=== PATIENT | male | born 1960 | race African-American/Black ===

== ENCOUNTER 2017-01-03 23:27 | Observation (INO) ==
[2017-01-03] MEDS ORDERED: *HR* HYDROmorphone (PF) 1 MG/ML SYRINGE IVP ONE (23:48)
[2017-01-03] MEDS ORDERED: Ondansetron 4 MG/2 ML VIAL IVP ONE (23:58)
--- NOTE | 2017-01-04 00:08 | Emergency Department Note ---
Disposition Clinical Impression: Elevated troponin Chest pain Qualifiers: Chest pain type: unspecified Qualified Code(s): R07.9 - Chest pain, unspecified Disposition: Admitted As Inpatient Condition: Good Referrals: Albina Olea MD [Primary Care Provider] - Forms: Work/School Release, ED Satisfaction Letter Chest Pain HPI - General Chief Complaint: ED Chest Pain Stated Complaint: increased pain post sx Time Seen by Provider: 01/03/17 23:29 Source: family Mode of arrival: wheelchair Limitations: no limitations Vital Signs Reviewed: Yes Nursing Notes Reviewed: Yes - History of Present Illness HPI Narrative: 56-year-old male presents to the ER with a chief complaint of chest pain. Pt complaint: chest pain Onset (ago): Just HAT LINER Duration: constant Onset: during rest Pain Location: right chest Severity: moderate Severity scale (1-10): 0 Quality: sharp Pain Radiation: RUE Improves with: nothing Worsens with: nothing Context: recent surgery (permacath placement 3 days ago) Associated symptoms: Reports: nausea, vomiting, diaphoresis, dyspnea. Denies: syncope, fever Treatments prior to arrival chest pain: none - Related Data On Oral Contraceptives: No Home Medications Medication Instructions Recorded Confirmed Cyclobenzaprine HCl 5 mg PO TID PRN 06/22/15 06/24/16 Furosemide [Lasix] 40 mg PO BID 06/22/15 06/24/16 Gabapentin [Neurontin] 600 - 1,200 mg PO TID 06/22/15 06/24/16 Insulin Glargine,Hum.rec.anlog 10 unit SQ HS 06/22/15 06/24/16 [Lantus Solostar] Sevelamer [Renvela] 4,000 mg PO TIDWM 06/22/15 06/24/16 Carvedilol [Coreg] 6.25 mg PO BID 07/03/15 06/16/16 Hydrocodone/Acetaminophen [[place] 1 tab PO TID PRN 07/03/15 06/24/16 10-325 Tablet] Atorvastatin [Lipitor] 40 mg PO HS 09/05/15 06/24/16 Aspirin 81 mg PO DAILY 06/24/16 06/24/16 Clopidogrel [Plavix] 75 mg PO DAILY 06/24/16 06/24/16 Loratadine [Claritin] 10 mg PO DAILY 06/24/16 06/24/16 Nitroglycerin [Nitrostat] 0.4 mg SL AD PRN 06/24/16 06/24/16 Previous Rx's Medication Instructions Recorded Prasugrel [Effient] 10 mg PO DAILY #30 tablet 06/27/15 Isosorbide MONOnitrate (24 HR) 30 mg PO DAILY #30 tab.er.24h 06/17/16 [Imdur] Ranolazine [Ranexa] 500 mg PO BID #60 tab.er.12h 06/17/16 Allergies Allergy/AdvReac Type Severity Reaction Status Date / Time omeprazole [From Prilosec] Allergy Mild Hives Verified 06/24/16 11:29 All systems ED: reviewed and negative except as stated. Constitutional: Denies: fever Cardiovascular: Reports: chest pain, dyspnea on exertion. Denies: palpitations Respiratory: Reports: dyspnea. Denies: cough Gastrointestinal: Reports: nausea, vomiting. Denies: abdominal pain Musculoskeletal: Reports: other (Left upper extremity pain). Denies: back pain , neck pain Chest Pain PMH - Past Medical History Medical history: Reports: coronary artery disease, diabetes, dialysis, GERD, hyperlipidemia, hypertension, renal disease, TIA Surgical history: Reports: angioplasty/stent, vascular surgery Psychiatric history: Reports: no psych history - Social History Smoking Status: Never smoker Alcohol use: Reports: rarely Drug use: Reports: none Physical Exam - General Limitations: no limitations General appearance: alert, anxious - Head Head exam: atraumatic, normocephalic, normal inspection - Eye Eye exam: Present: normal appearance - ENT ENT exam: normal exam - Neck Neck exam: Present: normal inspection - Chest Chest inspection: Present: normal inspection, symmetric chest wall rise, tenderness (Tenderness to palpation surrounding the permacath on the right chest. No erythema or induration surrounding.) - Respiratory Respiratory exam: Present: normal lung sounds bilaterally. Absent: respiratory distress, wheezes, accessory muscle use - Cardiovascular Cardiovascular exam: Present: regular rate, normal rhythm, normal heart sounds - Abdominal Exam Abdominal exam: Present: soft, Non-Tender. Absent: tenderness - Expanded Upper Extremity Exam Forearm/Wrist exam: Present: other (Patient has postsurgical scar on the left upper extremity with med in place. There is a moderate amount of swelling at the proximal aspect. Neurovascularly intact in the left upper extremity.) - Expanded Lower Extremity Exam Hip/Pelvis exam: Present: normal inspection Upper leg exam: Present: normal inspection Knee exam: Present: normal inspection Lower leg exam: Present: normal inspection Ankle exam: Present: normal inspection Foot/toe exam: Present: normal inspection - Neurological Exam Neurological exam: Present: alert - Psychiatric Psychiatric exam: Present: normal affect, normal mood - Skin Skin exam: Present: warm, dry, intact Course Course Narrative: 56-year-old male history of hypertension, hyperlipidemia, diabetes, CAD with stenting, end-stage renal disease dialysis dependent who presents to the ER with a chief complaint of chest pain. Patient reports pain began roughly 45 minutes prior to arrival. He states that they were moving furniture today but he was not active during this. He states he went home and started having pain over his right chest described as sharp and radiating into the center of his chest. He reports that 3 days ago he had the permacath placed there without incident. They have used the permacath since placement. He also reports left upper extremity pain at the site of the fistula. He reports that he has vomited several times prior to arrival. No recent illnesses, fevers, cough, abdominal pain, diarrhea. No other complaints. Plan for patient is EKG, chest x-ray, basic labs including troponin. We will give him Dilaudid here for pain and reassess. - Reevaluation(s) Reevaluation #1: Patient having worsening chest pain. Repeat EKG obtained which shows no changes from his previous. Another 0.5 mg of Dilaudid ordered. Time: 00:50 Reevaluation #2: Discussed results of lab work and imaging with the patient. Vital Signs Temperature 97.5 F L 01/03/17 23:30 Pulse Rate 65 01/03/17 23:30 Respiratory Rate 24 01/03/17 23:30 Blood Pressure 181/94 01/03/17 23:30 O2 Sat by Pulse Oximetry 99 01/03/17 23:30 Temperature 97.5 F L 01/03/17 23:30 Pulse Rate 71 01/04/17 01:41 Respiratory Rate 20 01/04/17 01:41 Blood Pressure 151/70 01/04/17 01:41 O2 Sat by Pulse Oximetry 97 01/04/17 01:41 Oxygen Delivery Oxygen Delivery Nasal Cannula Chest Pain - MDM Narrative Medical decision making narrative: 56-year-old male presents to the ER with a chief complaint of chest pain. His previous presentations for CAD were right sided as well. He did have a history of permacath placement 3 days ago however it has been used without issue and chest x-ray shows appropriate location. His EKG is unchanged from his previous. Lab work here shows a creatinine of 13, potassium of 5.7 and troponin of 0.04. He was given a total of 1.5 mg of Dilaudid here with improvement of his pain. He was also given 324 mg of aspirin. Patient will be admitted to the hospital for ACS rule out. Hospitalist requests a dose of Kayexalate for his hyperkalemia. - Lab Data Lab results reviewed: Yes I reviewed the patient's lab results. Result diagrams: 01/04/17 00:59 01/04/17 00:59 Lab Results 01/04/17 01/04/17 01/04/17 Range/Units 00:59 00:59 00:59 WBC 5.3 (4.3-11.1) K/mcL RBC 3.42 L (4.19-5.50) M/mcL Hgb 11.9 L (12.9-16.9) g/dL Hct 36.6 L (37.5-50.1) % MCV 107.0 H (83.0-100.0) fL MCH 34.8 H (28.0-33.3) pg MCHC 32.5 (31.6-35.5) g/dL RDW 14.7 H (11.5-14.5) % Plt Count 121 L (140-400) K/mcL MPV 10.1 (9.4-12.4) fL Immature Gran % 0.4 (0-4) % Seg Neutrophils % 72.5 % Lymphocytes % 16.0 % Monocytes % 9.2 % Eosinophils % 1.5 % Basophils % 0.4 % Neutrophils # 3.9 (1.6-8.9) K/mcL Lymphocytes # 0.9 (0.6-4.6) K/mcL Monocytes # 0.5 (0.0-1.3) K/mcL Eosinophils # 0.1 (0.0-0.6) K/mcL Basophils # 0.0 (0.0-0.2) K/mcL PT 10.2 (9.4-12.1) Seconds INR 1.0 APTT 27.7 (26.0-36.0) Seconds Sodium 138 (136-145) mEq/L Potassium 5.7 H (3.5-4.5) mEq/L Chloride 96 L (98-109) mEq/L Carbon Dioxide 23 (19-29) mEq/L BUN 58 H (8-26) mg/dL Creatinine 13.10 H (0.72-1.25) mg/dL Est GFR ( Amer) 5 L (> 60) Est GFR (Non-Af Amer) 4 L (> 60) BUN/Creatinine Ratio 4 L (6-26) Glucose 161 H (70-99) mg/dL Calculated Osmolality 306 H (280-300) Calcium 10.3 (8.6-10.8) mg/dL Troponin I (0-0.03) ng/mL 01/04/17 Range/Units 00:59 WBC (4.3-11.1) K/mcL RBC (4.19-5.50) M/mcL Hgb (12.9-16.9) g/dL Hct (37.5-50.1) % MCV (83.0-100.0) fL MCH (28.0-33.3) pg MCHC (31.6-35.5) g/dL RDW (11.5-14.5) % Plt Count (140-400) K/mcL MPV (9.4-12.4) fL Immature Gran % (0-4) % Seg Neutrophils % % Lymphocytes % % Monocytes % % Eosinophils % % Basophils % % Neutrophils # (1.6-8.9) K/mcL Lymphocytes # (0.6-4.6) K/mcL Monocytes # (0.0-1.3) K/mcL Eosinophils # (0.0-0.6) K/mcL Basophils # (0.0-0.2) K/mcL PT (9.4-12.1) Seconds INR APTT (26.0-36.0) Seconds Sodium (136-145) mEq/L Potassium (3.5-4.5) mEq/L Chloride (98-109) mEq/L Carbon Dioxide (19-29) mEq/L BUN (8-26) mg/dL Creatinine (0.72-1.25) mg/dL Est GFR ( Amer) (> 60) Est GFR (Non-Af Amer) (> 60) BUN/Creatinine Ratio (6-26) Glucose (70-99) mg/dL Calculated Osmolality (280-300) Calcium (8.6-10.8) mg/dL Troponin I 0.04 H* (0-0.03) ng/mL - Radiology Data Radiology results reviewed: Yes I reviewed the patient's radiology results. Chest X-Ray 01/04/17 00:01 IMPRESSION: 1. No acute cardiopulmonary abnormality. 2. New right dialysis catheter tip projects at the superior cavoatrial junction. D/ / Josh Carver MD / Josh Carver MD Interpreting Provider: Josh Carver MD - EKG Data EKG attestation: Yes I reviewed and interpreted this EKG. EKG results narrative: EKG shows sinus bradycardia with a rate of 57 bpm left axis deviation AR interval with her before QRS duration 108 QTc 423 T wave flattening in lead [address] elevations or depressions. No acute ischemic findings. No significant changes from previous EKG dated 12/23/16. Repeat EKG shows sinus rhythm with a rate of 62 bpm. Left axis deviation. AR interval 171 QRS duration 114 QTc 439 t elevations or depressions. No acute ischemic findings. No significant changes from previous EKG. EKG shows normal: sinus rhythm Rate: bradycardia Rhythm: NSR [place]/QRS: left axis deviation When compared to previous EKG there are: no significant changes Interpretation: no acute changes, normal EKG, nonspecific ST-T wave changes Heart Score - Score History: Moderately Suspicious EKG: Non Specific repolarisation Disturbance Age: 45-65 Risk Factors: Equal/Greater than 3 risk factor or history of atherosclerotic disease Troponin: 1-3x normal limit HEART Score Total: 6 S.B.A.R. - S.B.A.R. Situation: Demographics, MOA Background: Presenting Complaint, Relevant PMH, Meds, & Allergies Assessment: Vital Signs, Course and respsone to treatment, Exam Concerns, Patient/Family Expectation, Pertinant Lab Results, Outstanding Labs Recommendation: Barrier(s) to disposition, Recommendation based on pending studies, treatments, or consults Ash Report Given to: Dr. Margo Aleman Repor Time: 02:12 (Hospitalist requests a dose of Kayexylate)
[2017-01-04] MEDS ORDERED: *HR* HYDROmorphone (PF) 1 MG/ML SYRINGE IVP ONE ×2 (00:37→01:23)
[2017-01-04] MEDS ORDERED: *HR* Promethazine 25 MG/ML VIAL IVP ONE (00:42)
--- NOTE | 2017-01-04 00:50 | Emergency Department Note ---
START Narrative - START START: examined this patient and my medical decision-making was reviewed with the EMPLOYMENT INSTRUCTIONAL ASSOCIATE /PA/Advanced Practice Nurse/Resident Physician. I agree with the documented findings, disposition and treatment plan as described except to the extent set forth below. ED attending note: Patient seen with emergency medicine resident Dr. Calvo. Please see a copy of his note for details of the H&P, evaluation, management and disposition of this patient. We independently had [id number] contact with the patient Briefly: A 48-year-old -[place] male via EMS percent of left-sided chest pain 45 minutes prior to arrival. History of end-stage renal disease dialysis dependent. Has a permacath surgery on his left arm done at [facility] 72 hours ago. EKG shows nonspecific ST-T changes. Patient is getting analgesics to help control the pain x-rays and blood work are pending. Admission anticipated. Provided 45 minutes of critical care service this patient. Disposition pending
[2017-01-04 01:06] LABS: Basophils % 0.4 %; Eosinophils # 0.1 K/mcL (0.0-0.6); Eosinophils % 1.5 %; Hematocrit 36.6 % (37.5-50.1); Hemoglobin 11.9 g/dL (12.9-16.9); Immature Granulocytes % 0.4 % (0-4); Lymphocytes # 0.9 K/mcL (0.6-4.6); Mean Corpuscular HGB Conc 32.5 g/dL (31.6-35.5); Mean Corpuscular Hemoglobin 34.8 pg (28.0-33.3); Mean Platelet Volume 10.1 fL (9.4-12.4); Monocytes # 0.5 K/mcL (0.0-1.3); Monocytes % 9.2 %; Neutrophils # 3.9 K/mcL (1.6-8.9); Platelet Count 121 K/mcL (140-400); Red Blood Count 3.42 M/mcL (4.19-5.50); Red Cell Distribution Width 14.7 % (11.5-14.5); Segmented Neutrophils % 72.5 %
[2017-01-04 01:13] LABS: Prothrombin Time 10.2 Seconds (9.4-12.1)
[2017-01-04 01:15] LABS: Activated Partial Thrombo Time 27.7 Seconds (26.0-36.0)
[2017-01-04 01:41] LABS: Calcium 10.3 mg/dL (8.6-10.8); Potassium 5.7 mEq/L (3.5-4.5)
[2017-01-04] MEDS ORDERED: Aspirin 81 MG TAB.CHEW PO ONE (02:02)
[2017-01-04] MEDS ORDERED: *HR* HYDROcodone/Acet 10/325 mg TABLET PO PRN (04:03)
[2017-01-04] MEDS ORDERED: Ondansetron 4 MG/2 ML VIAL IVP PRN (04:06)
[2017-01-04] MEDS ORDERED: Naloxone 0.4 MG/ML INJ IVP PRN (04:06)
[2017-01-04] MEDS ORDERED: *HR* Dextrose 50 % in Water (Syg) 50 ML SYRINGE IVP PRN (04:06)
[2017-01-04] MEDS ORDERED: Acetaminophen 325 MG TABLET PO PRN (04:06)
[2017-01-04] MEDS ORDERED: D5% in Water 1,000 ML IV PRN (04:06)
[2017-01-04] MEDS ORDERED: Dextrose Gel 15 GM PO PRN ×2 (04:06)
--- NOTE | 2017-01-04 04:13 | Internal Med History&Physical ---
<Carley Goldberg - Last Filed: 01/04/17 04:47> Date of Encounter: 01/04/17 Time of Encounter: 04:13 Assessment and Plan (1) Vomiting Current visit: Yes Status: Acute most likely viral zofran PRN 6 AM labs Qualifiers: Vomiting type: unspecified Vomiting Intractability: non-intractable Nausea presence: with nausea Qualified Code(s): R11.2 - Nausea with vomiting, unspecified (2) Chest pain Current visit: No Status: Acute Patient states feels like gas pain, relieved with emesis. troponin 0.04 -trend troponins --Of note, [email or web address] was higher than 0.04 Qualifiers: Chest pain type: unspecified Qualified Code(s): R07.9 - Chest pain, unspecified (3) Hyperkalemia Current visit: No Status: Acute kayexalate given in ER repeat labs at 6 AM nephrology consult (4) ESRD (end stage renal disease) on dialysis Current visit: No Status: Acute nephrology consult K 5.7 in ER, kayexalate given, repeat labs at 6 AM M-W-F dialysis patient of Dr. Pickering (5) Diabetes Current visit: No Status: Chronic continue home dose lantus sliding scale, accuchecks Qualifiers: Diabetes mellitus type: type 2 Diabetes mellitus complication status: with ophthalmic complications Diabetes mellitus complication detail: with diabetic retinopathy Diabetic retinopathy severity: with proliferative retinopathy Proliferative retinopathy type: unspecified Diabetes mellitus residential insulin use: with residential use Laterality: unspecified laterality Qualified Code(s): E11.3599 - Type 2 diabetes mellitus with proliferative diabetic retinopathy without macular edema, unspecified eye; Z79.4 - longterm ( current) use of insulin (6) Hyperlipidemia Current visit: No Status: Chronic continue home medication Qualifiers: Hyperlipidemia type: unspecified Qualified Code(s): E78.5 - Hyperlipidemia , unspecified (7) Hypertension Current visit: No Status: Chronic continue home medication Qualifiers: Hypertension type: essential hypertension Qualified Code(s): I10 - Essential (primary) hypertension Internal Medicine - H&P: HPI Chief complaint: vomiting Admitted From: Emergency Dept Plans for Post Hospital Care: Home History of present illness: Mr. Monge is a 56 year old hypertensive diabetic with dialysis-dependent end- stage renal disease who started vomiting at approximately 6 PM. He vomited 5-6 times clear liquid to particles to bilious emesis. He had associated nausea. Around 10 PM he developed chest pain that he describes as gas-like. Chest pain is located in the right side of his chest. It does not radiate. This is the location of his tunnel catheter. His son urged him to go to the emergency room due to his pain and his recent tunnel catheter placement for dialysis due to his fistula failing. In the emergency room he was found to have a potassium of 5.7, troponin 0.04, and a creatinine of 13.1. He was admitted for further management. Past Med Surg Social Fam HX - Past Medical History Medical history: arthritis, coronary artery disease, diabetes, dialysis, GERD, hyperlipidemia, hypertension, renal disease, TIA Psychiatric history: no psych history - Past Surgical History Surgical History: angioplasty/stent, vascular surgery - Social History Smoking Status: Never smoker Smokeless Tobacco Status: No Alcohol use: none Drug use: none - Family History Father Hx Family Cardiac Disorders: Yes Hx Family Endocrine Disorder: Yes (DM) Mother Living Status: Hx Family Cardiac Disorders: Yes Hx Family Cancer: Yes Internal Medicine - H&P: Meds Furosemide [Lasix] 40 mg PO BID 06/22/15 [History] Gabapentin [Neurontin] 100 mg PO TID 06/22/15 [History] Insulin Glargine,Hum.rec.anlog [Lantus Solostar] 10 unit SQ HS 06/22/15 [History ] Sevelamer [Renvela] 3,200 mg PO TIDWM 06/22/15 [History] Carvedilol [Coreg] 25 mg PO BID 07/03/15 [History] Hydrocodone/Acetaminophen [[place] 10-325 Tablet] 1 tab PO TID PRN 07/03/15 [ History] Atorvastatin [Lipitor] 40 mg PO HS 09/05/15 [History] Clopidogrel [Plavix] 75 mg PO DAILY 06/24/16 [History] Nitroglycerin [Nitrostat] 0.4 mg SL AD PRN 06/24/16 [History] Cinacalcet [Sensipar] 30 mg PO DAILY 01/04/17 [History] Ergocalciferol (VITAMIN D2) [Drisdol (50,000 Unit)] 50,000 unit PO QWEEK [History] Fluticasone Propionate Nasal [Flonase] 2 spray NS DAILY 01/04/17 [History] Hydralazine HCl 100 mg PO TID 01/04/17 [History] Valsartan [Diovan] 160 mg PO DAILY 01/04/17 [History] Allergies omeprazole [From Prilosec] Allergy (Mild, Verified 06/24/16 11:29) Hives All Systems PM: A 10-system review of systems was performed and is negative for pertinent findings except as documented above in the HPI. - Constitutional Constitutional: no chills, no fever(s), no night sweats - EENT Eyes: blurry vision (chronic - has proliferative diabetic retinopathy), no change in vision, no discharge, no pain, no photophobia Ears: no ear discharge, no ear pain, no tinnitus Nose, mouth and throat: no dysphagia, no nasal discharge, no neck pain, no sore throat - Cardiovascular Cardiovascular ROS IM: chest pain ("like gas"), no diaphoresis, no dyspnea, no lightheadedness, no palpitations, no syncope - Respiratory Respiratory: no cough, no dyspnea, no wheezing, no excessive phlegm production - Gastrointestinal Gastrointestinal: nausea, vomiting, no abdominal pain, no diarrhea, no hematemesis, no hematochezia, no melena - Musculoskeletal Musculoskeletal ROS IM: no numbness, no tingling - Integumentary Integumentary IM: no rash, no unusual bruising - Neurological Neurological ROS: headache(s), no confusion, no convulsions, no focal weakness, no numbness, no tingling, no tremor(s) - Hematologic/Lymphatic Hematologic/Lymphatic: no easy bruising - Constitutional Vitals: Temp Pulse Resp BP Pulse Ox 98.9 F 69 18 161/77 97 01/04/17 03:19 01/04/17 03:19 01/04/17 03:19 01/04/17 03:19 01/04/17 01:41 General appearance: Present: A&O X 3, no acute distress, answers questions appropriately - Head Head exam: Present: atraumatic, normocephalic - Eye Eye exam: Present: PERRL, conjuntiva pink, sclera anicteric Pupils: Present: PERRL - Neck Neck exam general surgery: Present: supple, trachea midline. Absent: lymphadenopathy - Respiratory Respiratory exam: Present: CTAB. Absent: accessory muscle use, rales, rhonchi, wheezes - Cardiovascular Cardiovascular exam: Present: RRR, +S1, +S2. Absent: diastolic murmur, gallop, rubs, systolic murmur - GI/Abdominal GI/Abdominal exam: Present: normal bowel sounds, soft, no peritoneal signs. Absent: distended, tenderness - Extremities Exam Extremities exam: Present: warm, radial pulses palpable and symetrical. Absent : calf tenderness, cyanotic, pedal edema - Neurological Exam Neurological exam: Present: CN II-XII intact, oriented X3, no focal deficits. Absent: pronater drift, facial droop, speech deficit - Skin Skin exam: Present: dry, intact Internal Med - H&P Results - Labs CBC & Chem 7: 01/04/17 00:59 01/04/17 00:59 <Milind Augustine - Last Filed: 01/04/17 05:45> Date of Encounter: 01/04/17 - EENT Nose, mouth and throat: no nasal congestion, no sinus pressure, no sore throat - Musculoskeletal Musculoskeletal ROS IM: no muscle cramps, no myalgias - Psychiatric Psychiatric: no anxiety, no depression - Allergic/Immunologic Allergic/Immunologic: GI upset with certain foods, no wheezing - Constitutional Vitals: Temp Pulse Resp BP Pulse Ox 98.9 F 69 18 161/77 97 01/04/17 03:19 01/04/17 03:19 01/04/17 03:19 01/04/17 03:19 01/04/17 01:41 General appearance: Present: A&O X 3, no acute distress Exam: he appears dry/dehydrated - ENT ENT exam: Present: mucous membranes dry, normal exam, normal oropharynx - Neck Neck exam general surgery: Present: supple. Absent: tenderness - Respiratory Respiratory exam: Present: CTAB. Absent: chest wall tenderness, rales, rhonchi , wheezes - Cardiovascular Cardiovascular exam: Present: RRR, +S1, +S2 Additional comments: chest pain free - GI/Abdominal GI/Abdominal exam: Present: normal bowel sounds, soft. Absent: guarding, rebound, tenderness - Extremities Exam Extremities exam: Present: warm. Absent: calf tenderness, joint swelling - Back Exam Back exam: Present: normal inspection. Absent: CVA tenderness (L), CVA tenderness (R) - Neurological Exam Neurological exam: Present: no focal deficits - Psychiatric Psychiatric exam: Present: normal affect, normal mood - Skin Skin exam: Present: dry, warm. Absent: rash Internal Med - H&P Results - Labs CBC & Chem 7: 01/04/17 00:59 01/04/17 00:59 - EKG Data -: EKG Interpreted by Myself EKG shows normal: sinus rhythm Rate: bradycardia - EKG Data EKG comments: 01/04/17 05:35 Sinus bradycardia; no acute ST-T changes - Diagnostic Studies Chest x-ray Status: image reviewed by me (negative; dialysis catheter visualized) - Attending Attestation I discussed the patient [place], PMH, ROS, lab data, and exam findings with Dr. Goldberg. I then saw and examined patient independently as well. I agree with her assessment and plan except as detailed below. I don't feel he has had any chest pain or anginal symptoms at all. Patient confirms this as well. He looks dry and I requested Dr. Goldberg gingerly hydrate him with IVF. He may also have underlying gastroparesis. However, his symptom onset was abrupt and sounds viral in nature. Thus, I agree with her plan of care. If symptoms persist, consider nuclear gastric emptying scan and treating as such. Other than my comments noted above and exam findings, I agree with Dr. Goldberg's assessment and plan.
[2017-01-04] MEDS ORDERED: 0.9 % Sodium Chloride 1,000 ML IVC SCH (04:15)
[2017-01-04] MEDS ORDERED: hydrALAZINE 10 MG TABLET PO ONE (04:24)
[2017-01-04] MEDS: *HR* Heparin 5,000 UNIT/ML VIAL SQ SCH ×2 (06:14→15:22)
[2017-01-04] MEDS: Insulin LISPRO 300 UNITS/3 ML VIAL SQ SCH ×3 (06:15→17:33)
[2017-01-04 07:47] LABS: Basophils % 0.4 %; Eosinophils # 0.1 K/mcL (0.0-0.6); Eosinophils % 2.2 %; Hematocrit 35.8 % (37.5-50.1); Hemoglobin 11.5 g/dL (12.9-16.9); Immature Granulocytes % 0.2 % (0-4); Lymphocytes % 19.3 %; Mean Corpuscular HGB Conc 32.1 g/dL (31.6-35.5); Mean Corpuscular Hemoglobin 34.4 pg (28.0-33.3); Mean Corpuscular Volume 107.2 fL (83.0-100.0); Mean Platelet Volume 10.6 fL (9.4-12.4); Monocytes # 0.5 K/mcL (0.0-1.3); Monocytes % 10.3 %; Neutrophils # 3.4 K/mcL (1.6-8.9); Platelet Count 104 K/mcL (140-400); Red Blood Count 3.34 M/mcL (4.19-5.50); Red Cell Distribution Width 14.8 % (11.5-14.5); Segmented Neutrophils % 67.6 %
[2017-01-04 07:58] LABS: Phosphorous 8.8 mg/dL (2.3-4.7)
[2017-01-04 08:02] LABS: Albumin 3.2 g/dL (3.5-5.0); Albumin/Globulin Ratio 0.9 (1.1-2.2); Bilirubin,Total 0.5 mg/dL (0.2-1.2); Calcium 9.7 mg/dL (8.6-10.8); Globulin 3.5 g/dL (2.4-3.5); Potassium 5.5 mEq/L (3.5-4.5); Total Protein 6.7 g/dL (6.0-8.3)
[2017-01-04] MEDS: Gabapentin 100 MG CAPSULE PO SCH ×2 (08:19→15:21)
[2017-01-04] MEDS ORDERED: NON-FORMULARY MEDICATION 1 EACH EACH (Omeprazole [Omeprazole] 20 MG) PO SCH (09:00)
[2017-01-04] MEDS ORDERED: Furosemide 40 MG TABLET PO SCH (09:00)
[2017-01-04] MEDS ORDERED: Valsartan 160 MG TABLET PO SCH (09:00)
[2017-01-04] MEDS: hydrALAZINE 25 MG TABLET PO SCH ×2 (09:44→15:21)
--- NOTE | 2017-01-04 09:57 | Nephrology Consult Note ---
Date of Encounter: 01/04/17 Time of Encounter: 08:40 Assessment and Plan (1) ESRD (end stage renal disease) on dialysis Status: Chronic Today on Thursday, he does not need urgent HD. Will plan for HD tomorrow (Thursday), if he remains inpatient. Low K+ diet was advised as is a low Phos diet. Okay from a nephrology perspective to discharge If he were to stay overnight, then stop the IVF to reduce the risks for XS intradialytic weight gain. (2) Vomiting Status: Acute Improving Qualifiers: Vomiting type: unspecified Vomiting Intractability: non-intractable Nausea presence: with nausea Qualified Code(s): R11.2 - Nausea with vomiting, unspecified (3) Hyperkalemia Status: Chronic See above (4) Hypertension Status: Chronic BPs controlled Qualifiers: Hypertension type: essential hypertension Qualified Code(s): I10 - Essential (primary) hypertension History of Present Illness - Reason for Consult Consult date: 01/04/17 end stage renal disease Requesting physician: Milind Augustine - Chief Complaint N/V, ESRD patient - History of Present Illness Man Monge is a very pleasant AAM with a pmh of HTN, obesity, ESRD on HD M/W/F , SHPT and et al who presented with a few days onset of N/V s/p surgery on his UE AVF. He also required placement of an Permacath. On the morning of exam, he said that his N/V had resolved and he was keeping down his food and liquids. He did not affirm CP, dyspnea, F/C, dysuria. He last attending HD on Thursday. Past Med Surg Social Fam HX - Past Medical History Medical history: arthritis, coronary artery disease, diabetes, dialysis, GERD, hyperlipidemia, hypertension, renal disease, TIA Psychiatric history: no psych history - Past Surgical History Surgical History: angioplasty/stent, vascular surgery - Social History Smoking Status: Never smoker Smokeless Tobacco Status: No Alcohol use: none Drug use: none - Family History Father Hx Family Cardiac Disorders: Yes Hx Family Endocrine Disorder: Yes (DM) Mother Living Status: Hx Family Cardiac Disorders: Yes Hx Family Cancer: Yes Medications and Allergies Furosemide [Lasix] 40 mg PO BID 06/22/15 [History] Gabapentin [Neurontin] 100 mg PO TID 06/22/15 [History] Insulin Glargine,Hum.rec.anlog [Lantus Solostar] 10 unit SQ HS 06/22/15 [History ] Sevelamer [Renvela] 3,200 mg PO TIDWM 06/22/15 [History] Carvedilol [Coreg] 12.5 mg PO BID 07/03/15 [History] Atorvastatin [Lipitor] 40 mg PO HS 09/05/15 [History] Clopidogrel [Plavix] 75 mg PO DAILY 06/24/16 [History] Nitroglycerin [Nitrostat] 0.4 mg SL AD PRN 06/24/16 [History] Amlodipine [Norvasc] 10 mg PO DAILY 01/04/17 [History] Cinacalcet [Sensipar] 30 mg PO DAILY 01/04/17 [History] Ergocalciferol (VITAMIN D2) [Drisdol (50,000 Unit)] 50,000 unit PO QWEEK [History] Fluticasone Propionate Nasal [Flonase] 100 mcg NS DAILY 01/04/17 [History] Gabapentin [Neurontin] 600 - 1,200 mg PO Q8H PRN 01/04/17 [History] HYDROcodone/Acet 10/325 mg [[place] 10-325 mg] 1 each PO BID PRN #10 tablet [Rx] Hydralazine HCl 100 mg PO TID 01/04/17 [History] Omeprazole [PriLOSEC] 20 mg PO DAILY 01/04/17 [History] Vitamin B Complex [B Complex] 1 tab PO DAILY 01/04/17 [History] Allergies omeprazole [From Prilosec] Allergy (Mild, Verified 06/24/16 11:29) Hives Review of Systems All Systems: reviewed and no additional remarkable complaints except as stated Exam - Vital Signs Vital signs: Initial Vital Signs Temp Pulse Resp BP Pulse Ox 97.5 F L 65 24 181/94 99 01/03/17 23:30 01/03/17 23:30 01/03/17 23:30 01/03/17 23:30 01/03/17 23:30 Vital Signs - Last 8 Hours Temp Pulse Resp BP Pulse Ox 01/04/17 08:18 93 L 01/04/17 08:16 97.4 F L 61 18 162/75 93 L 01/04/17 03:19 98.9 F 69 18 161/77 01/04/17 02:30 18 176/75 Intake and Output 01/03/17 01/04/17 01/04/17 23:59 07:59 15:59 Intake Total 0 / 0 Output Total 0 / 0 Balance 0 / 0 Intake: Oral 0 / 0 Output: Urine 0 / 0 Other: Weight 132.5 kg Blood Glucose* 123 Patient Weight 01/04/17 23:59 Weight 132.5 kg - General Appearance General appearance: well-developed, well-nourished, appears started age, obese EENT: ATNC, PERRL, mucous membranes moist Neck: no JVD, supple Respiratory: clear Cardiology: no murmurs, edema (trace pedal edema), regular rate, regular rhythm , normal S1, normal S2 - Dialysis Access Dialysis Vascular Access: Arteriovenous Fistula (Left forearm thick dressing was C/D/I and prevented close palpation or auscultation. Right chest Permacath) Gastrointestinal: normoactive bowel sounds, no tenderness, no guarding Integumentary: warm and dry Neurologic: no focal deficit, no asterixis, alert and oriented x3 Musculoskeletal: no deformities, no erythema, no cyanosis Psychiatric: mood/affect appropriate, cooperative Results - Lab Results 01/04/17 06:59 01/04/17 06:59 Most recent lab results Calcium 9.7 mg/dL (8.6-10.8) 01/04/17 06:59 Phosphorus 8.8 mg/dL (2.3-4.7) H 01/04/17 06:59 Magnesium 3.0 mg/dL (1.6-2.6) H 01/04/17 06:59 I reviewed the above labs, meds, vitals, imaging and outside medical records from [facility] ([facility] [place]). Consult Discharge Plan - Plan Instructions: Hydrocodone/Acetaminophen (By mouth), Chest Pain (DC), Diabetes Mellitus Type 2 in Adults (DC), Chronic Hypertension (DC) Additional Instructions: Do not take your home medication: VALSARTAN (DIOVAN) until you see your kidney doctor. check your BP daily check your blood sugar when you wake up and before bedtime and if less than 150 , do not take you Lantus. follow up with your doctor and bring numbers of blood sugar to the appt. talk to your doctor about losing weight. Referrals: Albina Olea MD [Primary Care Provider] - (Requested 01-04-17) Prescriptions: HYDROcodone/Acet 10/325 mg [Al[place] 10-325 mg] 1 each PO BID PRN #10 tablet PRN Reason: Pain
[2017-01-04 15:40] VITALS: BP 163/88
--- NOTE | 2017-01-04 17:18 | Discharge Summary ---
Date of Encounter: 01/04/17 Time of Encounter: 16:00 - Discharge Diagnosis (1) Vomiting Priority: Primary Status: Acute Comments: Viral gastroenteritis. Resolved. Patient is eating well. He has no complaints. His aortic to go home. Qualifiers: Vomiting type: unspecified Vomiting Intractability: non-intractable Nausea presence: with nausea Qualified Code(s): R11.2 - Nausea with vomiting, unspecified (2) Dehydration Priority: Primary Status: Acute Comments: Patient received gentle IV fluid hydration. He ate all his meal (3) Hyperkalemia Priority: Primary Status: Chronic Comments: Potassium at 5.5. Patient with end-stage renal disease. hOld home dose of valsartan. Continue dialysis as scheduled. (4) Diabetes Priority: Secondary Status: Chronic Qualifiers: Diabetes mellitus type: type 2 Diabetes mellitus complication status: with ophthalmic complications Diabetes mellitus complication detail: with diabetic retinopathy Diabetic retinopathy severity: with proliferative retinopathy Proliferative retinopathy type: unspecified Diabetes mellitus intermodal customer service insulin use: with snf use Laterality: unspecified laterality Qualified Code(s): E11.3599 - Type 2 diabetes mellitus with proliferative diabetic retinopathy without macular edema, unspecified eye; Z79.4 - medical terminologist ( current) use of insulin (5) ESRD (end stage renal disease) on dialysis Priority: Secondary Status: Chronic (6) HTN (hypertension) Priority: Secondary Status: Chronic Qualifiers: Hypertension type: essential hypertension Qualified Code(s): I10 - Essential (primary) hypertension - Discharge Medications Prescriptions: HYDROcodone/Acet 10/325 mg [[place] 10-325 mg] 1 each PO BID PRN #10 tablet PRN Reason: Pain Home Medications: Furosemide [Lasix] 40 mg PO BID 06/22/15 [History] Gabapentin [Neurontin] 100 mg PO TID 06/22/15 [History] Insulin Glargine,Hum.rec.anlog [Lantus Solostar] 10 unit SQ HS 06/22/15 [History ] Sevelamer [Renvela] 3,200 mg PO TIDWM 06/22/15 [History] Carvedilol [Coreg] 12.5 mg PO BID 07/03/15 [History] Atorvastatin [Lipitor] 40 mg PO HS 09/05/15 [History] Clopidogrel [Plavix] 75 mg PO DAILY 06/24/16 [History] Nitroglycerin [Nitrostat] 0.4 mg SL AD PRN 06/24/16 [History] Amlodipine [Norvasc] 10 mg PO DAILY 01/04/17 [History] Cinacalcet [Sensipar] 30 mg PO DAILY 01/04/17 [History] Ergocalciferol (VITAMIN D2) [Drisdol (50,000 Unit)] 50,000 unit PO QWEEK [History] Fluticasone Propionate Nasal [Flonase] 100 mcg NS DAILY 01/04/17 [History] Gabapentin [Neurontin] 600 - 1,200 mg PO Q8H PRN 01/04/17 [History] HYDROcodone/Acet 10/325 mg [[place] 10-325 mg] 1 each PO BID PRN #10 tablet [Rx] Hydralazine HCl 100 mg PO TID 01/04/17 [History] Omeprazole [PriLOSEC] 20 mg PO DAILY 01/04/17 [History] Vitamin B Complex [B Complex] 1 tab PO DAILY 01/04/17 [History] Allergies/Adverse Reactions: Allergies omeprazole [From Prilosec] Allergy (Mild, Verified 06/24/16 11:29) Hives Date of admission: 01/04/17 02:11 Primary care physician: Albina Olea, Consults: 01/04/17 04:35 Consult to Nephrology [CONS] Routine Consulting Provider: Kidney Maritza/LUZMA/RAYSHAWN/HELLEN Reason for Consult: Dialysis dependent ESRD (M-W-F); K 5.7 in ER - Kayexalate given, repeat labs at 6 AM Call Completed: No - Patient Status Disposition: Home, Self-Care Condition: Good Functional capacity at discharge: independent ambulation Overall status at discharge: patient is progressing back to baseline - Discharge Instructions Follow Up With: Albina Olea MD [Primary Care Provider] - (Requested 01-04-17) Additional Instructions: Do not take your home medication: VALSARTAN (DIOVAN) until you see your kidney doctor. check your BP daily check your blood sugar when you wake up and before bedtime and if less than 150 , do not take you Lantus. follow up with your doctor and bring numbers of blood sugar to the appt. talk to your doctor about losing weight. - Diet and Activity Activity: resume usual activities as tolerated Diet: diabetic diet, low fat, low cholesterol, low salt diet, other (Renal) Interval History: Patient is eating well. No vomiting. His ER to go home. Hospital course: Mr. Monge is a 56 year old male with past medical history of end-stage renal disease on hemodialysis, CAD, diabetes, hypertension, CAD, and obesity. He presented with vomiting. Patient was admitted for viral gastroenteritis and dehydration. He received IV fluids and antiemetics with clinical resolution of his symptoms. At discharge, patient was eating and ambulating well. He did not meet criteria for oxygen at home. His potassium was mildly elevated at 5.5 , his pulse ox was held. He will follow up with his die cut operator at the dialysis clinic tomorrow. PLAN: Check blood pressure daily. Check blood sugars twice daily. Follow-up with ECP for weight loss program, diabetes management. Follow-up in the dialysis clinic as scheduled. - Time Spent with Patient Total time spent providing and/or coordinating discharge services: - Constitutional Vitals: Temp Pulse Resp BP Pulse Ox 97.8 F 84 18 163/88 94 L 01/04/17 15:39 01/04/17 15:39 01/04/17 15:39 01/04/17 15:39 01/04/17 16:55 General appearance: Present: A&O X 3, no acute distress
[2017-01-04] MEDS ORDERED: amLODIPine 5 MG TABLET PO SCH (17:30)
[2017-01-04] MEDS ORDERED: Insulin DETEMIR 100 UNIT/ML X5UNITS SQ SCH (21:00)
--- NOTE | 2017-01-05 14:58 | Electrocardiograph Report ---
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
--- NOTE | 2017-01-05 15:03 | Electrocardiograph Report ---
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
== END 2017-01-04 18:11 | disposition home or self-care (01) ==
LOC: EMEROO 23:27 → 2ANU 23:27
PROVIDERS: ADMIT Internal Medicine; ATTEND Internal Medicine

== ENCOUNTER 2017-01-28 20:30 | Observation (INO) ==
[2017-01-28] MEDS ORDERED: 0.9 % Sodium Chloride 1,000 ML IVC ONE (20:43)
[2017-01-28 20:52] LABS: Basophils % 0.6 %; Eosinophils # 0.1 K/mcL (0.0-0.6); Hemoglobin 13.6 g/dL (12.9-16.9); Immature Granulocytes % 0.6 % (0-4); Lymphocytes # 0.8 K/mcL (0.6-4.6); Lymphocytes % 22.3 %; Mean Corpuscular HGB Conc 32.4 g/dL (31.6-35.5); Mean Corpuscular Hemoglobin 34.8 pg (28.0-33.3); Mean Corpuscular Volume 107.4 fL (83.0-100.0); Mean Platelet Volume 10.6 fL (9.4-12.4); Monocytes # 0.4 K/mcL (0.0-1.3); Monocytes % 11.6 %; Neutrophils # 2.3 K/mcL (1.6-8.9); Platelet Count 110 K/mcL (140-400); Red Blood Count 3.91 M/mcL (4.19-5.50); Red Cell Distribution Width 16.5 % (11.5-14.5); Segmented Neutrophils % 61.9 %
[2017-01-28 20:56] LABS: Prothrombin Time 10.6 Seconds (9.4-12.1)
[2017-01-28 21:03] LABS: Alanine Aminotransferase 18 Units/L (0-55); Albumin 3.6 g/dL (3.5-5.0); Albumin/Globulin Ratio 0.9 (1.1-2.2); Alkaline Phosphatase 76 Units/L (38-126); Aspartate Amino Transferase 29 Units/L (5-34); BUN/Creatinine Ratio 3 (6-26); Bilirubin,Direct 0.3 mg/dL (0.0-0.5); Bilirubin,Indirect 0.5 mg/dL (0.0-1.2); Bilirubin,Total 0.8 mg/dL (0.2-1.2); Blood Urea Nitrogen 36 mg/dL (8-26); Calcium 9.9 mg/dL (8.6-10.8); Carbon Dioxide 28 mEq/L (19-29); Chloride 93 mEq/L (98-109); Glucose 265 mg/dL (70-99); Osmolality,Calculated 304 (280-300); Sodium 138 mEq/L (136-145); Total Protein 7.6 g/dL (6.0-8.3); eGFR For African Americans 6 (> 60); eGFR For Non-African Americans 5 (> 60)
[2017-01-28 21:04] LABS: Ethanol < 10 mg/dL (0-10); Potassium 4.9 mEq/L (3.5-4.5)
[2017-01-28] MEDS ORDERED: *HR* FentaNYL (PF) 100 MCG/2 ML VIAL IVP ONE ×2 (21:14→23:06)
--- NOTE | 2017-01-28 22:11 | Emergency Department Note ---
Disposition Clinical Impression: Dehydration Altered mental status Qualifiers: Altered mental status type: stupor Qualified Code(s): R40.1 - Stupor Dialysis complication Qualifiers: Encounter type: initial encounter Qualified Code(s): T82.898A - Other specified complication of vascular prosthetic devices, implants and grafts, initial encounter Disposition: Admitted As Inpatient Condition: Fair Time of Disposition: 00:19 Altered Mental Status HPI - General Chief Complaint: ED General Medical Stated Complaint: unresponsive Time Seen by Provider: 01/28/17 20:42 Source: patient, family, EMS Limitations: no limitations Nursing Notes Reviewed: Yes Vital Signs Reviewed: Yes - History of Present Illness HPI Narrative: Patient presents emergency room by EMS for evaluation of altered mental status. The local police officers pulled him over on his way to work.. He has known dialysis and is receiving hemodialysis this morning. Patient is going into [facility]. Had acute onset of altered mental status somnolence. He has never had any like this before. Family does describe that he does have issues with somnolence after having his dialysis was never been this bad. Patient presented by EMS with stable vital signs. Heart rate was normal. Blood pressure was elevated in the 160-170 systolic range. Head is atraumatic. Pupils are equal and reactive to light. Glucose was checked in transit at 250. IV access was obtained immediately on presentation. Fluids ordered. 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 Pain Severity: moderate Context: history of similar presentation, other (Patient is a dialysis regiment on Thursday) Associated symptoms: Reports: malaise, nausea/vomiting - Related Data Home Medications Medication Instructions Recorded Confirmed Furosemide [Lasix] 40 mg PO BID 06/22/15 01/29/17 Insulin Glargine,Hum.rec.anlog 10 unit SQ HS 06/22/15 01/29/17 [Lantus Solostar] Sevelamer [Renvela] 3,200 mg PO TIDWM 06/22/15 01/29/17 Carvedilol [Coreg] 12.5 mg PO BID 07/03/15 01/29/17 Atorvastatin [Lipitor] 40 mg PO HS 09/05/15 01/29/17 Clopidogrel [Plavix] 75 mg PO DAILY 06/24/16 01/29/17 Nitroglycerin [Nitrostat] 0.4 mg SL AD PRN 06/24/16 01/29/17 Amlodipine [Norvasc] 10 mg PO DAILY 01/04/17 01/29/17 Cinacalcet [Sensipar] 30 mg PO DAILY 01/04/17 01/29/17 Ergocalciferol (VITAMIN D2) 50,000 unit PO QWEEK 01/04/17 01/29/17 [Drisdol (50,000 Unit)] Fluticasone Propionate Nasal 100 mcg NS DAILY 01/04/17 01/29/17 [Flonase] Gabapentin [Neurontin] 600 - 1,200 mg PO Q8H PRN 01/04/17 01/29/17 Hydralazine HCl 100 mg PO TID 01/04/17 01/29/17 Omeprazole [PriLOSEC] 20 mg PO DAILY 01/04/17 01/29/17 Vitamin B Complex [B Complex] 1 tab PO DAILY 01/04/17 01/29/17 Previous Rx's Medication Instructions Recorded HYDROcodone/Acet 10/325 mg [[place] 1 each PO BID PRN #10 tablet 01/04/17 10-325 mg] Allergies Allergy/AdvReac Type Severity Reaction Status Date / Time omeprazole [From Prilosec] Allergy Mild Hives Verified 01/05/17 23:39 All systems ED: reviewed and negative except as stated. Constitutional: Denies: fever, chills Respiratory: Denies: cough, dyspnea, wheezes, hemoptysis Gastrointestinal: Reports: nausea. Denies: abdominal pain, vomiting Neurological: Reports: weakness Past Medical History - Past Medical History Attestation: Yes The following information was validated with the patient. Source: patient Medical history: Reports: arthritis, coronary artery disease, diabetes, dialysis , GERD, hyperlipidemia, hypertension, renal disease, TIA Surgical history: Reports: angioplasty/stent, vascular surgery Psychiatric history: Reports: no psych history - Social History Smoking Status: Never smoker Smokeless Tobacco Status: No Alcohol use: Reports: none Drug use: Reports: none Physical Exam - General Limitations: no limitations General appearance: in no apparent distress, lethargic - Head Head exam: atraumatic, normocephalic, normal inspection - Eye Eye exam: Present: normal appearance, PERRL, EOMI. Absent: scleral icterus, conjunctival injection, nystagmus, miosis, mydriasis - ENT ENT exam: normal exam, normal oropharynx, other (Patient's mucous membranes appear to be dry lips are cracked.) - Neck Neck exam: Present: normal inspection, full ROM, trachea midline - Respiratory Respiratory exam: Present: normal lung sounds bilaterally - Cardiovascular Cardiovascular exam: Present: regular rate, normal rhythm, normal heart sounds - Abdominal Exam Abdominal exam: Present: soft, Non-Tender. Absent: tenderness, distention, guarding, rebound, rigidity - Extremities Exam Extremities exam: Present: normal inspection, full ROM, normal capillary refill. Absent: tenderness, pedal edema - Back Exam Back exam: Present: normal inspection - Neurological Exam Neurological exam: Present: alert, oriented X3, CN II-XII intact - Skin Skin exam: Present: warm, dry, intact, normal color Course Course Narrative: Patient seen and examined the time of arrival here to the emergency room. See history of present illness. 56-year-old male presents after being pulled over by the police today for sporadic driving. He is found to be acutely altered at that time. They called the ambulance to bring him in. Patient is known to be on dialysis. He has dialysis every Thursday. He is cared for by Dr. Pickering. He had dialysis this morning and from what he describes it was his normal treatment. Patient is alert and oriented on presentation Accu-Chek and transit was 2:30. Vital signs stable except for persistent hypertension. Patient is mentating but does appear to be slightly somnolent on initial triage evaluation. Head is atraumatic. Pupils are equal round reactive to light. Mucous membranes appear to be dry and cracked. Heart is regular lungs are clear. Abdomen is soft nontender nondistended. Moves all 4 extremities no acute signs of strokelike symptoms. Patient speaks in full sentences and answers questions. He has had a history of TIAs as well as renal dysfunction. No acute signs of infectious etiology on initial presentation patient is concerning for some disequilibrium is syndrome over issues related to his dialysis. IV access obtained. EKG ordered. Labs including chemistry electrolytes added on immediately. Initial rhythm on the monitor shows sinus rhythm with no acute signs of T-wave elevation patient to have CT imaging of the head labs EKG urinalysis ordered this time. Mentation is at baseline. No acute signs of strokelike symptom at this point. Patient is at baseline except for he does feel tired. Family is at the bedside and they said that he has gotten this way several times in the past after having his dialysis. This is the worst is ever been according to them. No medication changes no other acute medical issues at this time. Disposition will most likely be admission to the hospital rotation is otherwise stable at this time. - Reevaluation(s) Reevaluation #1: CT imaging of the head was negative for acute intracranial pathology. The patient has persistently been elevated. Labetalol and pain medication ordered at this time. Disposition pending workup laboratory workup Time: 23:49 Reevaluation #2: Patient was discussed with the hospitalist Dr. Patel. We reviewed the patient 's presentation medical history and symptom presentation. He is happy to bring the patient for further evaluation of altered mental status and dialysis. Unknown etiology specifically at this time. Concern is noted for disequilibrium syndrome and dehydration. No other recommendations from hospitals prior to admission being completed. Patient stable resting comfortably in the bed. We will continue monitoring in emergency room until the admission process is completed Time: 00:18 Vital Signs Temperature 98.4 F 01/28/17 20:34 Pulse Rate 79 01/28/17 20:34 Respiratory Rate 16 01/28/17 20:34 Blood Pressure 170/99 01/28/17 20:34 O2 Sat by Pulse Oximetry 99 01/28/17 20:34 Temperature 98.3 F 01/29/17 01:00 Pulse Rate 76 01/29/17 01:00 Respiratory Rate 18 01/29/17 01:00 Blood Pressure 144/90 01/29/17 01:00 O2 Sat by Pulse Oximetry 98 01/29/17 01:00 Oxygen Delivery Oxygen Delivery Nasal Cannula Altered Mental Status - MDM Narrative Medical decision making narrative: Mental status, generalized malaise - Medical Records Medical records reviewed: Yes I reviewed the patient's medical records. - Lab Data Lab results reviewed: Yes I reviewed the patient's lab results. Result diagrams: 01/28/17 20:35 01/28/17 20:35 Lab Results 01/28/17 01/28/17 01/28/17 Range/Units 20:35 20:35 20:35 WBC 3.6 L (4.3-11.1) K/mcL RBC 3.91 L (4.19-5.50) M/mcL Hgb 13.6 (12.9-16.9) g/dL Hct 42.0 (37.5-50.1) % MCV 107.4 H (83.0-100.0) fL MCH 34.8 H (28.0-33.3) pg MCHC 32.4 (31.6-35.5) g/dL RDW 16.5 H (11.5-14.5) % Plt Count 110 L (140-400) K/mcL MPV 10.6 (9.4-12.4) fL Immature Gran % 0.6 (0-4) % Seg Neutrophils % 61.9 % Lymphocytes % 22.3 % Monocytes % 11.6 % Eosinophils % 3.0 % Basophils % 0.6 % Neutrophils # 2.3 (1.6-8.9) K/mcL Lymphocytes # 0.8 (0.6-4.6) K/mcL Monocytes # 0.4 (0.0-1.3) K/mcL Eosinophils # 0.1 (0.0-0.6) K/mcL Basophils # 0.0 (0.0-0.2) K/mcL PT 10.6 (9.4-12.1) Seconds INR 1.0 APTT 29.0 (26.0-36.0) Seconds Sodium 138 (136-145) mEq/L Potassium 4.9 H (3.5-4.5) mEq/L Chloride 93 L (98-109) mEq/L Carbon Dioxide 28 (19-29) mEq/L BUN 36 H (8-26) mg/dL Creatinine 10.59 H (0.72-1.25) mg/dL Est GFR ( Amer) 6 L (> 60) Est GFR (Non-Af Amer) 5 L (> 60) BUN/Creatinine Ratio 3 L (6-26) Glucose 265 H (70-99) mg/dL POC Glucose (58-89) Calculated Osmolality 304 H (280-300) Calcium 9.9 (8.6-10.8) mg/dL Total Bilirubin 0.8 (0.2-1.2) mg/dL Direct Bilirubin 0.3 (0.0-0.5) mg/dL Indirect Bilirubin 0.5 (0.0-1.2) mg/dL AST 29 (5-34) Units/L ALT 18 (0-55) Units/L Alkaline Phosphatase 76 (38-126) Units/L Troponin I (0-0.03) ng/mL Serum Total Protein 7.6 (6.0-8.3) g/dL Albumin 3.6 (3.5-5.0) g/dL Globulin 4.0 H (2.4-3.5) g/dL Albumin/Globulin Ratio 0.9 L (1.1-2.2) Ethyl Alcohol < 10 (0-10) mg/dL 01/28/17 01/28/17 Range/Units 20:35 20:51 WBC (4.3-11.1) K/mcL RBC (4.19-5.50) M/mcL Hgb (12.9-16.9) g/dL Hct (37.5-50.1) % MCV (83.0-100.0) fL MCH (28.0-33.3) pg MCHC (31.6-35.5) g/dL RDW (11.5-14.5) % Plt Count (140-400) K/mcL MPV (9.4-12.4) fL Immature Gran % (0-4) % Seg Neutrophils % % Lymphocytes % % Monocytes % % Eosinophils % % Basophils % % Neutrophils # (1.6-8.9) K/mcL Lymphocytes # (0.6-4.6) K/mcL Monocytes # (0.0-1.3) K/mcL Eosinophils # (0.0-0.6) K/mcL Basophils # (0.0-0.2) K/mcL PT (9.4-12.1) Seconds INR APTT (26.0-36.0) Seconds Sodium (136-145) mEq/L Potassium (3.5-4.5) mEq/L Chloride (98-109) mEq/L Carbon Dioxide (19-29) mEq/L BUN (8-26) mg/dL Creatinine (0.72-1.25) mg/dL Est GFR ( Amer) (> 60) Est GFR (Non-Af Amer) (> 60) BUN/Creatinine Ratio (6-26) Glucose (70-99) mg/dL POC Glucose 303 H (58-89) Calculated Osmolality (280-300) Calcium (8.6-10.8) mg/dL Total Bilirubin (0.2-1.2) mg/dL Direct Bilirubin (0.0-0.5) mg/dL Indirect Bilirubin (0.0-1.2) mg/dL AST (5-34) Units/L ALT (0-55) Units/L Alkaline Phosphatase (38-126) Units/L Troponin I 0.05 H* (0-0.03) ng/mL Serum Total Protein (6.0-8.3) g/dL Albumin (3.5-5.0) g/dL Globulin (2.4-3.5) g/dL Albumin/Globulin Ratio (1.1-2.2) Ethyl Alcohol (0-10) mg/dL - Radiology Data Radiology results reviewed: Yes I reviewed the patient's radiology results. CT head is negative for acute pathology. Chest x-ray does not show any acute pulmonary infiltrate. CT imaging of the abdomen is negative for acute intra- abdominal pathology - EKG Data EKG attestation: Yes I reviewed and interpreted this EKG. 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 56-year-old male brought in by EMS after pulled over by police for erratic driving. Patient is somnolent and fatigued with altered mental status. Patient is oriented to self and is able to provide some history however he is unable to have a full discussion regarding his symptoms. Family is present in the room and states that this is happened multiple times in the past. Patient receives dialysis Thursday, Thursday, Thursday and had his last session this morning. Patient denies recent trauma. Denies changing his medications. Patient denies fever, chills, headache. Patient reports multiple episodes of emesis over the past few days. Laboratory results reveal a leukopenia and thrombocytopenia. Patient has an elevated troponin however this is at his baseline. Head CT was negative for intracranial hemorrhage or mass. CT of the abdomen and pelvis was negative for acute surgical pathology. Patient will be admitted to the hospital for further care and evaluation of his altered mental status. It is likely that the patient's symptoms are secondary to or related to his dialysis this morning. Patient's blood pressure continued to be elevated in the emergency department. He was given one IV dose of labetalol with improvement of his blood pressure. Patient states his blood pressure is often elevated however with his altered mental status the PRES would need to be considered, however his CT does not show evidence of inflammation of the cerebellum or other cranial pathology.
[2017-01-28] MEDS ORDERED: *HR* Labetalol 20 MG/4 ML SYRINGE IVP ONE (23:05)
[2017-01-29] MEDS ORDERED: *HR* Dextrose 50 % in Water (Syg) 50 ML SYRINGE ONE (03:33)
--- NOTE | 2017-01-29 04:03 | Internal Med History&Physical ---
Date of Encounter: 01/29/17 Time of Encounter: 03:49 Assessment and Plan (1) Altered mental status Current visit: No Status: Resolved Altered mental status likely multifactorial, secondary to a combination of hypoglycemia, uremia, bicarb 28, might also have a component of metabolic alkalosis, we will continue monitoring fingerstick and deep dextrose as needed. Start by mouth diet. Avoid insulin therapy and oral antidiabetic medications. Neuro checks. DVT prophylaxis. GI prophylaxis. Resume home medications. Evaluation by nephrology for continuity of hemodialysis and further recommendations. Mild elevation of cardiac biomarkers in of absence of chest pain, this elevation is chronic. No acute interventions at this point. Qualifiers: Altered mental status type: unspecified Qualified Code(s): R41.82 - Altered mental status, unspecified (2) ESRD (end stage renal disease) Current visit: No Status: Chronic (3) HTN (hypertension) Current visit: No Status: Chronic Qualifiers: Hypertension type: essential hypertension Qualified Code(s): I10 - Essential (primary) hypertension (4) Diabetes Current visit: No Status: Chronic Qualifiers: Diabetes mellitus type: type 2 Diabetes mellitus complication status: with kidney complications Diabetes mellitus complication detail: with chronic kidney disease Chronic kidney disease stage: on chronic dialysis Qualified Code(s): E11.22 - Type 2 diabetes mellitus with diabetic chronic kidney disease ; N18.6 - End stage renal disease; Z79.4 - group home (current) use of insulin; Z99.2 - Dependence on renal dialysis (5) Hyperlipemia Current visit: No Status: Acute Qualifiers: Hyperlipidemia type: unspecified Qualified Code(s): E78.5 - Hyperlipidemia , unspecified (6) Obesity Current visit: No Status: Chronic Qualifiers: Obesity type: due to excess calories Obesity severity: morbid Qualified Code(s): E66.01 - Morbid (severe) obesity due to excess calories (7) Troponin level elevated Current visit: No Status: Acute Internal Medicine - H&P: HPI Chief complaint: confusion Admitted From: Emergency Dept Plans for Post Hospital Care: Home History of present illness: Mr. Monge is a 56 year old male with past medical history of end-stage renal disease on hemodialysis, hypertension, COPD. And presented to the emergency department due to changes in his mental status, patient states that the local police officers pulled him over on his way to work, he had hemodialysis earlier today. Initial workup in the emergency department revealed hemoglobin of 13.6, hematocrit 42%, platelet count [id number]. Biochemistry revealed a sodium of 138, potassium 4.9, chloride 93, bicarbonate 28, BUN 36, creatinine 10.59, glucose 265. Troponin was 0.05, which is consistent with his chronic mild elevation of troponins. Chest x-ray unremarkable. Head CT without acute changes. Abdominal CT without significant changes. Patient was admitted for further management and workup of his altered mental status. I evaluated the patient when she was already on the patient unit. Continue with the patient's was diaphoretic and drowsy, however he was entered in time, place and person. His fingerstick was 47, he was rechecked and it was 41. I ordered a dose of IV D50%. She denies chest pain, fever, chills, shortness of breath, rash. Past Med Surg Social Fam HX - Past Medical History Medical history: arthritis, coronary artery disease, diabetes, dialysis, GERD, hyperlipidemia, hypertension, renal disease, TIA Psychiatric history: no psych history - Past Surgical History Surgical History: angioplasty/stent, vascular surgery - Social History Smoking Status: Never smoker Smokeless Tobacco Status: No Alcohol use: none Drug use: none - Family History Father Hx Family Cardiac Disorders: Yes Hx Family Endocrine Disorder: Yes (DM) Mother Living Status: Hx Family Cardiac Disorders: Yes Hx Family Cancer: Yes Internal Medicine - H&P: Meds Furosemide [Lasix] 40 mg PO BID 06/22/15 [History] Insulin Glargine,Hum.rec.anlog [Lantus Solostar] 10 unit SQ HS 06/22/15 [History ] Sevelamer [Renvela] 3,200 mg PO TIDWM 06/22/15 [History] Carvedilol [Coreg] 12.5 mg PO BID 07/03/15 [History] Atorvastatin [Lipitor] 40 mg PO HS 09/05/15 [History] Clopidogrel [Plavix] 75 mg PO DAILY 06/24/16 [History] Nitroglycerin [Nitrostat] 0.4 mg SL AD PRN 06/24/16 [History] Amlodipine [Norvasc] 10 mg PO DAILY 01/04/17 [History] Cinacalcet [Sensipar] 30 mg PO DAILY 01/04/17 [History] Ergocalciferol (VITAMIN D2) [Drisdol (50,000 Unit)] 50,000 unit PO QWEEK [History] Fluticasone Propionate Nasal [Flonase] 100 mcg NS DAILY 01/04/17 [History] Gabapentin [Neurontin] 600 - 1,200 mg PO Q8H PRN 01/04/17 [History] HYDROcodone/Acet 10/325 mg [[place] 10-325 mg] 1 each PO BID PRN #10 tablet [Rx] Hydralazine HCl 100 mg PO TID 01/04/17 [History] Omeprazole [PriLOSEC] 20 mg PO DAILY 01/04/17 [History] Vitamin B Complex [B Complex] 1 tab PO DAILY 01/04/17 [History] Allergies omeprazole [From Prilosec] Allergy (Mild, Verified 01/05/17 23:39) Hives All Systems PM: A 10-system review of systems was performed and is negative for pertinent findings except as documented above in the HPI. - Constitutional Constitutional: as per HPI, excessive sweating, lethargy, no chills, no fever(s) , no night sweats - EENT Eyes: as per HPI, blurry vision, no change in vision, no discharge, no pain, no photophobia Ears: as per HPI, no ear discharge, no ear pain, no tinnitus Nose, mouth and throat: as per HPI, no dysphagia, no nasal discharge, no neck pain, no sore throat - Breasts Breasts: as per HPI - Cardiovascular Cardiovascular ROS IM: as per HPI, no chest pain, no diaphoresis, no dyspnea, no lightheadedness, no palpitations, no syncope - Respiratory Respiratory: as per HPI, no cough, no dyspnea, no wheezing, no excessive phlegm production - Gastrointestinal Gastrointestinal: as per HPI, no abdominal pain, no diarrhea, no hematemesis, no hematochezia, no melena, no nausea, no vomiting - Genitourinary Genitourinary ROS male: as per HPI - Musculoskeletal Musculoskeletal ROS IM: as per HPI, no numbness, no tingling - Integumentary Integumentary IM: as per HPI, no rash, no unusual bruising - Neurological Neurological ROS: as per HPI, no confusion, no convulsions, no focal weakness, no numbness, no tingling, no tremor(s) - Psychiatric Psychiatric: as per HPI - Endocrine Endocrine IM: as per HPI - Hematologic/Lymphatic Hematologic/Lymphatic: as per HPI, no easy bruising - Allergic/Immunologic Allergic/Immunologic: as per HPI - Constitutional Vitals: Temp Pulse Resp BP Pulse Ox 98.3 F 76 18 144/90 98 01/29/17 01:00 01/29/17 01:00 01/29/17 01:00 01/29/17 01:00 01/29/17 01:00 General appearance: Present: A&O X 3, pleasant, obese Exam: Diaphoretic. - Head Head exam: Present: atraumatic, normocephalic - Eye Eye exam: Present: PERRL, conjuntiva pink, sclera anicteric Pupils: Present: PERRL - Neck Neck exam general surgery: Present: supple, trachea midline. Absent: lymphadenopathy - Respiratory Respiratory exam: Present: decreased breath sounds. Absent: accessory muscle use, rales, rhonchi, wheezes - Cardiovascular Cardiovascular exam: Present: RRR, +S1, +S2. Absent: diastolic murmur, gallop, rubs, systolic murmur - GI/Abdominal GI/Abdominal exam: Present: normal bowel sounds, soft, no peritoneal signs. Absent: distended, tenderness - Extremities Exam Extremities exam: Present: warm, radial pulses palpable and symetrical. Absent : calf tenderness, cyanotic, pedal edema - Neurological Exam Neurological exam: Present: CN II-XII intact, oriented X3, no focal deficits. Absent: pronater drift, facial droop, speech deficit - Skin Skin exam: Present: dry, intact Internal Med - H&P Results - Labs CBC & Chem 7: 01/28/17 20:35 01/28/17 20:35
[2017-01-29] MEDS ORDERED: *HR* Dextrose 50 % in Water (Syg) 50 ML SYRINGE IVP PRN (04:13)
[2017-01-29] MEDS ORDERED: Naloxone 0.4 MG/ML INJ IVP PRN (04:13)
[2017-01-29] MEDS ORDERED: Acetaminophen 325 MG TABLET PO PRN (04:13)
[2017-01-29] MEDS ORDERED: Dextrose Gel 15 GM PO PRN ×2 (04:13)
[2017-01-29] MEDS: Vitamin B Complex/Vit C/Vit E 1 EACH TABLET PO SCH (08:17)
[2017-01-29] MEDS: Folic Acid 1 MG TABLET PO SCH (08:18)
--- NOTE | 2017-01-29 08:54 | Nephrology Consult Note ---
Date of Encounter: 01/29/17 Time of Encounter: 08:47 Assessment and Plan (1) ESRD (end stage renal disease) on dialysis Current Visit: No Status: Chronic Patient had full dialysis treatment yesterday Plan for HD tomorrow Renal diet Fluid restriction Strict I/Os Avoid nephrotoxins Renvela 800mg 4 tabs TID with meals (2) Altered mental status Current Visit: Yes Status: Acute per primary team Qualifiers: Altered mental status type: stupor Qualified Code(s): R40.1 - Stupor (3) HTN (hypertension) Current Visit: No Status: Chronic Needs fluid restriction Often comes to outpatient dialysis with excess fluid gains HD tomorrow Care per primary team Qualifiers: Hypertension type: essential hypertension Qualified Code(s): I10 - Essential (primary) hypertension (4) Diabetes Current Visit: No Status: Chronic per primary team Qualifiers: Diabetes mellitus type: type 2 Diabetes mellitus complication status: with kidney complications Diabetes mellitus complication detail: with chronic kidney disease Chronic kidney disease stage: on chronic dialysis Qualified Code(s): E11.22 - Type 2 diabetes mellitus with diabetic chronic kidney disease ; N18.6 - End stage renal disease History of Present Illness - Reason for Consult Consult date: 01/29/17 end stage renal disease - Chief Complaint AMS, ESRD on dialysis - History of Present Illness Mr. Monge is a 56 year old male well known to our practice with past medical history of end-stage renal disease on hemodialysis, hypertension, COPD. He presented to the emergency department due to changes in his mental status; patient states the local police officers pulled him over on his way to work after he had left dialysis that morning. Chest x-ray unremarkable. Head CT without acute changes. Abdominal CT without significant changes. Patient was admitted for further management and workup of his altered mental status. Nephrology was consulted to manage patient dialysis. I actually seen patient yesterday at [facility] while he was receiving his dialysis treatment. He was AAOx3 at that time. Patient is grossly non-compliant in his diet and fluid gains despite repeated education. Past Med Surg Social Fam HX - Past Medical History Medical history: arthritis, coronary artery disease, diabetes, dialysis, GERD, hyperlipidemia, hypertension, renal disease, TIA Psychiatric history: no psych history - Past Surgical History Surgical History: angioplasty/stent, vascular surgery - Social History Smoking Status: Never smoker Smokeless Tobacco Status: No Alcohol use: none Drug use: none - Family History Father Hx Family Cardiac Disorders: Yes Hx Family Endocrine Disorder: Yes (DM) Mother Living Status: Hx Family Cardiac Disorders: Yes Hx Family Cancer: Yes Medications and Allergies Furosemide [Lasix] 40 mg PO BID 06/22/15 [History] Insulin Glargine,Hum.rec.anlog [Lantus Solostar] 10 unit SQ HS 06/22/15 [History ] Sevelamer [Renvela] 3,200 mg PO TIDWM 06/22/15 [History] Carvedilol [Coreg] 12.5 mg PO BID 07/03/15 [History] Atorvastatin [Lipitor] 40 mg PO HS 09/05/15 [History] Clopidogrel [Plavix] 75 mg PO DAILY 06/24/16 [History] Nitroglycerin [Nitrostat] 0.4 mg SL AD PRN 06/24/16 [History] Amlodipine [Norvasc] 10 mg PO DAILY 01/04/17 [History] Cinacalcet [Sensipar] 30 mg PO DAILY 01/04/17 [History] Ergocalciferol (VITAMIN D2) [Drisdol (50,000 Unit)] 50,000 unit PO QWEEK [History] Gabapentin [Neurontin] 600 - 1,200 mg PO Q8H PRN 01/04/17 [History] HYDROcodone/Acet 10/325 mg [[place] 10-325 mg] 1 each PO BID PRN #10 tablet [Rx] Hydralazine HCl 100 mg PO TID 01/04/17 [History] Omeprazole [PriLOSEC] 20 mg PO DAILY 01/04/17 [History] Vitamin B Complex [B Complex] 1 tab PO DAILY 01/04/17 [History] Allergies omeprazole [From Prilosec] Allergy (Mild, Verified 01/05/17 23:39) Hives Review of Systems All Systems: reviewed and no additional remarkable complaints except as stated Constitutional: weight gain, no fever(s) Cardiovascular: pedal edema, no chest pain, no dyspnea Respiratory: no cough, no dyspnea Gastrointestinal: no diarrhea, no nausea, no vomiting (a) Neurological: behavioral changes Psychiatric: mood swings Exam - Vital Signs Vital signs: Initial Vital Signs Temp Pulse Resp BP Pulse Ox 98.4 F 79 16 170/99 99 01/28/17 20:34 01/28/17 20:34 01/28/17 20:34 01/28/17 20:34 01/28/17 20:34 Vital Signs - Last 8 Hours Temp Pulse Resp BP Pulse Ox 01/29/17 07:59 97.8 F 76 18 171/96 96 01/29/17 05:05 97.3 F L 63 14 184/86 98 01/29/17 01:00 98.3 F 76 18 144/90 98 Intake and Output 01/28/17 01/29/17 01/29/17 23:59 07:59 15:59 Intake Total 240 / 240 Balance 240 / 240 Intake: Oral 240 / 240 Other: # Voids 0 Weight 127.5 kg Blood Glucose* 92 Patient Weight 01/29/17 23:59 Weight 127.5 kg - General Appearance General appearance: well-developed, well-nourished EENT: ATNC, mucous membranes moist, hearing intact, vision intact Neck: supple Cardiology: edema (Mild BLL edema), regular rate, regular rhythm - Dialysis Access Dialysis Vascular Access: Arteriovenous Fistula Gastrointestinal: no tenderness, no guarding Integumentary: warm and dry Psychiatric: cooperative Results - Lab Results 01/28/17 20:35 01/28/17 20:35 Most recent lab results Calcium 9.9 mg/dL (8.6-10.8) 01/28/17 20:35 Consult Discharge Plan - Plan Referrals: Albina Olea MD [Primary Care Provider] -
[2017-01-29] MEDS: Ondansetron 4 MG/2 ML VIAL IVP PRN ×2 (10:16→18:58)
[2017-01-29] MEDS: *HR* HYDROcodone/Acet 10/325 mg TABLET PO PRN ×2 (11:06→20:06)
--- NOTE | 2017-01-29 12:49 | Internal Med Progress Note ---
Date of Encounter: 01/29/17 Time of Encounter: 12:46 - Assessment and plan (1) Acute metabolic encephalopathy Current Visit: Yes Status: Acute Assessment and plan: Possible cause is hypoglycemia, post HD, medication, TIA, dementia. Will check brain MRI. I will hold all insulin. Patient with ESRD on hemodialysis, uremia is also a consideration. We will consult nephrology. (2) DVT prophylaxis Current Visit: No Status: Acute (3) Altered mental status Current Visit: Yes Status: Acute Qualifiers: Altered mental status type: stupor Qualified Code(s): R40.1 - Stupor - Subjective Interval history: Pt here for confusion, now confusion improved, denies associate vision changes and BAER. chr back pain, chr foot pain. He was confused, says he takes Levemir per sliding scale, thinks he took 20-30 units of Lantus last night, FS was down to 41 in ED. now 146 - Constitutional Vitals: Temp Pulse Resp BP Pulse Ox 97.6 F 70 18 174/90 94 L 01/29/17 12:00 01/29/17 12:00 01/29/17 12:00 01/29/17 12:00 01/29/17 12:00 General appearance: Present: A&O X 3, pleasant, obese - Cardiovascular Cardiovascular exam: Present: RRR, +S1, +S2. Absent: diastolic murmur, gallop, rubs, systolic murmur - GI/Abdominal GI/Abdominal exam: Present: normal bowel sounds, soft, no peritoneal signs. Absent: distended, tenderness - Extremities Exam Extremities exam: Present: warm, radial pulses palpable and symetrical. Absent : calf tenderness, cyanotic, pedal edema - Neurological Exam Neurological exam: Present: CN II-XII intact, oriented X3, no focal deficits. Absent: facial droop, speech deficit - Skin Skin exam: Present: dry, intact Internal Medicine: Result - Labs CBC & Chem 7: 01/30/17 05:20 01/30/17 05:20 - ABG Interpretation ABG results: PT/INR, D-dimer PT 10.6 Seconds (9.4-12.1) 01/28/17 20:35 Consult Discharge Plan - Plan Referrals: Albina Olea MD [Primary Care Provider] -
[2017-01-29] MEDS: hydrALAZINE 25 MG TABLET PO SCH ×2 (17:02→20:05)
[2017-01-29] MEDS: *HR* Promethazine 25 MG/ML VIAL IVP PRN (17:03)
--- NOTE | 2017-01-29 18:08 | Electrocardiograph Report ---
[place] [id number] Test Date: 2017-01-28 Pat Name: Man Monge Department: 104 Room: [facility] Gender: M Cardiopulmonary Technologist: : 1960 Requested By: Juan Pablo Valerio Order Number: [id number] Reading MD: Heather Szymanski Measurements Intervals Kathryn Rate: 78 P: 51 ID: [id number] QRS: -45 QRSD: 101 T: 50 QT: 399 QTc: 433 Interpretive Statements SINUS RHYTHM LEFT ANTERIOR FASCICULAR BLOCK NONSPECIFIC T-WAVE ABNORMALITY Electronically Signed On 01-29-2017 18:06:32 EDT by Heather Szymanski
[2017-01-29] MEDS ORDERED: Gabapentin 300 MG CAPSULE PO SCH (21:00)
[2017-01-30 05:43] LABS: Basophils % 0.5 %; Immature Granulocytes % 0.3 % (0-4)
[2017-01-30 05:45] LABS: Eosinophils # 0.2 K/mcL (0.0-0.6); Eosinophils % 3.8 %; Hematocrit 38.4 % (37.5-50.1); Hemoglobin 12.2 g/dL (12.9-16.9); Immature Platelets 2.7 % (1.1-6.1); Lymphocytes % 25.1 %; Mean Corpuscular HGB Conc 31.8 g/dL (31.6-35.5); Mean Platelet Volume 10.3 fL (9.4-12.4); Monocytes # 0.4 K/mcL (0.0-1.3); Monocytes % 9.1 %; Platelet Count 105 K/mcL (140-400); Red Blood Count 3.49 M/mcL (4.19-5.50); Red Cell Distribution Width 16.7 % (11.5-14.5); Segmented Neutrophils % 61.2 %
[2017-01-30 05:51] LABS: Prothrombin Time 11.2 Seconds (9.4-12.1)
[2017-01-30 06:00] LABS: Calcium 9.9 mg/dL (8.6-10.8); Potassium 4.5 mEq/L (3.5-4.5)
[2017-01-30 06:10] LABS: Neutrophils # 2.5 K/mcL (1.6-8.9)
[2017-01-30 06:23] LABS: Thyroid Stimulating Hormone 0.407 mcIU/mL (0.350-4.840)
[2017-01-30 06:29] LABS: Anisocytosis 1+ (Not Present); Macrocytosis Present (Not Present); Platelet Estimate Slight Decrease (Normal)
[2017-01-30 06:30] LABS: Polychromasia 1+ (Not Present); Reactive Lymphocytes Present (Not Present)
[2017-01-30] MEDS: Vitamin B Complex/Vit C/Vit E 1 EACH TABLET PO SCH (06:50)
[2017-01-30] MEDS: Folic Acid 1 MG TABLET PO SCH (06:50)
[2017-01-30] MEDS ORDERED: amLODIPine 5 MG TABLET PO SCH (09:00)
[2017-01-30] MEDS ORDERED: 0.9 % Sodium Chloride 250 ML IVC PRN (09:02)
[2017-01-30] MEDS: *HR* Promethazine 25 MG/ML VIAL IVP PRN (09:10)
[2017-01-30] MEDS: hydrALAZINE 25 MG TABLET PO SCH ×2 (09:11→16:00)
--- NOTE | 2017-01-30 10:58 | Nephrology Progress Note ---
Date of Encounter: 01/30/17 Time of Encounter: 09:30 - Assessment and Plan (1) ESRD (end stage renal disease) on dialysis Current Visit: No Status: Chronic HD today: ordered 4hr, 2K 2.5Ca, 138Na, 35CO2 with a goal UF of 4kg, and 1000 units of heparin. Next HD is planned for Thursday. Will be available this , if needed. Thank you. (2) Hyperphosphatemia Current Visit: Yes Status: Acute (3) Acute metabolic encephalopathy Current Visit: Yes Status: Acute (4) Anemia in chronic kidney disease (CKD) Current Visit: No Status: Chronic (5) HTN (hypertension) Current Visit: No Status: Chronic Qualifiers: Hypertension type: essential hypertension Qualified Code(s): I10 - Essential (primary) hypertension Subjective Principal diagnosis: ESRD Interval history: Pt was s/e earlier today. He did not affirm N/V/D and was sitting on the side of the bed. He voiced knowing the day, time and that he was scheduled for HD today (Thursday). Objective - Vital Signs Vital signs: Vital Signs Temp Pulse Resp BP Pulse Ox 01/30/17 08:00 97 01/30/17 07:00 79 16 149/75 97 01/30/17 04:00 97.7 F 73 17 139/74 90 L 01/30/17 00:00 78 14 170/78 98 01/29/17 21:00 98.2 F 83 19 167/82 96 01/29/17 16:54 98 F 81 18 186/120 94 L 01/29/17 12:00 97.6 F 70 18 174/90 94 L Intake and Output 01/29/17 01/30/17 01/30/17 23:59 07:59 15:59 Intake Total 240 / 240 360 / 360 700 / 700 Output Total 0 / 0 0 / 0 Balance 240 / 240 360 / 360 700 / 700 Intake: Oral 240 / 240 360 / 360 700 / 700 Output: Urine 0 / 0 0 / 0 Other: Meal Dinner Breakfast Percent of Meal Consumed 90% 95% Stool Size Small # Voids 1 Weight 128.5 kg Blood Glucose* 168 138 Patient Weight 01/30/17 23:59 Weight 128.5 kg - General Appearance Exam: General appearance: well-developed, well-nourished EENT: ATNC, mucous membranes moist, hearing intact, vision intact Neck: supple Cardiology: edema (Mild BLL edema), regular rate, regular rhythm - Dialysis Access Dialysis Vascular Access: Arteriovenous Fistula with +thrill, bruit, but he also has a Rt TDC with dressing C/D/I Gastrointestinal: no tenderness, no guarding Integumentary: warm and dry Psychiatric: cooperative - Lab 01/30/17 05:20 01/30/17 05:20 Most recent lab results Calcium 9.9 mg/dL (8.6-10.8) 01/30/17 05:20 Consult Discharge Plan - Plan Referrals: Linette Mcdonnell CNP [Advanced Practice Nurse] - 02/04/17 1:30 pm Albina Olea MD [Primary Care Provider] - 03/03/17 3:15 pm
[2017-01-30 11:41] LABS: Hepatitis B Surface Antigen Nonreactive (Nonreactive)
[2017-01-30 11:42] LABS: Hepatitis B Surface Antibody 178.51 mIU/mL
[2017-01-30 16:52] VITALS: BP 135/61
--- NOTE | 2017-01-30 18:05 | Discharge Summary ---
Date of Encounter: 01/30/17 Time of Encounter: 17:55 - Discharge Diagnosis (1) Acute metabolic encephalopathy Priority: Primary Status: Acute (2) DVT prophylaxis Priority: Secondary Status: Acute (3) Altered mental status Priority: Secondary Status: Acute Qualifiers: Altered mental status type: stupor Qualified Code(s): R40.1 - Stupor (4) ESRD (end stage renal disease) on dialysis Priority: Secondary Status: Chronic (5) HTN (hypertension) Priority: Secondary Status: Chronic Qualifiers: Hypertension type: essential hypertension Qualified Code(s): I10 - Essential (primary) hypertension (6) Hypoglycemia Priority: Secondary Status: Resolved - Discharge Medications Prescriptions: Gabapentin [Neurontin] 600 mg PO HS #30 capsule Home Medications: Furosemide [Lasix] 40 mg PO BID 06/22/15 [History] Insulin Glargine,Hum.rec.anlog [Lantus Solostar] 10 unit SQ HS 06/22/15 [History ] Sevelamer [Renvela] 3,200 mg PO TIDWM 06/22/15 [History] Carvedilol [Coreg] 12.5 mg PO BID 07/03/15 [History] Atorvastatin [Lipitor] 40 mg PO HS 09/05/15 [History] Clopidogrel [Plavix] 75 mg PO DAILY 06/24/16 [History] Nitroglycerin [Nitrostat] 0.4 mg SL AD PRN 06/24/16 [History] Amlodipine [Norvasc] 10 mg PO DAILY 01/04/17 [History] Cinacalcet [Sensipar] 30 mg PO DAILY 01/04/17 [History] Ergocalciferol (VITAMIN D2) [Drisdol (50,000 Unit)] 50,000 unit PO QWEEK [History] HYDROcodone/Acet 10/325 mg [[place] 10-325 mg] 1 each PO BID PRN #10 tablet [Rx] Hydralazine HCl 100 mg PO TID 01/04/17 [History] Omeprazole [PriLOSEC] 20 mg PO DAILY 01/04/17 [History] Vitamin B Complex [B Complex] 1 tab PO DAILY 01/04/17 [History] Gabapentin [Neurontin] 600 mg PO HS #30 capsule 01/30/17 [Rx] Allergies/Adverse Reactions: Allergies omeprazole [From Prilosec] Allergy (Mild, Verified 01/05/17 23:39) Hives Procedures/tests Complete & Pending: Procedures Performed prior 72 hours Category Date Time Status MR head/brain wo con [MR] Routine MRI 01/29/17 12:45 Completed Date of admission: 01/29/17 00:32 Primary care physician: Albina Olea, Consults: 01/29/17 07:00 Consult to Nephrology [CONS] Routine Consulting Provider: Kidney Maritza/LUZMA/RAYSHAWN/HELLEN Reason for Consult: esrd hd ams Call Completed: No 01/29/17 12:44 Consult to Concrete Spreader [CONS] Routine Comment: 01/30/17 09:15 Consult to Dialysis [CONS] ONCE - Patient Status Disposition: Home, Self-Care Condition: Fair Functional capacity at discharge: independent ambulation Overall status at discharge: patient is progressing back to baseline - Discharge Instructions Instructions: Diabetes Mellitus Type 2 in Adults (DC), Chronic Hypertension (DC ) Follow Up With: Linette Mcdonnell CNP [Advanced Practice Nurse] - 02/04/17 1:30 pm Albina Olea MD [Primary Care Provider] - 03/03/17 3:15 pm - Diet and Activity Activity: increase activity as tolerated (Return to work on 02/03 if back to normal. If not please call PCP. Do not drive for 48 hours) Hospital course: Hospital presentation: Mr. Monge is a 56 year old male with past medical history of end-stage renal disease on hemodialysis, hypertension, COPD. he presented to the emergency department due to changes in his mental status, patient states that the local police officers pulled him over on his way to work , he had hemodialysis earlier today. Initial workup in the emergency department revealed hemoglobin of 13.6, hematocrit 42%, platelet count 11,000. Biochemistry revealed a sodium of 138, potassium 4.9, chloride 93, bicarbonate 28, BUN 36, creatinine 10.59, glucose 265. Troponin was 0.05, which is consistent with his chronic mild elevation of troponins. Chest x-ray was unremarkable. Head CT without acute changes. Abdominal CT without significant changes. Patient was admitted for further management and workup of his altered mental status. The patient was evaluated on the medical cruz and found to be diaphoretic and drowsy, however he was oriented in time, place and person. His fingerstick was 47, he was rechecked and it was 41. He was given a dose of IV D50%. He was started on IV D10. His mental status steadily improved. On day 2 of hospitalization he was still not back to baseline so he had an MRI of the brain which showed no evidence of stroke or any other acute abnormality. On the third day of hospitalization he had hemodialysis which she tolerated well , his mental status went back to baseline and he was ready for discharge home. The patient reported that prior to his presentation to the hospital he had administered 20-30 units of Lantus as he uses Lantus only per sliding scale. He was instructed to not adjust the Lantus according to sliding scale but to use 10 units only once daily in the evening. His mental status change was likely secondary to unintentional overdose of longer acting insulin causing hypoglycemia and possibly secondary to an appropriate dose of gabapentin. The patient reports that he takes 600-1200 mg of gabapentin 3 times daily. This has been adjusted on discharge to 600 mg once daily after hemodialysis on dialysis days to account for his kidney impairment. He is currently close to his baseline and medically stable for discharge home. He was instructed to not drive or operate heavy machinery for 48 hours and was released from work for the next 3 days. He was instructed to follow-up with his primary care physician closely. - Time Spent with Patient Total time spent providing and/or coordinating discharge services: Greater than 30 minutes (I have spent 45 minutes coronary and this discharge.) - Constitutional Vitals: Temp Pulse Resp BP Pulse Ox 97.7 F 71 17 135/61 96 01/30/17 11:10 01/30/17 16:00 01/30/17 16:00 01/30/17 16:00 01/30/17 16:00 General appearance: Present: A&O X 3, pleasant, obese - Respiratory Respiratory exam: Present: CTAB. Absent: accessory muscle use, rales, rhonchi, wheezes - Cardiovascular Cardiovascular exam: Present: RRR, +S1, +S2. Absent: diastolic murmur, gallop, rubs, systolic murmur - GI/Abdominal GI/Abdominal exam: Present: normal bowel sounds, soft, no peritoneal signs. Absent: distended, tenderness
== END 2017-01-30 19:30 | disposition home or self-care (01) ==
LOC: EMEROO 20:30 → 2NENU 20:30
PROVIDERS: ADMIT Internal Medicine; ATTEND Internal Medicine

== ENCOUNTER 2017-03-12 09:47 | Inpatient (IN) ==
--- NOTE | 2017-03-12 10:16 | Emergency Department Note ---
Disposition Clinical Impression: Hypoxemia, ESRD (end stage renal disease) Fluid overload Qualifiers: Hypervolemia type: other Qualified Code(s): E87.79 - Other fluid overload Disposition: Admitted As Inpatient Condition: Fair SOB HPI - General Chief Complaint: ED Shortness of Breath/Dyspnea Stated Complaint: SOB Time Seen by Provider: 03/12/17 09:49 Source: patient, other Limitations: no limitations Nursing Notes Reviewed: Yes Vital Signs Reviewed: Yes - History of Present Illness Patient has a history of end-stage renal disease and presents from the interventional radiology suite after they noticed that the oxygen saturation was 61%. The patient does have shortness of breath and he states this is worse with exertion. Does have a dry cough for the last 3 or 4 days. No medications specifically used for the shortness of breath. He denies any chest pain or discomfort. He did have dialysis yesterday but it was through the fistula in the left arm and he said this was not a adequate dialysis because the needles Slipping out and there was some bleeding and they determined that the fistula had failed which is why they sent him to interventional today to have a port placed in the right chest and this has been done. Social history: No smoking or alcohol. Previous record reviewed. - Related Data Home Medications Medication Instructions Recorded Confirmed Furosemide [Lasix] 40 mg PO BID 06/22/15 03/12/17 Insulin Glargine,Hum.rec.anlog 10 unit SQ HS 06/22/15 03/12/17 [Lantus Solostar] Sevelamer [Renvela] 3,200 mg PO TIDWM 06/22/15 03/12/17 Carvedilol [Coreg] 12.5 mg PO BID 07/03/15 03/12/17 Atorvastatin [Lipitor] 40 mg PO HS 09/05/15 03/12/17 Clopidogrel [Plavix] 75 mg PO DAILY 06/24/16 03/12/17 Nitroglycerin [Nitrostat] 0.4 mg SL AD PRN 06/24/16 03/12/17 Amlodipine [Norvasc] 10 mg PO DAILY 01/04/17 03/12/17 Cinacalcet [Sensipar] 30 mg PO DAILY 01/04/17 03/12/17 Ergocalciferol (VITAMIN D2) 50,000 unit PO SA 01/04/17 03/12/17 [Drisdol (50,000 Unit)] Hydralazine HCl 100 mg PO TID 01/04/17 01/29/17 Vitamin B Complex [B Complex] 1 tab PO DAILY 01/04/17 03/12/17 Esomeprazole Magnesium [Nexium] 40 mg PO DAILY 03/12/17 03/12/17 HYDROcodone/Acet 10/325 mg [[place] 1 tab PO BID PRN 03/12/17 03/12/17 10-325 mg] Valsartan [Diovan] 160 mg PO DAILY 03/12/17 03/12/17 Previous Rx's Medication Instructions Recorded Gabapentin [Neurontin] 600 mg PO HS #30 capsule 01/30/17 Allergies Allergy/AdvReac Type Severity Reaction Status Date / Time omeprazole [From Prilosec] Allergy Mild Hives Verified 01/05/17 23:39 Review of Systems: Constitutional: No fever Vision: No blurred vision ENT: No rhinorrhea Respiratory: + cough Allergic: No allergies : No blood in urine GI: No blood in stool Hematologic: + bruising Dermatologic: No skin rash Musculoskeletal: No pain in the extremities Neuro: + numbness of the extremities which is bilateral and chronic Past Medical History - Past Medical History Medical history: Reports: arthritis, coronary artery disease, diabetes, dialysis , GERD, hyperlipidemia, hypertension, renal disease, TIA Surgical history: Reports: angioplasty/stent, vascular surgery Psychiatric history: Reports: no psych history - Social History Smoking Status: Never smoker Smokeless Tobacco Status: No Alcohol use: Reports: none Drug use: Reports: none Physical Exam CONSTITUTIONAL: Alert and oriented X3, well-nourished, well appearing, in no apparent distress HEAD: Normocephalic; atraumatic. EYES: PERRL, no scleral icterus. NOSE: The nose is normal in appearance without rhinorrhea RESP: Normal chest excursion with respiration; breath sounds with minimal bilateral flank crackles in the bases Cardiovascular: Regular rate and rhythm with out murmurs, rub or gallop ABD: Non-distended; non-tender, soft,without rigidity, rebound or guarding SKIN: Normal for age and race; warm and dry; no apparent lesions EXTREMITIES: Pulses are 2 plus and equal times 4 extremities, very minimal bilateral lower extremity pretibial peripheral edema, no calf muscle pain. No erythema or signs of infection. I did remove the bandage and look at the fistula site of the left forearm there is no erythema or sign of infection and there is a thrill palpated distal to this area - General Limitations: no limitations General appearance: alert Course Vital Signs Temperature 98.8 F 03/12/17 09:48 Pulse Rate 90 03/12/17 09:48 Respiratory Rate 24 03/12/17 09:48 Blood Pressure 185/98 03/12/17 09:48 O2 Sat by Pulse Oximetry 93 03/12/17 09:48 Temperature 98.3 F 03/12/17 18:59 Pulse Rate 80 03/12/17 20:47 Respiratory Rate 18 03/12/17 18:59 Blood Pressure 200/93 03/12/17 20:47 O2 Sat by Pulse Oximetry 91 03/12/17 20:47 Oxygen Delivery Oxygen Delivery Nasal Cannula Shortness of Breath/Dyspnea - MDM Narrative Medical decision making narrative: Patient's symptoms of shortness of breath and the significant hypoxemia of the saturation 61% at intervention radiology likely some pulmonary edema based on his type of picture and testing is pending including labs and x-ray. He is currently satting 92% on nasal cannula oxygen and does appear to be breathing comfortably at this time. Lab testing is pending. 1016 I did review the EKG showing normal sinus rhythm with a rate of 89 without acute ischemic change. The some nonspecific ST and T-wave changes. 1101 The patient likely has shortness of breath secondary to a incomplete dialysis yesterday and fluid overload and the patient will be admitted to the hospital with nephrology consult said. Concern for significant hypoxemia this morning at interventional radiology with a saturation in the 60s. Labs have been reviewed. X-ray reviewed. [address] Cowart from nephrology who ask pt be admitted to medicine. Spoke w the hospitalist who accepts. Labs and XR reviewed 1336 - Medical Records Medical records reviewed: Yes I reviewed the patient's medical records. - Lab Data Lab results reviewed: Yes I reviewed the patient's lab results. Result diagrams: 03/12/17 12:05 03/12/17 12:05 Lab Results 03/12/17 03/12/17 03/12/17 Range/Units 12:05 12:05 12:05 WBC 5.2 (4.3-11.1) K/mcL RBC 2.69 L (4.19-5.50) M/mcL Hgb 9.6 L (12.9-16.9) g/dL Hct 29.6 L (37.5-50.1) % MCV 110.0 H (83.0-100.0) fL MCH 35.7 H (28.0-33.3) pg MCHC 32.4 (31.6-35.5) g/dL RDW 16.4 H (11.5-14.5) % Plt Count 101 L (140-400) K/mcL MPV 10.2 (9.4-12.4) fL Immature Gran % 0.6 (0-4) % Seg Neutrophils % 79.4 % Lymphocytes % 12.3 % Monocytes % 5.8 % Eosinophils % 1.5 % Basophils % 0.4 % Neutrophils # 4.1 (1.6-8.9) K/mcL Lymphocytes # 0.6 (0.6-4.6) K/mcL Monocytes # 0.3 (0.0-1.3) K/mcL Eosinophils # 0.1 (0.0-0.6) K/mcL Basophils # 0.0 (0.0-0.2) K/mcL Nucleated RBCs/100 WBC 0.4 H (0) /100 WBC Immature Plt Fraction 2.5 (1.1-6.1) % Sodium 137 (136-145) mEq/L Potassium 5.1 H (3.5-4.5) mEq/L Chloride 96 L (98-109) mEq/L Carbon Dioxide 28 (19-29) mEq/L BUN 66 H (8-26) mg/dL Creatinine 13.74 H (0.72-1.25) mg/dL Est GFR ( Amer) 5 L (> 60) Est GFR (Non-Af Amer) 4 L (> 60) BUN/Creatinine Ratio 5 L (6-26) Glucose 125 H (70-99) mg/dL Calculated Osmolality 305 H (280-300) Calcium 9.1 (8.6-10.8) mg/dL Troponin I 0.17 H* (0-0.03) ng/mL B-Natriuretic Peptide (0-100) pg/mL 03/12/17 Range/Units 12:05 WBC (4.3-11.1) K/mcL RBC (4.19-5.50) M/mcL Hgb (12.9-16.9) g/dL Hct (37.5-50.1) % MCV (83.0-100.0) fL MCH (28.0-33.3) pg MCHC (31.6-35.5) g/dL RDW (11.5-14.5) % Plt Count (140-400) K/mcL MPV (9.4-12.4) fL Immature Gran % (0-4) % Seg Neutrophils % % Lymphocytes % % Monocytes % % Eosinophils % % Basophils % % Neutrophils # (1.6-8.9) K/mcL Lymphocytes # (0.6-4.6) K/mcL Monocytes # (0.0-1.3) K/mcL Eosinophils # (0.0-0.6) K/mcL Basophils # (0.0-0.2) K/mcL Nucleated RBCs/100 WBC (0) /100 WBC Immature Plt Fraction (1.1-6.1) % Sodium (136-145) mEq/L Potassium (3.5-4.5) mEq/L Chloride (98-109) mEq/L Carbon Dioxide (19-29) mEq/L BUN (8-26) mg/dL Creatinine (0.72-1.25) mg/dL Est GFR ( Amer) (> 60) Est GFR (Non-Af Amer) (> 60) BUN/Creatinine Ratio (6-26) Glucose (70-99) mg/dL Calculated Osmolality (280-300) Calcium (8.6-10.8) mg/dL Troponin I (0-0.03) ng/mL B-Natriuretic Peptide 2392 H (0-100) pg/mL - Radiology Data Radiology results reviewed: Yes I reviewed the patient's radiology results. Laboratory Last Values WBC 5.2 K/mcL (4.3-11.1) 03/12/17 12:05 RBC 2.69 M/mcL (4.19-5.50) L 03/12/17 12:05 Hgb 9.6 g/dL (12.9-16.9) L 03/12/17 12:05 Hct 29.6 % (37.5-50.1) L 03/12/17 12:05 MCV 110.0 fL (83.0-100.0) H 03/12/17 12:05 MCH 35.7 pg (28.0-33.3) H 03/12/17 12:05 MCHC 32.4 g/dL (31.6-35.5) 03/12/17 12:05 RDW 16.4 % (11.5-14.5) H 03/12/17 12:05 Plt Count 101 K/mcL (140-400) L 03/12/17 12:05 MPV 10.2 fL (9.4-12.4) 03/12/17 12:05 Immature Gran % 0.6 % (0-4) 03/12/17 12:05 Seg Neutrophils % 79.4 % 03/12/17 12:05 Lymphocytes % 12.3 % 03/12/17 12:05 Monocytes % 5.8 % 03/12/17 12:05 Eosinophils % 1.5 % 03/12/17 12:05 Basophils % 0.4 % 03/12/17 12:05 Neutrophils # 4.1 K/mcL (1.6-8.9) 03/12/17 12:05 Lymphocytes # 0.6 K/mcL (0.6-4.6) 03/12/17 12:05 Monocytes # 0.3 K/mcL (0.0-1.3) 03/12/17 12:05 Eosinophils # 0.1 K/mcL (0.0-0.6) 03/12/17 12:05 Basophils # 0.0 K/mcL (0.0-0.2) 03/12/17 12:05 Nucleated RBCs/100 WBC 0.4 /100 WBC (0) H 03/12/17 12:05 Immature Plt Fraction 2.5 % (1.1-6.1) 03/12/17 12:05 Sodium 137 mEq/L (136-145) 03/12/17 12:05 Potassium 5.1 mEq/L (3.5-4.5) H 03/12/17 12:05 Chloride 96 mEq/L (98-109) L 03/12/17 12:05 Carbon Dioxide 28 mEq/L (19-29) 03/12/17 12:05 BUN 66 mg/dL (8-26) H 03/12/17 12:05 Creatinine 13.74 mg/dL (0.72-1.25) H 03/12/17 12:05 Est GFR ( Amer) 5 (> 60) L 03/12/17 12:05 Est GFR (Non-Af Amer) 4 (> 60) L 03/12/17 12:05 BUN/Creatinine Ratio 5 (6-26) L 03/12/17 12:05 Glucose 125 mg/dL (70-99) H 03/12/17 12:05 Calculated Osmolality 305 (280-300) H 03/12/17 12:05 Calcium 9.1 mg/dL (8.6-10.8) 03/12/17 12:05 Troponin I 0.17 ng/mL (0-0.03) H* 03/12/17 12:05 B-Natriuretic Peptide 2392 pg/mL (0-100) H 03/12/17 12:05 Chest X-Ray 03/12/17 10:10 IMPRESSION: 1. Right-sided central venous catheter appears unchanged in position. 2. Mildly enlarged cardiac silhouette with prominence of the pulmonary vasculature. D/ / Gustavo Kruger MD / Gustavo Kruger MD Interpreting Provider: Gustavo Kruger MD Critical Care Time Critical Care Time: Yes (Management of atrial fibrillation with rapid ventricular response, hypotens) Total Critical Care Time: 30 Attestation: Management of atrial fibrillation with rapid ventricular response, hypotension, hypoxemia and large new pleural effusion in patient with lung cancer
[2017-03-12] MEDS ORDERED: Lidocaine -MPF 1% 2 ML VIAL INFILT ONE (11:04)
[2017-03-12 12:12] LABS: Hemoglobin 9.6 g/dL (12.9-16.9); Nucleated Red Blood Cells 0.4 /100 WBC (0); Red Cell Distribution Width 16.4 % (11.5-14.5)
[2017-03-12 12:14] LABS: Basophils % 0.4 %; Eosinophils # 0.1 K/mcL (0.0-0.6); Eosinophils % 1.5 %; Hematocrit 29.6 % (37.5-50.1); Immature Granulocytes % 0.6 % (0-4); Immature Platelets 2.5 % (1.1-6.1); Lymphocytes # 0.6 K/mcL (0.6-4.6); Lymphocytes % 12.3 %; Mean Corpuscular HGB Conc 32.4 g/dL (31.6-35.5); Mean Corpuscular Hemoglobin 35.7 pg (28.0-33.3); Mean Platelet Volume 10.2 fL (9.4-12.4); Monocytes # 0.3 K/mcL (0.0-1.3); Monocytes % 5.8 %; Neutrophils # 4.1 K/mcL (1.6-8.9); Platelet Count 101 K/mcL (140-400); Red Blood Count 2.69 M/mcL (4.19-5.50); Segmented Neutrophils % 79.4 %
[2017-03-12 12:25] LABS: Calcium 9.1 mg/dL (8.6-10.8); Potassium 5.1 mEq/L (3.5-4.5)
[2017-03-12] MEDS ORDERED: Nitroglycerin 1 INCH/GM PACKET TP ONE (13:21)
[2017-03-12] MEDS ORDERED: Furosemide 40 MG/4 ML VIAL IVP ONE ×2 (13:21→14:00)
--- NOTE | 2017-03-12 13:48 | Nephrology Consult Note ---
Date of Encounter: 03/12/17 Time of Encounter: 13:42 Assessment and Plan (1) ESRD (end stage renal disease) on dialysis Current Visit: No Status: Chronic Patient received about 3 1/2 hours of dialysis yesterday in outpatient setting. Will dialyses patient again today Plan for HD tomorrow Will need renal diet and fluid restriction of 1.5 liters/day Avoid nephrotoxins if possible (2) Shortness of breath Current Visit: No Status: Acute Hope to improve dyspnea by pulling extra fluid off in HD today (3) Hyperphosphatemia Current Visit: No Status: Acute Hx of high phos level-last level was over 9. Will need his binders given while hospitalized Will need renal diet. History of Present Illness - Reason for Consult Consult date: 03/12/17 - Chief Complaint CHF, ESRD on dialysis - History of Present Illness Mr Monge is a 56 year old male well known to our practice who has ESRD on dialysis at [facility] on ,,. I actually seen Mr Monge yesterday in the dialysis unit where he presented staggering and very confused. Staff and myself tried multiple times to allow us to have him transported to the ED for evaluation but patient adamantly refused. He did receive his HD treatment for almost 3 1/2 hours and seemed better by end of treatment. Cath was not running well and patient was scheduled to come in for a cath exchange; while here they noticed his O2 sat was 61% and he was subsequently sent to the ED for eval. Patient being admitted for CHF and nephrology has been consulted to manage his HD. Past Med Surg Social Fam HX - Past Medical History Medical history: arthritis, coronary artery disease, diabetes, dialysis, GERD, hyperlipidemia, hypertension, renal disease, TIA Psychiatric history: no psych history - Past Surgical History Surgical History: angioplasty/stent, vascular surgery - Social History Smoking Status: Never smoker Smokeless Tobacco Status: No Alcohol use: none Drug use: none - Family History Father Hx Family Cardiac Disorders: Yes Hx Family Endocrine Disorder: Yes (DM) Mother Living Status: Hx Family Cardiac Disorders: Yes Hx Family Cancer: Yes Medications and Allergies Furosemide [Lasix] 40 mg PO BID 06/22/15 [History] Insulin Glargine,Hum.rec.anlog [Lantus Solostar] 10 unit SQ HS 06/22/15 [History ] Sevelamer [Renvela] 3,200 mg PO TIDWM 06/22/15 [History] Carvedilol [Coreg] 12.5 mg PO BID 07/03/15 [History] Atorvastatin [Lipitor] 40 mg PO HS 09/05/15 [History] Clopidogrel [Plavix] 75 mg PO DAILY 06/24/16 [History] Nitroglycerin [Nitrostat] 0.4 mg SL AD PRN 06/24/16 [History] Amlodipine [Norvasc] 10 mg PO DAILY 01/04/17 [History] Cinacalcet [Sensipar] 30 mg PO DAILY 01/04/17 [History] Ergocalciferol (VITAMIN D2) [Drisdol (50,000 Unit)] 50,000 unit PO SA 01/04/17 [ History] Hydralazine HCl 100 mg PO TID 01/04/17 [History] Vitamin B Complex [B Complex] 1 tab PO DAILY 01/04/17 [History] Gabapentin [Neurontin] 600 mg PO HS #30 capsule 01/30/17 [Rx] Esomeprazole Magnesium [Nexium] 40 mg PO DAILY 03/12/17 [History] HYDROcodone/Acet 10/325 mg [[place] 10-325 mg] 1 tab PO BID PRN 03/12/17 [History] Valsartan [Diovan] 160 mg PO DAILY 03/12/17 [History] Allergies omeprazole [From Prilosec] Allergy (Mild, Verified 01/05/17 23:39) Hives Review of Systems All Systems: reviewed and no additional remarkable complaints except as stated Constitutional: fatigue, no anorexia Nose, mouth and throat: no dizziness Cardiovascular: dyspnea, dyspnea on exertion, leg edema Respiratory: dyspnea, dyspnea on exertion, no wheezing Gastrointestinal: no diarrhea, no nausea, no vomiting Neurological: confusion (improved from yesterday) Exam - Vital Signs Vital signs: Initial Vital Signs Temp Pulse Resp BP Pulse Ox 98.8 F 90 24 185/98 93 03/12/17 09:48 03/12/17 09:48 03/12/17 09:48 03/12/17 09:48 03/12/17 09:48 Vital Signs - Last 8 Hours Resp BP 03/12/17 13:30 22 203/110 - General Appearance General appearance: well-developed, well-nourished EENT: mucous membranes moist, hearing intact, vision intact Neck: supple Respiratory: clear Cardiology: edema (mild BLL edema), normal S1, normal S2 - Dialysis Access Dialysis Vascular Access: Venous Catheter Gastrointestinal: no tenderness, no guarding, obese Integumentary: warm and dry Neurologic: alert and oriented x3 Psychiatric: mood/affect appropriate, cooperative Results - Lab Results 03/12/17 12:05 03/12/17 12:05 Most recent lab results Calcium 9.1 mg/dL (8.6-10.8) 03/12/17 12:05 Consult Discharge Plan - Plan Referrals: Albina Olea MD [Primary Care Provider] -
[2017-03-12] MEDS ORDERED: Calcium Gluconate 1,000 MG in D5% in Water 100 ML IVPB ONE (14:00)
[2017-03-12] MEDS ORDERED: Nitroglycerin 25 MG/250 ML INFUS..BTL IVC SCH (14:00)
--- NOTE | 2017-03-12 14:03 | Event Note ---
Date of Encounter: 03/12/17 Time of Encounter: 14:01 Patient CNN examined with nurse practitioner. 56-year-old male with end-stage renal disease on hemodialysis Thursday, was sent from interventional radiology because of hypoxia. Patient was referred for interventional radiology to change his dialysis catheter because a fistula is malfunctioning. He was found to be hypoxic in the 70s in the radiology suite. He is 3 Kg over his dry weight. Blood pressure is 210/100. He will start nitro trip for now until dialysis. I have discussed with garment patternmaker and the patient will be dialyzed today. Serial troponin. He is DNR but OK with intubation fr respiratory purposes.
[2017-03-12] MEDS ORDERED: Naloxone 0.4 MG/ML INJ IVP PRN (14:10)
--- NOTE | 2017-03-12 14:22 | Internal Med History&Physical ---
Date of Encounter: 03/12/17 Time of Encounter: 14:00 Assessment and Plan (1) Hypoxemia Current visit: Yes Status: Acute 1 patient presented with SPO2 60s and 70s. Patient appears to be fluid overloaded he was not able to complete his dialysis yesterday. He was given Lasix nephrology has been notified and he will be getting dialyzed today. Patient has also been experiencing some confusion. This may be related to hypoxia however we will obtain CT of head. Once he is stable 2 we will continue with oxygen titrated to maintain SPO2 greater than 92% 3 continuous SPO2 monitoring-patient may benefit from a 6 minute walk test for possible home oxygen (2) Hypertensive urgency Current visit: Yes Status: Acute 1 patient's blood pressure upon presentation was greater than 180. He denies any chest pain at this time there is no neurological changes at this time. He appears to be fluid overloaded he was given IV Lasix as well as nitroglycerin transdermal. Nitroglycerin has been transitioned over to IV. We will continue to monitor blood pressure closely goal is systolic 140-160 2 patient is to receive a dialysis today 3 low sodium diet (3) Diabetes mellitus Current visit: Yes Status: Acute 1 Accu-Cheks before meals and at bedtime we will continue with basal insulin as well as correctional goal is to maintain postprandial less than 180 2 diabetic diet Qualifiers: Diabetes mellitus type: type 2 Diabetes mellitus complication status: with kidney complications Diabetes mellitus complication detail: with chronic kidney disease Diabetes mellitus senior living insulin use: with senior living use Chronic kidney disease stage: on chronic dialysis Qualified Code(s): E11.22 - Type 2 diabetes mellitus with diabetic chronic kidney disease; N18.6 - End stage renal disease; 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 Last stent placed a year and a half ago. We will continue with Plavix and statin Coreg 2 nitroglycerin 3 oxygen maintain SPO2 greater than 92% 4 cardiac diet 5 patient's troponin is elevated most likely demand ischemia we will continue to trend troponins Qualifiers: Coronary Disease-Associated Artery/Lesion type: [place] artery [place] vs. transplanted heart: [place] heart Associated angina: without angina Qualified Code(s): I25.10 - Atherosclerotic heart disease of [place] coronary artery without angina pectoris (5) ESRD (end stage renal disease) Current visit: Yes Status: Acute 1 patient is on hemodialysis Thursday patient recently had a fistula placed which she has had approximately 3 months and has had access 3 times. Yesterday he had difficulty accessing fistula was unable to access temporary catheter he only had 2 hours of dialysis east 3 kg above his dry weight. Consulted nephrology patient will be dialyzed today 2 we will monitor electrolytes 3 monitor intake and output daily weights 4 renal diet 5 avoid nephrotoxins (6) Fluid overload Current visit: Yes Status: Acute 1 patient did not complete dialysis yesterday is 3 kg above dry weight. Chest x -ray does show some vascular congestion. Nephrology is been consult the patient received dialysis today. Patient's been given the Lasix. We will continue. 2 we will monitor intake and output daily weight 3 fluid restriction Qualifiers: Hypervolemia type: other Qualified Code(s): E87.79 - Other fluid overload (7) DVT prophylaxis Current visit: No Status: Acute 1 heparin subcutaneous Internal Medicine - H&P: HPI Chief complaint: hypoxia Admitted From: Emergency Dept Plans for Post Hospital Care: Home History of present illness: Mr. Monge is a 56 year old male past medical history of hypertension diabetes end stage renal disease on dialysis Thursday according to patient he went in yesterday to have his dialysis which he was not able to complete due to dysfunction in his fistula as well as in his temporary dialysis port. He had approximately 2 hours of dialysis he is 3 kg above his dry weight. After reviewing nephrology note appears patient was somewhat confused on presentation at dialysis yesterday and his mentation did improve afterwards. Today his son reports patient experience confusion/hallucinations particularly in the evening time and has difficulty sleeping This has been going on for approximately 3 months. He was confused last night Patient presented today to interventional radiology to have a new temporary dialysis catheter placed. However it was noted in the radiology suite the patient's SPO2 was in the 60s and 70s. He was taken to the ER for further evaluation. According to ER records upon presentation patient oxygen saturation was low 90s on 4 L nasal cannula he was also hypertensive systolic greater than 180s. EKG with no ST-T wave abnormality lab work revealed BNP 2392 troponin 0.17 creatinine 13.7 potassium 5.1. Patient was given IV Lasix as well as nitroglycerin. Nephrology was notified saw patient at bedside. He has been admitted for further workup evaluation. Presently patient is on. The respiratory distress he denies any chest pain this time however he does admit to experiencing chest pain last night which he states was heaviness felt like someone was sitting on my chest 6 out of 10 radiating to his back lasted about 20 minutes and resolved on its own he does have past history of stent placement with 3 stents most recent was a year and a half ago. He denies any fevers chills nausea vomiting diarrhea edema he does have a dry nonproductive cough. Assessment heart sounds are regular S1-S2 with no rubs gallops clicks or murmurs noted lungs sounds with crackles in bases bilaterally Dr. Olivier at bedside he does discuss CODE STATUS with patient would like to be a DNR CCA. Reveiwed case with Dr Olivier who agrees with plan Past Med Surg Social Fam HX - Past Medical History Medical history: arthritis, coronary artery disease, diabetes, dialysis, GERD, hyperlipidemia, hypertension, renal disease, TIA Psychiatric history: no psych history - Past Surgical History Surgical History: angioplasty/stent, vascular surgery - Social History Smoking Status: Never smoker Smokeless Tobacco Status: No Alcohol use: none Drug use: none - Family History Father Hx Family Cardiac Disorders: Yes Hx Family Endocrine Disorder: Yes (DM) Mother Living Status: Hx Family Cardiac Disorders: Yes Hx Family Cancer: Yes Internal Medicine - H&P: Meds Furosemide [Lasix] 40 mg PO BID 06/22/15 [History] Insulin Glargine,Hum.rec.anlog [Lantus Solostar] 10 unit SQ HS 06/22/15 [History ] Sevelamer [Renvela] 3,200 mg PO TIDWM 06/22/15 [History] Carvedilol [Coreg] 12.5 mg PO BID 07/03/15 [History] Atorvastatin [Lipitor] 40 mg PO HS 09/05/15 [History] Clopidogrel [Plavix] 75 mg PO DAILY 06/24/16 [History] Nitroglycerin [Nitrostat] 0.4 mg SL AD PRN 06/24/16 [History] Amlodipine [Norvasc] 10 mg PO DAILY 01/04/17 [History] Cinacalcet [Sensipar] 30 mg PO DAILY 01/04/17 [History] Ergocalciferol (VITAMIN D2) [Drisdol (50,000 Unit)] 50,000 unit PO SA 01/04/17 [ History] Hydralazine HCl 100 mg PO TID 01/04/17 [History] Vitamin B Complex [B Complex] 1 tab PO DAILY 01/04/17 [History] Gabapentin [Neurontin] 600 mg PO HS #30 capsule 01/30/17 [Rx] Esomeprazole Magnesium [Nexium] 40 mg PO DAILY 03/12/17 [History] HYDROcodone/Acet 10/325 mg [Steen 10-325 mg] 1 tab PO BID PRN 03/12/17 [History] Valsartan [Diovan] 160 mg PO DAILY 03/12/17 [History] Allergies omeprazole [From Prilosec] Allergy (Mild, Verified 01/05/17 23:39) Hives All Systems PM: A 10-system review of systems was performed and is negative for pertinent findings except as documented above in the HPI. - Constitutional Constitutional: fatigue, weight gain - Cardiovascular Cardiovascular ROS IM: chest pain - Respiratory Respiratory: cough, dyspnea on exertion - Gastrointestinal Gastrointestinal: no abdominal pain, no diarrhea, no hematemesis, no hematochezia, no melena, no nausea, no vomiting - Musculoskeletal Musculoskeletal ROS IM: no numbness, no tingling - Integumentary Integumentary IM: no rash, no unusual bruising - Neurological Neurological ROS: no confusion, no convulsions, no focal weakness, no numbness, no tingling, no tremor(s) - Hematologic/Lymphatic Hematologic/Lymphatic: no easy bruising - Constitutional Vitals: Temp Pulse Resp BP Pulse Ox 98.8 F 78 22 203/110 92 03/12/17 09:48 03/12/17 12:41 03/12/17 13:30 03/12/17 13:30 03/12/17 12:41 General appearance: Present: A&O X 3, answers questions appropriately - Head Head exam: Present: atraumatic, normocephalic - Eye Eye exam: Present: PERRL, conjuntiva pink, sclera anicteric - Neck Neck exam general surgery: Present: supple, trachea midline. Absent: lymphadenopathy - Respiratory Respiratory exam: Present: rales. Absent: accessory muscle use, rhonchi, wheezes - Cardiovascular Cardiovascular exam: Present: RRR, +S1, +S2. Absent: diastolic murmur, gallop, rubs, systolic murmur - GI/Abdominal GI/Abdominal exam: Present: normal bowel sounds, soft, no peritoneal signs. Absent: distended, tenderness - Extremities Exam Extremities exam: Present: warm, radial pulses palpable and symetrical. Absent : calf tenderness, cyanotic, pedal edema - Neurological Exam Neurological exam: Present: CN II-XII intact, oriented X3, no focal deficits. Absent: pronater drift, facial droop, speech deficit - Skin Skin exam: Present: dry, intact Internal Med - H&P Results - Labs CBC & Chem 7: 03/12/17 12:05 03/12/17 12:05 - EKG Data EKG shows normal: sinus rhythm - EKG Data Prior EKG available for review: yes When compared to previous EKG: there is no significant change - Diagnostic Studies Chest x-ray Additional comments: Chest X-Ray 03/12/17 10:10 IMPRESSION: 1. Right-sided central venous catheter appears unchanged in position. 2. Mildly enlarged cardiac silhouette with prominence of the pulmonary vasculature. D/ / Gustavo Kruger MD / Gustavo Kruger MD Interpreting Provider: Gustavo Kruger MD
[2017-03-12] MEDS ORDERED: D5% in Water 1,000 ML IVC PRN (14:36)
[2017-03-12] MEDS ORDERED: *HR* Dextrose 50 % in Water (Syg) 50 ML SYRINGE IVP PRN (14:36)
[2017-03-12] MEDS ORDERED: Dextrose Gel 15 GM PO PRN ×2 (14:36)
[2017-03-12] MEDS ORDERED: 0.9 % Sodium Chloride 250 ML IVC PRN (14:38)
[2017-03-12] MEDS ORDERED: 0.9 % Sodium Chloride 1,000 ML PRIME SCH (14:45)
[2017-03-12] MEDS ORDERED: 0.9 % Sodium Chloride 250 ML ONE (15:08)
[2017-03-12 16:41] LABS: Hepatitis B Surface Antigen Nonreactive (Nonreactive)
[2017-03-12] MEDS ORDERED: 0.9 % Sodium Chloride 2,000 ML ONE (17:39)
[2017-03-12] MEDS: Nitroglycerin 25 MG/250 ML INFUS..BTL IVC SCH (17:40)
[2017-03-12] MEDS: *HR* Heparin 5,000 UNIT/ML VIAL SQ SCH (17:58)
[2017-03-12] MEDS: Insulin LISPRO 300 UNITS/3 ML VIAL SQ SCH ×2 (17:58→20:14)
[2017-03-12] MEDS: Furosemide 40 MG TABLET PO SCH (19:24)
[2017-03-12] MEDS: hydrALAZINE 25 MG TABLET PO SCH ×2 (20:17→22:46)
[2017-03-12] MEDS: Gabapentin 300 MG CAPSULE PO SCH (20:17)
[2017-03-12] MEDS: Insulin DETEMIR 100 UNIT/ML X5UNITS SQ SCH (20:18)
[2017-03-12] MEDS ORDERED: 0.9 % Sodium Chloride 500 ML ONE (21:31)
[2017-03-13] MEDS: *HR* HYDROcodone/Acet 10/325 mg TABLET PO PRN ×2 (00:49→09:11)
[2017-03-13] MEDS: Nitroglycerin 25 MG/250 ML INFUS..BTL IVC SCH (03:35)
[2017-03-13 05:20] LABS: Basophils % 0.2 %; Eosinophils # 0.1 K/mcL (0.0-0.6); Eosinophils % 2.4 %; Hematocrit 27.2 % (37.5-50.1); Immature Granulocytes % 0.4 % (0-4); Immature Platelets 2.1 % (1.1-6.1); Lymphocytes # 0.7 K/mcL (0.6-4.6); Lymphocytes % 14.2 %; Mean Corpuscular HGB Conc 33.1 g/dL (31.6-35.5); Mean Corpuscular Hemoglobin 36.7 pg (28.0-33.3); Mean Platelet Volume 10.7 fL (9.4-12.4); Monocytes # 0.3 K/mcL (0.0-1.3); Monocytes % 6.9 %; Neutrophils # 3.7 K/mcL (1.6-8.9); Platelet Count 104 K/mcL (140-400); Red Blood Count 2.45 M/mcL (4.19-5.50); Red Cell Distribution Width 16.2 % (11.5-14.5); Segmented Neutrophils % 75.9 %
[2017-03-13 05:33] LABS: Calcium 9.1 mg/dL (8.6-10.8)
[2017-03-13 05:52] LABS: Anisocytosis 1+ (Not Present); Macrocytosis Present (Not Present); Platelet Estimate Decreased (Normal)
[2017-03-13] MEDS: *HR* Heparin 5,000 UNIT/ML VIAL SQ SCH ×2 (06:07→17:45)
[2017-03-13] MEDS ORDERED: 0.9 % Sodium Chloride 250 ML IVC PRN (07:48)
[2017-03-13] MEDS ORDERED: *HR* Heparin 10,000 UNIT/10 ML VIAL IV PRN (07:48)
[2017-03-13] MEDS ORDERED: 0.9 % Sodium Chloride 1,000 ML PRIME SCH (08:00)
[2017-03-13] MEDS ORDERED: 0.9 % Sodium Chloride 2,000 ML ONE (08:06)
[2017-03-13] MEDS: hydrALAZINE 25 MG TABLET PO SCH ×3 (09:11→20:31)
[2017-03-13] MEDS: Furosemide 40 MG TABLET PO SCH ×2 (09:11→16:33)
[2017-03-13] MEDS: Valsartan 160 MG TABLET PO SCH (09:11)
[2017-03-13] MEDS: amLODIPine 5 MG TABLET PO SCH (09:11)
[2017-03-13] MEDS: Insulin LISPRO 300 UNITS/3 ML VIAL SQ SCH ×4 (09:14→22:04)
--- NOTE | 2017-03-13 09:33 | Internal Med Progress Note ---
Date of Encounter: 03/13/17 Time of Encounter: 09:00 - Assessment and plan (1) Troponin level elevated Current Visit: Yes Status: Acute Assessment and plan: Patient presented with shortness of breath and hypoxia with uncontrolled blood pressure. Troponins are currently trending up, but could be related to hypertensive urgency and hypoxemia and demand ischemia. However, will consult cardiology given history of coronary artery disease and 3 stents in the past. Continue telemetry monitoring, blood pressure controlled, trend troponins. (2) Hypertensive urgency Current Visit: Yes Status: Acute Assessment and plan: Patient's baseline systolic blood pressure is usually 150s per patient. Noted to have systolic as high as 210 and has been started on IV nitroglycerin drip since admission. However this seems ineffective as his blood pressure is still high, patient developed a headache. We will switch to IV Nicardipine drip at this time and discuss with nephrology for early hemodialysis today. Resume patient's home blood pressure medications. (3) Acute respiratory failure with hypoxia Current Visit: Yes Status: Acute Assessment and plan: Related to volume overload and pulmonary edema due to incomplete hemodialysis. Continue blood pressure control, supplemental oxygen as needed. Nephrology has been consulted and patient received hemodialysis yesterday with plan for another session today. (4) ESRD (end stage renal disease) Current Visit: Yes Status: Chronic Assessment and plan: Patient has been having issues with left upper extremity AV fistula and has received right IJ temporary hemodialysis catheter yesterday. Nephrology consulted and patient will receive regular hemodialysis session today. (5) HTN (hypertension) Current Visit: Yes Status: Chronic Assessment and plan: Uncontrolled, plan as above. Qualifiers: Hypertension type: essential hypertension Qualified Code(s): I10 - Essential (primary) hypertension (6) Diabetes Current Visit: Yes Status: Chronic Assessment and plan: Accu-Chek blood glucose monitoring with basal bolus insulin regimen. Diabetic diet. Qualifiers: Diabetes mellitus type: type 2 Diabetes mellitus complication status: with kidney complications Diabetes mellitus complication detail: with chronic kidney disease Diabetes mellitus intermediate insulin use: with intermediate use Chronic kidney disease stage: on chronic dialysis Qualified Code(s): E11.22 - Type 2 diabetes mellitus with diabetic chronic kidney disease; N18.6 - End stage renal disease; Z79.4 - senior care (current) use of insulin; Z99.2 - Dependence on renal dialysis (7) Obesity Current Visit: Yes Status: Chronic Qualifiers: Obesity type: due to excess calories Obesity severity: non-morbid Qualified Code(s): E66.09 - Other obesity due to excess calories (8) CAD (coronary artery disease) Current Visit: Yes Status: Chronic Assessment and plan: Status post 3 stents. Continue Plavix, beta jaziel, ARB and statin. Qualifiers: Coronary Disease-Associated Artery/Lesion type: [place] artery [place] vs. transplanted heart: [place] heart Associated angina: without angina Qualified Code(s): I25.10 - Atherosclerotic heart disease of [place] coronary artery without angina pectoris - Subjective Interval history: Reports having diffuse headache from Nitroglycerine drip along with intermittent sharp chest pain; improved shortness of breath; his BP usually runs in 150s at HD; awaiting HD today; - Constitutional Vitals: Temp Pulse Resp BP Pulse Ox 97.8 F 59 18 181/85 98 03/13/17 07:49 03/13/17 07:49 03/13/17 07:49 03/13/17 07:49 03/13/17 07:49 General appearance: Present: A&O X 3, obese, answers questions appropriately - Respiratory Respiratory exam: Present: CTAB. Absent: accessory muscle use, rales, rhonchi, wheezes - Cardiovascular Cardiovascular exam: Present: RRR, +S1, +S2. Absent: diastolic murmur, gallop, rubs, systolic murmur - GI/Abdominal GI/Abdominal exam: Present: normal bowel sounds, soft (obese), no peritoneal signs. Absent: distended, tenderness - Extremities Exam Extremities exam: Present: full ROM, warm, radial pulses palpable and symetrical. Absent: calf tenderness, cyanotic, pedal edema - Neurological Exam Neurological exam: Present: CN II-XII intact, oriented X3, no focal deficits. Absent: pronater drift, facial droop, speech deficit Internal Medicine: Result - Labs CBC & Chem 7: 03/13/17 04:58 03/13/17 Unknown Labs: Short CBC 03/13/17 Range/Units 04:58 WBC 4.9 (4.3-11.1) K/mcL Hgb 9.0 L (12.9-16.9) g/dL Hct 27.2 L (37.5-50.1) % Plt Count 104 L (140-400) K/mcL Neutrophils # 3.7 (1.6-8.9) K/mcL BMP 03/13/17 Unknown Sodium 135 L Potassium 6.0 H Chloride 96 L Carbon Dioxide 25 BUN 75 H Creatinine 15.21 H Glucose 134 H Calcium 9.1 Cardiac Enzymes 03/13/17 Range/Units 00:09 Troponin I 0.36 H* (0-0.03) ng/mL Consult Discharge Plan - Plan Referrals: Albina Olea MD [Primary Care Provider] - 03/20/17 11:00 am ()
[2017-03-13] MEDS: niCARdipine 20 MG/200 ML MLS IVC SCH ×2 (09:52→16:41)
[2017-03-13 10:25] LABS: Bilirubin,Urine Negative (Negative); Blood,Urine Moderate (Negative); Clarity,Urine Cloudy (Clear); Color,Urine Yellow (Yellow); Glucose,Urine (UA) 100 mg/dL (Normal); Ketones,Urine Negative (Negative); Leukocyte Esterase,Urine Negative (Negative); Nitrite,Urine Negative (Negative); Protein,Urine 100 mg/dL (Neg-Trace); Specific Gravity,Urine 1.013 (1.010-1.025); Urobilinogen,Urine Normal (Normal)
[2017-03-13 10:28] LABS: Bacteria,Urine None Seen per hpf (None-Few); Hyaline Casts,Urine None Seen per lpf (None-Few); RBC,Urine 30-50 per hpf (0-3); Squamous Epithelial Cell,Urine Moderate per lpf (None-Few); WBC,Urine 0-3 per hpf (0-3)
[2017-03-13 10:52] LABS: Hepatitis B Surface Antibody 146.74 mIU/mL
--- NOTE | 2017-03-13 13:39 | Cardiology Consult Note ---
<Akil Marks Froylan - Last Filed: 03/13/17 15:02> Date of Encounter: 03/13/17 Time of Encounter: 13:36 Assessment and Plan (1) Elevated troponin Status: Acute Troponins 0.17, 0.36 in setting of acute respiratory failure with O2 reportedly as low as 60s, ESRD with creatinine >13 on presentation and hypertensive urgency. Likely secondary to demand ischemic, nondiagnostic for ACS. Pt does report he had chest pain/pressure, dyspnea, felt like he was smothering all worse with exertion. Suspect symptoms to be secondary to hypoxemia. He is unsure if they are similar to prior anginal equivalent. No recurrent chest pain since admitted. Will check another troponin to see if up or downtrending. Echo 06/2016 EF was 55%, moderate diastolic dysfunction. Recheck echo to re-evaluate EF. If no significant change in EF, anticipate sign off from cardiology standpoint. (2) CAD (coronary artery disease) Status: Chronic Hx of CAD s/p PCI. [facility] 06/2015 showed severe 2 vessel CAD, received GREER to OM1 and GREER x 2 to RCA. Continue Plavix, Statin, BB. HGB 9 range, lower than baseline. Will not start ASA since PCI was > 1 year ago. Qualifiers: Coronary Disease-Associated Artery/Lesion type: [place] artery [place] vs. transplanted heart: [place] heart Associated angina: without angina Qualified Code(s): I25.10 - Atherosclerotic heart disease of [place] coronary artery without angina pectoris (3) Fluid overload Status: Acute BNP was 2392 on admission with vascular congestion on CXR. Likely secondary to incomplete dialysis session on Thursday. Dialysis now resumed. Euvolemic on exam. Qualifiers: Hypervolemia type: other Qualified Code(s): E87.79 - Other fluid overload (4) Hypertensive urgency Status: Acute Cardene gtt was started this AM, as BP was 200s/100s--likely contributing to troponin elevation. Pt currently in dialysis, Cardene gtt is off and BP is well controlled. Continue to monitor and adjust antihypertensives as necessary. Discussion w patient/family: The assessment and plan as outlined above was discussed with the patient and/or family members who expressed understanding and agreement. All questions were answered. Thank you for involving us in the care of your patient. Please call with any questions. I will discuss all the above with Dr. Szymanski and make changes as necessary. History of Present Illness Consult date: 03/13/17 Requesting physician: Jo-Ann Ordonez Consult reason: elevated troponin Chief complaint: dyspnea History of present illness: Mr. Monge is a 56 year old male with PMH of HTN, DM, ESRD on HD, CAD s/p PCI that presented to ED with hypoxia. Pt went to dialysis Thursday, was unable to complete the session due to dysfunction in his fistula as well as in his temporary dialysis port. He was reportedly confused on presentation at dialysis , then improved. Pt presented yesterday to IR to have a new temporary dialysis catheter placed and O2 was in the 60s-70s and he was taken to ED. He was hypertensive with systolic BP >180s. BNP 2392, troponins 0.17, 0.36. Pt tells me he was more short of breath over recent days, experiencing chest pressure/ smothering worse with exertion and with significant fatigue. He reports he is now feeling better and the chest pressure has not recurred since admitted. Recent CV testing: TTE 06/16/16: EF 55%, moderate diastolic dysfunction, no significant valvular dysfunction. [facility] 06/25/15: Severe 2 vessel CAD, GREER to OM1 and GREER x 2 to RCA, EF 55%. Past Med Surg Social Fam HX - Past Medical History Medical history: arthritis, coronary artery disease, diabetes, dialysis, GERD, hyperlipidemia, hypertension, renal disease, TIA Psychiatric history: no psych history - Past Surgical History Surgical History: angioplasty/stent, vascular surgery - Social History Smoking Status: Never smoker Smokeless Tobacco Status: No Alcohol use: none Drug use: none - Family History Father Hx Family Cardiac Disorders: Yes Hx Family Endocrine Disorder: Yes (DM) Mother Living Status: Hx Family Cardiac Disorders: Yes Hx Family Cancer: Yes Medications and Allergies Furosemide [Lasix] 40 mg PO BID 06/22/15 [History] Insulin Glargine,Hum.rec.anlog [Lantus Solostar] 10 unit SQ HS 06/22/15 [History ] Sevelamer [Renvela] 3,200 mg PO TIDWM 06/22/15 [History] Carvedilol [Coreg] 12.5 mg PO BID 07/03/15 [History] Atorvastatin [Lipitor] 40 mg PO HS 09/05/15 [History] Clopidogrel [Plavix] 75 mg PO DAILY 06/24/16 [History] Nitroglycerin [Nitrostat] 0.4 mg SL AD PRN 06/24/16 [History] Amlodipine [Norvasc] 10 mg PO DAILY 01/04/17 [History] Cinacalcet [Sensipar] 30 mg PO DAILY 01/04/17 [History] Ergocalciferol (VITAMIN D2) [Drisdol (50,000 Unit)] 50,000 unit PO SA 01/04/17 [ History] Hydralazine HCl 100 mg PO TID 01/04/17 [History] Vitamin B Complex [B Complex] 1 tab PO DAILY 01/04/17 [History] Esomeprazole Magnesium [Nexium] 40 mg PO DAILY 03/12/17 [History] HYDROcodone/Acet 10/325 mg [[place] 10-325 mg] 1 tab PO BID PRN 03/12/17 [History] Valsartan [Diovan] 160 mg PO DAILY 03/12/17 [History] Gabapentin [Neurontin] 300 mg PO HS #30 capsule 03/14/17 [Rx] Allergies omeprazole [From Prilosec] Allergy (Mild, Verified 01/05/17 23:39) Hives All Systems Review: A 10-system review of systems was performed and is negative for pertinent findings except as documented above in the HPI. - Constitutional Constitutional: fatigue - Cardiovascular Cardiovascular: as per HPI, chest pain at rest, chest pain with exertion, dyspnea at rest, dyspnea on exertion - Respiratory Respiratory: dyspnea Physical Examination Vital Signs, Last 4 Hours Temp Resp BP 03/13/17 13:15 105/61 03/13/17 13:00 129/74 03/13/17 12:45 126/68 03/13/17 12:30 133/71 03/13/17 12:15 124/81 03/13/17 12:00 121/61 03/13/17 11:45 141/70 03/13/17 11:30 116/66 03/13/17 11:15 125/80 03/13/17 11:12 117/61 03/13/17 11:00 121/63 03/13/17 10:55 154/95 03/13/17 10:46 166/133 03/13/17 10:45 139/66 03/13/17 10:30 97.3 F L 18 161/90 03/13/17 10:24 178/86 03/13/17 10:13 171/81 03/13/17 09:48 211/75 Vital Signs Temp Pulse Resp BP Pulse Ox 03/13/17 13:30 144/68 03/13/17 13:15 105/61 03/13/17 13:00 129/74 03/13/17 12:45 126/68 03/13/17 12:30 133/71 03/13/17 12:15 124/81 03/13/17 12:00 121/61 03/13/17 11:45 141/70 03/13/17 11:30 116/66 03/13/17 11:15 125/80 03/13/17 11:12 117/61 03/13/17 11:00 121/63 03/13/17 10:55 154/95 03/13/17 10:46 166/133 03/13/17 10:45 139/66 03/13/17 10:30 97.3 F L 18 161/90 03/13/17 10:24 178/86 03/13/17 10:13 171/81 03/13/17 09:48 211/75 03/13/17 09:32 208/103 03/13/17 07:49 97.8 F 59 18 181/85 98 03/13/17 06:10 56 20 154/79 97 03/13/17 05:15 61 169/84 97 03/13/17 03:35 98.6 F 73 20 177/80 95 03/12/17 23:42 98.2 F 72 17 168/75 93 04 22:24 78 162/81 03/12/17 21:45 84 177/89 03/12/17 21:00 98.7 F 72 17 180/77 89 03/12/17 20:47 80 200/93 91 03/12/17 19:58 71 162/78 05 19:35 199/97 03/12/17 19:20 207/101 91 03/12/17 19:06 85 185/86 87 03/12/17 18:59 98.3 F 18 203/115 03/12/17 18:56 75 17 214/114 91 0517 18:33 98.4 F 83 16 154/97 89 03/12/17 18:30 83 16 148/97 93 03/12/17 18:23 169/117 03/12/17 18:20 169/117 03/12/17 18:17 75 16 176/102 03/12/17 18:12 79 191/111 03/12/17 18:08 73 16 190/105 92 03/12/17 18:05 16 245/109 03/12/17 17:53 82 16 224/124 90 03/12/17 17:50 224/124 03/12/17 17:47 209/118 03/12/17 17:43 98.4 F 88 16 231/147 89 03/12/17 17:35 230/120 03/12/17 17:20 232/122 03/12/17 17:08 85 205/102 03/12/17 17:05 221/111 03/12/17 16:50 208/114 03/12/17 16:35 207/115 03/12/17 16:20 211/113 03/12/17 16:05 98.7 F 22 220/113 03/12/17 14:46 99.0 F 83 18 207/94 84 Intake and Output 03/12/17 03/13/17 03/13/17 23:59 07:59 15:59 Intake Total 616 / 616 234 / 234 695.0 / 695.0 Output Total 5475 / 5475 Balance -4859 / -4859 234 / 234 695.0 / 695.0 Intake: IV Fluids 234 / 234 95.0 / 95.0 Cardene Premix 20mg/200ml 95.0 / 95.0 20 mg In 200 ml @ 5 MG/ HR 50 mls/hr IVC .Q4H ADAM Rx#:[id number] Nitroglycerin 25 mg In 234 / 234 250 ml @ 5 MCG/MIN 3 mls/ hr IVC .Q24H ADAM Rx#: [id number] Oral 0 / 0 0 / 0 Intake, Rinseback and 600 / 600 600 / 600 Flushes Output: Urine 0 / 0 Total Dialysis Output 5475 / 5475 Other: Weight 129.8 kg 129.8 kg Blood Glucose* 192 116 124 Hemodialysis Net Fluid 4875 4202 Removed (mL) Patient Weight 03/13/17 23:59 Weight 129.8 kg General: Conversant, No Apparent Distress HEENT: Atraumatic, Normocephaly, Mucus Membranes Moist Neck: No JVD, Normal carotid pulses Cardiac: Reg Rate and Rhythm, Normal S1 and S2, No Murmur Lungs: Other (diminished) Neuro: Alert and responsive, No focal deficits noted Abdomen: Soft, Non-Tender Skin: No rashes noted on visualized skin Musculoskeletal: No Chest Wall Tenderness Extremities: No Clubbing, No Cyanosis, No Edema, Normal Pulses Results 03/13/17 04:58 03/13/17 Unknown Lab Results 03/13/17 03/13/17 03/13/17 00:09 04:58 Unknown WBC 4.9 Hgb 9.0 L Hct 27.2 L Plt Count 104 L Sodium 135 L Potassium 6.0 H Chloride 96 L Carbon Dioxide 25 BUN 75 H Creatinine 15.21 H Glucose 134 H Calcium 9.1 Troponin I 0.36 H* Short CBC 03/13/17 Range/Units 04:58 WBC 4.9 (4.3-11.1) K/mcL Hgb 9.0 L (12.9-16.9) g/dL Hct 27.2 L (37.5-50.1) % Plt Count 104 L (140-400) K/mcL Neutrophils # 3.7 (1.6-8.9) K/mcL BMP 03/13/17 Range/Units Unknown Sodium 135 L (136-145) mEq/L Potassium 6.0 H (3.5-4.5) mEq/L Chloride 96 L (98-109) mEq/L Carbon Dioxide 25 (19-29) mEq/L BUN 75 H (8-26) mg/dL Creatinine 15.21 H (0.72-1.25) mg/dL Glucose 134 H (70-99) mg/dL Calcium 9.1 (8.6-10.8) mg/dL Cardiac Enzymes 03/13/17 Range/Units 00:09 Troponin I 0.36 H* (0-0.03) ng/mL Urine 03/13/17 Range/Units 10:03 Urine Color Yellow (Yellow) Urine Clarity Cloudy A (Clear) Urine pH 8.0 (5.0-8.0) pH Units Ur Specific [place] 1.013 (1.010-1.025) Urine Protein 100 H (Neg-Trace) mg/dL Urine Glucose (UA) 100 H (Normal) mg/dL Active Medications Acetaminophen/Hydrocodone Bitart ([place] 10-325 Mg) 1 each PO BID PRN PRN Reason: Pain Stop: 09/11/17 23:00 Last Admin: 03/13/17 09:11 Dose: 1 each Amlodipine Besylate (Norvasc) 10 mg PO DAILY ADAM PRN Reason: Protocol Stop: 09/12/17 09:01 Last Admin: 03/13/17 09:11 Dose: 10 mg Atorvastatin Calcium (Lipitor) 40 mg PO HS ADAM Stop: 09/11/17 21:01 Last Admin: 03/12/17 20:18 Dose: 40 mg Carvedilol (Coreg) 12.5 mg PO BID ADAM PRN Reason: Protocol Stop: 09/11/17 21:01 Last Admin: 03/13/17 09:11 Dose: 12.5 mg Clopidogrel Bisulfate (Plavix) 75 mg PO DAILY ADAM Stop: 09/12/17 09:01 Last Admin: 03/13/17 09:11 Dose: 75 mg Dextrose/Water (Dextrose 50% (Syg)) 25 ml IVP AD PRN PRN Reason: Hypoglycemia Stop: 09/11/17 14:37 Furosemide (Lasix) 40 mg PO BIDDIURETIC ADAM Stop: 09/11/17 17:01 Last Admin: 03/13/17 09:11 Dose: 40 mg Gabapentin (Neurontin) 600 mg PO HS ADAM Stop: 09/11/17 21:01 Last Admin: 03/12/17 20:17 Dose: 600 mg Glucagon (Glucagen) 1 mg IM ONCE PRN PRN Reason: Hypoglycemia Stop: 09/11/17 14:37 Glucose (Gluctose) 15 gm PO ONCE PRN PRN Reason: Hypoglycemia Stop: 09/11/17 14:37 Glucose (Gluctose) 30 gm PO ONCE PRN PRN Reason: Hypoglycemia Stop: 09/11/17 14:37 Heparin Sodium (Porcine) (Heparin) 5,000 unit SQ Q12HCO ADAM Stop: 09/11/17 18:01 Last Admin: 03/13/17 06:07 Dose: 5,000 unit Hydralazine HCl (Hydralazine) 100 mg PO TID ADAM Stop: 09/11/17 19:37 Last Admin: 03/13/17 09:11 Dose: 100 mg Dextrose (Dextrose 5%) 1,000 mls @ 100 mls/hr IVC .Q10H PRN PRN Reason: HYPOGLYCEMIA Stop: 09/11/17 14:37 Sodium Chloride (0.9 % Sodium Chloride) 250 mls @ 937.5 mls/hr IVC .Q16M PRN PRN Reason: Hypotension Stop: 09/12/17 07:49 Sodium Chloride (0.9 % Sodium Chloride) 1,000 mls @ 0 mls/hr PRIME .Q0M ADAM PRN Reason: As Directed Stop: 09/12/17 08:01 Nicardipine HCl (Cardene Premix 20mg/200ml) 20 mg in 200 mls @ 50 mls/hr IVC .Q4H ADAM; 5 MG/HR PRN Reason: Protocol Stop: 09/12/17 09:46 Last Titration: 03/13/17 12:05 Dose: 0 mg/hr, 0 mls/hr Insulin Detemir (Levemir) 10 unit SQ HS [facility] Stop: 09/11/17 21:01 Last Admin: 03/12/17 20:18 Dose: 10 unit Insulin Human Lispro (Humalog) 0 units SQ HS ADAM PRN Reason: Protocol Stop: 09/11/17 21:01 Last Admin: 03/12/17 20:14 Dose: Not Given Insulin Human Lispro (Humalog) 0 units SQ TIDAC ADAM PRN Reason: Protocol Stop: 09/11/17 16:31 Last Admin: 03/13/17 09:14 Dose: Not Given Naloxone HCl (Narcan) 0.4 mg IVP Q2MIN PRN PRN Reason: Opioid Reversal Stop: 09/11/17 14:11 Omeprazole (Prilosec) 40 mg PO DAILY [facility] Stop: 09/12/17 09:01 Last Admin: 03/13/17 09:11 Dose: 40 mg Sevelamer HCl (Renvela) 3,200 mg PO TIDWM ADAM Stop: 09/11/17 17:01 Last Admin: 03/13/17 09:11 Dose: 3,200 mg Valsartan (Diovan) 160 mg PO DAILY [facility] Stop: 09/12/17 09:01 Last Admin: 03/13/17 09:11 Dose: 160 mg - Imaging and Cardiology Chest Xray: report reviewed Echo: report reviewed Cardiac cath: report reviewed - EKG Interpretation EKG results cardiology: personally reviewed, other (24 hour tele AVG HR 62, no significant pauses or arrhythmias.) Consult Discharge Plan - Plan Instructions: Gabapentin (By mouth), Diabetes Mellitus Type 2 in Adults (DC), Chronic Hypertension (DC), End-Stage Kidney Disease (DC) Additional Instructions: F/up with Cardiology as scheduled F/up for HD 3times/week- MWF Referrals: Albina Olea MD [Primary Care Provider] - 03/20/17 11:00 am () <Heather Szymanski - Last Filed: 03/15/17 16:05> Date of Encounter: 03/15/17 Assessment and Plan Discussion w patient/family: The assessment and plan as outlined above was discussed with the patient and/or family members who expressed understanding and agreement. All questions were answered. Thank you for involving us in the care of your patient. Please call with any questions. History of Present Illness History of present illness: Mr. Monge is a 56 year old male All Systems Review: A 10-system review of systems was performed and is negative for pertinent findings except as documented above in the HPI. Results 03/13/17 04:58 03/14/17 05:09 - Attending Attestation I examined this patient and my medical decision-making was reviewed with the DEVICE PROCESSING ENGINEER/PA/Advanced Practice Nurse/Resident Physician. I agree with the documented findings, disposition and treatment plan.
--- NOTE | 2017-03-13 15:31 | Nephrology Progress Note ---
Date of Encounter: 03/13/17 Time of Encounter: 10:15 - Assessment and Plan (1) ESRD (end stage renal disease) on dialysis Current Visit: No Status: Chronic Patient has received dialysis twice since admission so far. He has had a significant amount of fluid removed during each session. From HD he has had ~11 L removed so far. There has been much improvememnt in his shortness of breath and hypertension. Will need renal diet and fluid restriction of 1.5 liters/day Avoid nephrotoxins if possible (2) Hypertension Current Visit: No Status: Chronic Patient has history hypertension and is on several medications currently. His blood pressures have been much improved since receiving his second round of dialysis earlier today. Continue to monitor closely Continue current medications Qualifiers: Hypertension type: essential hypertension Qualified Code(s): I10 - Essential (primary) hypertension (3) Shortness of breath Current Visit: No Status: Acute Patient shortness of breath from excessive fluid. Dyspnea improved following removal of 5.5 L yesterday. Rales still present on exam today. Plan for removal of an additional 5 L fluid today (4) Hyperphosphatemia Current Visit: No Status: Acute Hx of high phosphate level-last level was 8.8 on 01/04/17 Patient will continue to require his Renvela while inpatient Will need renal diet will recheck phosphorus tomorrow Subjective Principal diagnosis: Hypoxemia, htn, esrd Interval history: When seen, patient is sitting on the side of the bed about to go to dialysis. He reports feeling alright today, but does report having some weakness in his proximal legs that cause his legs to give out. Objective - Vital Signs Vital signs: Vital Signs Temp Pulse Resp BP Pulse Ox 03/13/17 14:15 124/60 03/13/17 14:00 113/68 03/13/17 13:45 125/62 03/13/17 13:30 144/68 03/13/17 13:15 105/61 03/13/17 13:00 129/74 03/13/17 12:45 126/68 03/13/17 12:30 133/71 03/13/17 12:15 124/81 03/13/17 12:00 121/61 03/13/17 11:45 141/70 03/13/17 11:30 116/66 03/13/17 11:15 125/80 03/13/17 11:12 117/61 03/13/17 11:00 121/63 03/13/17 10:55 154/95 03/13/17 10:46 166/133 03/13/17 10:45 139/66 03/13/17 10:30 97.3 F L 18 161/90 03/13/17 10:24 178/86 03/13/17 10:13 171/81 03/13/17 09:48 211/75 03/13/17 09:32 208/103 03/13/17 07:49 97.8 F 59 18 181/85 98 03/13/17 06:10 56 20 154/79 97 03/13/17 05:15 61 169/84 97 03/13/17 03:35 98.6 F 73 20 177/80 95 03/12/17 23:42 98.2 F 72 17 168/75 93 03/12/17 22:24 78 162/81 03/12/17 21:45 84 177/89 03/12/17 21:00 98.7 F 72 17 180/77 89 03/12/17 20:47 80 200/93 91 03/12/17 19:58 71 162/78 03/12/17 19:35 199/97 03/12/17 19:20 207/101 91 03/12/17 19:06 85 185/86 87 Intake and Output 03/12/17 03/13/17 03/13/17 23:59 07:59 15:59 Intake Total 234 / 234 695.0 / 695.0 Balance / 9 234 / 234 695.0 / 695.0 Intake: IV Fluids 234 / 234 95.0 / 95.0 Cardene Premix 20mg/200ml 95.0 / 95.0 20 mg In 200 ml @ 5 MG/ HR 50 mls/hr IVC .Q4H ADAM Rx#:[id number] Nitroglycerin 25 mg In 234 / 234 250 ml @ 5 MCG/MIN 3 mls/ hr IVC .Q24H ADAM Rx#: [id number] Oral 0 / 0 0 / 0 Intake, Rinseback and 600 / 600 Flushes Other: Weight 129.8 kg 129.8 kg Blood Glucose* 192 116 124 Hemodialysis Net Fluid 5250 Removed (mL) Patient Weight 03/13/17 23:59 Weight 129.8 kg - General Appearance Exam: General: Cooperative, pleasant, no acute distress, alert and oriented 3, answers questions appropriately HEENT: Normocephalic, atraumatic, trachea midline, conjunctiva pink, sclera anicteric Respiratory: No accessory muscle usage, slight bibasilar rales on auscultation Cardiovascular: Regular rate and rhythm, no murmurs/rubs/gallops/clicks appreciated GI/abdominal: Nondistended, nontender, soft, normal bowel sounds, no peritoneal signs Extremities: No calf tenderness, noncyanotic, trace-1+ pedal edema appreciated, warm, lower extremity pulses palpable and symmetrical Neurological: Alert and oriented 3, no facial droop, no focal deficits Skin: Dry, intact, normal color HD Access: Venous catheter in place in RIJ, previous difficulty with fistula in left arm Fistula: thrill and bruit present - Lab 03/13/17 04:58 03/13/17 Unknown Most recent lab results Calcium 9.1 mg/dL (8.6-10.8) 03/13/17 Unknown Consult Discharge Plan - Plan Referrals: Albina Olea MD [Primary Care Provider] - 03/20/17 11:00 am ()
--- NOTE | 2017-03-13 17:39 | Electrocardiograph Report ---
[place] [id number] Test Date: 2017-03-12 Pat Name: Man Monge Department: 104 Room: 2A Gender: M Filling Machine Tender: ISMAEL : 1960 Requested By: Fernie Smallwood Order Number: [id number] Reading MD: Eleno Pino Measurements Intervals [place] Rate: 89 P: 33 HI: 168 QRS: -34 QRSD: 108 T: 75 QT: 395 QTc: 441 Interpretive Statements SINUS RHYTHM MARKED LEFT AXIS DEVIATION NONSPECIFIC ST \T\ T-WAVE ABNORMALITY Electronically Signed On 03-13-2017 17:37:51 EDT by Eleno Pino
[2017-03-13] MEDS ORDERED: Perflutren Lipid Microsphere 1.3 ML in 0.9 % Sodium Chloride 8.7 ML IVP ONE (17:42)
[2017-03-13] MEDS: Gabapentin 300 MG CAPSULE PO SCH (20:30)
[2017-03-13] MEDS: Insulin DETEMIR 100 UNIT/ML X5UNITS SQ SCH (22:04)
[2017-03-14] MEDS: *HR* Heparin 5,000 UNIT/ML VIAL SQ SCH (06:01)
[2017-03-14 06:50] LABS: Calcium 9.1 mg/dL (8.6-10.8); Magnesium 2.5 mg/dL (1.6-2.6); Phosphorous 7.1 mg/dL (2.3-4.7)
[2017-03-14 06:56] LABS: Potassium 4.9 mEq/L (3.5-4.5)
[2017-03-14] MEDS: Insulin LISPRO 300 UNITS/3 ML VIAL SQ SCH ×2 (07:50→12:25)
[2017-03-14] MEDS: amLODIPine 5 MG TABLET PO SCH (07:51)
[2017-03-14] MEDS: hydrALAZINE 25 MG TABLET PO SCH (07:51)
[2017-03-14] MEDS: Furosemide 40 MG TABLET PO SCH (07:52)
[2017-03-14] MEDS: Valsartan 160 MG TABLET PO SCH (08:07)
--- NOTE | 2017-03-14 10:02 | ECHO - Doppler Report ---
Echo with Imaging Enhancement Agent Name: Man Monge Date of Study: 03/13/2017 Date: 1960 Ht: 73.0 in Medical Record#: [id number] Age: 56 Wt: 286.0 lb Gender: Male BSA: 2.51 Order #: [id number] Location: [facility] Room #: 2A36 Reading Physician: Heather Szymanski DO Behavioral Health Professional: KRISTEN MendiolaT Ordering Physician: Akil Marks CNP Primary Physician: Albina Olea MD Indications: Elevated troponin Impressions: LVEF 60%. Normal left ventricular size and systolic function. There is evidence of mild diastolic dysfunction of the left ventricle. RV is not well visualized in multiple views. By TD velocity, function is normal. Mild mitral regurgitation. No evidence for pulmonary hypertension by TR gradient, 29 mmHg. IVC is not well visualized to estimate RVSP. Trivial pericardial effusion. No tamponade. Left Ventricular Wall Motion: Rest Echo Findings All wall segments showed normal motion. Findings: Study Quality * Technically adequate exam. ECG Findings * Normal sinus rhythm. Left Ventricle * Mild left ventricular diastolic dysfunction. * Definity echo contrast was used. * LVEF 60-65%. Aorta * Normally sized aortic root. Mitral Valve * Normal mitral valve structure. * No mitral stenosis. * Mild mitral regurgitation. Aortic Valve * No aortic regurgitation. * No aortic stenosis. * Not well visualized. There is a linear echodensity seen on PSAX view during systole that was present on echo 06/16/16. * Aortic sclerosis. Tricuspid Valve * Normal tricuspid valve structure. * Trace tricuspid regurgitation. Pulmonic Valve * Pulmonic valve is not well visualized. * No pulmonic stenosis. * No pulmonic regurgitation. Pulmonary Artery * Pulmonary artery not well visualized. Right Atrium * Normal right atrial size. Right Ventricle * RV is not well visualized. Lat S Harry is normal. Left Atrium * Mildly dilated left atrium. Interatrial Septum * Interatrial septum not well evaluated. Pericardium * There is a trivial pericardial effusion present. IVC * The IVC is not well evaluated. History Hypertension Diabetes Hypercholesteremia History of CAD/PTCA Myocardial Infarction 06-16-16 a Previous Echo was performed. Contrast: Definity 1.3 ml in 8.7 ml of saline 2 ml. Measurements: BP: 118/ 61 2D Normal Values RVIDd: 4.20 cm <2.7 cm IVSd: 1.20 cm 0.6 - 1.0 cm LVIDd: 5.60 cm 3.7 - 5.6 cm LVPWd: 1.20 cm 0.6 - 1.1 cm LVIDs: 3.60 cm 1.5 - 3.6 cm AO: 3.30 cm < 4.0 cm LA: 5.30 cm 2.0 - 4.0cm %FS: 40.00 cm >25 % LVOT Diam: 2.00 cm LA volume: 84 Mitral Valve Peak E:.87 m/sec Peak A:.87 m/sec E/A Ratio:1 Peak E' Lat Harry:5.26 cm/s Peak E' Med Harry:4.87 cm/s E/E' Lat Ratio:16.5 E/E' Med Ratio:17.9 LVOT Peak Harry:1.67 m/sec Mean Harry:1.06 m/sec Peak Grad:11.00 mmHg Mean Grad:5.00 mmHg Aortic Valve Peak Harry:2.37 m/sec Mean Harry:1.59 m/sec Peak Grad:22.00 mmHg Mean Grad:12.00 mmHg Valve Area:2.53 cm2 Tricuspid Valve TV Regurg Peak Grad: 29.00mmHg TV Regurg Peak Harry: 2.70m/sec Updated by Heather Szymanski on 03/14/2017 9:55:10 AM electronically signed on 03/14/2017 9:59:34 AM with status of Final Wall Motion [place]: 1=Normal, 2=Hypokinesis, 3=Akinesis, 4=Dyskinesis, 5=Aneurysmal, 6=Hyperkinetic, X=Not Visualized (Blank)=Missing
[2017-03-14 12:04] VITALS: BP 147/64
--- NOTE | 2017-03-14 12:44 | Nephrology Progress Note ---
Date of Encounter: 03/14/17 Time of Encounter: 12:00 Subjective Principal diagnosis: Hypoxemia, htn, esrd Interval history: Pt seen and examined with son at bedside. Feels better overall. Eager to go home. Weight down to 122.65kg with BP in the 120s-140s systolic since HD yesterday. Overall approx. 11kg of fluid removed in the past 48hrs via HD. Objective - Vital Signs Vital signs: Vital Signs Temp Pulse Resp BP Pulse Ox 03/14/17 12:02 98 F 67 16 147/64 93 03/14/17 08:08 92 03/14/17 06:57 97.6 F 66 16 149/70 92 03/14/17 04:44 98.9 F 70 16 125/57 94 03/13/17 19:33 98.6 F 68 18 124/75 99 03/13/17 15:42 98.2 F 60 18 118/61 97 03/13/17 14:45 97.5 F L 22 125/79 03/13/17 14:30 137/82 03/13/17 14:15 124/60 03/13/17 14:00 113/68 03/13/17 13:45 125/62 03/13/17 13:30 144/68 03/13/17 13:15 105/61 03/13/17 13:00 129/74 03/13/17 12:45 126/68 Intake and Output 03/13/17 03/14/17 03/14/17 23:59 07:59 15:59 Intake Total 120 / 120 Balance 120 / 120 Intake: Oral 120 / 120 Other: Meal Dinner Percent of Meal Consumed 60% Weight 122.651 kg Blood Glucose* 217 185 192 Patient Weight 03/14/17 23:59 Weight 122.651 kg - General Appearance General appearance: Present: chronically ill (NAD) EENT: Present: ATNC, mucous membranes moist Neck: Present: no JVD, supple Respiratory: Present: clear Cardiology: Present: no edema, regular rate, regular rhythm, normal S1, normal S2 Dialysis Vascular Access: Arteriovenous Fistula thrill: Yes bruit: Yes Additional Comments: Permcath in place Gastrointestinal: Present: no tenderness, no guarding Integumentary: Present: no rash, warm and dry Neurologic: Present: no focal deficit, alert and oriented x3 Musculoskeletal: Present: no deformities Psychiatric: Present: mood/affect appropriate, cooperative - Lab 03/13/17 04:58 03/14/17 05:09 Most recent lab results Calcium 9.1 mg/dL (8.6-10.8) 03/14/17 05:09 Phosphorus 7.1 mg/dL (2.3-4.7) H 03/14/17 05:09 Magnesium 2.5 mg/dL (1.6-2.6) 03/14/17 05:09 Consult Discharge Plan - Plan Referrals: Albina Olea MD [Primary Care Provider] - 03/20/17 11:00 am ()
--- NOTE | 2017-03-14 12:44 | Cardiology Progress Note ---
Date of Encounter: 03/14/17 Time of Encounter: 12:45 Assessment and Plan (1) Fluid overload Current Visit: Yes Status: Acute Per Cardiology: BNP was 2392 on admission with vascular congestion on CXR. Likely secondary to incomplete dialysis session on Thursday. Dialysis now resumed with 2 sessions and reported 11L fluid removed. Euvolemic on exam. Qualifiers: Hypervolemia type: other Qualified Code(s): E87.79 - Other fluid overload (2) Troponin level elevated Current Visit: Yes Status: Acute Per Cardiology: Troponins 0.17, 0.36, and 0.25 in setting of acute respiratory failure with O2 sat reportedly as low as 60s, ESRD with creatinine >13 on presentation and hypertensive urgency. Likely secondary to demand ischemia, nondiagnostic for ACS. Echo 06/2016 EF was 55%, moderate diastolic dysfunction. Current Echo shows EF remains preserved 60%, mild diastolic dysfunction, mild MR. No further ischemic evaluation warranted. Patient agreeable to monitor and follow-up in outpatient setting. No cardiac rehabilitation consult warranted. Cardiology will sign off, follow-up scheduled, re-consult as needed. Discussed with Dr. Szymanski. (3) CAD (coronary artery disease) Current Visit: Yes Status: Chronic Per Cardiology: Hx of CAD s/p PCI. [facility] 06/2015 showed severe 2 vessel CAD, received GREER to OM1 and GREER x 2 to RCA. Continue Plavix, Statin, BB. HGB 9 range, lower than baseline. Will not start ASA since PCI was > 1 year ago. Qualifiers: Coronary Disease-Associated Artery/Lesion type: [place] artery [place] vs. transplanted heart: [place] heart Associated angina: without angina Qualified Code(s): I25.10 - Atherosclerotic heart disease of [place] coronary artery without angina pectoris Discussion w patient/family: The assessment and plan as outlined above was discussed with the patient and/or family members who expressed understanding and agreement. All questions were answered. Thank you for involving us in the care of your patient. Please call with any questions. Subjective Principal diagnosis: Elevated troponin, CAD Interval history: Patient denies any chest pain, shortness of breath, palpitations. Reports overall feels improved. Denies any concerns or complaints overnight. Inquiry into discharge to home. Objective Vital Signs, Last 4 Hours Temp Pulse Resp BP Pulse Ox 03/14/17 12:02 98 F 67 16 147/64 93 General: Conversant, No Apparent Distress HEENT: Atraumatic, Normocephaly, Mucus Membranes Moist Cardiac: Reg Rate and Rhythm, Normal S1 and S2, No Murmur Lungs: Normal Breath Sounds, No Wheeze, Rales, Rhonchi Neuro: Alert and responsive, No focal deficits noted Extremities: No Edema, Normal Pulses Results 03/13/17 04:58 03/14/17 05:09 Lab Results Laboratory Tests 03/12/17 03/12/17 03/13/17 12:05 12:05 00:09 Troponin I 0.17 H* 0.36 H* B-Natriuretic Peptide 2392 H 03/13/17 15:30 Troponin I 0.25 H* B-Natriuretic Peptide ITS Impressions Chest X-Ray 03/12/17 10:10 IMPRESSION: 1. Right-sided central venous catheter appears unchanged in position. 2. Mildly enlarged cardiac silhouette with prominence of the pulmonary vasculature. D/ / Gustavo Kruger MD / Gustavo Kruger MD Interpreting Provider: Gustavo Kruger MD Intake & Output 03/11/17 03/12/17 03/13/17 03/14/17 23:59 23:59 23:59 23:59 Intake Total 616 / 616 1049.0 / 1049.0 Output Total 5475 / 5475 5600 / 5600 Balance -4859 / -4859 -4551.0 / -4551.0 Weight 129.727 kg 129.8 kg 122.651 kg Active Medications Acetaminophen/Hydrocodone Bitart ([place] 10-325 Mg) 1 each PO BID PRN PRN Reason: Pain Stop: 09/11/17 23:00 Last Admin: 03/13/17 09:11 Dose: 1 each Amlodipine Besylate (Norvasc) 10 mg PO DAILY ADAM PRN Reason: Protocol Stop: 09/12/17 09:01 Last Admin: 03/14/17 07:51 Dose: 10 mg Atorvastatin Calcium (Lipitor) 40 mg PO HS ADAM Stop: 09/11/17 21:01 Last Admin: 03/13/17 20:31 Dose: 40 mg Carvedilol (Coreg) 12.5 mg PO BID ADAM PRN Reason: Protocol Stop: 09/11/17 21:01 Last Admin: 03/14/17 07:51 Dose: 12.5 mg Clopidogrel Bisulfate (Plavix) 75 mg PO DAILY [facility] Stop: 09/12/17 09:01 Last Admin: 03/14/17 07:52 Dose: 75 mg Dextrose/Water (Dextrose 50% (Syg)) 25 ml IVP AD PRN PRN Reason: Hypoglycemia Stop: 09/11/17 14:37 Furosemide (Lasix) 40 mg PO BIDDIURETIC ADAM Stop: 09/11/17 17:01 Last Admin: 03/14/17 07:52 Dose: 40 mg Gabapentin (Neurontin) 600 mg PO HS [facility] Stop: 09/11/17 21:01 Last Admin: 03/13/17 20:30 Dose: 600 mg Glucagon (Glucagen) 1 mg IM ONCE PRN PRN Reason: Hypoglycemia Stop: 09/11/17 14:37 Glucose (Gluctose) 15 gm PO ONCE PRN PRN Reason: Hypoglycemia Stop: 09/11/17 14:37 Glucose (Gluctose) 30 gm PO ONCE PRN PRN Reason: Hypoglycemia Stop: 09/11/17 14:37 Heparin Sodium (Porcine) (Heparin) 5,000 unit SQ Q12HCO [facility] Stop: 09/11/17 18:01 Last Admin: 03/14/17 06:01 Dose: 5,000 unit Hydralazine HCl (Hydralazine) 100 mg PO TID [facility] Stop: 09/11/17 19:37 Last Admin: 03/14/17 07:51 Dose: 100 mg Dextrose (Dextrose 5%) 1,000 mls @ 100 mls/hr IVC .Q10H PRN PRN Reason: HYPOGLYCEMIA Stop: 09/11/17 14:37 Sodium Chloride (0.9 % Sodium Chloride) 250 mls @ 937.5 mls/hr IVC .Q16M PRN PRN Reason: Hypotension Stop: 09/12/17 07:49 Sodium Chloride (0.9 % Sodium Chloride) 1,000 mls @ 0 mls/hr PRIME .Q0M ADAM PRN Reason: As Directed Stop: 09/12/17 08:01 Insulin Detemir (Levemir) 10 unit SQ HS [facility] Stop: 09/11/17 21:01 Last Admin: 03/13/17 22:04 Dose: 10 unit Insulin Human Lispro (Humalog) 0 units SQ HS ADAM PRN Reason: Protocol Stop: 09/11/17 21:01 Last Admin: 03/13/17 22:04 Dose: 2 units Insulin Human Lispro (Humalog) 0 units SQ TIDAC ADAM PRN Reason: Protocol Stop: 09/11/17 16:31 Last Admin: 03/14/17 12:25 Dose: 4 units Naloxone HCl (Narcan) 0.4 mg IVP Q2MIN PRN PRN Reason: Opioid Reversal Stop: 09/11/17 14:11 Omeprazole (Prilosec) 40 mg PO DAILY [facility] Stop: 09/12/17 09:01 Last Admin: 03/14/17 07:50 Dose: 40 mg Sevelamer HCl (Renvela) 3,200 mg PO TIDWM ADAM Stop: 09/11/17 17:01 Last Admin: 03/14/17 12:24 Dose: 3,200 mg Valsartan (Diovan) 160 mg PO DAILY [facility] Stop: 09/12/17 09:01 Last Admin: 03/14/17 08:07 Dose: 160 mg - Imaging and Cardiology Echo: report reviewed - EKG Interpretation EKG results cardiology: other (24-hour telemetry reviewed with average heart rate 64, sinus rhythm with PVCs) Consult Discharge Plan - Plan Instructions: Diabetes Mellitus Type 2 in Adults (DC), Chronic Hypertension (DC ) Referrals: Albina Olea MD [Primary Care Provider] - 03/20/17 11:00 am ()
--- NOTE | 2017-03-14 13:50 | Discharge Summary ---
Date of Encounter: 03/14/17 Time of Encounter: 09:30 - Discharge Diagnosis (1) Troponin level elevated Priority: Primary Status: Acute (2) Hypertensive urgency Priority: Primary Status: Acute (3) Acute respiratory failure with hypoxia Priority: Primary Status: Acute (4) ESRD (end stage renal disease) Priority: Secondary Status: Chronic (5) HTN (hypertension) Priority: Secondary Status: Chronic Qualifiers: Hypertension type: essential hypertension Qualified Code(s): I10 - Essential (primary) hypertension (6) Diabetes Priority: Secondary Status: Chronic Qualifiers: Diabetes mellitus type: type 2 Diabetes mellitus complication status: with kidney complications Diabetes mellitus complication detail: with chronic kidney disease Diabetes mellitus terminal carman insulin use: with terminal carman use Chronic kidney disease stage: on chronic dialysis Qualified Code(s): E11.22 - Type 2 diabetes mellitus with diabetic chronic kidney disease; N18.6 - End stage renal disease; Z79.4 - terminal carman (current) use of insulin; Z99.2 - Dependence on renal dialysis (7) Obesity Priority: Secondary Status: Chronic Qualifiers: Obesity type: due to excess calories Obesity severity: non-morbid Qualified Code(s): E66.09 - Other obesity due to excess calories (8) CAD (coronary artery disease) Priority: Secondary Status: Chronic Qualifiers: Coronary Disease-Associated Artery/Lesion type: [place] artery [place] vs. transplanted heart: [place] heart Associated angina: without angina Qualified Code(s): I25.10 - Atherosclerotic heart disease of [place] coronary artery without angina pectoris - Discharge Medications Home Medications: Furosemide [Lasix] 40 mg PO BID 06/22/15 [History] Insulin Glargine,Hum.rec.anlog [Lantus Solostar] 10 unit SQ HS 06/22/15 [History ] Sevelamer [Renvela] 3,200 mg PO TIDWM 06/22/15 [History] Carvedilol [Coreg] 12.5 mg PO BID 07/03/15 [History] Atorvastatin [Lipitor] 40 mg PO HS 09/05/15 [History] Clopidogrel [Plavix] 75 mg PO DAILY 06/24/16 [History] Nitroglycerin [Nitrostat] 0.4 mg SL AD PRN 06/24/16 [History] Amlodipine [Norvasc] 10 mg PO DAILY 01/04/17 [History] Cinacalcet [Sensipar] 30 mg PO DAILY 01/04/17 [History] Ergocalciferol (VITAMIN D2) [Drisdol (50,000 Unit)] 50,000 unit PO SA 01/04/17 [ History] Hydralazine HCl 100 mg PO TID 01/04/17 [History] Vitamin B Complex [B Complex] 1 tab PO DAILY 01/04/17 [History] Esomeprazole Magnesium [Nexium] 40 mg PO DAILY 03/12/17 [History] HYDROcodone/Acet 10/325 mg [[place] 10-325 mg] 1 tab PO BID PRN 03/12/17 [History] Valsartan [Diovan] 160 mg PO DAILY 03/12/17 [History] Gabapentin [Neurontin] 300 mg PO HS #30 capsule 03/14/17 [Rx] Allergies/Adverse Reactions: Allergies omeprazole [From Prilosec] Allergy (Mild, Verified 01/05/17 23:39) Hives Procedures/tests Complete & Pending: Procedures Performed prior 72 hours Category Date Time Status EV echocardiogram w enhance Routine Y 03/13/17 11:26 Completed Date of admission: 03/12/17 18:59 Primary care physician: Albina Olea, Consults: 03/13/17 08:00 Consult to Dialysis [CONS] ONCE 03/13/17 09:18 Consult to Cardiology [CONS] Routine Comment: Consulting Provider: Lance Salas Reason for Consult: Hypertensive urgency, elevated Troponin, hypoxia Call Completed: Yes Discharging clinician: Charleen Ross Anticipated date of discharge: 03/14/17 - Patient Status Disposition: Home, Self-Care Condition: Good Functional capacity at discharge: independent ambulation Overall status at discharge: patient is progressing back to baseline - Discharge Instructions Instructions: Gabapentin (By mouth), Diabetes Mellitus Type 2 in Adults (DC), Chronic Hypertension (DC), End-Stage Kidney Disease (DC) Follow Up With: Albina Olea MD [Primary Care Provider] - 03/20/17 11:00 am () Additional Instructions: F/up with Cardiology as scheduled F/up for HD 3times/week- MWF - Diet and Activity Activity: resume usual activities as tolerated Diet: diabetic diet, low fat, low cholesterol, low salt diet, other (renal diet , fluid restriction to 1.5L/day) Hospital course: Mr. Monge is a 56 year old male with history of end-stage renal disease, was admitted with shortness of breath, respiratory distress and hypoxia. Patient was having issues with left upper extremity AV fistula and received right internal jugular temporary hemodialysis catheter after which he was noted to be hypoxic in the radiology suite and sent to the emergency room for further evaluation. Chest x-ray showed evidence of pulmonary edema and patient was noted to have acute hypoxic respiratory failure, that improved with supplemental oxygen via nasal cannula. Patient was noted to be in acute volume overload due to receiving incomplete hemodialysis. Nephrology was consulted and patient received regular hemodialysis sessions while in the hospital and his clinical status improved significantly, noted to have at least 10 L removed. He also was noted to have hypertensive urgency at the time of admission, likely due to underlying ESRD and volume overload. He was started on IV nitroglycerin drip, with inappropriate blood pressure control and headache. This was later changed to IV Cardizem drip and patient also received hemodialysis with appropriate blood pressure control. His blood pressure is currently stable on his home oral medication regimen. He was noted to have troponin leak at the time of admission, which have initially trended up likely due to demand ischemia, hypertensive urgency and hypoxemia. Cardiology was consulted and agreed with current management, recommended echocardiogram. Echocardiogram was done which showed preserved ejection fraction, mild left ventricular diastolic dysfunction and trace pericardial effusion. Patient is currently medically stable for discharge with outpatient cardiology follow-up. He is noted to have noncompliance to diet, fluid restriction and hemodialysis and these have been reinforced to him. He is also noted to have 600 mg daily gabapentin, which is being decreased to 300 mg due to ESRD. - Time Spent with Patient Total time spent providing and/or coordinating discharge services: Greater than 30 minutes (50 min) - Constitutional Vitals: Temp Pulse Resp BP Pulse Ox 98 F 67 16 147/64 93 03/14/17 12:02 03/14/17 12:02 03/14/17 12:02 03/14/17 12:03/14/17 12:02 General appearance: Present: A&O X 3, obese, answers questions appropriately - Respiratory Respiratory exam: Present: CTAB. Absent: accessory muscle use, rales, rhonchi, wheezes - Cardiovascular Cardiovascular exam: Present: RRR, +S1, +S2. Absent: diastolic murmur, gallop, rubs, systolic murmur
== END 2017-03-14 14:15 | disposition home or self-care (01) | DRG 640 ==
LOC: 2ANU 09:47 → EMEROO 09:47 → 2ANU 14:09 → SUATTDRO 18:59
PROVIDERS: ADMIT Hospitalist; ATTEND Internal Medicine

== ENCOUNTER 2017-04-12 09:57 | Inpatient (IN) ==
[2017-04-12] MEDS ORDERED: Propofol 500 MG/50 ML INFUS..BTL ONE ×2 (10:16→12:16)
[2017-04-12] MEDS ORDERED: 0.9 % Sodium Chloride 1,000 ML IVC ONE (10:18)
--- NOTE | 2017-04-12 10:27 | Emergency Department Note ---
Disposition Clinical Impression: Unresponsive state, Hypoglycemia, End stage renal disease on dialysis Disposition: Admitted As Inpatient Condition: Critical Time of Disposition: 14:15 Altered Mental Status HPI - General Chief Complaint: ED Altered Mental Status Stated Complaint: unresponsive Time Seen by Provider: 04/12/17 10:18 Source: EMS Limitations: altered mental status Nursing Notes Reviewed: Yes Vital Signs Reviewed: Yes - History of Present Illness HPI Narrative: 56-year-old male known diabetic presents for evaluation of altered mental status. History provided via EMS. Noted to be hypoglycemic with a blood sugar in the 20s on arrival. Patient received IM glucagon. Patient's repeat blood sugar is 107. Patient had slight improvement with that but continued to be altered. Patient arrival to the ER patient was unresponsive. Patient was nonverbal. Patient's GCS of 3. Patient did have episodes of catatonia. No family at bedside providing history. Patient did have an episode altered mental status and hypoglycemia in the past due to chart review. - Related Data Home Medications Medication Instructions Recorded Confirmed Furosemide [Lasix] 40 mg PO BID 06/22/15 04/12/17 Insulin Glargine,Hum.rec.anlog 10 unit SQ HS 06/22/15 04/12/17 [Lantus Solostar] Sevelamer [Renvela] 3,200 mg PO TIDWM 06/22/15 04/12/17 Atorvastatin [Lipitor] 40 mg PO HS 09/05/15 04/12/17 Nitroglycerin [Nitrostat] 0.4 mg SL AD PRN 06/24/16 04/12/17 Hydralazine HCl 100 mg PO TID 01/04/17 04/12/17 Vitamin B Complex [B Complex] 1 tab PO DAILY 01/04/17 04/12/17 amLODIPine [Norvasc] 10 mg PO DAILY 01/04/17 04/12/17 Esomeprazole Magnesium [Nexium] 40 mg PO DAILY 03/12/17 04/12/17 Carvedilol [Coreg] 25 mg PO BID 04/12/17 04/12/17 Previous Rx's Medication Instructions Recorded Gabapentin [Neurontin] 300 mg PO HS #30 capsule 03/14/17 Allergies Allergy/AdvReac Type Severity Reaction Status Date / Time omeprazole [From Prilosec] Allergy Mild Hives Verified 01/05/17 23:39 Limitations: ROS unobtainable due to patients medical condition Past Medical History - Past Medical History Medical history: Reports: arthritis, coronary artery disease, diabetes, dialysis (M,W,F), GERD, hyperlipidemia, hypertension, renal disease, TIA Surgical history: Reports: angioplasty/stent, vascular surgery Psychiatric history: Reports: no psych history - Social History Smoking Status: Never smoker Smokeless Tobacco Status: No Alcohol use: Reports: none Drug use: Reports: none Physical Exam - General Limitations: altered mental status General appearance: obtunded - Head Head exam: atraumatic, normal inspection - Eye Eye exam: Present: normal appearance, other (3mm and nonreactive). Absent: scleral icterus - ENT ENT exam: normal exam, mucous membranes moist - Neck Neck exam: Present: normal inspection - Chest Chest inspection: Present: normal inspection, symmetric chest wall rise (no chest trauma), other - Respiratory Respiratory exam: Present: other (shallow, dimished.) - Cardiovascular Cardiovascular exam: Present: regular rate, normal rhythm - Abdominal Exam Abdominal exam: Present: soft, Non-Tender - Extremities Exam Extremities exam: Present: normal inspection, other (Functioning left forearm av fistula.). Absent: pedal edema - Back Exam Back exam: Present: normal inspection - Expanded Neurological Exam Coma Scale Eye Opening: None Coma Scale Motor Response: None Coma Scale Verbal Response: None Coma Scale Total: 3 - Skin Skin exam: Present: warm, dry, intact, normal color Course Course Narrative: Patient seen and examined upon arrival. Patient was altered. Initial IO placed and the patient moved. Second IO was placed for IV access. Unresponsive to painful stimuli. GCS of 3. Pupils are 3 mm and nonreactive. Patient was not posturing. Concerns of airway protection. Patient was intubated. Patient did also received 4 mg of Narcan without benefit. Patient' s blood sugar was normal. Patient will get a cardiac altered mental status workup. Patient will also get a CT of the head and neck. Disposition admission. - Reevaluation(s) Reevaluation #1: The patient's family arrived at bedside. Patient states his last unwell as possibly 3:00 this morning where he was acting appropriately. Family states that they checked on him at 5:00 AM and he was laying on the floor. This was not uncommon as he does lay on the floor. At 9 AM this morning they rechecked him and he was still not responding. They checked his blood sugar and it was 25. Did give him some food under the tongue. And called EMS. Patient family states that he does not have a history of alcohol use. Does not have a history of drug use. No history of suicidal tendencies. States that he possibly is taking more insulin. Family was updated on plan of care. Reports that he did go to his dialysis appointment on Thursday. 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 Time: 11:08 Vital Signs Temperature 0 F L 04/12/17 09:58 Pulse Rate 63 04/12/17 09:58 Respiratory Rate 18 04/12/17 09:58 Blood Pressure 184/101 04/12/17 09:58 O2 Sat by Pulse Oximetry 97 04/12/17 09:58 Temperature 0 F L 04/12/17 14:16 Pulse Rate 60 04/12/17 13:38 Respiratory Rate 22 04/12/17 14:16 Blood Pressure 149/95 04/12/17 14:16 O2 Sat by Pulse Oximetry 100 04/12/17 12:13 Oxygen Delivery Oxygen Delivery Ventilator Procedures - Central Line Placement Right Femoral Central Line Inserted*: Yes Central Line Catheter Replacement*: Yes Central Line Insertion: emergent Consent Obtained: verbal consent, written consent Procedural Pause: verify patient name and date of , timeout performed per policy, narinder and assess the site, assemble equipment and verify supplies, perform hand hygiene Patient Placed on Monitor/Pulse Ox: Yes During the Procedure: clinician is wearing sterile gloves, cap, mask,& gown during insertion, sterile field and sterile technique are maintained, patient's face is covered with drape or mask and wearing a cap, everyone in room is wearing a mask Central Line Prep: Chlorhexidine scrub Prep the Procedure Site: apply chloraprep to the skin using a back and forth scrubbing motion, apply chloraprep for 30 seconds (upper body), 1-2 min ( femoral sites), drape the patient with a full body drape Ultrasound Used for Placement: No Central Line Lumen Inserted: triple Post Procedure: sutured in place, good blood return, all ports aspirated, flushed, capped, sterile dressing applied, guide wire removed and visualized Post Procedure X-Ray: tip of catheter in good position Patient Tolerated Procedure: well, no complications Complications: none - Intubation Time out performed: Yes sedative: Etomidate Mg Given: 20 paralytic: Rocuronium Mg Given: 75 Laryngoscope: Mat ET Tube Size: 7.5 ET Tube Uncuffed: Yes Tube Secured Depth (cm): 24 Tube Secured Location: lips Tube Placement Confirmation: visualized tube passing through cords, equal breath sounds bilaterally, no breath sounds over epigastrium, confirmation by capnometry Patient Tolerated Procedure: well Intubation Complications: none Altered Mental Status - MDM Narrative Medical decision making narrative: 56-year-old male presents for evaluation of altered mental status and unresponsiveness. Patient came in unresponsive with a GCS of 3. Patient was not protecting his airway. Patient did have hypoglycemic episodes pre-hospital treated with sugar. Patient's sugar bedside was normal. Due to concerns of aspiration and airway protection the patient was intubated. The patient did not have ideal access an IO was placed. Patient did have a complete altered mental status workup. Head CT shows no acute abnormalities. Laboratory evaluation shows the patient is ESRD. Patient has hyperphosphatemia. The patient also had elevated troponin 0.06 with no prior comparisons. No EKG changes. Family bedside states the patient has been having worsening psychosis episodes over the past 2-3 months. Patient had a right femoral line placed for access. Patient's family at bedside states that he was last well approximately 3:00 this morning. Patient will be admitted to the hospitalist service ICU. - Lab Data Lab results reviewed: Yes I reviewed the patient's lab results. Result diagrams: 04/12/17 10:57 04/12/17 10:57 Lab Results 04/12/17 04/12/17 04/12/17 Range/Units 10:42 10:57 10:57 WBC 3.8 L (4.3-11.1) K/mcL RBC 4.11 L (4.19-5.50) M/mcL Hgb 14.5 (12.9-16.9) g/dL Hct 43.9 (37.5-50.1) % MCV 106.8 H (83.0-100.0) fL MCH 35.3 H (28.0-33.3) pg MCHC 33.0 (31.6-35.5) g/dL RDW 15.3 H (11.5-14.5) % Plt Count 98 L (140-400) K/mcL MPV 9.2 L (9.4-12.4) fL Immature Gran % 0.3 (0-4) % Seg Neutrophils % 84.6 % Lymphocytes % 10.3 % Monocytes % 4.2 % Eosinophils % 0.3 % Basophils % 0.3 % Neutrophils # 3.2 (1.6-8.9) K/mcL Lymphocytes # 0.4 L (0.6-4.6) K/mcL Monocytes # 0.2 (0.0-1.3) K/mcL Eosinophils # 0.0 (0.0-0.6) K/mcL Basophils # 0.0 (0.0-0.2) K/mcL Platelet Estimate Decreased L (Normal) Immature Plt Fraction 2.5 (1.1-6.1) % PT 11.0 (9.4-12.1) Seconds INR 1.0 APTT 29.4 (26.0-36.0) Seconds ABG pH 7.39 (7.32-7.45) pH Units ABG pCO2 51 H (35-45) mmHg ABG pO2 90 (85-104) mmHg ABG HCO3 30.9 H (21-27) mEQ/L ABG Total CO2 32.5 H (20-26) mEq/L ABG O2 Saturation 97 (95-98) % ABG Base Excess 4.5 H (-2.0 to 3.0) mEq/L Inspired O2 60 % Sodium (136-145) mEq/L Potassium (3.5-4.5) mEq/L Chloride (98-109) mEq/L Carbon Dioxide (19-29) mEq/L BUN (8-26) mg/dL Creatinine (0.72-1.25) mg/dL Est GFR ( Amer) (> 60) Est GFR (Non-Af Amer) (> 60) BUN/Creatinine Ratio (6-26) Glucose (70-99) mg/dL Calculated Osmolality (280-300) Lactic Acid (0.5-2.2) mmol/L Calcium (8.6-10.8) mg/dL Phosphorus (2.3-4.7) mg/dL Magnesium (1.6-2.6) mg/dL Total Bilirubin (0.2-1.2) mg/dL Direct Bilirubin (0.0-0.5) mg/dL Indirect Bilirubin (0.0-1.2) mg/dL AST (5-34) Units/L ALT (0-55) Units/L Alkaline Phosphatase (38-126) Units/L Troponin I (0-0.03) ng/mL Serum Total Protein (6.0-8.3) g/dL Albumin (3.5-5.0) g/dL Globulin (2.4-3.5) g/dL Albumin/Globulin Ratio (1.1-2.2) Urine Color (Yellow) Urine Clarity (Clear) Urine pH (5.0-8.0) pH Units Ur Specific [place] (1.010-1.025) Urine Protein (Neg-Trace) mg/dL Urine Glucose (UA) (Normal) mg/dL Urine Ketones (Negative) mg/dL Urine Blood (Negative) Urine Nitrite (Negative) Urine Bilirubin (Negative) Urine Urobilinogen (Normal) mg/dL Ur Leukocyte Esterase (Negative) Urine Microscopic RBC (0-3) per hpf Urine Microscopic WBC (0-3) per hpf Ur Squamous Epith Cells (None-Few) per lpf Urine Bacteria (None-Few) per hpf Hyaline Casts (None-Few) per lpf Ur Culture Indicated? (NO) Urine Opiates Screen (Juskuo=499) ng/mL Ur Barbiturates Screen (Avjvwd=865) ng/mL Ur Phencyclidine Scrn (Cutoff=25) ng/mL Ur Amphetamines Screen (Felmog=0049) ng/mL U Benzodiazepines Scrn (Rgphjc=409) ng/mL Urine Cocaine Screen (Cutoff= 300) ng/mL U Marijuana (THC) Screen (Cutoff = 50) ng/mL Ethyl Alcohol (0-10) mg/dL 04/12/17 04/12/17 04/12/17 Range/Units 10:57 10:57 10:57 WBC (4.3-11.1) K/mcL RBC (4.19-5.50) M/mcL Hgb (12.9-16.9) g/dL Hct (37.5-50.1) % MCV (83.0-100.0) fL MCH (28.0-33.3) pg MCHC (31.6-35.5) g/dL RDW (11.5-14.5) % Plt Count (140-400) K/mcL MPV (9.4-12.4) fL Immature Gran % (0-4) % Seg Neutrophils % % Lymphocytes % % Monocytes % % Eosinophils % % Basophils % % Neutrophils # (1.6-8.9) K/mcL Lymphocytes # (0.6-4.6) K/mcL Monocytes # (0.0-1.3) K/mcL Eosinophils # (0.0-0.6) K/mcL Basophils # (0.0-0.2) K/mcL Platelet Estimate (Normal) Immature Plt Fraction (1.1-6.1) % PT (9.4-12.1) Seconds INR APTT (26.0-36.0) Seconds ABG pH (7.32-7.45) pH Units ABG pCO2 (35-45) mmHg ABG pO2 (85-104) mmHg ABG HCO3 (21-27) mEQ/L ABG Total CO2 (20-26) mEq/L ABG O2 Saturation (95-98) % ABG Base Excess (-2.0 to 3.0) mEq/L Inspired O2 % Sodium 139 (136-145) mEq/L Potassium 4.4 (3.5-4.5) mEq/L Chloride 97 L (98-109) mEq/L Carbon Dioxide 26 (19-29) mEq/L BUN 61 H (8-26) mg/dL Creatinine 15.89 H (0.72-1.25) mg/dL Est GFR ( Amer) 4 L (> 60) Est GFR (Non-Af Amer) 3 L (> 60) BUN/Creatinine Ratio 4 L (6-26) Glucose 87 (70-99) mg/dL Calculated Osmolality 305 H (280-300) Lactic Acid 1.1 (0.5-2.2) mmol/L Calcium 10.1 (8.6-10.8) mg/dL Phosphorus (2.3-4.7) mg/dL Magnesium (1.6-2.6) mg/dL Total Bilirubin 0.7 (0.2-1.2) mg/dL Direct Bilirubin 0.3 (0.0-0.5) mg/dL Indirect Bilirubin 0.4 (0.0-1.2) mg/dL AST 23 (5-34) Units/L ALT 18 (0-55) Units/L Alkaline Phosphatase 69 (38-126) Units/L Troponin I 0.06 H* (0-0.03) ng/mL Serum Total Protein 6.8 (6.0-8.3) g/dL Albumin 3.4 L (3.5-5.0) g/dL Globulin 3.4 (2.4-3.5) g/dL Albumin/Globulin Ratio 1.0 L (1.1-2.2) Urine Color (Yellow) Urine Clarity (Clear) Urine pH (5.0-8.0) pH Units Ur Specific [place] (1.010-1.025) Urine Protein (Neg-Trace) mg/dL Urine Glucose (UA) (Normal) mg/dL Urine Ketones (Negative) mg/dL Urine Blood (Negative) Urine Nitrite (Negative) Urine Bilirubin (Negative) Urine Urobilinogen (Normal) mg/dL Ur Leukocyte Esterase (Negative) Urine Microscopic RBC (0-3) per hpf Urine Microscopic WBC (0-3) per hpf Ur Squamous Epith Cells (None-Few) per lpf Urine Bacteria (None-Few) per hpf Hyaline Casts (None-Few) per lpf Ur Culture Indicated? (NO) Urine Opiates Screen (Wplmzl=746) ng/mL Ur Barbiturates Screen (Ufyayf=352) ng/mL Ur Phencyclidine Scrn (Cutoff=25) ng/mL Ur Amphetamines Screen (Kyuhmm=4696) ng/mL U Benzodiazepines Scrn (Tqsmgt=907) ng/mL Urine Cocaine Screen (Cutoff= 300) ng/mL U Marijuana (THC) Screen (Cutoff = 50) ng/mL Ethyl Alcohol < 10 (0-10) mg/dL 04/12/17 04/12/17 04/12/17 Range/Units 10:59 11:00 11:00 WBC (4.3-11.1) K/mcL RBC (4.19-5.50) M/mcL Hgb (12.9-16.9) g/dL Hct (37.5-50.1) % MCV (83.0-100.0) fL MCH (28.0-33.3) pg MCHC (31.6-35.5) g/dL RDW (11.5-14.5) % Plt Count (140-400) K/mcL MPV (9.4-12.4) fL Immature Gran % (0-4) % Seg Neutrophils % % Lymphocytes % % Monocytes % % Eosinophils % % Basophils % % Neutrophils # (1.6-8.9) K/mcL Lymphocytes # (0.6-4.6) K/mcL Monocytes # (0.0-1.3) K/mcL Eosinophils # (0.0-0.6) K/mcL Basophils # (0.0-0.2) K/mcL Platelet Estimate (Normal) Immature Plt Fraction (1.1-6.1) % PT (9.4-12.1) Seconds INR APTT (26.0-36.0) Seconds ABG pH (7.32-7.45) pH Units ABG pCO2 (35-45) mmHg ABG pO2 (85-104) mmHg ABG HCO3 (21-27) mEQ/L ABG Total CO2 (20-26) mEq/L ABG O2 Saturation (95-98) % ABG Base Excess (-2.0 to 3.0) mEq/L Inspired O2 % Sodium (136-145) mEq/L Potassium (3.5-4.5) mEq/L Chloride (98-109) mEq/L Carbon Dioxide (19-29) mEq/L BUN (8-26) mg/dL Creatinine (0.72-1.25) mg/dL Est GFR ( Amer) (> 60) Est GFR (Non-Af Amer) (> 60) BUN/Creatinine Ratio (6-26) Glucose (70-99) mg/dL Calculated Osmolality (280-300) Lactic Acid (0.5-2.2) mmol/L Calcium (8.6-10.8) mg/dL Phosphorus 10.1 H (2.3-4.7) mg/dL Magnesium 3.6 H (1.6-2.6) mg/dL Total Bilirubin (0.2-1.2) mg/dL Direct Bilirubin (0.0-0.5) mg/dL Indirect Bilirubin (0.0-1.2) mg/dL AST (5-34) Units/L ALT (0-55) Units/L Alkaline Phosphatase (38-126) Units/L Troponin I (0-0.03) ng/mL Serum Total Protein (6.0-8.3) g/dL Albumin (3.5-5.0) g/dL Globulin (2.4-3.5) g/dL Albumin/Globulin Ratio (1.1-2.2) Urine Color Yellow (Yellow) Urine Clarity Cloudy A (Clear) Urine pH 8.0 (5.0-8.0) pH Units Ur Specific [place] 1.010 (1.010-1.025) Urine Protein 100 H (Neg-Trace) mg/dL Urine Glucose (UA) 100 H (Normal) mg/dL Urine Ketones Negative (Negative) mg/dL Urine Blood Moderate H (Negative) Urine Nitrite Negative (Negative) Urine Bilirubin Negative (Negative) Urine Urobilinogen Normal (Normal) mg/dL Ur Leukocyte Esterase Negative (Negative) Urine Microscopic RBC 5-15 H (0-3) per hpf Urine Microscopic WBC 3-5 H (0-3) per hpf Ur Squamous Epith Cells Many H (None-Few) per lpf Urine Bacteria None Seen (None-Few) per hpf Hyaline Casts None Seen (None-Few) per lpf Ur Culture Indicated? NO (NO) Urine Opiates Screen Negative (Lhtccr=041) ng/mL Ur Barbiturates Screen Negative (Zaoghl=356) ng/mL Ur Phencyclidine Scrn Negative (Cutoff=25) ng/mL Ur Amphetamines Screen Negative (Ydeyuu=0408) ng/mL U Benzodiazepines Scrn Negative (Yqrmvw=087) ng/mL Urine Cocaine Screen Negative (Cutoff= 300) ng/mL U Marijuana (THC) Screen Negative (Cutoff = 50) ng/mL Ethyl Alcohol (0-10) mg/dL - Radiology Data Radiology results reviewed: Yes I reviewed the patient's radiology results. Chest X-Ray 04/12/17 10:18 IMPRESSION: 1. ETT tip 5.5 cm above the estelita. 2. Hypoinflated lungs with bibasilar atelectasis. 3. Stable cardiomegaly. D/ / Hardeep Ang MD / Hardeep Ang MD Interpreting Provider: Hardeep Ang MD Head CT 04/12/17 10:19 IMPRESSION: No acute intracranial abnormality. If acute cerebral infarct is a clinical concern, an MRI is more sensitive study. Mild bilateral ethmoid and maxillary sinus disease. D/ / Yahaira Navarro Cha, MD / Yahaira Navarro Cha, MD Interpreting Provider: Yahaira Navarro Cha, MD Cervical Spine CT 04/12/17 10:23 IMPRESSION: No acute abnormality of the cervical spine. Severe degenerative disc disease with endplate changes at C6-7. D/ / 04/12/2017 12:26:16 Judy Fischer MD / earnold Interpreting Provider: Judy Fischer MD - EKG Data EKG attestation: Yes I reviewed and interpreted this EKG. EKG shows normal: sinus rhythm Rate: normal Rhythm: NSR [place]/QRS: left axis deviation, LAHB/LAFB Voltage: c/w LVH T wave inversions: III, aVR QTc: prolonged (492) Ectopy: PVC When compared to previous EKG there are: no significant changes Interpretation: no acute changes, nonspecific ST-T wave changes S.B.A.R. - S.B.A.R. Situation: Demographics Background: Presenting Complaint Assessment: Vital Signs, Course and respsone to treatment, Patient/Family Expectation Recommendation: Barrier(s) to disposition, Recommendation based on pending studies, treatments, or consults S.B.A.R. Report Given to: Dr. Bajwa SCarlos EnriqueBCarlos EnriqueAKaila Repor Time: 13:35 Attestation Statement - Attestation Attestation: I examined this patient and my medical decision-making was reviewed with the INDUSTRIAL SAFETY ENGINEER/PA/Advanced Practice Nurse/Resident Physician. I agree with the documented findings, disposition and treatment plan as described except to the extent set forth below. 56-year-old male presents ED by EMS after being found unresponsive. He was last seen by family in a normal state at 3 AM. At 5 AM and found him laying on the floor but this is not uncommon as he prefers to sleep on the floor. At 9 AM the check on him again and he was not responsive prompting her to call EMS. They checked his glucose and found to be 21. EMS provided him with IV dextrose and he did have a transient improvement but did not normalize. He arrived to the ED intermittently combative but otherwise neurologically unresponsive. He does have end-stage renal failure and gets dialysis every Thursday, Thursday and Thursday. On his last dialysis session 2 days ago it was cut short by 2 hours because he was having paranoid thoughts. According to his son he has been having increasing paranoid delusions and hallucinations over the past 3-4 months. No reported fever. No change in medications. No vomiting or diarrhea. No recent trauma or complaints of headache. Patient presents altered and not responsive to painful symptoms. He is nonverbal. He has no current gag reflex. He has intermittent, spontaneous movements of his extremities but these are nonpurposeful and not moving with commands. He does not withdrawal nor localize to pain. Oropharynx is clear. Pupils are equal at 3 mm but nonreactive. No evidence of head trauma. Chest clear to auscultation bilaterally. Cardiac exam regular. Abdomen soft nondistended and nontender. He appeared to them from the unresponsiveness for brief moments but then became unresponsive again and with this remained unresponsive to painful stimulus and without gag reflex. Decision was made to protect his airway and he was intubated with rapid seems intubation using etomidate and rocuronium. He was further sedated with propofol infusion. CT of his head was negative for any acute process. Metabolic workup was unremarkable except for elevated phosphorus. Initially a right tibial intraosseous access was placed for the RSI. Orally, right femoral line was placed for better access. His sedation was maintained he was maintained on a ventilator. Patient was seen in the ED by Dr. Crooks and admitted to the intensive care unit. The high probability of a clinically significant, sudden or life threatening deterioration of the [cardiovascular, neurovascular] system(s) required my full and direct attention, intervention and personal management. The aggregate critical care time was [45] minutes. This time is in addition to time spent performing reported procedures but includes the following: [x] Data Review and interpretation [x] Patient assessment and monitoring of vital signs [x] Documentation [x] Medication orders and management
[2017-04-12] MEDS ORDERED: *HR* Etomidate 20 MG/10 ML AMPUL IVP ONE ×2 (10:43→12:00)
[2017-04-12] MEDS ORDERED: *HR* Rocuronium Bromide 50 MG/5 ML VIAL IVP ONE ×2 (10:43→12:27)
[2017-04-12 10:51] LABS: ABG Base Excess 4.5 mEq/L (-2.0 to 3.0); ABG HCO3 30.9 mEQ/L (21-27); ABG Oxygen Saturation 97 % (95-98); ABG PCO2 51 mmHg (35-45); ABG PH 7.39 pH Units (7.32-7.45); ABG PO2 90 mmHg (85-104); ABG TCO2 32.5 mEq/L (20-26); Blood Gas FiO2 60 %
[2017-04-12 11:05] LABS: Basophils % 0.3 %; Eosinophils % 0.3 %; Hematocrit 43.9 % (37.5-50.1); Hemoglobin 14.5 g/dL (12.9-16.9); Immature Granulocytes % 0.3 % (0-4); Immature Platelets 2.5 % (1.1-6.1); Lymphocytes # 0.4 K/mcL (0.6-4.6); Lymphocytes % 10.3 %; Mean Corpuscular Hemoglobin 35.3 pg (28.0-33.3); Mean Corpuscular Volume 106.8 fL (83.0-100.0); Mean Platelet Volume 9.2 fL (9.4-12.4); Monocytes # 0.2 K/mcL (0.0-1.3); Monocytes % 4.2 %; Neutrophils # 3.2 K/mcL (1.6-8.9); Platelet Count 98 K/mcL (140-400); Red Blood Count 4.11 M/mcL (4.19-5.50); Red Cell Distribution Width 15.3 % (11.5-14.5); Segmented Neutrophils % 84.6 %
[2017-04-12 11:07] LABS: Platelet Estimate Decreased (Normal)
[2017-04-12 11:09] LABS: Bilirubin,Urine Negative (Negative); Blood,Urine Moderate (Negative); Clarity,Urine Cloudy (Clear); Color,Urine Yellow (Yellow); Glucose,Urine (UA) 100 mg/dL (Normal); Ketones,Urine Negative (Negative); Leukocyte Esterase,Urine Negative (Negative); Nitrite,Urine Negative (Negative); Protein,Urine 100 mg/dL (Neg-Trace); Urobilinogen,Urine Normal (Normal)
[2017-04-12 11:12] LABS: Bacteria,Urine None Seen per hpf (None-Few); Hyaline Casts,Urine None Seen per lpf (None-Few); Squamous Epithelial Cell,Urine Many per lpf (None-Few)
[2017-04-12 11:14] LABS: Activated Partial Thrombo Time 29.4 Seconds (26.0-36.0)
[2017-04-12 11:17] LABS: Amphetamine Screen,Urine Negative ng/mL (Cutoff=1000); Barbiturate Screen,Urine Negative ng/mL (Cutoff=200); Benzodiazepines Screen,Urine Negative ng/mL (Cutoff=200); Cannabinoid Screen,Urine Negative ng/mL (Cutoff = 50); Cocaine Screen,Urine Negative ng/mL (Cutoff= 300); Opiate Screen,Urine Negative ng/mL (Cutoff=300); Phencyclidine Screen,Urine Negative ng/mL (Cutoff=25)
[2017-04-12 11:19] LABS: Magnesium 3.6 mg/dL (1.6-2.6); Phosphorous 10.1 mg/dL (2.3-4.7)
[2017-04-12 11:21] LABS: Alanine Aminotransferase 18 Units/L (0-55); Albumin 3.4 g/dL (3.5-5.0); Alkaline Phosphatase 69 Units/L (38-126); Aspartate Amino Transferase 23 Units/L (5-34); BUN/Creatinine Ratio 4 (6-26); Bilirubin,Direct 0.3 mg/dL (0.0-0.5); Bilirubin,Indirect 0.4 mg/dL (0.0-1.2); Bilirubin,Total 0.7 mg/dL (0.2-1.2); Blood Urea Nitrogen 61 mg/dL (8-26); Calcium 10.1 mg/dL (8.6-10.8); Carbon Dioxide 26 mEq/L (19-29); Chloride 97 mEq/L (98-109); Globulin 3.4 g/dL (2.4-3.5); Glucose 87 mg/dL (70-99); Osmolality,Calculated 305 (280-300); Potassium 4.4 mEq/L (3.5-4.5); Sodium 139 mEq/L (136-145); Total Protein 6.8 g/dL (6.0-8.3); eGFR For African Americans 4 (> 60); eGFR For Non-African Americans 3 (> 60)
[2017-04-12 11:22] LABS: Ethanol < 10 mg/dL (0-10)
[2017-04-12] MEDS ORDERED: *HR* Rocuronium Bromide 50 MG/5 ML VIAL IVC ONE ×2 (12:00)
[2017-04-12] MEDS ORDERED: *HR* LORazepam 2 MG/ML VIAL ONE ×2 (12:28→12:59)
[2017-04-12] MEDS: *HR* LORazepam 2 MG/ML VIAL IVP ONE ×2 (13:08→14:50)
[2017-04-12] MEDS ORDERED: Dextrose Gel 15 GM PO PRN ×2 (13:45)
[2017-04-12] MEDS ORDERED: D5% in Water 1,000 ML IVC PRN (13:45)
--- NOTE | 2017-04-12 13:46 | Pulmonology History & Physical ---
<YenniGerson - Last Filed: 04/12/17 13:41> Date of Encounter: 04/12/17 Time of Encounter: 13:41 Assessment and Plan (1) Altered mental status Current visit: No Status: Resolved Etiology likley multifactorial in setting of prior psychosis, hypoglycemia, complicated by uremia in setting of inadequate dialysis on Thursday. UDS negative, ethyl alcohol level <10 CT had showed no acute intracranial abnormality CXR showed stable cardiomegaly. patient was intubated due to concern for airway protection. will repeat urinalysis and culture if indicated continue with mechanical ventilation, will do CPAP trial tomorrow and possible extubation. Patient has had altered mental status in the past with psychosis. Will consult psychiatry later if needed. sedation with fentanyl and propafol. nephrology on board, plan for dialysis today. Qualifiers: Altered mental status type: unspecified Qualified Code(s): R41.82 - Altered mental status, unspecified (2) ESRD (end stage renal disease) Current visit: No Status: Chronic Patient follows with Dr. Parsons's group on dialysis Thursday, Thursday, Thursday. Appreciate nephrology recommendations. (3) HTN (hypertension) Current visit: No Status: Chronic Continue amlodipine, Coreg, hydralazine Qualifiers: Hypertension type: essential hypertension Qualified Code(s): I10 - Essential (primary) hypertension (4) Diabetes Current visit: No Status: Chronic Lost A1C from 12/23/16 was 6.7. Will continue with Q4 our Accu checks will start hypoglycemia protocol. Will hold off on any subcutaneous insulin for now, as patient with hypoglycemic. 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 will do D5 as needed. (7) Obesity Current visit: No Status: Chronic Qualifiers: Obesity type: due to excess calories Obesity severity: non-morbid Qualified Code(s): E66.09 - Other obesity due to excess calories (8) DVT prophylaxis Current visit: No Status: Acute Heparin SQ protonix for GI prophylaxis. History of Present Illness Chief complaint: altered mental status HPI: Mr. Monge is a 56 year old male with past medical history of hypertension, end -stage renal disease on dialysis ([facility]), diabetes, hyperlipidemia , obesity, CAD. It was intubated and sedated in the emergency department, where history was obtained. History was obtained from patient's son Eric Monge, with Patient's Next Of Kin. Patient was brought to the emergency department by EMS for chief complaint of altered mental status. According to patient's son, patient was found laying on the floor of his room at 5 AM this morning. This is not unusual for him, as patient repeatedly has a hard time sleeping at night and sometimes falls asleep on the floor. Patient's son tried to wake him up, but he would make incomprehensible noises and was not able to be aroused. Patient was allowed to sleep, and then at 8 AM, patient's son tried to wake him up again. At that time, patient one not respond to any stimuli. His blood sugar was checked by his son and found to be 25 at that time patient's son put a small piece of candy under the patient's tongue and called EMS. When EMS came, patients blood sugar had only gone up to 35. Squad had placed IO for access. Patient is on Lantus at home. Son states that patient is known to patient only take more insulin then he should when he is by himself. Patient does not have a history of drug use, and UDS was negative. Patient is compliant with dialysis and his last dialysis session was on Thursday. However, on Thursday he had only received 1.5 hours of dialysis due to psychosis. Patient had locked himself in the bathroom during his dialysis session. Son states that patients psychosis had began about 5 months ago. Patient's lost hospital admission was one month ago for fluid overload secondary to incomplete dialysis session to 10 malfunctioning AV fistula. Prior to that he had a hospital admission back in January for altered mental status. Past Med Surg Social Fam HX - Past Medical History Medical history: arthritis, coronary artery disease, diabetes, dialysis, GERD, hyperlipidemia, hypertension, renal disease, TIA Psychiatric history: no psych history - Past Surgical History Surgical History: angioplasty/stent, vascular surgery - Social History Smoking Status: Never smoker Smokeless Tobacco Status: No Alcohol use: none Drug use: none - Family History Father Hx Family Cardiac Disorders: Yes Hx Family Endocrine Disorder: Yes (DM) Mother Living Status: Hx Family Cardiac Disorders: Yes Hx Family Cancer: Yes Medications and Allergies Furosemide [Lasix] 40 mg PO BID 06/22/15 [History] Insulin Glargine,Hum.rec.anlog [Lantus Solostar] 10 unit SQ HS 06/22/15 [History ] Sevelamer [Renvela] 3,200 mg PO TIDWM 06/22/15 [History] Atorvastatin [Lipitor] 40 mg PO HS 09/05/15 [History] Nitroglycerin [Nitrostat] 0.4 mg SL AD PRN 06/24/16 [History] Hydralazine HCl 100 mg PO TID 01/04/17 [History] Vitamin B Complex [B Complex] 1 tab PO DAILY 01/04/17 [History] amLODIPine [Norvasc] 10 mg PO DAILY 01/04/17 [History] Esomeprazole Magnesium [Nexium] 40 mg PO DAILY 03/12/17 [History] Gabapentin [Neurontin] 300 mg PO HS #30 capsule 03/14/17 [Rx] Carvedilol [Coreg] 25 mg PO BID 04/12/17 [History] Allergies omeprazole [From Prilosec] Allergy (Mild, Verified 01/05/17 23:39) Hives ROS unobtainable: due to endotracheal tube, due to mental status All Systems: A 10-system review of systems was performed and is negative for pertinent findings except as documented above in the HPI. Physical Examination Vital Signs: Vital Signs, Last 4 Hours Temp Pulse Resp BP Pulse Ox 04/12/17 13:38 60 144/94 04/12/17 13:14 70 170/106 04/12/17 12:13 96.4 F L 74 188/116 100 04/12/17 11:11 70 14 150/92 100 04/12/17 10:41 80 14 146/93 100 04/12/17 10:28 80 14 193/110 100 04/12/17 10:23 17 99 04/12/17 10:18 84 14 203/118 100 04/12/17 10:16 100 04/12/17 09:58 0 F L 63 18 184/101 97 General appearance: other (sedated on ventilator) Eyes: nonicteric ENT: oropharynx dry Neck: supple, no lymphadenopathy Effort: other (on ventilator) Auscultation: bilateral: clear Cardiovascular: regular rate and rhythm, PVC's noted Gastrointestinal: soft, non-tender, non-distended Extremities: no cyanosis, no edema, no clubbing, other (AV fistula present on left arm. ) Musculoskeletal: no deformities other (sedated) Results - Laboratory Findings CBC and BMP: 04/12/17 10:57 04/12/17 10:57 ABG ABG pH 7.39 pH Units (7.32-7.45) 04/12/17 10:42 ABG pCO2 51 mmHg (35-45) H 04/12/17 10:42 ABG pO2 90 mmHg (85-104) 04/12/17 10:42 ABG O2 Saturation 97 % (95-98) 04/12/17 10:42 PT/INR, D-dimer PT 11.0 Seconds (9.4-12.1) 04/12/17 10:57 Abnormal lab findings: Abnormal lab results WBC 3.8 K/mcL (4.3-11.1) L 04/12/17 10:57 RBC 4.11 M/mcL (4.19-5.50) L 04/12/17 10:57 MCV 106.8 fL (83.0-100.0) H 04/12/17 10:57 MCH 35.3 pg (28.0-33.3) H 04/12/17 10:57 RDW 15.3 % (11.5-14.5) H 04/12/17 10:57 Plt Count 98 K/mcL (140-400) L 04/12/17 10:57 MPV 9.2 fL (9.4-12.4) L 04/12/17 10:57 Lymphocytes # 0.4 K/mcL (0.6-4.6) L 04/12/17 10:57 Platelet Estimate Decreased (Normal) L 04/12/17 10:57 ABG pCO2 51 mmHg (35-45) H 04/12/17 10:42 ABG HCO3 30.9 mEQ/L (21-27) H 04/12/17 10:42 ABG Total CO2 32.5 mEq/L (20-26) H 04/12/17 10:42 ABG Base Excess 4.5 mEq/L (-2.0 to 3.0) H 04/12/17 10:42 Chloride 97 mEq/L (98-109) L 04/12/17 10:57 BUN 61 mg/dL (8-26) H 04/12/17 10:57 Creatinine 15.89 mg/dL (0.72-1.25) H 04/12/17 10:57 Est GFR ( Amer) 4 (> 60) L 04/12/17 10:57 Est GFR (Non-Af Amer) 3 (> 60) L 04/12/17 10:57 BUN/Creatinine Ratio 4 (6-26) L 04/12/17 10:57 Calculated Osmolality 305 (280-300) H 04/12/17 10:57 Phosphorus 10.1 mg/dL (2.3-4.7) H 04/12/17 10:59 Magnesium 3.6 mg/dL (1.6-2.6) H 04/12/17 10:59 Troponin I 0.06 ng/mL (0-0.03) H* 04/12/17 10:57 Albumin 3.4 g/dL (3.5-5.0) L 04/12/17 10:57 Albumin/Globulin Ratio 1.0 (1.1-2.2) L 04/12/17 10:57 Urine Clarity Cloudy (Clear) A 04/12/17 11:00 Urine Protein 100 mg/dL (Neg-Trace) H 04/12/17 11:00 Urine Glucose (UA) 100 mg/dL (Normal) H 04/12/17 11:00 Urine Blood Moderate (Negative) H 04/12/17 11:00 Urine Microscopic RBC 5-15 per hpf (0-3) H 04/12/17 11:00 Urine Microscopic WBC 3-5 per hpf (0-3) H 04/12/17 11:00 Ur Squamous Epith Cells Many per lpf (None-Few) H 04/12/17 11:00 <VanessavikyRebeka M - Last Filed: 04/12/17 16:40> Date of Encounter: 04/12/17 History of Present Illness HPI: Mr. Monge is a 56 year old male All Systems: A 10-system review of systems was performed and is negative for pertinent findings except as documented above in the HPI. Physical Examination Vital Signs: Vital Signs, Last 4 Hours Temp Pulse Resp BP Pulse Ox 04/12/17 15:11 15 99 04/12/17 15:00 58 15 162/100 04/12/17 14:58 96.4 F L 67 15 166/104 04/12/17 14:57 67 04/12/17 14:16 0 F L 22 149/95 Results - Laboratory Findings CBC and BMP: 04/12/17 10:57 04/12/17 10:57 ABG ABG pH 7.45 pH Units (7.32-7.45) 04/12/17 15:50 ABG pCO2 42 mmHg (35-45) 04/12/17 15:50 ABG pO2 66 mmHg (85-104) L 04/12/17 15:50 ABG O2 Saturation 94 % (95-98) L 04/12/17 15:50 PT/INR, D-dimer PT 11.0 Seconds (9.4-12.1) 04/12/17 10:57 Abnormal lab findings: Abnormal lab results WBC 3.8 K/mcL (4.3-11.1) L 04/12/17 10:57 RBC 4.11 M/mcL (4.19-5.50) L 04/12/17 10:57 MCV 106.8 fL (83.0-100.0) H 04/12/17 10:57 MCH 35.3 pg (28.0-33.3) H 04/12/17 10:57 RDW 15.3 % (11.5-14.5) H 04/12/17 10:57 Plt Count 98 K/mcL (140-400) L 04/12/17 10:57 MPV 9.2 fL (9.4-12.4) L 04/12/17 10:57 Lymphocytes # 0.4 K/mcL (0.6-4.6) L 04/12/17 10:57 Platelet Estimate Decreased (Normal) L 04/12/17 10:57 ABG pO2 66 mmHg (85-104) L 04/12/17 15:50 ABG HCO3 29.2 mEQ/L (21-27) H 04/12/17 15:50 ABG Total CO2 30.5 mEq/L (20-26) H 04/12/17 15:50 ABG O2 Saturation 94 % (95-98) L 04/12/17 15:50 ABG Base Excess 4.6 mEq/L (-2.0 to 3.0) H 04/12/17 15:50 Chloride 97 mEq/L (98-109) L 04/12/17 10:57 BUN 61 mg/dL (8-26) H 04/12/17 10:57 Creatinine 15.89 mg/dL (0.72-1.25) H 04/12/17 10:57 Est GFR ( Amer) 4 (> 60) L 04/12/17 10:57 Est GFR (Non-Af Amer) 3 (> 60) L 04/12/17 10:57 BUN/Creatinine Ratio 4 (6-26) L 04/12/17 10:57 POC Glucose 98 (58-89) H 04/12/17 15:51 Calculated Osmolality 305 (280-300) H 04/12/17 10:57 Phosphorus 10.1 mg/dL (2.3-4.7) H 04/12/17 10:59 Magnesium 3.6 mg/dL (1.6-2.6) H 04/12/17 10:59 Troponin I 0.06 ng/mL (0-0.03) H* 04/12/17 10:57 Albumin 3.4 g/dL (3.5-5.0) L 04/12/17 10:57 Albumin/Globulin Ratio 1.0 (1.1-2.2) L 04/12/17 10:57 Urine Clarity Cloudy (Clear) A 04/12/17 11:00 Urine Protein 100 mg/dL (Neg-Trace) H 04/12/17 11:00 Urine Glucose (UA) 100 mg/dL (Normal) H 04/12/17 11:00 Urine Blood Moderate (Negative) H 04/12/17 11:00 Urine Microscopic RBC 5-15 per hpf (0-3) H 04/12/17 11:00 Urine Microscopic WBC 3-5 per hpf (0-3) H 04/12/17 11:00 Ur Squamous Epith Cells Many per lpf (None-Few) H 04/12/17 11:00 - Attending Attestation I examined this patient and my medical decision-making was reviewed with the EXTENSION WORK INSTRUCTOR/PA/Advanced Practice Nurse/Resident Physician. I agree with the documented findings, disposition and treatment plan as described except to the extent set forth below. Patient seen and examined. I was called by the ER physician to assist the patient and I have seen patients in the emergency room and then in ICU. Labs, radiology, chart personally reviewed. 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 I still suspect this could be metabolic, however other etiologies such as infection even though is less likely, it cannot be ruled out and we may need neurology consultation. I have discussed with figurine maker Dr. Cowart for hemodialysis which may help his encephalopathy. Patient has been having hypoglycemia and this could be another reason and his Lantus needs to be adjusted. Pulmonary: Acceptable oxygenation and ventilation. His ET tube has been advanced. Cardiovascular: Borderline hypertension at this time and resume his home medication. GI: Nutrition per dietary and GI prophylaxis per routine Heme: DVT prophylaxis per routine ID: There is no obvious source of infection and no need for antibiotics. Renal; urine out put and renal funtion reviewed. Discussed with figurine maker Endorcine: blood glucose is monitored. Hypoglycemia is related to his treatment insulin and he is on hypoglycemic protocol we need to carefully to monitor this very closely because of the risks of hypoglycemia. Lines: all lines checked and no evidence of infections Skin: skin care to prevent pressure ulcers per nursing routine care I spent 40 min of Critical Care time with this patient. It involved decision making of high complexity to assess, manipulate, and support vital organ system failure and/or to prevent further life threatening deterioration of the patient' s condition. The time involved in the performance of separately reportable procedures was not counted toward critical care time.
[2017-04-12] MEDS: *HR* Dextrose 50 % in Water (Syg) 50 ML SYRINGE IVP PRN ×2 (14:49→17:20)
[2017-04-12] MEDS ORDERED: Lacri-Lube 3.5 GM TUBE BOTH EYES PRN (14:55)
--- NOTE | 2017-04-12 15:32 | Nephrology Consult Note ---
Date of Encounter: 04/12/17 Time of Encounter: 15:32 Assessment and Plan (1) Altered mental status Current Visit: No Status: Acute Patient in with altered mental status possibly secondary to hypoglycemia vs. other. Intubated for airway protection. Defer management to primary team. Will perform dialysis to minimize metabolic contribution to AMS. Patient not acidotic. Qualifiers: Altered mental status type: stupor Qualified Code(s): R40.1 - Stupor (2) ESRD (end stage renal disease) Current Visit: No Status: Acute HD MWF. Under the direction of Dr. Cruz. Renal dose medications. Dialysis today and possibly Thursday. Renal diet when consuming po. (3) Diabetes mellitus Current Visit: No Status: Acute Per primary team. Patient found with hypoglycemia (time for hypoglycemia is unclear). Provide glucose as needed. 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 Will perform UF with HD. Continue home medications. 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 History of Present Illness - Reason for Consult Consult date: 04/12/17 end stage renal disease - Chief Complaint Altered mental status. - History of Present Illness Patient is intubated and sedated. ROS and history are unavailable from the patient. Electronic chart reviewed. Past Med Surg Social Fam HX - Past Medical History Medical history: arthritis, coronary artery disease, diabetes, dialysis, GERD, hyperlipidemia, hypertension, renal disease, TIA Psychiatric history: no psych history - Past Surgical History Surgical History: angioplasty/stent, vascular surgery - Social History Smoking Status: Never smoker Smokeless Tobacco Status: No Alcohol use: none Drug use: none - Family History Father Hx Family Cardiac Disorders: Yes Hx Family Endocrine Disorder: Yes (DM) Mother Living Status: Hx Family Cardiac Disorders: Yes Hx Family Cancer: Yes Medications and Allergies Furosemide [Lasix] 40 mg PO BID 06/22/15 [History] Insulin Glargine,Hum.rec.anlog [Lantus Solostar] 10 unit SQ HS 06/22/15 [History ] Sevelamer [Renvela] 3,200 mg PO TIDWM 06/22/15 [History] Atorvastatin [Lipitor] 40 mg PO HS 09/05/15 [History] Nitroglycerin [Nitrostat] 0.4 mg SL AD PRN 06/24/16 [History] Hydralazine HCl 100 mg PO TID 01/04/17 [History] Vitamin B Complex [B Complex] 1 tab PO DAILY 01/04/17 [History] amLODIPine [Norvasc] 10 mg PO DAILY 01/04/17 [History] Esomeprazole Magnesium [Nexium] 40 mg PO DAILY 03/12/17 [History] Gabapentin [Neurontin] 300 mg PO HS #30 capsule 03/14/17 [Rx] Carvedilol [Coreg] 25 mg PO BID 04/12/17 [History] Allergies omeprazole [From Prilosec] Allergy (Mild, Verified 01/05/17 23:39) Hives Review of Systems ROS unobtainable: due to endotracheal tube Exam - Vital Signs Vital signs: Initial Vital Signs Temp Pulse Resp BP Pulse Ox 0 F L 63 18 184/101 97 04/12/17 09:58 04/12/17 09:58 04/12/17 09:58 04/12/17 09:58 04/12/17 09:58 Vital Signs - Last 8 Hours Temp Resp BP Pulse Ox 04/12/17 15:11 15 99 04/12/17 14:16 0 F L 22 149/95 Intake and Output 04/11/17 04/12/17 04/12/17 23:59 07:59 15:59 Other: Blood Glucose* 64 - General Appearance General appearance: well-developed, well-nourished, sedated on ventilator, intubated EENT: ATNC Neck: supple Respiratory: clear Cardiology: no edema, regular rate, regular rhythm - Dialysis Access Dialysis Vascular Access: Arteriovenous Fistula (left forearm) thrill: Yes bruit: Yes Gastrointestinal: normoactive bowel sounds, no tenderness, no guarding Integumentary: warm and dry Neurologic: alert and oriented x3 Musculoskeletal: no cyanosis Psychiatric: mood/affect appropriate Results - Lab Results 04/12/17 10:57 04/12/17 10:57 Most recent lab results ABG pH 7.39 pH Units (7.32-7.45) 04/12/17 10:42 ABG pCO2 51 mmHg (35-45) H 04/12/17 10:42 ABG pO2 90 mmHg (85-104) 04/12/17 10:42 ABG HCO3 30.9 mEQ/L (21-27) H 04/12/17 10:42 ABG O2 Saturation 97 % (95-98) 04/12/17 10:42 Calcium 10.1 mg/dL (8.6-10.8) 04/12/17 10:57 Phosphorus 10.1 mg/dL (2.3-4.7) H 04/12/17 10:59 Magnesium 3.6 mg/dL (1.6-2.6) H 04/12/17 10:59 Consult Discharge Plan - Plan Referrals: Albina Olea MD [Primary Care Provider] -
[2017-04-12 16:01] LABS: ABG Base Excess 4.6 mEq/L (-2.0 to 3.0); ABG HCO3 29.2 mEQ/L (21-27); ABG Oxygen Saturation 94 % (95-98); ABG PCO2 42 mmHg (35-45); ABG PH 7.45 pH Units (7.32-7.45); ABG PO2 66 mmHg (85-104); ABG TCO2 30.5 mEq/L (20-26); Blood Gas FiO2 45 %
[2017-04-12] MEDS: FentaNYL (PF) 1,000 MCG in 0.9 % Sodium Chloride 80 ML IVC SCH (16:01)
[2017-04-12] MEDS ORDERED: 0.9 % Sodium Chloride 1,000 ML ONE (17:22)
[2017-04-12] MEDS ORDERED: 0.9 % Sodium Chloride 500 ML IVC ONE (17:23)
[2017-04-12] MEDS: hydrALAZINE 25 MG TABLET PO SCH ×2 (17:39→19:40)
[2017-04-12] MEDS ORDERED: 0.9 % Sodium Chloride 250 ML IVC PRN (17:53)
[2017-04-12] MEDS ORDERED: 0.9 % Sodium Chloride 1,000 ML PRIME SCH (18:00)
[2017-04-12] MEDS: Lacri-Lube 3.5 GM TUBE BOTH EYES SCH ×2 (18:10→19:42)
[2017-04-12] MEDS: *HR* Heparin 5,000 UNIT/ML VIAL SQ SCH (18:18)
[2017-04-12] MEDS: Norepinephrine 4 MG in D5% in Water 250 ML IVC SCH ×2 (18:19→18:43)
[2017-04-12 18:31] LABS: Calcium 9.5 mg/dL (8.6-10.8); Potassium 4.4 mEq/L (3.5-4.5)
[2017-04-12 18:52] LABS: Hepatitis B Surface Antigen Nonreactive (Nonreactive)
[2017-04-12] MEDS: Chlorhexidine Rinse 15 ML MOUTHWASH MM SCH (19:39)
[2017-04-13] MEDS: Lacri-Lube 3.5 GM TUBE BOTH EYES SCH ×6 (00:31→19:33)
[2017-04-13 04:15] LABS: Magnesium 2.6 mg/dL (1.6-2.6); Phosphorous 6.3 mg/dL (2.3-4.7)
[2017-04-13 04:20] LABS: ABG Base Excess 7.5 mEq/L (-2.0 to 3.0); ABG HCO3 32.7 mEQ/L (21-27); ABG Oxygen Saturation 90 % (95-98); ABG PCO2 47 mmHg (35-45); ABG PH 7.45 pH Units (7.32-7.45); ABG PO2 56 mmHg (85-104); ABG TCO2 34.1 mEq/L (20-26)
[2017-04-13 04:21] LABS: Ionized Calcium 1.13 mmol/L (1.15-1.35)
[2017-04-13 04:21] LABS: Blood Gas FiO2 35 %; Blood Gas PEEP 5 cm H2O
[2017-04-13 04:27] LABS: Basophils # 0.1 K/mcL (0.0-0.2); Basophils % 0.7 %; Eosinophils # 0.2 K/mcL (0.0-0.6); Eosinophils % 2.7 %; Hematocrit 43.1 % (37.5-50.1); Immature Granulocytes % 0.3 % (0-4); Lymphocytes # 0.8 K/mcL (0.6-4.6); Mean Corpuscular HGB Conc 32.5 g/dL (31.6-35.5); Mean Corpuscular Hemoglobin 35.4 pg (28.0-33.3); Mean Corpuscular Volume 108.8 fL (83.0-100.0); Mean Platelet Volume 11.6 fL (9.4-12.4); Monocytes # 0.7 K/mcL (0.0-1.3); Monocytes % 9.7 %; Neutrophils # 5.3 K/mcL (1.6-8.9); Platelet Count 106 K/mcL (140-400); Red Blood Count 3.96 M/mcL (4.19-5.50); Red Cell Distribution Width 15.9 % (11.5-14.5); Segmented Neutrophils % 75.6 %
[2017-04-13] MEDS: FentaNYL (PF) 1,000 MCG in 0.9 % Sodium Chloride 80 ML IVC SCH ×2 (04:30→19:32)
[2017-04-13] MEDS: *HR* Heparin 5,000 UNIT/ML VIAL SQ SCH ×2 (06:15→17:46)
[2017-04-13] MEDS ORDERED: amLODIPine 5 MG TABLET PO SCH (09:00)
[2017-04-13] MEDS ORDERED: NON-FORMULARY MEDICATION 1 EACH EACH (Esomeprazole Magnesium [Nexium] 40 MG) PO SCH (09:00)
--- NOTE | 2017-04-13 09:01 | Pulmonology Progress Note ---
<Carley Goldberg - Last Filed: 04/13/17 11:38> Date of Encounter: 04/13/17 Time of Encounter: 09:00 Assessment and Plan (1) Acute metabolic encephalopathy Current Visit: No Status: Acute Neuropsych:multifactorial AMS Pulm: sedated and ventilated; precedex started plan to wean/remove propofol and fentanyl; trial CPAP when patient is more alert Cardio: Echo with EF 55% no LV dysfunction, similar to previous echo 1 month prior FEN-GI: GI prophylaxis on board, NPO pending extubation Renal: ESRD on HD, plan for HD today ID: draw blood cultures and check urinalysis with reflex culture Heme/Onc: DVT prophylaxis with SQ heparin Endocrine: hypyglycemia protocol, patient is diabetic; check TSH and random cortisol Integ/MSK: -- (2) Acute respiratory failure with hypoxia Current Visit: No Status: Acute (3) ESRD (end stage renal disease) on dialysis Current Visit: No Status: Chronic Patient of Dr. Cruz, receives outpatient HD MWF. 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 Objective PUL Vital signs: Last Vital Signs Temp 99.1 F 04/13/17 07:49 Pulse 60 04/13/17 08:00 Resp 14 04/13/17 08:00 BP 88/51 04/13/17 08:00 Pulse Ox 98 04/13/17 08:00 General appearance: other (sedated on ventilator) Neck: supple Effort: normal Auscultation: bilateral: clear Cardiovascular: regular rate and rhythm Gastrointestinal: normoactive bowel sounds, soft, non-tender Integumentary: normal Extremities: no cyanosis, no edema, pulses normal, cool Musculoskeletal: no deformities unable to assess due to mental status Ventilator Settings Ventilator Settings: Ventilator Settings, Last 8 Hours Ventilator Mode VC+ Ventilator Mode VC+ Ventilator Mode VC+ Ventilator Mode VC+ Ventilator Mode VC+ Ventilator Mode VC+ Ventilator Mode VC+ Ventilator Mode VC+ Ventilator Mode VC+ Ventilator Mode VC+ Ventilator Mode VC+ Ventilator Mode VC+ Ventilator Tidal Volume 600 Setting Ventilator Tidal Volume 600 Setting Ventilator Tidal Volume 600 Setting Ventilator Tidal Volume 600 Setting Ventilator Tidal Volume 600 Setting Ventilator Tidal Volume 600 Setting Ventilator Tidal Volume 600 Setting Ventilator Tidal Volume 600 Setting Ventilator Tidal Volume 600 Setting Ventilator Tidal Volume 600 Setting Ventilator Tidal Volume 600 Setting Ventilator Tidal Volume 600 Setting Ventilator Respiratory Rate 609 Setting Ventilator Respiratory Rate 14 Setting Ventilator Respiratory Rate 14 Setting Ventilator Respiratory Rate 14 Setting Ventilator Respiratory Rate 14 Setting Ventilator Respiratory Rate 16 Setting Ventilator Respiratory Rate 16 Setting Ventilator Respiratory Rate 14 Setting Ventilator Respiratory Rate 14 Setting Ventilator Respiratory Rate 14 Setting Ventilator Respiratory Rate 14 Setting Ventilator Respiratory Rate 14 Setting Actual Respiratory Rate 15 Actual Respiratory Rate 15 Actual Respiratory Rate 14 Actual Respiratory Rate 15 Actual Respiratory Rate 15 Actual Respiratory Rate 16 Actual Respiratory Rate 16 Actual Respiratory Rate 16 Actual Respiratory Rate 16 Actual Respiratory Rate 15 Positive End Expiratory 5 Pressure Positive End Expiratory 5 Pressure Positive End Expiratory 5 Pressure Positive End Expiratory 5 Pressure Positive End Expiratory 5 Pressure Positive End Expiratory 5 Pressure Positive End Expiratory 5 Pressure Positive End Expiratory 5 Pressure Positive End Expiratory 5 Pressure Positive End Expiratory 5 Pressure Positive End Expiratory 5 Pressure Positive End Expiratory 5 Pressure Peak Inspiratory Airway 30 Pressure Peak Inspiratory Airway 24 Pressure Peak Inspiratory Airway 30 Pressure Peak Inspiratory Airway 25 Pressure Peak Inspiratory Airway 25 Pressure Peak Inspiratory Airway 25 Pressure Peak Inspiratory Airway 23 Pressure Peak Inspiratory Airway 23 Pressure Peak Inspiratory Airway 23 Pressure Peak Inspiratory Airway 24 Pressure Peak Inspiratory Airway 24 Pressure Results - Laboratory Findings CBC and BMP: 04/13/17 03:34 04/13/17 03:34 ABG ABG pH 7.45 pH Units (7.32-7.45) 04/13/17 04:10 ABG pCO2 47 mmHg (35-45) H 04/13/17 04:10 ABG pO2 56 mmHg (85-104) L 04/13/17 04:10 ABG O2 Saturation 90 % (95-98) L 04/13/17 04:10 PT/INR, D-dimer PT 11.0 Seconds (9.4-12.1) 04/12/17 10:57 Abnormal lab findings: Abnormal lab results RBC 3.96 M/mcL (4.19-5.50) L 04/13/17 03:34 MCV 108.8 fL (83.0-100.0) H 04/13/17 03:34 MCH 35.4 pg (28.0-33.3) H 04/13/17 03:34 RDW 15.9 % (11.5-14.5) H 04/13/17 03:34 Plt Count 106 K/mcL (140-400) L 04/13/17 03:34 Platelet Estimate Decreased (Normal) L 04/12/17 10:57 ABG pCO2 47 mmHg (35-45) H 04/13/17 04:10 ABG pO2 56 mmHg (85-104) L 04/13/17 04:10 ABG HCO3 32.7 mEQ/L (21-27) H 04/13/17 04:10 ABG Total CO2 34.1 mEq/L (20-26) H 04/13/17 04:10 ABG O2 Saturation 90 % (95-98) L 04/13/17 04:10 ABG Base Excess 7.5 mEq/L (-2.0 to 3.0) H 04/13/17 04:10 Potassium 5.0 mEq/L (3.5-4.5) H 04/13/17 03:34 Carbon Dioxide 30 mEq/L (19-29) H 04/13/17 03:34 BUN 36 mg/dL (8-26) H D 04/13/17 03:34 Creatinine 12.32 mg/dL (0.72-1.25) H 04/13/17 03:34 Est GFR ( Amer) 5 (> 60) L 04/13/17 03:34 Est GFR (Non-Af Amer) 4 (> 60) L 04/13/17 03:34 BUN/Creatinine Ratio 3 (6-26) L 04/13/17 03:34 Ionized Calcium 1.13 mmol/L (1.15-1.35) L 04/13/17 03:34 Phosphorus 6.3 mg/dL (2.3-4.7) H 04/13/17 03:34 Troponin I 0.06 ng/mL (0-0.03) H* 04/13/17 03:34 Albumin 3.4 g/dL (3.5-5.0) L 04/12/17 10:57 Albumin/Globulin Ratio 1.0 (1.1-2.2) L 04/12/17 10:57 Urine Clarity Cloudy (Clear) A 04/12/17 11:00 Urine Protein 100 mg/dL (Neg-Trace) H 04/12/17 11:00 Urine Glucose (UA) 100 mg/dL (Normal) H 04/12/17 11:00 Urine Blood Moderate (Negative) H 04/12/17 11:00 Urine Microscopic RBC 5-15 per hpf (0-3) H 04/12/17 11:00 Urine Microscopic WBC 3-5 per hpf (0-3) H 04/12/17 11:00 Ur Squamous Epith Cells Many per lpf (None-Few) H 04/12/17 11:00 - Clinical Findings Intake & Output: Intake & Output 04/12/17 04/13/17 04/13/17 23:59 07:59 15:59 Intake Total 700 / 700 332 / 332 Output Total 900 / 900 0 / 0 Balance -200 / -200 332 / 332 Consult Discharge Plan - Plan Referrals: Albina Olea MD [Primary Care Provider] - <Jorge Cutler - Last Filed: 04/13/17 12:33> Date of Encounter: 04/13/17 Objective PUL Vital signs: Last Vital Signs Temp 99.1 F 04/13/17 07:49 Pulse 60 04/13/17 08:00 Resp 14 04/13/17 08:00 BP 88/51 04/13/17 08:00 Pulse Ox 98 04/13/17 08:00 Ventilator Settings Ventilator Settings: Ventilator Settings, Last 8 Hours Ventilator Mode VC+ Ventilator Mode VC+ Ventilator Mode VC+ Ventilator Mode VC+ Ventilator Mode VC+ Ventilator Mode VC+ Ventilator Mode VC+ Ventilator Mode VC+ Ventilator Mode VC+ Ventilator Mode VC+ Ventilator Mode VC+ Ventilator Mode VC+ Ventilator Tidal Volume 600 Setting Ventilator Tidal Volume 600 Setting Ventilator Tidal Volume 600 Setting Ventilator Tidal Volume 600 Setting Ventilator Tidal Volume 600 Setting Ventilator Tidal Volume 600 Setting Ventilator Tidal Volume 600 Setting Ventilator Tidal Volume 600 Setting Ventilator Tidal Volume 600 Setting Ventilator Tidal Volume 600 Setting Ventilator Tidal Volume 600 Setting Ventilator Tidal Volume 600 Setting Ventilator Respiratory Rate 609 Setting Ventilator Respiratory Rate 14 Setting Ventilator Respiratory Rate 14 Setting Ventilator Respiratory Rate 14 Setting Ventilator Respiratory Rate 14 Setting Ventilator Respiratory Rate 16 Setting Ventilator Respiratory Rate 16 Setting Ventilator Respiratory Rate 14 Setting Ventilator Respiratory Rate 14 Setting Ventilator Respiratory Rate 14 Setting Ventilator Respiratory Rate 14 Setting Ventilator Respiratory Rate 14 Setting Actual Respiratory Rate 15 Actual Respiratory Rate 15 Actual Respiratory Rate 14 Actual Respiratory Rate 15 Actual Respiratory Rate 15 Actual Respiratory Rate 16 Actual Respiratory Rate 16 Actual Respiratory Rate 16 Actual Respiratory Rate 16 Actual Respiratory Rate 15 Positive End Expiratory 5 Pressure Positive End Expiratory 5 Pressure Positive End Expiratory 5 Pressure Positive End Expiratory 5 Pressure Positive End Expiratory 5 Pressure Positive End Expiratory 5 Pressure Positive End Expiratory 5 Pressure Positive End Expiratory 5 Pressure Positive End Expiratory 5 Pressure Positive End Expiratory 5 Pressure Positive End Expiratory 5 Pressure Positive End Expiratory 5 Pressure Peak Inspiratory Airway 30 Pressure Peak Inspiratory Airway 24 Pressure Peak Inspiratory Airway 30 Pressure Peak Inspiratory Airway 25 Pressure Peak Inspiratory Airway 25 Pressure Peak Inspiratory Airway 25 Pressure Peak Inspiratory Airway 23 Pressure Peak Inspiratory Airway 23 Pressure Peak Inspiratory Airway 23 Pressure Peak Inspiratory Airway 24 Pressure Peak Inspiratory Airway 24 Pressure Results - Laboratory Findings CBC and BMP: 04/13/17 03:34 04/13/17 03:34 ABG ABG pH 7.45 pH Units (7.32-7.45) 04/13/17 04:10 ABG pCO2 47 mmHg (35-45) H 04/13/17 04:10 ABG pO2 56 mmHg (85-104) L 04/13/17 04:10 ABG O2 Saturation 90 % (95-98) L 04/13/17 04:10 PT/INR, D-dimer PT 11.0 Seconds (9.4-12.1) 04/12/17 10:57 Abnormal lab findings: Abnormal lab results RBC 3.96 M/mcL (4.19-5.50) L 04/13/17 03:34 MCV 108.8 fL (83.0-100.0) H 04/13/17 03:34 MCH 35.4 pg (28.0-33.3) H 04/13/17 03:34 RDW 15.9 % (11.5-14.5) H 04/13/17 03:34 Plt Count 106 K/mcL (140-400) L 04/13/17 03:34 Platelet Estimate Decreased (Normal) L 04/12/17 10:57 ABG pCO2 47 mmHg (35-45) H 04/13/17 04:10 ABG pO2 56 mmHg (85-104) L 04/13/17 04:10 ABG HCO3 32.7 mEQ/L (21-27) H 04/13/17 04:10 ABG Total CO2 34.1 mEq/L (20-26) H 04/13/17 04:10 ABG O2 Saturation 90 % (95-98) L 04/13/17 04:10 ABG Base Excess 7.5 mEq/L (-2.0 to 3.0) H 04/13/17 04:10 Potassium 5.0 mEq/L (3.5-4.5) H 04/13/17 03:34 Carbon Dioxide 30 mEq/L (19-29) H 04/13/17 03:34 BUN 36 mg/dL (8-26) H D 04/13/17 03:34 Creatinine 12.32 mg/dL (0.72-1.25) H 04/13/17 03:34 Est GFR ( Amer) 5 (> 60) L 04/13/17 03:34 Est GFR (Non-Af Amer) 4 (> 60) L 04/13/17 03:34 BUN/Creatinine Ratio 3 (6-26) L 04/13/17 03:34 Ionized Calcium 1.13 mmol/L (1.15-1.35) L 04/13/17 03:34 Phosphorus 6.3 mg/dL (2.3-4.7) H 04/13/17 03:34 Troponin I 0.06 ng/mL (0-0.03) H* 04/13/17 03:34 Albumin 3.4 g/dL (3.5-5.0) L 04/12/17 10:57 Albumin/Globulin Ratio 1.0 (1.1-2.2) L 04/12/17 10:57 Urine Clarity Cloudy (Clear) A 04/12/17 11:00 Urine Protein 100 mg/dL (Neg-Trace) H 04/12/17 11:00 Urine Glucose (UA) 100 mg/dL (Normal) H 04/12/17 11:00 Urine Blood Moderate (Negative) H 04/12/17 11:00 Urine Microscopic RBC 5-15 per hpf (0-3) H 04/12/17 11:00 Urine Microscopic WBC 3-5 per hpf (0-3) H 04/12/17 11:00 Ur Squamous Epith Cells Many per lpf (None-Few) H 04/12/17 11:00 - Clinical Findings Intake & Output: Intake & Output 04/12/17 04/13/17 04/13/17 23:59 07:59 15:59 Intake Total 700 / 700 332 / 332 Output Total 900 / 900 0 / 0 Balance -200 / -200 332 / 332 - Attending Attestation I examined this patient and my medical decision-making was reviewed with the HEALTH CARE MARKETING SPECIALIST/PA/Advanced Practice Nurse/Resident Physician. I agree with the documented findings, disposition and treatment plan as described except to the extent set forth below. Patient seen and examined at bedside Labs, radiology, chart personally reviewed. All lines examined without evidence of infection. Neuropsych: AMS s/t to uremia and hypoglycemia. Sedation holiday today as tolerated by noted to significant agitation switch propofol to Precedex and halve dose of fentanyl Pulm: intubated for airway protection with GCS of 3 time the patient was found. minimal settings too sedated to follow commands. Spontaneous breathing trial when more awake Cards: Requiring low-dose vasopressors likely s/t sedation. wean as tolerated for goal map 60. Limited ECHO no acute findings. Persistent low troponin elevation likely secondary to chronic renal failure FEN-GI: NPO for now. pending extubation. cont d5 for hypoglycemia. cont PPI prophylaxis. Renal: ESRD dialysis planned today. Nephrology following. replace lytes per protocol ID: cultures sent. no leuckocytosis or clear evidence of sepsis at this time holding antimicrobials. Heme/Onc: DVT prophylaxis given. H/H stable. chronic thrombocytopenia stable Endo: Hypoglycemia s/t use of insulin with AMS and ESRD remains on D5W at low rate we will check adrenal axis holding scheduled insulin for hyperglycemia Integ/MSK: skin care per ICU protocol. CODE:DNAR ok for intubation
[2017-04-13] MEDS ORDERED: 0.9 % Sodium Chloride 250 ML IVC PRN (09:27)
[2017-04-13] MEDS ORDERED: Albumin 25% 12.5gm/50mL 12.5 GM/50 ML IV.SOLN IVPB PRN (09:27)
[2017-04-13] MEDS: Dexmedetomidine HCl 400 MCG/100 ML MLS IVC SCH ×2 (09:40→15:41)
--- NOTE | 2017-04-13 09:49 | Nephrology Progress Note ---
Date of Encounter: 04/13/17 Time of Encounter: 08:30 - Assessment and Plan (1) Acute metabolic encephalopathy Current Visit: No Status: Acute Recommend back to back HD for further clearance, which may help with any potential uremic contribution to his AMS. Will defer further work up to Primary. (2) ESRD (end stage renal disease) Current Visit: No Status: Chronic Cont HD today. Suspecting the AMS may have had a component from Uremia. S/p HD late yesterday will arrange for further HD today (3.5 Hr) for clearance but minimal UF d/t mild hypotension (which appears d/t the intubation/sedation). Discussed with the ICU team. (3) Hyperphosphatemia Current Visit: No Status: Chronic When ever he is extubated and transition to an oral diet, then I'd resume his Phos binders. If he were to need IV nutrition, then use a low Phos/low K+ Subjective Principal diagnosis: acute encephalopathy Interval history: Pt was s/e while in the ICU. He was intubated/sedated so this limited any subjective history. The BOWLING BALL GRADER reported that he may be transitioned to Precedex. I spoke to the [facility] outpatient dialysis unit, and they reported that his behavior was not just altered but also agitated. Objective - Vital Signs Vital signs: Vital Signs Temp Pulse Resp BP Pulse Ox 04/13/17 08:00 60 14 88/51 98 04/13/17 07:49 99.1 F 04/13/17 07:32 15 98 04/13/17 07:00 63 14 94/56 98 04/13/17 06:00 68 15 92/55 96 04/13/17 05:30 15 142/81 98 04/13/17 05:19 69 04/13/17 05:00 69 16 124/67 99 04/13/17 04:00 99.3 F 70 16 111/64 99 04/13/17 03:38 16 118/64 99 04/13/17 03:00 66 16 118/64 98 04/13/17 02:00 68 15 111/63 98 04/13/17 01:40 15 121/68 99 04/13/17 01:00 88 16 127/72 96 04/13/17 00:00 98.3 F 74 16 114/69 94 04/12/17 23:43 97.7 F 16 130/77 06/04/17 23:30 15 134/76 97 04/12/17 23:15 134/77 04/12/17 23:00 77 14 134/76 97 04/12/17 22:45 106/67 04/12/17 22:30 99/63 04/12/17 22:15 93/59 04/12/17 22:00 63 14 89/56 98 04/12/17 21:55 77/46 04/12/17 21:50 16 77/46 97 04/12/17 21:45 96/62 04/12/17 21:30 140/91 04/12/17 21:15 142/83 04/12/17 21:09 65 16 99/67 95 04/12/17 21:00 91/62 04/12/17 20:45 90/54 04/12/17 20:30 97.7 F 16 101/64 04/12/17 20:00 68 16 122/74 94 04/12/17 19:50 17 138/81 93 04/12/17 19:00 97.7 F 69 14 188/103 96 04/12/17 18:57 69 04/12/17 18:00 64 15 158/91 98 04/12/17 17:00 42 04/12/17 16:00 50 04/12/17 15:11 15 99 04/12/17 15:00 58 15 162/100 04/12/17 14:58 96.4 F L 67 15 166/104 04/12/17 14:57 67 04/12/17 14:16 0 F L 22 149/95 Intake and Output 04/12/17 04/13/17 04/13/17 23:59 07:59 15:59 Intake Total 700 / 700 332 / 332 Output Total 900 / 900 0 / 0 Balance -200 / -200 332 / 332 Intake: IV Fluids 100 / 100 332 / 332 FentaNYL (PF) 1,000 MCG 0 / 0 100 / 100 In 0.9 % Sodium Chloride 80 ML @ 50 MCG/HR 5 mls/ hr IVC CONT ADAM Rx#: [id number] Levophed 4 MG In Dextrose 97 / 97 5% 250 ML @ 8 MCG/MIN 30 mls/hr IVC CONT ADAM Rx#: [id number] Diprivan 1,000 mg In 100 100 / 100 135 / 135 ml @ 5 MCG/KG/MIN 3.81 mls/hr IVC .Q24H ADAM Rx#: [id number] Oral 0 / 0 0 / 0 Intake, Rinseback and 600 / 600 Flushes Output: Urine 0 / 0 Total Dialysis Output 600 / 600 Catheter 0 / 0 Gastric Drainage 300 / 300 Other: Blood Glucose* 111 84 Hemodialysis Net Fluid 0 Removed (mL) - General Appearance General appearance: Present: well-developed, well-nourished, appears started age EENT: Present: ATNC Neck: Present: supple Respiratory: Present: clear Cardiology: Present: edema (trace pedal edema b/l), regular rate, normal S1, normal S2 Dialysis Vascular Access: Arteriovenous Graft (Left UE AVG with minimal thrill but excellent bruit) Gastrointestinal: Present: normoactive bowel sounds, no tenderness, no guarding , no organomegaly Integumentary: Present: no rash, warm and dry Neurologic: Present: no asterixis Musculoskeletal: Present: no deformities, no erythema, no cyanosis - Lab 04/13/17 03:34 04/13/17 12:20 Most recent lab results ABG pH 7.45 pH Units (7.32-7.45) 04/13/17 04:10 ABG pCO2 47 mmHg (35-45) H 04/13/17 04:10 ABG pO2 56 mmHg (85-104) L 04/13/17 04:10 ABG HCO3 32.7 mEQ/L (21-27) H 04/13/17 04:10 ABG O2 Saturation 90 % (95-98) L 04/13/17 04:10 Calcium 9.0 mg/dL (8.6-10.8) 04/13/17 03:34 Phosphorus 6.3 mg/dL (2.3-4.7) H 04/13/17 03:34 Magnesium 2.6 mg/dL (1.6-2.6) 04/13/17 03:34 Consult Discharge Plan - Plan Referrals: Albina Olea MD [Primary Care Provider] -
[2017-04-13 10:00] LABS: Hepatitis B Surface Antibody 151.96 mIU/mL
[2017-04-13] MEDS: Chlorhexidine Rinse 15 ML MOUTHWASH MM SCH ×2 (10:26→21:39)
[2017-04-13] MEDS: hydrALAZINE 25 MG TABLET PO SCH (10:26)
[2017-04-13] MEDS: Pantoprazole 40 MG VIAL IVP SCH (10:26)
[2017-04-13] MEDS: *HR* Dextrose 50 % in Water (Syg) 50 ML SYRINGE IVP PRN ×3 (11:24→15:41)
[2017-04-13] MEDS: D5% in Water 1,000 ML IVC PRN ×2 (12:01→13:00)
[2017-04-13 12:52] LABS: Thyroid Stimulating Hormone 1.102 mcIU/mL (0.350-4.840)
--- NOTE | 2017-04-13 16:43 | Electrocardiograph Report ---
[address] [place] [address] Test Date: 2017-04-12 Pat Name: Man Monge Department: 102 Room: 10 Gender: M Heel Sander: Clover : 1960 Requested By: Jarvis Yates Order Number: [id number] Reading MD: Heather Szymanski Measurements Intervals [place] Rate: 63 P: 58 NE: 194 QRS: -48 QRSD: 109 T: -7 QT: 485 QTc: 492 Interpretive Statements SINUS RHYTHM WITH OCCASIONAL VENTRICULAR PREMATURE COMPLEXES LEFT ANTERIOR FASCICULAR BLOCK MODERATE VOLTAGE CRITERIA FOR LVH NONSPECIFIC ST ABNORMALITIES PROLONGED QT INTERVAL Electronically Signed On 04-13-2017 16:41:59 EDT by Heather Szymanski
[2017-04-13] MEDS: Norepinephrine 4 MG in D5% in Water 250 ML IVC SCH (19:33)
[2017-04-14] MEDS: Lacri-Lube 3.5 GM TUBE BOTH EYES SCH ×3 (00:17→09:03)
[2017-04-14] MEDS: Dexmedetomidine HCl 400 MCG/100 ML MLS IVC SCH (01:06)
[2017-04-14 04:10] LABS: Basophils % 0.5 %; Immature Granulocytes % 0.5 % (0-4); Red Cell Distribution Width 15.6 % (11.5-14.5)
[2017-04-14 04:11] LABS: Eosinophils # 0.2 K/mcL (0.0-0.6); Eosinophils % 3.9 %; Hematocrit 40.1 % (37.5-50.1); Hemoglobin 12.8 g/dL (12.9-16.9); Immature Platelets 3.3 % (1.1-6.1); Lymphocytes # 0.6 K/mcL (0.6-4.6); Lymphocytes % 16.5 %; Mean Corpuscular HGB Conc 31.9 g/dL (31.6-35.5); Mean Corpuscular Volume 109.6 fL (83.0-100.0); Mean Platelet Volume 11.9 fL (9.4-12.4); Monocytes # 0.4 K/mcL (0.0-1.3); Monocytes % 10.8 %; Neutrophils # 2.6 K/mcL (1.6-8.9); Red Blood Count 3.66 M/mcL (4.19-5.50); Segmented Neutrophils % 67.8 %
[2017-04-14 04:13] LABS: Calcium 8.6 mg/dL (8.6-10.8); Phosphorous 5.3 mg/dL (2.3-4.7); Potassium 4.3 mEq/L (3.5-4.5)
[2017-04-14 04:29] LABS: Platelet Count 84 K/mcL (140-400)
[2017-04-14] MEDS: *HR* Heparin 5,000 UNIT/ML VIAL SQ SCH ×2 (06:35→17:50)
--- NOTE | 2017-04-14 08:10 | Nephrology Progress Note ---
Date of Encounter: 04/14/17 Time of Encounter: 08:08 - Assessment and Plan (1) ESRD (end stage renal disease) on dialysis Current Visit: No Status: Chronic Plan for HD tomorrow Continue renal diet and fluid restriction Avoid nephrotoxins if possible (2) Hyperphosphatemia Current Visit: No Status: Chronic Patient very non-complaint with diet/fluids in outpatient setting. Phos is currently WNL at 5.3 (3) Altered mental status Current Visit: No Status: Resolved AAO x 3 at this time Qualifiers: Altered mental status type: stupor Qualified Code(s): R40.1 - Stupor (4) Diabetes mellitus Current Visit: No Status: Acute per primary team Qualifiers: Diabetes mellitus type: type 2 Diabetes mellitus complication status: with kidney complications Diabetes mellitus complication detail: with chronic kidney disease Diabetes mellitus chcf insulin use: with chcf use Chronic kidney disease stage: on chronic dialysis Qualified Code(s): E11.22 - Type 2 diabetes mellitus with diabetic chronic kidney disease; N18.6 - End stage renal disease; Z79.4 - terminal carman (current) 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 Lying in bed watching TV, very pleasant, AAO x 3. Objective - Vital Signs Vital signs: Vital Signs Temp Pulse Resp BP Pulse Ox 04/14/17 07:39 86 19 168/72 95 04/14/17 06:00 97 12 168/113 92 04/14/17 05:00 91 20 155/85 95 04/14/17 04:00 98.5 F 86 19 149/87 96 04/14/17 03:00 87 12 147/84 96 04/14/17 02:00 82 18 133/80 96 04/14/17 01:35 98.1 F 18 141/87 04/14/17 01:30 141/87 04/14/17 01:15 124/96 04/14/17 01:00 83 22 132/82 96 04/14/17 00:45 137/86 04/14/17 00:30 122/57 04/14/17 00:15 110/58 04/14/17 00:00 81 18 112/59 97 04/13/17 23:45 136/73 04/13/17 23:30 149/89 04/13/17 23:15 140/93 04/13/17 23:00 83 18 144/86 97 04/13/17 22:45 148/89 04/13/17 22:30 135/77 04/13/17 22:15 139/87 04/13/17 22:00 98.3 F 86 18 146/83 97 04/13/17 21:00 86 14 138/76 99 04/13/17 20:09 98.3 F 04/13/17 20:00 79 18 126/72 99 04/13/17 19:40 86 04/13/17 19:00 82 18 143/83 94 04/13/17 18:27 88 147/77 91 04/13/17 17:50 81 14 136/80 100 04/13/17 16:53 81 18 138/84 99 04/13/17 16:28 16 97 04/13/17 16:26 15 97 04/13/17 16:20 97 04/13/17 16:10 123/71 94 04/13/17 15:50 70 113/67 95 04/13/17 15:31 98.6 F 04/13/17 15:13 14 94 04/13/17 14:00 70 14 107/65 94 04/13/17 13:00 74 15 117/72 94 04/13/17 12:08 14 98 04/13/17 12:05 78 15 122/71 96 04/13/17 11:57 99.0 F 04/13/17 11:00 71 14 125/74 97 04/13/17 10:06 16 97 04/13/17 10:00 69 14 114/66 97 04/13/17 09:00 71 14 94/56 98 Intake and Output 04/13/17 04/14/17 04/14/17 23:59 07:59 15:59 Intake Total 600 / 600 0 / 0 Output Total 0 / 0 1600 / 1600 Balance 600 / 600 -1600 / -1600 Intake: Oral 0 / 0 0 / 0 Intake, Rinseback and 600 / 600 Flushes Output: Urine 0 / 0 0 / 0 Total Dialysis Output 1600 / 1600 Other: Weight 127.006 kg Blood Glucose* 101 112 Hemodialysis Net Fluid 800 1000 Removed (mL) - General Appearance General appearance: Present: well-developed, well-nourished EENT: Present: ATNC, mucous membranes moist, hearing intact, vision intact Neck: Present: supple Respiratory: Present: clear Cardiology: Present: no edema, normal S1, normal S2 Dialysis Vascular Access: Arteriovenous Fistula Gastrointestinal: Present: no tenderness, no guarding Neurologic: Present: alert and oriented x3 Psychiatric: Present: mood/affect appropriate, cooperative - Lab 04/14/17 03:45 04/14/17 03:45 Most recent lab results ABG pH 7.45 pH Units (7.32-7.45) 04/13/17 04:10 ABG pCO2 47 mmHg (35-45) H 04/13/17 04:10 ABG pO2 56 mmHg (85-104) L 04/13/17 04:10 ABG HCO3 32.7 mEQ/L (21-27) H 04/13/17 04:10 ABG O2 Saturation 90 % (95-98) L 04/13/17 04:10 Calcium 8.6 mg/dL (8.6-10.8) 04/14/17 03:45 Phosphorus 5.3 mg/dL (2.3-4.7) H 04/14/17 03:45 Magnesium 2.2 mg/dL (1.6-2.6) 04/14/17 03:45 Consult Discharge Plan - Plan Referrals: Albina Olea MD [Primary Care Provider] -
[2017-04-14] MEDS ORDERED: Cosyntropin 250 MCG/2 ML VIAL IVP ONE (08:36)
--- NOTE | 2017-04-14 08:48 | Pulmonology Progress Note ---
<Carley Goldberg - Last Filed: 04/14/17 09:45> Date of Encounter: 04/14/17 Time of Encounter: 08:47 Assessment and Plan (1) Acute metabolic encephalopathy Current Visit: No Status: Acute Plan to transfer to today Neuropsych: Awake and alert Pulm: Currently on 3 L oxygen via nasal cannula Cardio: Home antihypertensives and statin restarted this morning --Echo with EF 55% no LV dysfunction, similar to previous echo 1 month prior FEN-GI: Renal diet with phosphate binder Renal: ESRD on HD, HD yesterday ID: Blood cultures pending, urinalysis with reflex culture ordered Heme/Onc: DVT prophylaxis with SQ heparin Endocrine: diabetic, low dose sliding scale; TSH and random cortisol within normal limits; cortisol stimulation test ordered today Integ/MSK: -- (2) Acute respiratory failure with hypoxia Current Visit: No Status: Acute (3) ESRD (end stage renal disease) on dialysis Current Visit: No Status: Chronic Patient of Dr. Cruz, receives outpatient HD MWF. (4) Hyperphosphatemia Current Visit: No Status: Chronic due to ESRD, will be corrected with HD and phostate binders when patient is able to eat (5) Diabetes mellitus Current Visit: No Status: Acute accuchecks patient was hypoglycemic on admission Qualifiers: Diabetes mellitus type: type 2 Diabetes mellitus complication status: with kidney complications Diabetes mellitus complication detail: with chronic kidney disease Diabetes mellitus group home insulin use: with superintendent terminal use Chronic kidney disease stage: on chronic dialysis Qualified Code(s): E11.22 - Type 2 diabetes mellitus with diabetic chronic kidney disease; N18.6 - End stage renal disease; Z79.4 - continuous churn buttermaker (current) use of insulin; Z99.2 - Dependence on renal dialysis (6) Hyperkalemia Current Visit: No Status: Resolved Resolved Subjective Principal diagnosis: acute encephalopathy Interval history: Patient awake and alert this morning. Hungry and asking for breakfast. Objective PUL Vital signs: Last Vital Signs Temp 98.5 F 04/14/17 04:00 Pulse 86 04/14/17 07:39 Resp 19 04/14/17 07:39 BP 168/72 04/14/17 07:39 Pulse Ox 95 04/14/17 07:39 General appearance: no acute distress Eyes: nonicteric ENT: oropharynx moist Neck: supple Effort: normal Auscultation: bilateral: clear Cardiovascular: regular rate and rhythm Gastrointestinal: normoactive bowel sounds, soft, non-tender Integumentary: normal Extremities: no cyanosis, pink and warm, pulses normal Musculoskeletal: no deformities normal mental status, non-focal exam mood appropriate, affect normal Results - Laboratory Findings CBC and BMP: 04/14/17 03:45 04/14/17 03:45 ABG ABG pH 7.45 pH Units (7.32-7.45) 04/13/17 04:10 ABG pCO2 47 mmHg (35-45) H 04/13/17 04:10 ABG pO2 56 mmHg (85-104) L 04/13/17 04:10 ABG O2 Saturation 90 % (95-98) L 04/13/17 04:10 PT/INR, D-dimer PT 11.0 Seconds (9.4-12.1) 04/12/17 10:57 Abnormal lab findings: Abnormal lab results WBC 3.8 K/mcL (4.3-11.1) L 04/14/17 03:45 RBC 3.66 M/mcL (4.19-5.50) L 04/14/17 03:45 Hgb 12.8 g/dL (12.9-16.9) L 04/14/17 03:45 MCV 109.6 fL (83.0-100.0) H 04/14/17 03:45 MCH 35.0 pg (28.0-33.3) H 04/14/17 03:45 RDW 15.6 % (11.5-14.5) H 04/14/17 03:45 Plt Count 84 K/mcL (140-400) L 04/14/17 03:45 Platelet Estimate Decreased (Normal) L 04/12/17 10:57 ABG pCO2 47 mmHg (35-45) H 04/13/17 04:10 ABG pO2 56 mmHg (85-104) L 04/13/17 04:10 ABG HCO3 32.7 mEQ/L (21-27) H 04/13/17 04:10 ABG Total CO2 34.1 mEq/L (20-26) H 04/13/17 04:10 ABG O2 Saturation 90 % (95-98) L 04/13/17 04:10 ABG Base Excess 7.5 mEq/L (-2.0 to 3.0) H 04/13/17 04:10 Chloride 97 mEq/L (98-109) L 04/14/17 03:45 Creatinine 9.66 mg/dL (0.72-1.25) H 04/14/17 03:45 Est GFR ( Amer) 7 (> 60) L 04/14/17 03:45 Est GFR (Non-Af Amer) 6 (> 60) L 04/14/17 03:45 BUN/Creatinine Ratio 2 (6-26) L 04/14/17 03:45 Glucose 112 mg/dL (70-99) H 04/14/17 03:45 POC Glucose 116 (58-89) H 04/14/17 07:59 Ionized Calcium 1.13 mmol/L (1.15-1.35) L 04/13/17 03:34 Phosphorus 5.3 mg/dL (2.3-4.7) H 04/14/17 03:45 Troponin I 0.06 ng/mL (0-0.03) H* 04/13/17 03:34 Albumin 3.4 g/dL (3.5-5.0) L 04/12/17 10:57 Albumin/Globulin Ratio 1.0 (1.1-2.2) L 04/12/17 10:57 Urine Clarity Cloudy (Clear) A 04/12/17 11:00 Urine Protein 100 mg/dL (Neg-Trace) H 04/12/17 11:00 Urine Glucose (UA) 100 mg/dL (Normal) H 04/12/17 11:00 Urine Blood Moderate (Negative) H 04/12/17 11:00 Urine Microscopic RBC 5-15 per hpf (0-3) H 04/12/17 11:00 Urine Microscopic WBC 3-5 per hpf (0-3) H 04/12/17 11:00 Ur Squamous Epith Cells Many per lpf (None-Few) H 04/12/17 11:00 - Clinical Findings Intake & Output: Intake & Output 04/13/17 04/14/17 04/14/17 23:59 07:59 15:59 Intake Total 600 / 600 0 / 0 Output Total 0 / 0 1600 / 1600 Balance 600 / 600 -1600 / -1600 Weight 127.006 kg Consult Discharge Plan - Plan Referrals: Albina Olea MD [Primary Care Provider] - <Jorge Cutler W - Last Filed: 04/14/17 11:52> Date of Encounter: 04/14/17 Objective PUL Vital signs: Last Vital Signs Temp 98.5 F 04/14/17 04:00 Pulse 84 04/14/17 08:30 Resp 19 04/14/17 08:30 BP 159/99 04/14/17 08:30 Pulse Ox 97 04/14/17 08:30 Results - Laboratory Findings CBC and BMP: 04/14/17 03:45 04/14/17 03:45 ABG ABG pH 7.45 pH Units (7.32-7.45) 04/13/17 04:10 ABG pCO2 47 mmHg (35-45) H 04/13/17 04:10 ABG pO2 56 mmHg (85-104) L 04/13/17 04:10 ABG O2 Saturation 90 % (95-98) L 04/13/17 04:10 PT/INR, D-dimer PT 11.0 Seconds (9.4-12.1) 04/12/17 10:57 Abnormal lab findings: Abnormal lab results WBC 3.8 K/mcL (4.3-11.1) L 04/14/17 03:45 RBC 3.66 M/mcL (4.19-5.50) L 04/14/17 03:45 Hgb 12.8 g/dL (12.9-16.9) L 04/14/17 03:45 MCV 109.6 fL (83.0-100.0) H 04/14/17 03:45 MCH 35.0 pg (28.0-33.3) H 04/14/17 03:45 RDW 15.6 % (11.5-14.5) H 04/14/17 03:45 Plt Count 84 K/mcL (140-400) L 04/14/17 03:45 Platelet Estimate Decreased (Normal) L 04/12/17 10:57 ABG pCO2 47 mmHg (35-45) H 04/13/17 04:10 ABG pO2 56 mmHg (85-104) L 04/13/17 04:10 ABG HCO3 32.7 mEQ/L (21-27) H 04/13/17 04:10 ABG Total CO2 34.1 mEq/L (20-26) H 04/13/17 04:10 ABG O2 Saturation 90 % (95-98) L 04/13/17 04:10 ABG Base Excess 7.5 mEq/L (-2.0 to 3.0) H 04/13/17 04:10 Chloride 97 mEq/L (98-109) L 04/14/17 03:45 Creatinine 9.66 mg/dL (0.72-1.25) H 04/14/17 03:45 Est GFR ( Amer) 7 (> 60) L 04/14/17 03:45 Est GFR (Non-Af Amer) 6 (> 60) L 04/14/17 03:45 BUN/Creatinine Ratio 2 (6-26) L 04/14/17 03:45 Glucose 112 mg/dL (70-99) H 04/14/17 03:45 POC Glucose 116 (58-89) H 04/14/17 07:59 Ionized Calcium 1.13 mmol/L (1.15-1.35) L 04/13/17 03:34 Phosphorus 5.3 mg/dL (2.3-4.7) H 04/14/17 03:45 Troponin I 0.06 ng/mL (0-0.03) H* 04/13/17 03:34 Albumin 3.4 g/dL (3.5-5.0) L 04/12/17 10:57 Albumin/Globulin Ratio 1.0 (1.1-2.2) L 04/12/17 10:57 Urine Clarity Cloudy (Clear) A 04/12/17 11:00 Urine Protein 100 mg/dL (Neg-Trace) H 04/12/17 11:00 Urine Glucose (UA) 100 mg/dL (Normal) H 04/12/17 11:00 Urine Blood Moderate (Negative) H 04/12/17 11:00 Urine Microscopic RBC 5-15 per hpf (0-3) H 04/12/17 11:00 Urine Microscopic WBC 3-5 per hpf (0-3) H 04/12/17 11:00 Ur Squamous Epith Cells Many per lpf (None-Few) H 04/12/17 11:00 - Clinical Findings Intake & Output: Intake & Output 04/13/17 04/14/1704/14/17 23:59 07:59 15:59 Intake Total 600 / 600 0 / 0 240 / 240 Output Total 0 / 0 1600 / 1600 Balance 600 / 600 -1600 / -1600 240 / 240 Weight 127.006 kg - Attending Attestation I examined this patient and my medical decision-making was reviewed with the QA INTERNSHIP/PA/Advanced Practice Nurse/Resident Physician. I agree with the documented findings, disposition and treatment plan as described except to the extent set forth below. Patient seen and examined at bedside Labs, radiology, chart personally reviewed. All lines examined without evidence of infection. Neuropsych: AMS s/t to uremia and hypoglycemia. Fully awake and alert today back at baseline mental status Pulm: Liberated from the ventilator yesterday weaned off supplemental oxygen high pretest probability for obstructive sleep apnea woman recommend outpatient polysomnogram Cards: Hypertensive today restart home antihypertensive regimen FEN-GI: Advanced renal diet as tolerated stop proton pump inhibitor Renal: ESRD resume dialysis schedule ID: cultures sent. no leuckocytosis or clear evidence of sepsis at this time holding antimicrobials. Heme/Onc: DVT prophylaxis given. H/H stable. chronic thrombocytopenia stable Endo: Hypoglycemia s/t use of improper insulin use diabetic education consult requested. Wean off D5 with advancement of renal diet. Adrenal axis evaluation thus far showed borderline cortisol level given critical illness with a intact thyroid function. Cosyntropin test is been ordered however I do not feel that this is the primary reason for hypoglycemia. Integ/MSK: skin care per ICU protocol. CODE:DNAR ok for intubation Stable for transfer to general medical floor for ongoing care
[2017-04-14] MEDS ORDERED: amLODIPine 5 MG TABLET PO SCH (09:00)
[2017-04-14] MEDS ORDERED: hydrALAZINE 25 MG TABLET PO SCH (09:00)
[2017-04-14] MEDS: Chlorhexidine Rinse 15 ML MOUTHWASH MM SCH (09:04)
[2017-04-14] MEDS: Pantoprazole 40 MG VIAL IVP SCH (09:14)
[2017-04-14] MEDS ORDERED: D5% in Water 1,000 ML IVC PRN ×2 (09:42→13:50)
[2017-04-14] MEDS ORDERED: Insulin LISPRO 300 UNITS/3 ML VIAL SQ SCH ×3 (11:30→21:00)
[2017-04-14] MEDS ORDERED: *HR* Dextrose 50 % in Water (Syg) 50 ML SYRINGE IVP PRN (13:50)
[2017-04-14] MEDS ORDERED: Dextrose Gel 15 GM PO PRN ×2 (13:50)
[2017-04-14] MEDS ORDERED: Ondansetron ODT 4 MG TAB.RAPDIS SL PRN (14:59)
[2017-04-14] MEDS ORDERED: Ondansetron 4 MG/2 ML VIAL ONE (15:02)
[2017-04-14] MEDS: hydrALAZINE 25 MG TABLET PO SCH ×2 (15:09→21:11)
[2017-04-14] MEDS ORDERED: Ondansetron 4 MG/2 ML VIAL IVP ONE (16:53)
[2017-04-14] MEDS: Insulin LISPRO 300 UNITS/3 ML VIAL SQ SCH (17:48)
[2017-04-15] MEDS ORDERED: Benzonatate 100 MG CAPSULE PO PRN (03:50)
[2017-04-15] MEDS: *HR* Heparin 5,000 UNIT/ML VIAL SQ SCH ×2 (04:51→16:09)
[2017-04-15 05:27] LABS: Immature Granulocytes % 0.5 % (0-4); Red Cell Distribution Width 14.9 % (11.5-14.5)
[2017-04-15 05:30] LABS: Basophils % 0.3 %; Eosinophils # 0.2 K/mcL (0.0-0.6); Hematocrit 36.7 % (37.5-50.1); Hemoglobin 11.7 g/dL (12.9-16.9); Immature Platelets 3.3 % (1.1-6.1); Lymphocytes # 0.7 K/mcL (0.6-4.6); Lymphocytes % 17.1 %; Mean Corpuscular HGB Conc 31.9 g/dL (31.6-35.5); Mean Corpuscular Hemoglobin 34.5 pg (28.0-33.3); Mean Corpuscular Volume 108.3 fL (83.0-100.0); Mean Platelet Volume 11.3 fL (9.4-12.4); Monocytes # 0.4 K/mcL (0.0-1.3); Monocytes % 9.8 %; Neutrophils # 2.7 K/mcL (1.6-8.9); Platelet Count 92 K/mcL (140-400); Red Blood Count 3.39 M/mcL (4.19-5.50); Segmented Neutrophils % 68.3 %
[2017-04-15 05:49] LABS: Albumin 3.1 g/dL (3.5-5.0); Calcium 9.1 mg/dL (8.6-10.8); Phosphorous 7.6 mg/dL (2.3-4.7); Potassium 4.9 mEq/L (3.5-4.5)
[2017-04-15] MEDS ORDERED: 0.9 % Sodium Chloride 250 ML IVC PRN (08:10)
[2017-04-15] MEDS ORDERED: Pantoprazole 40 MG VIAL IVP SCH (09:00)
[2017-04-15] MEDS ORDERED: amLODIPine 5 MG TABLET PO SCH (09:00)
[2017-04-15] MEDS ORDERED: *HR* Heparin 5,000 UNIT/ML VIAL ONE (09:12)
[2017-04-15] MEDS: Insulin LISPRO 300 UNITS/3 ML VIAL SQ SCH ×3 (09:22→16:12)
--- NOTE | 2017-04-15 09:58 | Nephrology Progress Note ---
Date of Encounter: 04/15/17 Time of Encounter: 09:05 - Assessment and Plan (1) Acute metabolic encephalopathy Current Visit: No Status: Acute Appears to have resolved with both time and dialysis. Recommend renal dosing for his home meds such opioids, benzos and gabapentin. Will defer to primary on treating these non renal issues. (2) ESRD (end stage renal disease) Current Visit: No Status: Chronic Cont HD today (Thursday). 3.75 hr, 2K, 3kg goal UF to help address his HTN. (3) Hyperphosphatemia Current Visit: No Status: Chronic Renal Diet: low Phos/low K+. Phos binders Subjective Principal diagnosis: acute encephalopathy Interval history: Pt was s/e while in 2N. He was sitting on the side of the bed. He did not affirm any confusion, N/V/D or uremic symptoms. He voiced no new major complaints. He asked me about potential discharge timing. Objective - Vital Signs Vital signs: Vital Signs Temp Pulse Resp BP Pulse Ox 04/15/17 09:23 71 04/15/17 09:22 68 18 158/73 94 04/15/17 03:42 97.7 F 67 18 163/101 95 04/14/17 23:18 98.4 F 69 20 149/77 96 04/14/17 22:20 98.2 F 65 22 148/98 90 04/14/17 20:06 98.5 F 04/14/17 20:00 67 24 139/81 99 04/14/17 18:00 80 21 145/70 97 04/14/17 16:30 83 20 170/75 96 04/14/17 15:10 98.2 F 04/14/17 14:30 79 19 167/80 96 04/14/17 12:45 77 21 118/86 96 04/14/17 11:45 84 19 145/93 94 04/14/17 10:30 83 20 166/94 93 Intake and Output 04/14/17 04/15/17 04/15/17 23:59 07:59 15:59 Intake Total 340 / 340 120 / 120 Output Total 0 / 0 Balance 340 / 340 120 / 120 0 / 0 Intake: Oral 340 / 340 120 / 120 Output: Urine 0 / 0 Other: Stool Size Moderate Stool Consistency formed Stool Characteristics Normal for Patient Stool Color Brown Weight 129.841 kg 129.983 kg Blood Glucose* 113 Patient Weight 04/15/17 23:59 Weight 129.983 kg - General Appearance General appearance: Present: well-developed, well-nourished, appears started age , obese EENT: Present: ATNC, PERRL, mucous membranes moist Neck: Present: supple Respiratory: Present: clear Cardiology: Present: edema (trace pedal edema b/l), normal S1, normal S2 Dialysis Vascular Access: Arteriovenous Graft (LUE AVG with minimal thrill but nice smooth continuous bruit.) thrill: Yes bruit: Yes Gastrointestinal: Present: normoactive bowel sounds, no tenderness, no guarding , obese Integumentary: Present: no rash, warm and dry Neurologic: Present: no focal deficit, no asterixis, alert and oriented x3 Musculoskeletal: Present: no deformities, no erythema, no cyanosis Psychiatric: Present: mood/affect appropriate, cooperative - Lab 04/15/17 04:50 04/15/17 04:50 Most recent lab results ABG pH 7.45 pH Units (7.32-7.45) 04/13/17 04:10 ABG pCO2 47 mmHg (35-45) H 04/13/17 04:10 ABG pO2 56 mmHg (85-104) L 04/13/17 04:10 ABG HCO3 32.7 mEQ/L (21-27) H 04/13/17 04:10 ABG O2 Saturation 90 % (95-98) L 04/13/17 04:10 Calcium 9.1 mg/dL (8.6-10.8) 04/15/17 04:50 Phosphorus 7.6 mg/dL (2.3-4.7) H 04/15/17 04:50 Magnesium 2.2 mg/dL (1.6-2.6) 04/14/17 03:45 Consult Discharge Plan - Plan Referrals: Albina Olea MD [Primary Care Provider] -
[2017-04-15] MEDS: hydrALAZINE 25 MG TABLET PO SCH ×2 (15:14→16:11)
--- NOTE | 2017-04-15 16:14 | Discharge Summary ---
Date of Encounter: 04/15/17 Time of Encounter: 10:45 - Discharge Diagnosis (1) Acute metabolic encephalopathy Priority: Primary Status: Acute Comments: now resolved, likely due to hypoglycemia, back to baseline (2) HTN (hypertension) Priority: Secondary Status: Chronic Comments: controlled, continue home meds Qualifiers: Hypertension type: essential hypertension Qualified Code(s): I10 - Essential (primary) hypertension (3) ESRD (end stage renal disease) Priority: Secondary Status: Chronic Comments: on HD MWF, tolerated HD well today, follow up with nephrology and continue regular HD (4) Diabetes mellitus Priority: Secondary Status: Acute Comments: hypoglycemic initially, now hyperglycemia, continue Lantus check blood glucose daily Qualifiers: Diabetes mellitus type: type 2 Diabetes mellitus complication status: with kidney complications Diabetes mellitus complication detail: with chronic kidney disease Diabetes mellitus custodial insulin use: with custodial use Chronic kidney disease stage: on chronic dialysis Qualified Code(s): E11.22 - Type 2 diabetes mellitus with diabetic chronic kidney disease; N18.6 - End stage renal disease; Z79.4 - technician terminal and repeater (current) use of insulin; Z99.2 - Dependence on renal dialysis - Discharge Medications Home Medications: Furosemide [Lasix] 40 mg PO BID 06/22/15 [History] Insulin Glargine,Hum.rec.anlog [Lantus Solostar] 10 unit SQ HS 06/22/15 [History ] Sevelamer [Renvela] 3,200 mg PO TIDWM 06/22/15 [History] Atorvastatin [Lipitor] 40 mg PO HS 09/05/15 [History] Nitroglycerin [Nitrostat] 0.4 mg SL AD PRN 06/24/16 [History] Hydralazine HCl 100 mg PO TID 01/04/17 [History] Vitamin B Complex [B Complex] 1 tab PO DAILY 01/04/17 [History] amLODIPine [Norvasc] 10 mg PO DAILY 01/04/17 [History] Esomeprazole Magnesium [Nexium] 40 mg PO DAILY 03/12/17 [History] Gabapentin [Neurontin] 300 mg PO HS #30 capsule 03/14/17 [Rx] Carvedilol [Coreg] 25 mg PO BID 04/12/17 [History] Allergies/Adverse Reactions: Allergies omeprazole [From Prilosec] Allergy (Mild, Verified 01/05/17 23:39) Hives Procedures/tests Complete & Pending: Procedures Performed prior 72 hours Category Date Time Status EV limited echocardiogram Stat Y 04/13/17 17:20 Completed Date of admission: 04/12/17 13:45 Primary care physician: Albina Olea, Consults: 04/12/17 18:00 Consult to Dialysis [CONS] ONCE 04/13/17 09:30 Consult to Dialysis [CONS] ONCE 04/14/17 10:35 Consult to Portal Administrator [CONS] Routine Comment: Reason for Consult: Insulin administration education 04/15/17 08:15 Consult to Dialysis [CONS] ONCE Anticipated date of discharge: 04/15/17 - Patient Status Disposition: Home Health Service Condition: Good Overall status at discharge: patient is back to baseline - Discharge Instructions Instructions: Diabetic Hypoglycemia (DC), Hypoxia (GEN) Follow Up With: Akil Marks CNP [Advanced Practice Nurse] - 04/23/17 1:30 pm Linette Mcdonnell CNP [Advanced Practice Nurse] - 04/21/17 2:00 pm Albina Olea MD [Primary Care Provider] - Forms: Inpatient Work/School Release - Diet and Activity Activity: ambulate only with your walker Diet: other (RENAL DIET) Hospital course: Mr. Monge is a 56 year old male presented with acute encephalopathy, secondary to hypoglycemia. Was admitted to ICU. Required intubation for airway protection. Has since been extubated successfully. Transferred to step-down unit. Tolerating oral diet well and ambulating well. Blood glucose has been > 100 since admission. No complications during his stay. He feels better and is adamant about going home. Tolerated HD well today. No further workup necessary at this point. Patient explained about condition and plan of care and condition. No family members. No unanswered questions. - Time Spent with Patient Total time spent providing and/or coordinating discharge services: Less than 30 minutes - Constitutional Vitals: Temp Pulse Resp BP Pulse Ox 97.9 F 71 18 152/89 94 04/15/17 15:45 04/15/17 09:23 04/15/17 15:45 04/15/17 15:45 04/15/17 09:22 General appearance: Present: A&O X 3, morbidly obese, no acute distress, answers questions appropriately - Head Head exam: Present: atraumatic - Neck Neck exam general surgery: Present: supple - Respiratory Respiratory exam: Present: CTAB. Absent: rhonchi, wheezes - Cardiovascular Cardiovascular exam: Present: RRR, +S1, +S2 - GI/Abdominal GI/Abdominal exam: Present: soft. Absent: guarding, tenderness - Extremities Exam Extremities exam: Present: radial pulses palpable and symetrical. Absent: cyanotic, pedal edema Additional comments: left arm AV graft+ - Neurological Exam Neurological exam: Present: alert, oriented X3, no focal deficits
[2017-04-15 16:20] VITALS: BP 150/98
== END 2017-04-15 18:05 | disposition home health service (06) | DRG 637 ==
LOC: EMEROO 09:57 → ICNU 13:45 → SUATTDRO 13:45 → ICNU 14:20 → 2NNU 04-14 22:06
PROVIDERS: ADMIT Internal Medicine Pulmonary Disease; ATTEND Internal Medicine Hospice and Palliative Medicine

== ENCOUNTER 2017-05-11 21:18 | Inpatient (IN) ==
--- NOTE | 2017-05-11 21:40 | Emergency Department Note ---
START Narrative - START START: I examined this patient and my medical decision-making was reviewed with the ACID CRANE OPERATOR/PA/Advanced Practice Nurse/Resident Physician. I agree with the documented findings, disposition and treatment plan as described except to the extent set forth below. ED attending note: Patient seen with emergency medicine resident . Please see a copy of his note for details of the H&P, evaluation, management and disposition of this patient. We independently had [id number] contact with the patient Briefly: 56-year-old male by EMS accompanied by girlfriend for shortness of breath. Patient has not a renal disease was dialyzed earlier today was delayed and shortened. Started at 5 ended at 8. Intake of this much fluids due to " low O2 sats. Has had presentations like this before with respiratory failure pulmonary edema. She emergently placed on BiPAP mentation and oxygenation improved he is now 96% O2 sat heart rate coming down. Screening labs and x-ray are pending with admission anticipated. Provided 45 minutes critical care service with this patient. Intubation will be offered as needed based on the patient's clinical condition although stable at this point in time. Admission pending lab results and x-rays. She shows nonspecific ST-T changes but no acute ischemic changes noted.
--- NOTE | 2017-05-11 21:51 | Emergency Department Note ---
Disposition Clinical Impression: Hospital-acquired pneumonia, Encephalopathy Congestive heart failure Qualifiers: Congestive heart failure type: unspecified congestive heart failure type Congestive heart failure chronicity: unspecified congestive heart failure chronicity Qualified Code(s): I50.9 - Heart failure, unspecified Dyspnea Qualifiers: Dyspnea type: dyspnea on exertion Qualified Code(s): R06.09 - Other forms of dyspnea Disposition: Admitted As Inpatient Condition: Fair Time of Disposition: 00:24 SOB HPI - General Chief Complaint: ED Shortness of Breath/Dyspnea Stated Complaint: o2 was low at dialysis, pain all over Time Seen by Provider: 05/11/17 21:29 Source: patient, family Mode of arrival: EMS Limitations: no limitations Nursing Notes Reviewed: Yes Vital Signs Reviewed: Yes - History of Present Illness Patient presents to the ED with the chief complaint of shortness of breath. Patient has a history of end-stage renal disease and is followed by Dr. Pickering. He receives dialysis Thursday, Thursday, Thursday. He was supposed to have dialysis at 9 AM this morning but was not feeling well. No he did not start dialysis since until 3 PM. At the dialysis center. They noticed that he was hypoxic. They placed him on oxygen, which improved his sats and started dialysis around 5 PM. Dialysis went from 5 PM to 8 PM. The patient's girlfriend states that they did not take off as much fluid as usual and whenever he went home he was still feeling very short of breath and was confused. States that he was just discharged from the hospital for similar shortness of breath issues. She does state that he did have to be placed on a breathing machine for this. Upon arrival, patient does seem somewhat somnolent but was able to appropriately answer questions and was oriented. He complains of pain all over his body. He does not know if he has any history of DVT or PE. He is not on any full anticoagulation, but has been compliant with his aspirin and Plavix. No known fever, vomiting or headache. - Related Data Home Medications Medication Instructions Recorded Confirmed Furosemide [Lasix] 40 mg PO BID 06/22/15 05/11/17 Insulin Glargine,Hum.rec.anlog 10 unit SQ HS 06/22/15 05/11/17 [Lantus Solostar] Sevelamer [Renvela] 3,200 mg PO TIDWM 06/22/15 05/11/17 Atorvastatin [Lipitor] 40 mg PO HS 09/05/15 05/11/17 Hydralazine HCl 100 mg PO TID 01/04/17 05/11/17 Vitamin B Complex [B Complex] 1 tab PO DAILY 01/04/17 05/11/17 amLODIPine [Norvasc] 10 mg PO DAILY 01/04/17 05/11/17 Carvedilol [Coreg] 25 mg PO BID 04/12/17 05/11/17 Clopidogrel [Plavix] 75 mg PO DAILY 05/11/17 05/11/17 Cyclobenzaprine HCl 5 mg PO TID 05/11/17 05/11/17 Gabapentin [Neurontin] 600 - 1,200 mg PO Q8H PRN 05/11/17 05/11/17 HYDROcodone/Acet 10/325 mg [[place] 1 tab PO Q8H PRN 05/11/17 05/11/17 10-325 mg] Omeprazole [PriLOSEC] 20 mg PO DAILY 05/11/17 05/11/17 hydrOXYzine HCl [Hydroxyzine HCl] 25 mg PO AD 05/11/17 05/11/17 Allergies Allergy/AdvReac Type Severity Reaction Status Date / Time omeprazole [From Prilosec] Allergy Mild Hives Verified 05/11/17 21:38 Constitutional: Denies: fever Cardiovascular: Denies: chest pain Respiratory: Reports: dyspnea Gastrointestinal: Denies: abdominal pain Past Medical History - Past Medical History Attestation: Yes The following information was validated with the patient. Source: patient, old records reviewed, obtained from family Medical history: Reports: arthritis, coronary artery disease, diabetes, dialysis , GERD, hyperlipidemia, hypertension, renal disease, TIA Surgical history: Reports: angioplasty/stent, vascular surgery Psychiatric history: Reports: no psych history - Social History Smoking Status: Never smoker Smokeless Tobacco Status: No Alcohol use: Reports: none Drug use: Reports: none Physical Exam - General Limitations: no limitations General appearance: lethargic - Head Head exam: atraumatic, normocephalic, normal inspection - Eye Eye exam: Present: normal appearance, PERRL - ENT ENT exam: normal exam, normal oropharynx, other (Tacky mucous membranes) - Neck Neck exam: Present: normal inspection, trachea midline - Chest Chest inspection: Present: normal inspection, symmetric chest wall rise - Respiratory Respiratory exam: Present: normal lung sounds bilaterally (Decreased breath sounds, although clear) - Cardiovascular Cardiovascular exam: Present: tachycardia. Absent: systolic murmur - Abdominal Exam Abdominal exam: Present: soft, Non-Tender, distention (Girlfriend states baseline). Absent: guarding, rebound - Extremities Exam Extremities exam: Present: pedal edema (1-2+ pitting bilaterally) - Expanded Lower Extremity Exam Hip/Pelvis exam: Present: normal inspection, full ROM, pelvis stable - Neurological Exam Neurological exam: Present: oriented X3, CN II-XII intact, other (Patient is oriented 3. His GCS is 15. He is somewhat sleepily, but does arouse easily.) - Skin Skin exam: Present: warm, dry, intact, normal color Course Course Narrative: 56 y/o M presenting with shortness of breath. On dialysis but did not dialyze fully today. Recent admission with intubation. Patient is maintaining his airway. We will place on BiPAP immediately as well, as obtain labs. He will most certainly be admitted and will likely need ICU care. Vital Signs Temperature 98.1 F 05/11/17 21:22 Pulse Rate 101 05/11/17 21:22 Respiratory Rate 24 05/11/17 21:22 Blood Pressure 179/98 05/11/17 21:22 O2 Sat by Pulse Oximetry 66 05/11/17 21:22 Temperature 97.7 F 05/12/17 00:16 Pulse Rate 73 05/12/17 00:16 Respiratory Rate 22 05/12/17 00:16 Blood Pressure 185/98 05/12/17 00:16 O2 Sat by Pulse Oximetry 99 05/12/17 00:16 Oxygen Delivery Oxygen Delivery Bipap Shortness of Breath/Dyspnea - Lab Data Result diagrams: 05/11/17 21:45 05/11/17 21:45 Lab Results 05/11/17 05/11/17 05/11/17 Range/Units 21:28 21:45 21:45 WBC 4.2 L (4.3-11.1) K/mcL RBC 3.52 L (4.19-5.50) M/mcL Hgb 12.1 L (12.9-16.9) g/dL Hct 35.7 L (37.5-50.1) % MCV 101.4 H D (83.0-100.0) fL MCH 34.4 H (28.0-33.3) pg MCHC 33.9 (31.6-35.5) g/dL RDW 15.2 H (11.5-14.5) % Plt Count 102 L (140-400) K/mcL MPV 10.5 (9.4-12.4) fL Immature Gran % 0.5 (0-4) % Seg Neutrophils % 76.1 % Lymphocytes % 12.3 % Monocytes % 8.5 % Eosinophils % 2.1 % Basophils % 0.5 % Neutrophils # 3.2 (1.6-8.9) K/mcL Lymphocytes # 0.5 L (0.6-4.6) K/mcL Monocytes # 0.4 (0.0-1.3) K/mcL Eosinophils # 0.1 (0.0-0.6) K/mcL Basophils # 0.0 (0.0-0.2) K/mcL PT 12.0 (9.4-12.1) Seconds INR 1.1 APTT 27.8 (26.0-36.0) Seconds VBG pH (7.32-7.42) pH Units VBG pCO2 (41-51) mmHg VBG pO2 (25-40) mmHg VBG HCO3 (21-27) mEq/L Sodium (136-145) mEq/L Potassium (3.5-4.5) mEq/L Chloride (98-109) mEq/L Carbon Dioxide (19-29) mEq/L BUN (8-26) mg/dL Creatinine (0.72-1.25) mg/dL Est GFR ( Amer) (> 60) Est GFR (Non-Af Amer) (> 60) BUN/Creatinine Ratio (6-26) Glucose (70-99) mg/dL POC Glucose 155 H (58-89) Calculated Osmolality (280-300) Lactic Acid (0.5-2.2) mmol/L Calcium (8.6-10.8) mg/dL Total Bilirubin (0.2-1.2) mg/dL Direct Bilirubin (0.0-0.5) mg/dL Indirect Bilirubin (0.0-1.2) mg/dL AST (5-34) Units/L ALT (0-55) Units/L Alkaline Phosphatase (38-126) Units/L Ammonia (18-72) mcmol/L Troponin I (0-0.03) ng/mL B-Natriuretic Peptide (0-100) pg/mL Serum Total Protein (6.0-8.3) g/dL Albumin (3.5-5.0) g/dL Globulin (2.4-3.5) g/dL Albumin/Globulin Ratio (1.1-2.2) 05/11/17 05/11/17 05/11/17 Range/Units 21:45 21:45 21:45 WBC (4.3-11.1) K/mcL RBC (4.19-5.50) M/mcL Hgb (12.9-16.9) g/dL Hct (37.5-50.1) % MCV (83.0-100.0) fL MCH (28.0-33.3) pg MCHC (31.6-35.5) g/dL RDW (11.5-14.5) % Plt Count (140-400) K/mcL MPV (9.4-12.4) fL Immature Gran % (0-4) % Seg Neutrophils % % Lymphocytes % % Monocytes % % Eosinophils % % Basophils % % Neutrophils # (1.6-8.9) K/mcL Lymphocytes # (0.6-4.6) K/mcL Monocytes # (0.0-1.3) K/mcL Eosinophils # (0.0-0.6) K/mcL Basophils # (0.0-0.2) K/mcL PT (9.4-12.1) Seconds INR APTT (26.0-36.0) Seconds VBG pH (7.32-7.42) pH Units VBG pCO2 (41-51) mmHg VBG pO2 (25-40) mmHg VBG HCO3 (21-27) mEq/L Sodium 132 L (136-145) mEq/L Potassium 4.5 (3.5-4.5) mEq/L Chloride 93 L (98-109) mEq/L Carbon Dioxide 28 (19-29) mEq/L BUN 39 H (8-26) mg/dL Creatinine 10.55 H (0.72-1.25) mg/dL Est GFR ( Amer) 6 L (> 60) Est GFR (Non-Af Amer) 5 L (> 60) BUN/Creatinine Ratio 4 L (6-26) Glucose 165 H (70-99) mg/dL POC Glucose (58-89) Calculated Osmolality 287 (280-300) Lactic Acid 1.2 (0.5-2.2) mmol/L Calcium 9.2 (8.6-10.8) mg/dL Total Bilirubin 1.6 H (0.2-1.2) mg/dL Direct Bilirubin 0.6 H (0.0-0.5) mg/dL Indirect Bilirubin 1.0 (0.0-1.2) mg/dL AST 17 (5-34) Units/L ALT 11 (0-55) Units/L Alkaline Phosphatase 78 (38-126) Units/L Ammonia (18-72) mcmol/L Troponin I 0.10 H* (0-0.03) ng/mL B-Natriuretic Peptide (0-100) pg/mL Serum Total Protein 7.3 (6.0-8.3) g/dL Albumin 3.4 L (3.5-5.0) g/dL Globulin 3.9 H (2.4-3.5) g/dL Albumin/Globulin Ratio 0.9 L (1.1-2.2) 05/11/17 05/11/17 05/11/17 Range/Units 21:45 21:45 21:45 WBC (4.3-11.1) K/mcL RBC (4.19-5.50) M/mcL Hgb (12.9-16.9) g/dL Hct (37.5-50.1) % MCV (83.0-100.0) fL MCH (28.0-33.3) pg MCHC (31.6-35.5) g/dL RDW (11.5-14.5) % Plt Count (140-400) K/mcL MPV (9.4-12.4) fL Immature Gran % (0-4) % Seg Neutrophils % % Lymphocytes % % Monocytes % % Eosinophils % % Basophils % % Neutrophils # (1.6-8.9) K/mcL Lymphocytes # (0.6-4.6) K/mcL Monocytes # (0.0-1.3) K/mcL Eosinophils # (0.0-0.6) K/mcL Basophils # (0.0-0.2) K/mcL PT (9.4-12.1) Seconds INR APTT (26.0-36.0) Seconds VBG pH 7.44 H (7.32-7.42) pH Units VBG pCO2 45 (41-51) mmHg VBG pO2 48 H (25-40) mmHg VBG HCO3 30.6 H (21-27) mEq/L Sodium (136-145) mEq/L Potassium (3.5-4.5) mEq/L Chloride (98-109) mEq/L Carbon Dioxide (19-29) mEq/L BUN (8-26) mg/dL Creatinine (0.72-1.25) mg/dL Est GFR ( Amer) (> 60) Est GFR (Non-Af Amer) (> 60) BUN/Creatinine Ratio (6-26) Glucose (70-99) mg/dL POC Glucose (58-89) Calculated Osmolality (280-300) Lactic Acid (0.5-2.2) mmol/L Calcium (8.6-10.8) mg/dL Total Bilirubin (0.2-1.2) mg/dL Direct Bilirubin (0.0-0.5) mg/dL Indirect Bilirubin (0.0-1.2) mg/dL AST (5-34) Units/L ALT (0-55) Units/L Alkaline Phosphatase (38-126) Units/L Ammonia 13 L (18-72) mcmol/L Troponin I (0-0.03) ng/mL B-Natriuretic Peptide 3050 H (0-100) pg/mL Serum Total Protein (6.0-8.3) g/dL Albumin (3.5-5.0) g/dL Globulin (2.4-3.5) g/dL Albumin/Globulin Ratio (1.1-2.2) - EKG Data EKG attestation: Yes I reviewed and interpreted this EKG. EKG results narrative: Sinus rhythm, rate 91, left axis deviation, OH interval 193, QRS 99, QTC 444, LVH, nonspecific ST-T wave changes
[2017-05-11 21:54] LABS: Basophils % 0.5 %; Eosinophils # 0.1 K/mcL (0.0-0.6); Eosinophils % 2.1 %; Hematocrit 35.7 % (37.5-50.1); Hemoglobin 12.1 g/dL (12.9-16.9); Immature Granulocytes % 0.5 % (0-4); Lymphocytes # 0.5 K/mcL (0.6-4.6); Lymphocytes % 12.3 %; Mean Corpuscular HGB Conc 33.9 g/dL (31.6-35.5); Mean Corpuscular Hemoglobin 34.4 pg (28.0-33.3); Mean Corpuscular Volume 101.4 fL (83.0-100.0); Mean Platelet Volume 10.5 fL (9.4-12.4); Monocytes # 0.4 K/mcL (0.0-1.3); Monocytes % 8.5 %; Neutrophils # 3.2 K/mcL (1.6-8.9); Platelet Count 102 K/mcL (140-400); Red Blood Count 3.52 M/mcL (4.19-5.50); Red Cell Distribution Width 15.2 % (11.5-14.5); Segmented Neutrophils % 76.1 %; VBG HCO3 30.6 mEq/L (21-27); VBG PH 7.44 pH Units (7.32-7.42)
[2017-05-11 22:08] LABS: INR 1.1
[2017-05-11 22:09] LABS: Albumin 3.4 g/dL (3.5-5.0); Albumin/Globulin Ratio 0.9 (1.1-2.2); Bilirubin,Direct 0.6 mg/dL (0.0-0.5); Bilirubin,Total 1.6 mg/dL (0.2-1.2); Calcium 9.2 mg/dL (8.6-10.8); Globulin 3.9 g/dL (2.4-3.5); Potassium 4.5 mEq/L (3.5-4.5); Total Protein 7.3 g/dL (6.0-8.3)
[2017-05-11 22:11] LABS: Activated Partial Thrombo Time 27.8 Seconds (26.0-36.0)
[2017-05-11] MEDS ORDERED: Levofloxacin 750 MG/150 ML 750 MG/150 ML BAG IVPB ONE (22:25)
[2017-05-11] MEDS ORDERED: Piperacillin/Tazobactam 4.5 GM in D5% in Water (Mini-Bag+) 100 ML IVPB ONE (22:44)
[2017-05-11] MEDS ORDERED: *HR* Labetalol 20 MG/4 ML SYRINGE IVP ONE (22:44)
[2017-05-11] MEDS ORDERED: Vancomycin 1,000 MG in D5% in Water 250 ML IVPB ONE (22:44)
[2017-05-11] MEDS ORDERED: Furosemide 40 MG/4 ML VIAL IVP ONE (22:45)
[2017-05-11] MEDS ORDERED: Naloxone 0.4 MG/ML INJ IVP PRN (23:43)
[2017-05-11] MEDS ORDERED: Acetaminophen 325 MG TABLET PO PRN (23:43)
[2017-05-11] MEDS ORDERED: Ondansetron 4 MG/2 ML VIAL IVP PRN (23:43)
--- NOTE | 2017-05-12 | Internal Med History&Physical ---
<Fernie Heller - Last Filed: 05/12/17 00:52> Date of Encounter: 05/12/17 Time of Encounter: 23:53 Assessment and Plan (1) Acute respiratory failure with hypoxia Current visit: No Status: Acute Patient apparently had oxygen saturations in the 60s upon arrival to dialysis today and was 66 on arrival of the emergency department. Patient's oxygen saturation improved with BiPAP. May be due to pulmonary edema in the setting of end-stage renal disease as well as possible pneumonia, however I feel pneumonia is less likely. Patient received a dose of vancomycin, levaquin, zosyn in the ED, will hold further abx at this time. Continue with BiPAP therapy overnight, we will check ABG. Patient should have formal O2 qualification prior to discharge and may benefit from PFTs and/or sleep study as an outpatient. Patient was asked about CODE STATUS and he asked that I speak with his son. I spoke with the patient's son, Eric, who stated that the patient has an established DNR CCA order and that the patient has stated in the past and continues to be agreeable to short-term intubation if needed. I did ask the patient if those were his current wishes any stated that they were. (2) Acute encephalopathy Current visit: Yes Status: Acute Patient seemed somewhat altered on my examination in the family at bedside states that he has been more somnolent on the past 3 days. This may be related to hypoxia however hypercapnia is also a concern in the setting of pulmonary edema. Seems to be improving with BiPAP therapy. ABGs been ordered. Uremic syndrome appears unlikely given his BUN is 39. Ammonia is 13. (3) ESRD (end stage renal disease) Current visit: No Status: Chronic Anuric. Patient had incomplete dialysis session today with 2.8 L of fluid removal. Will consult nephrology. Given the concern for possible fluid overload and pulmonary edema causing the patient's symptoms patient may benefit from further fluid removal either by dialysis or ultrafiltration tomorrow. No indications for urgent renal replacement therapy at this time. Will fluid restrict patient 1.5 L daily (4) HTN (hypertension) Current visit: No Status: Chronic Blood sugars significantly elevated on presentation. Patient's girlfriend states that he has not taken any of his home blood pressure medications this evening or this morning.Patient was given 1 dose of labetalol in the emergency department. We will restart his home medications and give hydralazine when necessary for systolic blood pressure greater than 180 Qualifiers: Hypertension type: essential hypertension Qualified Code(s): I10 - Essential (primary) hypertension (5) Diabetes Current visit: No Status: Chronic Patient has a history of type 2 diabetes. Blood sugar was 165 on presentation. Review of records revealed that the patient has had episodes of hypoglycemia in the past that have required hospitalization. Given his risk for hypoglycemia and altered mental status as well as his blood sugars currently at goal for hospitalized patients at this time we will hold his Levemir and cover with sliding scale insulin. Qualifiers: Diabetes mellitus type: type 2 Diabetes mellitus complication status: with kidney complications Diabetes mellitus complication detail: with chronic kidney disease Diabetes mellitus [facility] insulin use: with supervisor intermediates use Chronic kidney disease stage: on chronic dialysis Qualified Code(s): E11.22 - Type 2 diabetes mellitus with diabetic chronic kidney disease; N18.6 - End stage renal disease; Z79.4 - watermaster (current) use of insulin; Z99.2 - Dependence on renal dialysis (6) Hyperlipemia Current visit: No Status: Acute Continue statin. Qualifiers: Hyperlipidemia type: unspecified Qualified Code(s): E78.5 - Hyperlipidemia , unspecified (7) CAD (coronary artery disease) Current visit: No Status: Chronic Stable. No evidence of myocardial ischemia. Continue Plavix. Per cardiology outpatient records the patient is not on aspirin due to concerns for anemia. Qualifiers: Coronary Disease-Associated Artery/Lesion type: unspecified vessel or lesion type [place] vs. transplanted heart: [place] heart Associated angina: angina presence unspecified Qualified Code(s): I25.10 - Atherosclerotic heart disease of [place] coronary artery without angina pectoris (8) DVT prophylaxis Current visit: No Status: Acute Heparin 5000 units subcutaneous twice a day. Internal Medicine - H&P: HPI Chief complaint: AMS Admitted From: Emergency Dept Plans for Post Hospital Care: Home History of present illness: Mr. Monge is a 56 year old male with history of ESRD on dialysis, hypertension , type 2 diabetes presented to the emergency department from dialysis with a change in mental status and hypoxia. The patient is somewhat confused therefore most of the history is provided by the patient's girlfriend who was at bedside. She states that the patient has been significantly more tired than normal over the last 3 days.she states that they attempted to get him to dialysis today and had a difficult time getting there because of his condition however they were able to get him there this afternoon. She states that when they arrived the staff at dialysis checked his oxygen level and found him to be in the 60s. He was placed on oxygen and his saturation improved to the upper 80s and they proceeded with a dialysis treatment. Patients girlfriend states that they removed 2.8L and they normally remove 4-6 L. patient was then brought to the emergency department for evaluation. At the time of my exam the patient was sleeping when I entered the room but was easily arousable to verbal stimuli. He was alert to person and place but not time. He continually asked others to answer the questions that I was asking him. He also stated that he was in mild pain but did not want anything for his pain. Past Med Surg Social Fam HX - Past Medical History Medical history: arthritis, coronary artery disease, diabetes, dialysis, GERD, hyperlipidemia, hypertension, renal disease, TIA Psychiatric history: no psych history - Past Surgical History Surgical History: angioplasty/stent, vascular surgery - Social History Smoking Status: Never smoker Smokeless Tobacco Status: No Alcohol use: none Drug use: none - Family History Father Hx Family Cardiac Disorders: Yes Hx Family Endocrine Disorder: Yes (DM) Mother Living Status: Hx Family Cardiac Disorders: Yes Hx Family Cancer: Yes Internal Medicine - H&P: Meds Furosemide [Lasix] 40 mg PO BID 06/22/15 [History] Insulin Glargine,Hum.rec.anlog [Lantus Solostar] 10 unit SQ HS 06/22/15 [History ] Sevelamer [Renvela] 3,200 mg PO TIDWM 06/22/15 [History] Atorvastatin [Lipitor] 40 mg PO HS 09/05/15 [History] Hydralazine HCl 100 mg PO TID 01/04/17 [History] Vitamin B Complex [B Complex] 1 tab PO DAILY 01/04/17 [History] amLODIPine [Norvasc] 10 mg PO DAILY 01/04/17 [History] Carvedilol [Coreg] 25 mg PO BID 04/12/17 [History] Clopidogrel [Plavix] 75 mg PO DAILY 05/11/17 [History] Cyclobenzaprine HCl 5 mg PO TID 05/11/17 [History] Gabapentin [Neurontin] 600 - 1,200 mg PO Q8H PRN 05/11/17 [History] HYDROcodone/Acet 10/325 mg [[place] 10-325 mg] 1 tab PO Q8H PRN 05/11/17 [History] Omeprazole [PriLOSEC] 20 mg PO DAILY 05/11/17 [History] hydrOXYzine HCl [Hydroxyzine HCl] 25 mg PO AD 05/11/17 [History] Allergies omeprazole [From Prilosec] Allergy (Mild, Verified 05/11/17 21:38) Hives ROS unobtainable: due to mental status All Systems PM: A 10-system review of systems was performed and is negative for pertinent findings except as documented above in the HPI. - Constitutional Vitals: Temp Pulse Resp BP Pulse Ox 98.1 F 79 18 202/99 100 05/11/17 21:22 05/11/17 22:40 05/11/17 23:27 05/11/17 23:27 05/11/17 22:40 General appearance: Present: A&O X 2, no acute distress. Absent: answers questions appropriately - Head Head exam: Present: atraumatic, normal inspection, normocephalic - Eye Eye exam: Present: EOMI, PERRL. Absent: conjunctival injection - ENT ENT exam: Present: mucous membranes dry - Neck Neck exam general surgery: Absent: nuchal rigidity - Respiratory Respiratory exam: Present: decreased breath sounds (bilaterally). Absent: rales , respiratory distress, rhonchi, wheezes, tachypnea - Cardiovascular Cardiovascular exam: Present: RRR. Absent: gallop, JVD, rubs, systolic murmur, tachycardia - GI/Abdominal GI/Abdominal exam: Present: normal bowel sounds, soft. Absent: distended, tenderness - Extremities Exam Extremities exam: Present: warm. Absent: pedal edema, tenderness Additional comments: Patient has fistula in the left forearm with thrill felt and bruit heard. - Neurological Exam Neurological exam: Present: alert, altered (Oriented to person and place), reflexes normal, no focal deficits, strengths equal and symetr throughout. Absent: oriented X3, facial droop, speech deficit - Psychiatric Psychiatric exam: Present: normal affect, normal mood - Skin Skin exam: Present: dry, intact, warm Internal Med - H&P Results - Labs CBC & Chem 7: 05/11/17 21:45 05/11/17 21:45 <Melonie Morales - Last Filed: 05/12/17 04:57> Date of Encounter: 05/12/17 Time of Encounter: 01:00 Internal Medicine - H&P: HPI History of present illness: Mr. Monge is a 56 year old male All Systems PM: A 10-system review of systems was performed and is negative for pertinent findings except as documented above in the HPI. - Constitutional Vitals: Temp Pulse Resp BP Pulse Ox 97.6 F 58 20 152/78 93 05/12/17 03:39 05/12/17 03:39 05/12/17 03:39 05/12/17 03:39 05/12/17 03:39 Internal Med - H&P Results - Labs CBC & Chem 7: 05/12/17 03:21 05/12/17 03:21 Labs: Short CBC 05/12/17 Range/Units 03:21 WBC 4.7 (4.3-11.1) K/mcL Hgb 11.2 L (12.9-16.9) g/dL Hct 33.6 L (37.5-50.1) % Plt Count 100 L (140-400) K/mcL Neutrophils # 3.6 (1.6-8.9) K/mcL BMP 05/12/17 03:21 Sodium 132 L Potassium 5.3 H Chloride 94 L Carbon Dioxide 28 BUN 45 H Creatinine 11.57 H Glucose 145 H Calcium 9.1 - ABG Interpretation ABG results: 05/12/17 00:30 ABG pH 7.46 H ABG pCO2 44 ABG pO2 131 H ABG HCO3 31.3 H ABG Total CO2 32.7 H ABG O2 Saturation 99 H ABG Base Excess 6.7 H - Attending Attestation I examined this patient and my medical decision-making was reviewed with the LABEL FUSER TENDER/PA/Advanced Practice Nurse/Resident Physician. I agree with the documented findings, disposition and treatment plan as described except to the extent set forth below. Patient will benefit from outpatient Pulmonary function test. His hypoxia may also be secondary to obesity hypoventilation syndrome and will benefit from outpatient sleep study, as patient reports of having hypoxic episodes in the past. Continue O2 supplementation. Please obtain O2 qualification test prior to discharge. Mental status back to baseline AAO x 3 during my evaluation.
[2017-05-12] MEDS ORDERED: *HR* Dextrose 50 % in Water (Syg) 50 ML SYRINGE IVP PRN (00:06)
[2017-05-12] MEDS ORDERED: Dextrose Gel 15 GM PO PRN ×2 (00:06)
[2017-05-12] MEDS ORDERED: D5% in Water 1,000 ML IVC PRN (00:06)
[2017-05-12] MEDS: amLODIPine 5 MG TABLET PO SCH ×2 (00:18→08:47)
[2017-05-12 00:44] LABS: ABG Base Excess 6.7 mEq/L (-2.0 to 3.0); ABG HCO3 31.3 mEQ/L (21-27); ABG Oxygen Saturation 99 % (95-98); ABG PCO2 44 mmHg (35-45); ABG PH 7.46 pH Units (7.32-7.45); ABG PO2 131 mmHg (85-104); ABG TCO2 32.7 mEq/L (20-26); Blood Gas FiO2 40 %; Blood Gas PEEP 6 cm H2O; Blood Gas Respiration Rate 14
[2017-05-12 04:00] LABS: Basophils % 0.4 %; Eosinophils # 0.1 K/mcL (0.0-0.6); Eosinophils % 2.5 %; Hematocrit 33.6 % (37.5-50.1); Hemoglobin 11.2 g/dL (12.9-16.9); Immature Granulocytes % 0.2 % (0-4); Lymphocytes # 0.6 K/mcL (0.6-4.6); Lymphocytes % 12.3 %; Mean Corpuscular HGB Conc 33.3 g/dL (31.6-35.5); Mean Corpuscular Hemoglobin 34.6 pg (28.0-33.3); Mean Corpuscular Volume 103.7 fL (83.0-100.0); Mean Platelet Volume 11.5 fL (9.4-12.4); Monocytes # 0.4 K/mcL (0.0-1.3); Monocytes % 9.1 %; Neutrophils # 3.6 K/mcL (1.6-8.9); Platelet Count 100 K/mcL (140-400); Red Blood Count 3.24 M/mcL (4.19-5.50); Red Cell Distribution Width 15.2 % (11.5-14.5); Segmented Neutrophils % 75.5 %
[2017-05-12 04:11] LABS: Calcium 9.1 mg/dL (8.6-10.8); Magnesium 2.3 mg/dL (1.6-2.6); Phosphorous 7.6 mg/dL (2.3-4.7); Potassium 5.3 mEq/L (3.5-4.5)
[2017-05-12] MEDS: *HR* Heparin 5,000 UNIT/ML VIAL SQ SCH ×2 (05:14→17:08)
[2017-05-12] MEDS: Insulin LISPRO 300 UNITS/3 ML VIAL SQ SCH ×4 (07:58→20:34)
[2017-05-12] MEDS ORDERED: 0.9 % Sodium Chloride 250 ML IVC PRN (08:01)
[2017-05-12] MEDS: Vitamin B Complex/Vit C/Vit E 1 EACH TABLET PO SCH (08:47)
[2017-05-12] MEDS: hydrALAZINE 25 MG TABLET PO SCH ×3 (08:47→20:33)
--- NOTE | 2017-05-12 10:57 | Nephrology Consult Note ---
Date of Encounter: 05/12/17 Time of Encounter: 10:46 Assessment and Plan (1) ESRD (end stage renal disease) Current Visit: Yes Status: Chronic 56-year-old male with end-stage renal disease on dialysis Thursday. Secondary to diabetes mellitus. Patient underwent dialysis yesterday 470 minutes. Usual duration is 240 minutes. Patient did not she has target weight of 124.5 kg 2.8 L of fluid was removed. Has a left lower arm AV fistula. Hyperkalemia with potassium 5.3 Lower extremity edema absent however does have crackles and bilateral lung bases Hemoglobin stable Plan: We will challenge his dry weight by dialyzing today Goal will be 4 kilograms. (2) Acute respiratory failure with hypoxia Current Visit: Yes Status: Acute Possibly secondary to pulmonary edema in setting of end-stage renal disease, unclear if pneumonia complicating picture Patient undergoing dialysis today. Management per primary team. (3) Diabetes mellitus Current Visit: Yes Status: Acute Controlled. Last hemoglobin A1c was 6.7. Management as per primary. Qualifiers: Diabetes mellitus type: type 2 Diabetes mellitus complication status: with kidney complications Diabetes mellitus complication detail: with chronic kidney disease Diabetes mellitus assisted insulin use: with termite exterminator helper use Chronic kidney disease stage: on chronic dialysis Qualified Code(s): E11.22 - Type 2 diabetes mellitus with diabetic chronic kidney disease; N18.6 - End stage renal disease; Z79.4 - [facility] (current) use of insulin; Z99.2 - Dependence on renal dialysis (4) Hypertension Current Visit: Yes Status: Chronic Qualifiers: Hypertension type: essential hypertension Qualified Code(s): I10 - Essential (primary) hypertension (5) Hyperkalemia Current Visit: No Status: Resolved History of Present Illness - Reason for Consult Consult date: 05/11/17 end stage renal disease Requesting physician: Fernie Heller - Chief Complaint sob - History of Present Illness 56 y/o male with ESRD presented to ER with cc of sob. Patient has sob for the past 2 days. When presenting to [facility] he was found to be hypoxic SpO2 60%, was started on supplemental O2 and underwent dialysis. Patient did not complete full four hours of dialysis as usual and did not achieve his dry weight goal of 124 kg. After dialysis patient went home but still remained sob and decided to come to ER for further evaluation. Patient also states he has had a cough. Denies fever, chills, nausea, vomiting. Has chronic anuria. Denies diarrhea/changes in BM. Denies chest pain, palpitations. ESRD from Diabetes Mellitus. Patient has right lower arm AV fistula. Follwed By Dr. Pickering. Undergoes MWF HD with duration of 240 min. Target/Dry Weight 124.5kg. Past Med Surg Social Fam HX - Past Medical History Medical history: arthritis, coronary artery disease, diabetes, dialysis, GERD, hyperlipidemia, hypertension, renal disease, TIA Psychiatric history: no psych history - Past Surgical History Surgical History: angioplasty/stent, vascular surgery - Social History Smoking Status: Never smoker Smokeless Tobacco Status: No Alcohol use: none Drug use: none - Family History Father Hx Family Cardiac Disorders: Yes Hx Family Endocrine Disorder: Yes (DM) Mother Adopted: No Living Status: Age at : 79 Cause of : cancer Hx Family Cardiac Disorders: Yes Hx Family Respiratory Disorders: Yes Hx Family Cancer: Yes Hx Family GI Disorders: No Hx Family Genitourinary Disorders: No Hx Family Endocrine Disorder: No Hx Family Musculoskeletal Disorders: No Hx Family Neuromuscular Disorders: No Hx Family Neurologic Disorders: No Hx Family HEENT Disorders: No Hx Family Autoimmune Disorders: No Hx Family Reproductive Disorders: No Hx Family Psychosocial Disorders: No Hx Family Medical Disorders: No Medications and Allergies Furosemide [Lasix] 40 mg PO BID 06/22/15 [History] Insulin Glargine,Hum.rec.anlog [Lantus Solostar] 10 unit SQ HS 06/22/15 [History ] Sevelamer [Renvela] 3,200 mg PO TIDWM 06/22/15 [History] Atorvastatin [Lipitor] 40 mg PO HS 09/05/15 [History] Hydralazine HCl 100 mg PO TID 01/04/17 [History] Vitamin B Complex [B Complex] 1 tab PO DAILY 01/04/17 [History] amLODIPine [Norvasc] 10 mg PO DAILY 01/04/17 [History] Carvedilol [Coreg] 25 mg PO BID 04/12/17 [History] Clopidogrel [Plavix] 75 mg PO DAILY 05/11/17 [History] Cyclobenzaprine HCl 5 mg PO TID 05/11/17 [History] Gabapentin [Neurontin] 600 - 1,200 mg PO Q8H PRN 05/11/17 [History] HYDROcodone/Acet 10/325 mg [[place] 10-325 mg] 1 tab PO Q8H PRN 05/11/17 [History] Omeprazole [PriLOSEC] 20 mg PO DAILY 05/11/17 [History] hydrOXYzine HCl [Hydroxyzine HCl] 25 mg PO AD 05/11/17 [History] Allergies omeprazole [From Prilosec] Allergy (Mild, Verified 05/11/17 21:38) Hives Review of Systems All Systems review (narrative): Constitutional: Denies fever, chills HEENT: Denies vision changes, neck pain, sore throat, Heart: Denies chest pain palpitations Lungs: reports shortness of breath and cough Abomen: Denies abdominal pain nausea vomiting diarrhea Extremities: Denies swelling, pain Neuro: Denies numbness, and tingling Exam - Vital Signs Vital signs: Initial Vital Signs Temp Pulse Resp BP Pulse Ox 98.1 F 101 24 179/98 66 05/11/17 21:22 05/11/17 21:22 05/11/17 21:22 05/11/17 21:22 05/11/17 21:22 Vital Signs - Last 8 Hours Temp Pulse Resp BP Pulse Ox 05/12/17 08:50 68 05/12/17 07:54 97.8 F 68 20 176/99 92 05/12/17 03:39 97.6 F 58 20 152/78 93 Intake and Output 05/11/17 05/12/17 05/12/17 23:59 07:59 15:59 Intake Total 460 / 460 240 / 240 Balance 460 / 460 240 / 240 Intake: IV Fluids 400 / 400 Levaquin Premix 750mg/150 150 / 150 mL 750 mg In 150 ml @ 100 mls/hr IVPB ONCE ONE Rx#:[id number] Vancocin 1,000 MG In 250 / 250 Dextrose 5% 250 ML @ 167 mls/hr IVPB ONCE ONE Rx#: [id number] Oral 60 / 60 240 / 240 Other: Meal Breakfast Percent of Meal Consumed 100% Weight 124 kg Blood Glucose* 127 Patient Weight 05/12/17 23:59 Weight 124 kg - General Appearance General appearance: obese, chronically ill, frail EENT: mucous membranes moist, hearing intact Neck: no JVD, supple Additional Comments: b/l basilar crackles. Cardiology: no edema, normal S1, normal S2 Gastrointestinal: normoactive bowel sounds, no tenderness Integumentary: no rash, warm and dry Neurologic: no focal deficit, alert and oriented x3 Musculoskeletal: no erythema, no cyanosis, no clubbing Psychiatric: mood/affect appropriate, cooperative Results - Lab Results 05/12/17 03:21 05/12/17 03:21 Most recent lab results ABG pH 7.46 pH Units (7.32-7.45) H 05/12/17 00:30 ABG pCO2 44 mmHg (35-45) 05/12/17 00:30 ABG pO2 131 mmHg (85-104) H 05/12/17 00:30 ABG HCO3 31.3 mEQ/L (21-27) H 05/12/17 00:30 ABG O2 Saturation 99 % (95-98) H 05/12/17 00:30 Calcium 9.1 mg/dL (8.6-10.8) 05/12/17 03:21 Phosphorus 7.6 mg/dL (2.3-4.7) H 05/12/17 03:21 Magnesium 2.3 mg/dL (1.6-2.6) 05/12/17 03:21 Consult Discharge Plan - Plan Referrals: Albina Olea MD [Primary Care Provider] -
--- NOTE | 2017-05-12 11:34 | Internal Med Progress Note ---
Date of Encounter: 05/13/17 Time of Encounter: 11:31 - Assessment and plan (1) Diabetes Current Visit: Yes Status: Chronic Qualifiers: Diabetes mellitus type: type 2 Diabetes mellitus complication status: with kidney complications Diabetes mellitus complication detail: with chronic kidney disease Diabetes mellitus intermediate accountant insulin use: with [facility] use Chronic kidney disease stage: on chronic dialysis Qualified Code(s): E11.22 - Type 2 diabetes mellitus with diabetic chronic kidney disease; N18.6 - End stage renal disease; Z79.4 - [facility] (current) use of insulin; Z99.2 - Dependence on renal dialysis (2) Hypertension Current Visit: Yes Status: Chronic Qualifiers: Hypertension type: essential hypertension Qualified Code(s): I10 - Essential (primary) hypertension (3) ESRD (end stage renal disease) on dialysis Current Visit: Yes Status: Chronic (4) Acute metabolic encephalopathy Current Visit: Yes Status: Acute (5) Diabetes mellitus Current Visit: Yes Status: Acute Qualifiers: Diabetes mellitus type: type 2 Diabetes mellitus complication status: with kidney complications Diabetes mellitus complication detail: with chronic kidney disease Diabetes mellitus intermediate accountant insulin use: with intermediate accountant use Chronic kidney disease stage: on chronic dialysis Qualified Code(s): E11.22 - Type 2 diabetes mellitus with diabetic chronic kidney disease; N18.6 - End stage renal disease; Z79.4 - [facility] (current) use of insulin; Z99.2 - Dependence on renal dialysis (6) Acute respiratory failure with hypoxia Current Visit: Yes Status: Acute - Subjective Interval history: Mr. Juan Carlos Monge is a 56-year-old male who was admitted yesterday with altered mental status. He has ESRD, diabetes hypertension coronary artery disease. He was noted to be in acute respiratory distress and his lungs were filled with water as well as peripheral edema. There is a suspicion he might have underlying pneumonia. Altered mental status was perhaps related to acute metabolic encephalopathy related to uremia as well as CO2 retention. With emergency dialysis his fluid balance has started improving as well as his potassium has been corrected. On admission his creatinine was more than 11. Lastly he is on vancomycin and Zosyn and Levaquin antibiotics. Levaquin can be stopped. After diagnosis mental status is improving. Still quite short of breath - Constitutional Vitals: Temp Pulse Resp BP Pulse Ox 97.8 F 68 20 176/99 92 05/12/17 07:54 05/12/17 08:50 05/12/17 07:54 05/12/17 07:54 05/12/17 07:54 General appearance: Present: A&O X 2, no acute distress. Absent: answers questions appropriately - Head Head exam: Present: atraumatic, normocephalic - Eye Eye exam: Present: PERRL, conjuntiva pink, sclera anicteric Pupils: Present: PERRL - Neck Neck exam general surgery: Present: supple, trachea midline. Absent: lymphadenopathy - Respiratory Respiratory exam: Present: decreased breath sounds. Absent: accessory muscle use, rales, rhonchi, wheezes - Cardiovascular Cardiovascular exam: Present: RRR, +S1, +S2. Absent: diastolic murmur, gallop, rubs, systolic murmur - GI/Abdominal GI/Abdominal exam: Present: normal bowel sounds, soft, no peritoneal signs. Absent: distended, tenderness - Extremities Exam Extremities exam: Present: warm, radial pulses palpable and symetrical. Absent : calf tenderness, cyanotic, pedal edema - Neurological Exam Neurological exam: Present: CN II-XII intact, oriented X3, no focal deficits. Absent: pronater drift, facial droop, speech deficit - Skin Skin exam: Present: dry, intact Internal Medicine: Result - Labs CBC & Chem 7: 05/13/17 07:11 05/13/17 07:11 Labs: Short CBC 05/12/17 Range/Units 03:21 WBC 4.7 (4.3-11.1) K/mcL Hgb 11.2 L (12.9-16.9) g/dL Hct 33.6 L (37.5-50.1) % Plt Count 100 L (140-400) K/mcL Neutrophils # 3.6 (1.6-8.9) K/mcL BMP 05/12/17 03:21 Sodium 132 L Potassium 5.3 H Chloride 94 L Carbon Dioxide 28 BUN 45 H Creatinine 11.57 H Glucose 145 H Calcium 9.1 - ABG Interpretation ABG results: ABG ABG pH 7.46 pH Units (7.32-7.45) H 05/12/17 00:30 ABG pCO2 44 mmHg (35-45) 05/12/17 00:30 ABG pO2 131 mmHg (85-104) H 05/12/17 00:30 ABG O2 Saturation 99 % (95-98) H 05/12/17 00:30 PT/INR, D-dimer PT 12.0 Seconds (9.4-12.1) 05/11/17 21:45 Consult Discharge Plan - Plan Referrals: Akil Marks CNP [Advanced Practice Nurse] - 05/26/17 8:30 am Albina Olea MD [Primary Care Provider] - (SENT WEB REQUEST ON 05-13-17 @ [phone])
[2017-05-12] MEDS ORDERED: 0.9 % Sodium Chloride 1,000 ML ONE (14:42)
[2017-05-13] MEDS ORDERED: Mag Hydrox/Al Hydrox/Simeth 30 ML UDC PO ONE (01:10)
[2017-05-13] MEDS: *HR* Heparin 5,000 UNIT/ML VIAL SQ SCH ×2 (05:36→18:43)
[2017-05-13 07:32] LABS: Calcium 9.7 mg/dL (8.6-10.8); Potassium 5.5 mEq/L (3.5-4.5)
[2017-05-13] MEDS: Vitamin B Complex/Vit C/Vit E 1 EACH TABLET PO SCH (07:54)
[2017-05-13] MEDS: amLODIPine 5 MG TABLET PO SCH (07:54)
[2017-05-13] MEDS: Insulin LISPRO 300 UNITS/3 ML VIAL SQ SCH ×4 (07:54→21:50)
[2017-05-13] MEDS ORDERED: 0.9 % Sodium Chloride 250 ML IVC PRN (08:00)
[2017-05-13 08:07] LABS: Hematocrit 36.4 % (37.5-50.1); Hemoglobin 11.6 g/dL (12.9-16.9); Mean Corpuscular HGB Conc 31.9 g/dL (31.6-35.5); Mean Corpuscular Hemoglobin 33.4 pg (28.0-33.3); Mean Corpuscular Volume 104.9 fL (83.0-100.0); Mean Platelet Volume 9.6 fL (9.4-12.4); Platelet Count 108 K/mcL (140-400); Red Blood Count 3.47 M/mcL (4.19-5.50); Red Cell Distribution Width 14.6 % (11.5-14.5)
[2017-05-13] MEDS: hydrALAZINE 25 MG TABLET PO SCH ×3 (08:17→21:50)
--- NOTE | 2017-05-13 09:31 | Nephrology Progress Note ---
Date of Encounter: 05/13/17 Time of Encounter: 09:15 - Assessment and Plan (1) ESRD (end stage renal disease) on dialysis Current Visit: Yes Status: Chronic His access infiltrated yesterday so very poor clearance and minimal UF, so his hyperkalemia, azotemia and volume status has worsened. The HD RN feels confident that she should be able to access his AVF (which has an excellent thrill and bruit). If not, then we'll have to get a temporary HD catheter today for HD and hold Plavix for 5 days to have a fistulagram before discharge. The pt has refused to have a Permacath (which would also require a holding of Plavix for 5 days before placement of such a tunneled HD catheter). The pt requested to try using his AVF one more time today before placing a temporary HD catheter. Volume status/HTN: elevated BP and edema requiring increased O2. Needs UF today to improve both his volume status and BPs. If still admitted tomorrow, I will tentatively trial a session of UF to challenge his volume status/dry weight. Thank you. (2) Hypertension Current Visit: Yes Status: Chronic Qualifiers: Hypertension type: essential hypertension Qualified Code(s): I10 - Essential (primary) hypertension (3) Dialysis complication Current Visit: No Status: Acute Qualifiers: Encounter type: initial encounter Qualified Code(s): T82.9XXA - Unspecified complication of cardiac and vascular prosthetic device, implant and graft, initial encounter (4) Fluid overload Current Visit: No Status: Acute Qualifiers: Hypervolemia type: other Qualified Code(s): E87.79 - Other fluid overload Subjective Principal diagnosis: ESRD Interval history: Pt was seen/examined. He did not affirm N/V/D but did report shortness of breath. Yesterday HD did not run smoothly, and the HD RN paged me about the poor flows. Objective - Vital Signs Vital signs: Vital Signs Temp Pulse Resp BP Pulse Ox 05/13/17 07:40 64 16 94 05/13/17 06:32 97.6 F 65 18 191/109 95 05/13/17 04:46 98.2 F 62 16 168/84 85 05/13/17 04:20 64 16 85 05/13/17 00:30 70 15 94 05/13/17 00:19 98.2 F 71 169/90 94 05/12/17 21:29 69 15 96 05/12/17 20:23 98.1 F 72 15 174/98 96 05/12/17 17:06 98.0 F 71 16 160/90 96 05/12/17 15:48 74 92 05/12/17 14:04 64 18 168/78 05/12/17 14:03 97.3 F L 18 156/87 05/12/17 14:00 74 05/12/17 13:30 160/69 05/12/17 13:15 149/56 05/12/17 13:00 163/78 05/12/17 12:45 142/69 05/12/17 12:30 134/64 05/12/17 12:15 148/58 05/12/17 12:00 143/83 05/12/17 11:45 171/86 05/12/17 11:30 154/72 05/12/17 10:45 167/70 05/12/17 10:40 98.5 F 20 167/70 Intake and Output 05/12/17 05/13/17 05/13/17 23:59 07:59 15:59 Intake Total 240 / 240 Balance 240 / 240 Intake: Oral 240 / 240 Other: Meal Dinner Percent of Meal Consumed 100% Weight 124.1 kg Blood Glucose* 145 133 Patient Weight 05/13/17 23:59 Weight 124.1 kg - General Appearance General appearance: Present: well-developed, well-nourished, appears started age , obese EENT: Present: ATNC, PERRL, mucous membranes moist Neck: Present: supple Respiratory: Present: rales (in the bases bilaterally but clear in the apexes ) Cardiology: Present: edema, normal S1, normal S2 Dialysis Vascular Access: Arteriovenous Fistula (Left forearm with excellent thrill and bruit) thrill: Yes bruit: Yes Gastrointestinal: Present: normoactive bowel sounds, no tenderness, no guarding Integumentary: Present: no rash, warm and dry Neurologic: Present: no focal deficit, no asterixis, alert and oriented x3 Musculoskeletal: Present: no deformities, no erythema, no cyanosis Psychiatric: Present: mood/affect appropriate, cooperative - Lab 05/13/17 07:11 05/13/17 07:11 Most recent lab results ABG pH 7.46 pH Units (7.32-7.45) H 05/12/17 00:30 ABG pCO2 44 mmHg (35-45) 05/12/17 00:30 ABG pO2 131 mmHg (85-104) H 05/12/17 00:30 ABG HCO3 31.3 mEQ/L (21-27) H 05/12/17 00:30 ABG O2 Saturation 99 % (95-98) H 05/12/17 00:30 Calcium 9.7 mg/dL (8.6-10.8) 05/13/17 07:11 Phosphorus 7.6 mg/dL (2.3-4.7) H 05/12/17 03:21 Magnesium 2.3 mg/dL (1.6-2.6) 05/12/17 03:21 Consult Discharge Plan - Plan Referrals: Akil Marks CNP [Advanced Practice Nurse] - 05/26/17 8:30 am Albina Olea MD [Primary Care Provider] - (SENT WEB REQUEST ON 05-13-17 @ [phone])
--- NOTE | 2017-05-13 13:12 | Electrocardiograph Report ---
[place] [id number] Test Date: 2017-05-11 Pat Name: Man Monge Department: 105 Room: 2N14 Gender: M [employer]: : 1960 Requested By: James Duval Order Number: [id number] Reading MD: Gilbert Butterfield MD Measurements Intervals [place] Rate: 91 P: 33 DC: 193 QRS: -38 QRSD: 99 T: 94 QT: 396 QTc: 444 Interpretive Statements SINUS RHYTHM LEFT ATRIAL ENLARGEMENT MARKED LEFT AXIS DEVIATION LEFT VENTRICULAR HYPERTROPHY Electronically Signed On 05-13-2017 13:11:07 EDT by Gilbert Butterfield MD
[2017-05-13] MEDS ORDERED: 0.9 % Sodium Chloride 1,000 ML ONE (14:03)
--- NOTE | 2017-05-13 18:54 | Internal Med Progress Note ---
Date of Encounter: 05/13/17 Time of Encounter: 18:51 - Assessment and plan (1) Diabetes Current Visit: Yes Status: Chronic Qualifiers: Diabetes mellitus type: type 2 Diabetes mellitus complication status: with kidney complications Diabetes mellitus complication detail: with chronic kidney disease Diabetes mellitus functional consultant insulin use: with snf use Chronic kidney disease stage: on chronic dialysis Qualified Code(s): E11.22 - Type 2 diabetes mellitus with diabetic chronic kidney disease; N18.6 - End stage renal disease; Z79.4 - senior living (current) use of insulin; Z99.2 - Dependence on renal dialysis (2) Hypertension Current Visit: Yes Status: Chronic Qualifiers: Hypertension type: essential hypertension Qualified Code(s): I10 - Essential (primary) hypertension (3) ESRD (end stage renal disease) on dialysis Current Visit: Yes Status: Chronic (4) Acute metabolic encephalopathy Current Visit: Yes Status: Acute (5) Diabetes mellitus Current Visit: Yes Status: Acute Qualifiers: Diabetes mellitus type: type 2 Diabetes mellitus complication status: with kidney complications Diabetes mellitus complication detail: with chronic kidney disease Diabetes mellitus functional consultant insulin use: with functional consultant use Chronic kidney disease stage: on chronic dialysis Qualified Code(s): E11.22 - Type 2 diabetes mellitus with diabetic chronic kidney disease; N18.6 - End stage renal disease; Z79.4 - senior living (current) use of insulin; Z99.2 - Dependence on renal dialysis (6) Acute respiratory failure with hypoxia Current Visit: Yes Status: Acute - Subjective Interval history: Mr. Juan Carlos Monge is a 56-year-old male who was admitted yesterday with altered mental status. He has ESRD, diabetes hypertension coronary artery disease. He was noted to be in acute respiratory distress and his lungs were filled with water as well as peripheral edema. There is a suspicion he might have underlying pneumonia. Altered mental status was perhaps related to acute metabolic encephalopathy related to uremia as well as CO2 retention. With emergency dialysis his fluid balance has started improving as well as his potassium has been corrected. On admission his creatinine was more than 11. Lastly he is on vancomycin and Zosyn and Levaquin antibiotics. Levaquin can be stopped. After diagnosis mental status is improving. Still quite short of breath 05/13 patient had second dialysis today. Neurologically he is a stable and well oriented to time place and person. He is sitting in bed and able to eat by himself. On chest examination breath sounds were shallow. He is on oxygen and as we ambulate him his O2 sats dropping to 70s. I think probably we can wait for another dialysis before sending him out. I suspect that patient was not failure due to fluid overload and that might has contributed to his respiratory failure and CO2 retention. We are not sure about his pneumonia and according to nurses antibiotics have been stopped. His BUN and creatinine are still quite elevated especially the creatinine which is 12 and his potassium is 5.5. Until his creatinine was brought down which I think is contributing to his uremic syndrome and potassium is better controlled it would be difficult to discharge him. Also we are looking to have some fluid removed from his body to see that if that improved his breathing as there is no evidence of pneumonia at this point. Patient is afebrile white count is normal and no significant chest x-ray evidence. - Constitutional Vitals: Temp Pulse Resp BP Pulse Ox 98.2 F 61 22 174/89 92 05/13/17 16:21 05/13/17 16:21 05/13/17 16:21 05/13/17 16:21 05/13/17 16:21 General appearance: Present: A&O X 2, no acute distress. Absent: answers questions appropriately - Head Head exam: Present: atraumatic, normocephalic - Eye Eye exam: Present: PERRL, conjuntiva pink, sclera anicteric Pupils: Present: PERRL - Neck Neck exam general surgery: Present: supple, trachea midline. Absent: lymphadenopathy - Respiratory Respiratory exam: Present: decreased breath sounds. Absent: accessory muscle use, rales, rhonchi, wheezes - Cardiovascular Cardiovascular exam: Present: RRR, +S1, +S2. Absent: diastolic murmur, gallop, rubs, systolic murmur - GI/Abdominal GI/Abdominal exam: Present: normal bowel sounds, soft, no peritoneal signs. Absent: distended, tenderness - Extremities Exam Extremities exam: Present: warm, radial pulses palpable and symetrical. Absent : calf tenderness, cyanotic, pedal edema - Neurological Exam Neurological exam: Present: CN II-XII intact, oriented X3, no focal deficits. Absent: pronater drift, facial droop, speech deficit - Skin Skin exam: Present: dry, intact Internal Medicine: Result - Labs CBC & Chem 7: 05/13/17 07:11 05/13/17 07:11 Labs: Short CBC 05/13/17 Range/Units 07:11 WBC 4.1 L (4.3-11.1) K/mcL Hgb 11.6 L (12.9-16.9) g/dL Hct 36.4 L (37.5-50.1) % Plt Count 108 L (140-400) K/mcL BMP 05/13/17 07:11 Sodium 135 L Potassium 5.5 H Chloride 98 Carbon Dioxide 26 BUN 53 H Creatinine 12.47 H Glucose 141 H Calcium 9.7 - ABG Interpretation ABG results: ABG ABG pH 7.46 pH Units (7.32-7.45) H 05/12/17 00:30 ABG pCO2 44 mmHg (35-45) 05/12/17 00:30 ABG pO2 131 mmHg (85-104) H 05/12/17 00:30 ABG O2 Saturation 99 % (95-98) H 05/12/17 00:30 PT/INR, D-dimer PT 12.0 Seconds (9.4-12.1) 05/11/17 21:45 Consult Discharge Plan - Plan Referrals: Akil Marks CNP [Advanced Practice Nurse] - 05/26/17 8:30 am Albina Olea MD [Primary Care Provider] - (SENT WEB REQUEST ON 05-13-17 @ [phone])
[2017-05-14 05:50] LABS: Basophils % 0.7 %; Eosinophils # 0.2 K/mcL (0.0-0.6); Hematocrit 39.9 % (37.5-50.1); Hemoglobin 12.7 g/dL (12.9-16.9); Immature Granulocytes % 0.2 % (0-4); Lymphocytes # 0.9 K/mcL (0.6-4.6); Lymphocytes % 19.7 %; Mean Corpuscular HGB Conc 31.8 g/dL (31.6-35.5); Mean Corpuscular Hemoglobin 33.7 pg (28.0-33.3); Mean Corpuscular Volume 105.8 fL (83.0-100.0); Mean Platelet Volume 10.2 fL (9.4-12.4); Monocytes # 0.4 K/mcL (0.0-1.3); Monocytes % 8.3 %; Platelet Count 153 K/mcL (140-400); Red Blood Count 3.77 M/mcL (4.19-5.50); Red Cell Distribution Width 14.7 % (11.5-14.5); Segmented Neutrophils % 66.1 %
[2017-05-14] MEDS: *HR* Heparin 5,000 UNIT/ML VIAL SQ SCH ×2 (06:01→17:01)
[2017-05-14 06:04] LABS: Calcium 10.3 mg/dL (8.6-10.8)
[2017-05-14 06:08] LABS: Potassium 5.6 mEq/L (3.5-4.5)
[2017-05-14] MEDS: hydrALAZINE 25 MG TABLET PO SCH ×2 (07:48→14:13)
[2017-05-14] MEDS: Vitamin B Complex/Vit C/Vit E 1 EACH TABLET PO SCH (07:48)
[2017-05-14] MEDS: amLODIPine 5 MG TABLET PO SCH (07:49)
[2017-05-14] MEDS: Insulin LISPRO 300 UNITS/3 ML VIAL SQ SCH ×3 (08:08→17:02)
[2017-05-14] MEDS ORDERED: 0.9 % Sodium Chloride 250 ML IVC PRN (08:36)
[2017-05-14] MEDS ORDERED: *HR* Morphine 2 MG/ML SYRINGE IVP ONE (11:47)
[2017-05-14] MEDS ORDERED: 0.9 % Sodium Chloride 2,000 ML ONE (12:48)
--- NOTE | 2017-05-14 12:56 | Nephrology Progress Note ---
Date of Encounter: 05/14/17 Time of Encounter: 08:50 - Assessment and Plan (1) ESRD (end stage renal disease) on dialysis Status: Chronic Hyperkalemia and ongoing edema. Arranged for extra HD today b/c of the risks of the hyperkalemia. Next HD is planned for tomorrow, but this could be arranged as an outpatient. Okay for D/C after the dialysis today. Thank you. (2) Hypertension Status: Chronic Qualifiers: Hypertension type: essential hypertension Qualified Code(s): I10 - Essential (primary) hypertension (3) Dialysis complication Status: Acute Qualifiers: Encounter type: initial encounter Qualified Code(s): T82.9XXA - Unspecified complication of cardiac and vascular prosthetic device, implant and graft, initial encounter (4) Fluid overload Status: Acute Qualifiers: Hypervolemia type: other Qualified Code(s): E87.79 - Other fluid overload Subjective Principal diagnosis: ESRD Interval history: Pt was seen/examined. He did not affirm N/V/D but did report shortness of breath. He was seen in the HD unit while on HD. Objective - Vital Signs Vital signs: Vital Signs Temp Pulse Resp BP Pulse Ox 05/14/17 12:30 113/58 05/14/17 12:15 110/73 05/14/17 12:00 115/48 05/14/17 11:45 126/65 05/14/17 11:30 146/86 05/14/17 11:15 120/98 05/14/17 11:00 131/64 05/14/17 10:45 125/64 05/14/17 10:30 97.6 F 16 128/65 05/14/17 08:36 97 05/14/17 08:20 59 05/14/17 07:54 98 05/14/17 07:25 97.6 F 56 16 137/80 91 05/14/17 05:52 97.8 F 60 18 187/99 99 05/14/17 04:35 53 17 97 05/14/17 00:06 98.3 F 13 17 147/85 97 05/13/17 22:14 56 13 100 05/13/17 21:50 13 150/80 100 05/13/17 21:00 97.6 F 60 15 150/80 96 05/13/17 16:21 98.2 F 61 22 174/89 92 05/13/17 16:15 63 05/13/17 13:49 98.1 F 20 141/73 05/13/17 13:20 138/62 05/13/17 13:05 138/68 Intake and Output 05/13/17 05/14/17 05/14/17 23:59 07:59 15:59 Intake Total 300 / 300 180 / 180 700 / 700 Output Total 0 / 0 0 / 0 Balance 300 / 300 180 / 180 700 / 700 Intake: Oral 300 / 300 180 / 180 100 / 100 Intake, Rinseback and 600 / 600 Flushes Output: Urine 0 / 0 0 / 0 Other: Meal Dinner Breakfast Percent of Meal Consumed 100% 95% Weight 120.7 kg Blood Glucose* 108 128 Hemodialysis Net Fluid 2348 Removed (mL) Patient Weight 05/14/17 23:59 Weight 120.7 kg - General Appearance General appearance: Present: well-developed, well-nourished, appears started age , obese EENT: Present: ATNC, PERRL, mucous membranes moist Neck: Present: supple Respiratory: Present: clear Cardiology: Present: edema, regular rate, regular rhythm, normal S1, normal S2 Dialysis Vascular Access: Arteriovenous Fistula thrill: Yes bruit: Yes Gastrointestinal: Present: normoactive bowel sounds, no tenderness Integumentary: Present: no rash, warm and dry Neurologic: Present: no focal deficit, no asterixis Musculoskeletal: Present: no deformities, no erythema, no cyanosis Psychiatric: Present: mood/affect appropriate, cooperative - Lab 05/14/17 04:53 05/14/17 04:53 Most recent lab results ABG pH 7.46 pH Units (7.32-7.45) H 05/12/17 00:30 ABG pCO2 44 mmHg (35-45) 05/12/17 00:30 ABG pO2 131 mmHg (85-104) H 05/12/17 00:30 ABG HCO3 31.3 mEQ/L (21-27) H 05/12/17 00:30 ABG O2 Saturation 99 % (95-98) H 05/12/17 00:30 Calcium 10.3 mg/dL (8.6-10.8) 05/14/17 04:53 Phosphorus 7.6 mg/dL (2.3-4.7) H 05/12/17 03:21 Magnesium 2.3 mg/dL (1.6-2.6) 05/12/17 03:21 Consult Discharge Plan - Plan Referrals: Akil Marks CNP [Advanced Practice Nurse] - 05/26/17 8:30 am Linette Mcdonnell CNP [Advanced Practice Nurse] - 05/22/17 2:00 pm Albina Olea MD [Primary Care Provider] - (SENT WEB REQUEST ON 05-13-17 @ [id number]) Prescriptions: Amoxicillin/Clavulanate [Augmentin] 875 mg PO BIDWM #20 tablet
[2017-05-14 15:33] VITALS: BP 120/73
--- NOTE | 2017-05-14 16:59 | Discharge Summary ---
Date of Encounter: 05/14/17 Time of Encounter: 16:55 - Discharge Diagnosis (1) Diabetes Priority: Secondary Status: Chronic Qualifiers: Diabetes mellitus type: type 2 Diabetes mellitus complication status: with kidney complications Diabetes mellitus complication detail: with chronic kidney disease Diabetes mellitus group home insulin use: with assembler metal furniture use Chronic kidney disease stage: on chronic dialysis Qualified Code(s): E11.22 - Type 2 diabetes mellitus with diabetic chronic kidney disease; N18.6 - End stage renal disease; Z79.4 - jail (current) use of insulin; Z99.2 - Dependence on renal dialysis (2) Hypertension Priority: Secondary Status: Chronic Qualifiers: Hypertension type: essential hypertension Qualified Code(s): I10 - Essential (primary) hypertension (3) ESRD (end stage renal disease) on dialysis Priority: Secondary Status: Chronic (4) Acute metabolic encephalopathy Priority: Primary Status: Acute (5) Diabetes mellitus Priority: Secondary Status: Acute Qualifiers: Diabetes mellitus type: type 2 Diabetes mellitus complication status: with kidney complications Diabetes mellitus complication detail: with chronic kidney disease Diabetes mellitus assembler metal furniture insulin use: with group home use Chronic kidney disease stage: on chronic dialysis Qualified Code(s): E11.22 - Type 2 diabetes mellitus with diabetic chronic kidney disease; N18.6 - End stage renal disease; Z79.4 - polymerization engineer (current) use of insulin; Z99.2 - Dependence on renal dialysis (6) Acute respiratory failure with hypoxia Priority: Primary Status: Acute - Discharge Medications Home Medications: Furosemide [Lasix] 40 mg PO BID 06/22/15 [History] Insulin Glargine,Hum.rec.anlog [Lantus Solostar] 10 unit SQ HS 06/22/15 [History ] Sevelamer [Renvela] 3,200 mg PO TIDWM 06/22/15 [History] Atorvastatin [Lipitor] 40 mg PO HS 09/05/15 [History] Hydralazine HCl 100 mg PO TID 01/04/17 [History] Vitamin B Complex [B Complex] 1 tab PO DAILY 01/04/17 [History] amLODIPine [Norvasc] 10 mg PO DAILY 01/04/17 [History] Carvedilol [Coreg] 25 mg PO BID 04/12/17 [History] Clopidogrel [Plavix] 75 mg PO DAILY 05/11/17 [History] Gabapentin [Neurontin] 600 - 1,200 mg PO Q8H PRN 05/11/17 [History] HYDROcodone/Acet 10/325 mg [[place] 10-325 mg] 1 tab PO Q8H PRN 05/11/17 [History] Omeprazole [PriLOSEC] 20 mg PO DAILY 05/11/17 [History] hydrOXYzine HCl [Hydroxyzine HCl] 25 mg PO AD 05/11/17 [History] Acetaminophen [Tylenol] 650 mg PO Q6HR PRN #0 tablet 05/14/17 [Rx] Allergies/Adverse Reactions: Allergies omeprazole [From Prilosec] Allergy (Mild, Verified 05/11/17 21:38) Hives Date of admission: 05/12/17 09:52 Primary care physician: Albina Olea, Consults: 05/13/17 08:15 Consult to Dialysis [CONS] ONCE 05/14/17 08:45 Consult to Dialysis [CONS] ONCE Discharging clinician: Rosanna Morton Anticipated date of discharge: 05/14/17 - Patient Status Disposition: Home, Self-Care Condition: Fair Overall status at discharge: patient is progressing back to baseline - Discharge Instructions Follow Up With: Akil Marks CNP [Advanced Practice Nurse] - 05/26/17 8:30 am Linette Mcdonnell CNP [Advanced Practice Nurse] - 05/22/17 2:00 pm Albina Olea MD [Primary Care Provider] - (SENT WEB REQUEST ON 05-13-17 @ [id number]) - Diet and Activity Activity: increase activity as tolerated Diet: advance to your usual diet Hospital course: Mr. Juan Carlos Monge is a 56-year-old male who was admitted with altered mental status. He has ESRD, diabetes hypertension coronary artery disease. He was noted to be in acute respiratory distress and his lungs were filled with water as well as peripheral edema. There is a suspicion he might have underlying pneumonia. Altered mental status was perhaps related to acute metabolic encephalopathy related to uremia as well as CO2 retention. With emergency dialysis his fluid balance has started improving as well as his potassium has been corrected. On admission his creatinine was more than 11. Initially he i was s on vancomycin and Zosyn and Levaquin antibiotics. But on discharge will just keep him on Augmentin. Patient received daily dialysis while in hospital 3. Neurologically he is a stable now and well oriented to time place and person. Patient is afebrile white count is normal and no significant chest x-ray evidence. Overall he feels that his congestive heart failure and peripheral edema was mainly due to fluid accumulation and with adequate dialysis now equilibrium has been restored and he is breathing much better now. - Time Spent with Patient Total time spent providing and/or coordinating discharge services: Greater than 30 minutes - Constitutional Vitals: Temp Pulse Resp BP Pulse Ox 97.8 F 64 20 120/73 92 05/14/17 15:28 05/14/17 15:53 05/14/17 15:28 05/14/17 15:28 05/14/17 15:28 General appearance: Present: A&O X 2, no acute distress. Absent: answers questions appropriately - Head Head exam: Present: atraumatic, normocephalic - Eye Eye exam: Present: PERRL, conjuntiva pink, sclera anicteric Pupils: Present: PERRL - Neck Neck exam general surgery: Present: supple, trachea midline. Absent: lymphadenopathy - Respiratory Respiratory exam: Present: CTAB. Absent: accessory muscle use, rales, rhonchi, wheezes - Cardiovascular Cardiovascular exam: Present: RRR, +S1, +S2. Absent: diastolic murmur, gallop, rubs, systolic murmur - GI/Abdominal GI/Abdominal exam: Present: normal bowel sounds, soft, no peritoneal signs. Absent: distended, tenderness - Extremities Exam Extremities exam: Present: warm, radial pulses palpable and symetrical. Absent : calf tenderness, cyanotic, pedal edema - Neurological Exam Neurological exam: Present: CN II-XII intact, oriented X3, no focal deficits. Absent: pronater drift, facial droop, speech deficit - Skin Skin exam: Present: dry, intact
== END 2017-05-14 18:27 | disposition home or self-care (01) | DRG 682 ==
LOC: EMEROO 21:18 → 2NNU 21:18
PROVIDERS: ADMIT Internal Medicine; ATTEND Internal Medicine Endocrinology, Diabetes & Metabolism

== ENCOUNTER 2017-06-14 18:59 | Inpatient (IN) ==
--- NOTE | 2017-06-14 19:16 | Emergency Department Note ---
Disposition Clinical Impression: Hypertensive encephalopathy, ESRD (end stage renal disease) on dialysis Altered mental status Qualifiers: Altered mental status type: transient alteration of awareness Qualified Code(s) : R40.4 - Transient alteration of awareness Disposition: Admitted As Inpatient Condition: Fair Referrals: Unassigned,Provider [Non-Partnered Physician] - Forms: ED Satisfaction Letter Time of Disposition: 22:34 Altered Mental Status HPI - General Chief Complaint: ED Altered Mental Status Stated Complaint: AMS Time Seen by Provider: 06/14/17 19:09 Source: patient, family, EMS Mode of arrival: EMS Limitations: altered mental status Nursing Notes Reviewed: Yes Vital Signs Reviewed: Yes - History of Present Illness HPI Narrative: 56-year-old male history of end-stage renal disease hemodialysis MWF, hypertension, diabetes presents to the ED via EMS for altered mental status. Patient was found at the [place] and the gas or water meter installer called [phone] because he was not acting himself. Families at bedside and states he has been more cloudy than usual. At this time he is slow to answer. EMS also noted unequal pupils. Patient reports history of bilateral laser eye surgery in this is not anything new. This was confirmed with family. He denies any pain. Denies headache, changes in vision, chest pain, shortness of breath, abdominal pain or extremity pain. Denies any fall or injury. Dialysis on Thursday as scheduled. Has not taken his evening medications. Denies any drug use. He does not make urine. His photoengraving etcher is Dr. Pickering. Altered mental status workup initiated. He is hypertensive here systolic over 200. Concern for possible hypertensive encephalopathy. Labetalol 20 mg ordered. - Related Data Home Medications Medication Instructions Recorded Confirmed Furosemide [Lasix] 40 mg PO BID 06/22/15 05/11/17 Insulin Glargine,Hum.rec.anlog 10 unit SQ HS 06/22/15 05/11/17 [Lantus Solostar] Sevelamer [Renvela] 3,200 mg PO TIDWM 06/22/15 05/11/17 Atorvastatin [Lipitor] 40 mg PO HS 09/05/15 05/11/17 Hydralazine HCl 100 mg PO TID 01/04/17 05/11/17 Vitamin B Complex [B Complex] 1 tab PO DAILY 01/04/17 05/11/17 amLODIPine [Norvasc] 10 mg PO DAILY 01/04/17 05/11/17 Carvedilol [Coreg] 25 mg PO BID 04/12/17 05/11/17 Clopidogrel [Plavix] 75 mg PO DAILY 05/11/17 05/11/17 Gabapentin [Neurontin] 600 - 1,200 mg PO Q8H PRN 05/11/17 05/11/17 HYDROcodone/Acet 10/325 mg [[place] 1 tab PO Q8H PRN 05/11/17 05/11/17 10-325 mg] Omeprazole [PriLOSEC] 20 mg PO DAILY 05/11/17 05/11/17 hydrOXYzine HCl [Hydroxyzine HCl] 25 mg PO AD 05/11/17 05/11/17 Previous Rx's Medication Instructions Recorded Acetaminophen [Tylenol] 650 mg PO Q6HR PRN #0 tablet 05/14/17 Amoxicillin/Clavulanate [Augmentin] 875 mg PO BIDWM #20 tablet 05/14/17 Allergies Allergy/AdvReac Type Severity Reaction Status Date / Time omeprazole [From Prilosec] Allergy Mild Hives Verified 05/11/17 21:38 All systems ED: reviewed and negative except as stated. Review of Systems: As Per HPI Constitutional: Denies: fever, chills Eyes: Denies: vision change Cardiovascular: Denies: chest pain Respiratory: Denies: cough, dyspnea Gastrointestinal: Denies: abdominal pain, nausea, vomiting Musculoskeletal: Denies: back pain Neurological: Denies: headache Past Medical History - Past Medical History Attestation: Yes The following information was validated with the patient. Source: old records reviewed, obtained from family Medical history: Reports: arthritis, coronary artery disease, diabetes, dialysis , GERD, hyperlipidemia, hypertension, renal disease, TIA Surgical history: Reports: angioplasty/stent, vascular surgery Psychiatric history: Reports: no psych history - Social History Smoking Status: Never smoker Smokeless Tobacco Status: No Alcohol use: Reports: none Drug use: Reports: none Physical Exam - General Limitations: altered mental status General appearance: alert, in no apparent distress - Head Head exam: atraumatic, normocephalic, normal inspection - Eye Eye exam: Present: PERRL, EOMI, other (anisocoria, larger left pupil) - ENT ENT exam: normal exam, normal oropharynx, mucous membranes moist - Neck Neck exam: Present: normal inspection, full ROM - Chest Chest inspection: Present: normal inspection, symmetric chest wall rise - Respiratory Respiratory exam: Present: normal lung sounds bilaterally. Absent: respiratory distress, wheezes - Cardiovascular Cardiovascular exam: Present: regular rate, normal rhythm, normal heart sounds - Abdominal Exam Abdominal exam: Present: soft, Non-Tender, normal bowel sounds. Absent: tenderness, distention, guarding, rebound, rigidity - Extremities Exam Extremities exam: Present: full ROM, other (left AV fistula in forearm with palpable thrill and audible bruit). Absent: tenderness - Back Exam Back exam: Present: normal inspection, full ROM. Absent: tenderness, vertebral tenderness - Neurological Exam Neurological exam: Present: alert, oriented X3 - Expanded Neurological Exam Patient oriented to: Present: person (Man Monge), place (hospital), time ( Thursday (), 2016) Motor strength - LUE: 5/5 Motor strength - RUE: 5/5 Motor strength - LLE: 5/5 Motor strength - RLE: 5/5 - Psychiatric Psychiatric exam: Present: flat affect - Skin Skin exam: Present: warm, dry, intact, normal color Course - Reevaluation(s) Reevaluation #1: Critical troponin 0.08. He is chronically elevated last was 0.10 just over a month ago. He denies any chest pain. EKG does not show any acute ischemic changes. His creatinine is elevated at 12. Potassium is near baseline 5. His blood pressure continues to run greater than 200. He has now received a total of 60 mg labetalol. Review of his prior visits his blood pressure is typically normal and almost hypotensive around 100. Will trial a nitroglycerin drip to a target of 160 to 180 systolic. Patient does not know his home medications. CT of the head does not show any hemorrhage or intracranial abnormality. Time: 20:57 Reevaluation #2: After total 100 mg labetalol and placed on a nitroglycerin drip patient's blood pressure has come down to systolic 170s. Patient is were more alert and continues to be oriented to person place and time. Patient would be admitted for a pretense of encephalopathy, altered mental status, renal insufficiency. Time: 22:32 - Consultations Consultation #1: Spoke with on-call hospitalist noemy Acharya to admit for hypertensive encephalopathy. No further orders at this time. Request patient he admitted to [facility]. Time: 22:31 Vital Signs Temperature 98.4 F 06/14/17 19:10 Pulse Rate 86 06/14/17 19:10 Respiratory Rate 18 06/14/17 19:10 Blood Pressure 213/113 06/14/17 19:10 O2 Sat by Pulse Oximetry 95 06/14/17 19:10 Temperature 98.4 F 06/14/17 19:10 Pulse Rate 64 06/14/17 22:32 Respiratory Rate 18 06/14/17 22:32 Blood Pressure 175/83 06/14/17 22:32 O2 Sat by Pulse Oximetry 95 06/14/17 22:32 Oxygen Delivery Oxygen Delivery Nasal Cannula Altered Mental Status - Medical Records Medical records reviewed: Yes I reviewed the patient's medical records. - Lab Data Lab results reviewed: Yes I reviewed the patient's lab results. Result diagrams: 06/14/17 20:55 06/14/17 20:08 Lab Results 06/14/17 06/14/17 06/14/17 Range/Units 19:06 20:08 20:08 WBC (4.3-11.1) K/mcL RBC (4.19-5.50) M/mcL Hgb (12.9-16.9) g/dL Hct (37.5-50.1) % MCV (83.0-100.0) fL MCH (28.0-33.3) pg MCHC (31.6-35.5) g/dL RDW (11.5-14.5) % Plt Count (140-400) K/mcL MPV (9.4-12.4) fL Immature Gran % (0-4) % Seg Neutrophils % % Lymphocytes % % Monocytes % % Eosinophils % % Basophils % % Neutrophils # (1.6-8.9) K/mcL Lymphocytes # (0.6-4.6) K/mcL Monocytes # (0.0-1.3) K/mcL Eosinophils # (0.0-0.6) K/mcL Basophils # (0.0-0.2) K/mcL Nucleated RBCs/100 WBC (0) /100 WBC Clumped Platelets (Not Present) Immature Plt Fraction (1.1-6.1) % Sodium 136 (136-145) mEq/L Potassium 5.0 H (3.5-4.5) mEq/L Chloride 94 L (98-109) mEq/L Carbon Dioxide 26 (19-29) mEq/L BUN 69 H (8-26) mg/dL Creatinine 12.43 H (0.72-1.25) mg/dL Est GFR ( Amer) 5 L (> 60) Est GFR (Non-Af Amer) 4 L (> 60) BUN/Creatinine Ratio 6 (6-26) Glucose 266 H (70-99) mg/dL POC Glucose 279 H (58-89) Calculated Osmolality 311 H (280-300) Calcium 10.0 (8.6-10.8) mg/dL Total Bilirubin 0.8 (0.2-1.2) mg/dL Direct Bilirubin 0.3 (0.0-0.5) mg/dL Indirect Bilirubin 0.5 (0.0-1.2) mg/dL AST 20 (5-34) Units/L ALT 15 (0-55) Units/L Alkaline Phosphatase 76 (38-126) Units/L Troponin I 0.08 H* (0-0.03) ng/mL Serum Total Protein 7.1 (6.0-8.3) g/dL Albumin 3.5 (3.5-5.0) g/dL Globulin 3.6 H (2.4-3.5) g/dL Albumin/Globulin Ratio 1.0 L (1.1-2.2) Ethyl Alcohol < 10 (0-10) mg/dL Specimen Rejected 06/14/17 06/14/17 Range/Units 20:40 20:55 WBC 6.2 (4.3-11.1) K/mcL RBC 3.72 L (4.19-5.50) M/mcL Hgb 12.4 L (12.9-16.9) g/dL Hct 37.2 L (37.5-50.1) % MCV 100.0 (83.0-100.0) fL MCH 33.3 (28.0-33.3) pg MCHC 33.3 (31.6-35.5) g/dL RDW 15.9 H (11.5-14.5) % Plt Count 85 L (140-400) K/mcL MPV 9.4 (9.4-12.4) fL Immature Gran % 1.0 (0-4) % Seg Neutrophils % 69.6 % Lymphocytes % 15.3 % Monocytes % 11.1 % Eosinophils % 2.7 % Basophils % 0.3 % Neutrophils # 4.3 (1.6-8.9) K/mcL Lymphocytes # 1.0 (0.6-4.6) K/mcL Monocytes # 0.7 (0.0-1.3) K/mcL Eosinophils # 0.2 (0.0-0.6) K/mcL Basophils # 0.0 (0.0-0.2) K/mcL Nucleated RBCs/100 WBC 0.5 H (0) /100 WBC Clumped Platelets Few A (Not Present) Immature Plt Fraction 1.9 (1.1-6.1) % Sodium (136-145) mEq/L Potassium (3.5-4.5) mEq/L Chloride (98-109) mEq/L Carbon Dioxide (19-29) mEq/L BUN (8-26) mg/dL Creatinine (0.72-1.25) mg/dL Est GFR ( Amer) (> 60) Est GFR (Non-Af Amer) (> 60) BUN/Creatinine Ratio (6-26) Glucose (70-99) mg/dL POC Glucose (58-89) Calculated Osmolality (280-300) Calcium (8.6-10.8) mg/dL Total Bilirubin (0.2-1.2) mg/dL Direct Bilirubin (0.0-0.5) mg/dL Indirect Bilirubin (0.0-1.2) mg/dL AST (5-34) Units/L ALT (0-55) Units/L Alkaline Phosphatase (38-126) Units/L Troponin I (0-0.03) ng/mL Serum Total Protein (6.0-8.3) g/dL Albumin (3.5-5.0) g/dL Globulin (2.4-3.5) g/dL Albumin/Globulin Ratio (1.1-2.2) Ethyl Alcohol (0-10) mg/dL Specimen Rejected Clotted - Radiology Data Radiology results reviewed: Yes I reviewed the patient's radiology results. Head CT 06/14/17 19:13 IMPRESSION: No acute intracranial abnormality. D/ / Saad Leonard MD / Saad Leonard MD Interpreting Provider: Saad Leonard MD - EKG Data EKG attestation: Yes I reviewed and interpreted this EKG. EKG results narrative: EKG performed 1934 sinus rhythm with occasional PVC 88 bpm, normal intervals, no ST elevations or depression, no T wave inversion. Compared to old EKG performed 05/11/2017 shows consistent findings. No acute ischemic changes. Critical Care Time Critical Care Time: Yes Total Critical Care Time: 50 Attestation: Critical care performed: Time is exclusive of separately billable procedures. Time includes: direct patient care, patient reassessment, coordination of patient care, interpretation of data (laboratory data, radiology data, and respiratory data), review of patient's medical records, medical consultation and documentation of patient care. Procedures included in critical care time: Procedures excluded from critical care time: Attestation Statement - Attestation Attestation: I, Ramiro Barnard MD, personally evaluated this patient and discussed their management with the resident physician. I reviewed the resident's note and agree with the documented findings, medical decision making, and plan of care. 56-year-old male presents to the emergency department after he was apparently found sitting in an automobile at a gas station and was confused and disoriented. Here in the department the patient is drowsy but responds to verbal stimuli. He is slow to respond but answers questions openly. He does seem a little confused. Seems abdomen difficulty following commands. He admits to some mild headache. No chest pain or shortness of breath. Patient is a hemodialysis patient and he had his dialysis on Thursday 2 days ago as scheduled. Denies any vomiting. No fever. On examination patient is a well-developed obese male in no acute distress but does seem to be altered. He is oriented to person and place. No diaphoresis. No gross focal neurological deficits. No facial droop. No slurred speech. Equal quality control tech strength bilaterally. Neck is supple and nontender with full range of motion. Chest is nontender to palpation. Breath sounds are clear and equal bilaterally. Heart regular rate and rhythm. Abdomen is soft and nontender with normal bowel sounds. Labs reviewed. EKG shows a normal sinus rhythm with a heart rate of 88 with occasional PVC. No acute ischemic changes. Chest x-ray negative. Head CT negative. Patient was noted to be significantly hypertensive and I feel his symptoms are likely hypertensive encephalopathy. He was given labetalol 20 mg and 40 mg with no significant change in his blood pressure. He was then placed on a nitroglycerin drip and received an additional labetalol 40 mg. He did have improvement in his blood pressure with improvement in his mental status also. The hospitalist, Dr. Olivier, was consulted and accepted admission of the patient.
[2017-06-14] MEDS ORDERED: *HR* Labetalol 20 MG/4 ML SYRINGE IVP ONE ×3 (20:16→21:48)
[2017-06-14 20:41] LABS: Alanine Aminotransferase 15 Units/L (0-55); Albumin 3.5 g/dL (3.5-5.0); Alkaline Phosphatase 76 Units/L (38-126); Aspartate Amino Transferase 20 Units/L (5-34); BUN/Creatinine Ratio 6 (6-26); Bilirubin,Direct 0.3 mg/dL (0.0-0.5); Bilirubin,Indirect 0.5 mg/dL (0.0-1.2); Bilirubin,Total 0.8 mg/dL (0.2-1.2); Blood Urea Nitrogen 69 mg/dL (8-26); Carbon Dioxide 26 mEq/L (19-29); Chloride 94 mEq/L (98-109); Ethanol < 10 mg/dL (0-10); Globulin 3.6 g/dL (2.4-3.5); Glucose 266 mg/dL (70-99); Osmolality,Calculated 311 (280-300); Sodium 136 mEq/L (136-145); Total Protein 7.1 g/dL (6.0-8.3); eGFR For African Americans 5 (> 60); eGFR For Non-African Americans 4 (> 60)
[2017-06-14] MEDS ORDERED: Nitroglycerin 25 MG/250 ML INFUS..BTL IVC SCH (21:00)
[2017-06-14 21:01] LABS: Basophils % 0.3 %; Eosinophils # 0.2 K/mcL (0.0-0.6); Eosinophils % 2.7 %; Hematocrit 37.2 % (37.5-50.1); Hemoglobin 12.4 g/dL (12.9-16.9); Immature Platelets 1.9 % (1.1-6.1); Lymphocytes % 15.3 %; Mean Corpuscular HGB Conc 33.3 g/dL (31.6-35.5); Mean Corpuscular Hemoglobin 33.3 pg (28.0-33.3); Mean Platelet Volume 9.4 fL (9.4-12.4); Monocytes # 0.7 K/mcL (0.0-1.3); Monocytes % 11.1 %; Neutrophils # 4.3 K/mcL (1.6-8.9); Nucleated Red Blood Cells 0.5 /100 WBC (0); Red Blood Count 3.72 M/mcL (4.19-5.50); Red Cell Distribution Width 15.9 % (11.5-14.5); Segmented Neutrophils % 69.6 %
[2017-06-14] MEDS ORDERED: 0.9 % Sodium Chloride 1,000 ML ONE (21:09)
[2017-06-14 21:23] LABS: Platelet Count 85 K/mcL (140-400)
[2017-06-14 21:25] LABS: Platelet Clumps Few (Not Present)
--- NOTE | 2017-06-14 23:06 | Event Note ---
Date of Encounter: 06/14/17 Time of Encounter: 23:06 1. Malignant hypertension with acute encephalopathy Continue home medications Coreg, hydralazine, amlodipine, Lasix Continue nitroglycerin drip, labetalol IV as needed Order MRI of the brain as the patient has history of TIAs, continue aspirin, Lipitor Fall precautions 2. Diabetes type 2 insulin-dependent, continue insulin sliding scale 3. End-stage renal disease on hemodialysis, consult Dr. Pickering to continue dialyses 4. GERD, famotidine 5. History of CAD, continue Coreg, aspirin and Plavix Famotidine for GI prophylaxis and subcutaneous heparin for DVT prophylaxis. The patient will be admitted as inpatient, expected stay more than 2 midnights. Full code. Time spent on this admission 40 minutes. H&P to BE completed by Dr. Hernandez
[2017-06-14] MEDS ORDERED: *HR* Labetalol 20 MG/4 ML SYRINGE IVP PRN (23:20)
[2017-06-14] MEDS ORDERED: Naloxone 0.4 MG/ML INJ IVP PRN (23:22)
[2017-06-14] MEDS ORDERED: *HR* Morphine 2 MG/ML SYRINGE IVP PRN (23:22)
[2017-06-14] MEDS ORDERED: D5% in Water 1,000 ML IVC PRN (23:22)
[2017-06-14] MEDS ORDERED: Acetaminophen 325 MG TABLET PO PRN (23:22)
[2017-06-14] MEDS ORDERED: *HR* Dextrose 50 % in Water (Syg) 50 ML SYRINGE IVP PRN (23:22)
[2017-06-14] MEDS ORDERED: Dextrose Gel 15 GM PO PRN ×2 (23:22)
[2017-06-14] MEDS ORDERED: Ondansetron 4 MG/2 ML VIAL IVP PRN (23:22)
[2017-06-14] MEDS ORDERED: Insulin LISPRO 300 UNITS/3 ML VIAL SQ SCH (23:30)
--- NOTE | 2017-06-15 00:08 | Internal Med History&Physical ---
<Rashawn Hernandez - Last Filed: 06/15/17 00:01> Date of Encounter: 06/15/17 Time of Encounter: 00:01 Assessment and Plan (1) Acute encephalopathy Current visit: Yes Status: Acute 56 y/o Male hx of ESRD MWF dialysis, CAD, DM, CVA presents with acute encephalopathy after being found to have passed out at gas station found to be hypertensive with BP systolic >200 BP refractory to IV labetalol mentation improved after patient start nitro gtt -patient alert and oriented to self now. BP now systolic 175 CT head negative for bleed No evidence of infection: does not meet sirs criteria Plan: Conitnue nitro drip with BP goal sytolic 180s Previous MRI january 2017: showed tiny old infarcts. Patient currently slurred speech, and unable to do thorough neuro exam due to mental status. We will obtain MRI of brain Nothing by mouth. PT/OT/speech consult. (2) Malignant hypertension with end stage renal disease Current visit: Yes Status: Acute Present with blood pressure in the systolic greater than 200. Blood pressure improved after starting on nitroglycerin drip. Plan: Continue nitroglycerin drip with a goal of blood pressure systolic 180. For the reduction in blood pressure may cause hypoperfusion to the brain and CVA. We will also continue home blood pressure medications. (3) GERD (gastroesophageal reflux disease) Current visit: Yes Status: Acute Controlled continue famotidine. Qualifiers: Esophagitis presence: esophagitis presence not specified Qualified Code(s) : K21.9 - Gastro-esophageal reflux disease without esophagitis (4) History of coronary artery disease Current visit: Yes Status: Acute History of CAD. Continue home aspirin, atorvastatin, carvedilol, Plavix. (5) DVT prophylaxis Current visit: Yes Status: Acute Heparin subcutaneous. (6) Diabetes Current visit: Yes Status: Chronic Patient history of diabetes. Currently we will put him on a Q6H sliding scale. NPO due to mental status Qualifiers: Diabetes mellitus type: type 2 Diabetes mellitus complication status: with kidney complications Diabetes mellitus complication detail: with chronic kidney disease Diabetes mellitus lobsterman insulin use: with lobsterman use Chronic kidney disease stage: on chronic dialysis Qualified Code(s): E11.22 - Type 2 diabetes mellitus with diabetic chronic kidney disease; N18.6 - End stage renal disease; Z79.4 - long term care social worker (current) use of insulin; Z99.2 - Dependence on renal dialysis (7) ESRD (end stage renal disease) Current visit: Yes Status: Chronic h of ESRD MWF dialysis followed by Dr. Pickering did not miss any dialysis will consult Nephrology Internal Medicine - H&P: HPI Chief complaint: Altered mental status Admitted From: Home Plans for Post Hospital Care: Home History of present illness: Mr. Monge is a 56 year old male presented to the ER via EMS with altered mental status. Patient's son states that they were at a gas station when he was found to be altered by the liquefied natural gas operator. The patient was then put in the back seat of his car at which time he passed out. Patient's son states he has been cloudy for the last 3-4 days. On Thursday after dialysis patient had a passing out episode. Patient's self and checked his blood pressure at that time and said it was normal. In the ER patient was found to be hypertensive with systolics over 200. He was initially treated with labetalol however his blood pressure remained over 200 systolic. Patient was then put on a nitroglycerin drip and his blood pressure slowly decreased to systolic 170s. With the decrease in his blood pressure patient regained consciousness became alert and oriented to self. Patient states he does not know how he got to the hospital. He was found to have slurred speech. Patient has difficulty following commands, and answering questions appropriately. Past Med Surg Social Fam HX - Past Medical History Medical history: arthritis, coronary artery disease, diabetes, dialysis, GERD, hyperlipidemia, hypertension, renal disease, TIA Psychiatric history: no psych history - Past Surgical History Surgical History: angioplasty/stent, vascular surgery - Social History Smoking Status: Never smoker Smokeless Tobacco Status: No Alcohol use: none Drug use: none - Family History Father Hx Family Cardiac Disorders: Yes Hx Family Endocrine Disorder: Yes (DM) Mother Adopted: No Living Status: Hx Family Cardiac Disorders: Yes Hx Family Respiratory Disorders: Yes Hx Family Cancer: Yes Hx Family GI Disorders: No Hx Family Endocrine Disorder: No Hx Family Neuromuscular Disorders: No Hx Family Neurologic Disorders: No Hx Family HEENT Disorders: No Hx Family Autoimmune Disorders: No Internal Medicine - H&P: Meds Furosemide [Lasix] 40 mg PO BID 06/22/15 [History] Insulin Glargine,Hum.rec.anlog [Lantus Solostar] 10 unit SQ HS 06/22/15 [History ] Sevelamer [Renvela] 3,200 mg PO TIDWM 06/22/15 [History] Atorvastatin [Lipitor] 40 mg PO HS 09/05/15 [History] Hydralazine HCl 100 mg PO TID 01/04/17 [History] Vitamin B Complex [B Complex] 1 tab PO DAILY 01/04/17 [History] amLODIPine [Norvasc] 10 mg PO DAILY 01/04/17 [History] Carvedilol [Coreg] 25 mg PO BID 04/12/17 [History] Clopidogrel [Plavix] 75 mg PO DAILY 05/11/17 [History] Gabapentin [Neurontin] 600 - 1,200 mg PO Q8H PRN 05/11/17 [History] HYDROcodone/Acet 10/325 mg [[place] 10-325 mg] 1 tab PO Q8H PRN 05/11/17 [History] Omeprazole [PriLOSEC] 20 mg PO DAILY 05/11/17 [History] hydrOXYzine HCl [Hydroxyzine HCl] 25 mg PO AD 05/11/17 [History] Acetaminophen [Tylenol] 650 mg PO Q6HR PRN #0 tablet 05/14/17 [Rx] Amoxicillin/Clavulanate [Augmentin] 875 mg PO BIDWM #20 tablet 05/14/17 [Rx] Allergies omeprazole [From Prilosec] Allergy (Mild, Verified 05/11/17 21:38) Hives ROS unobtainable: due to mental status All Systems PM: A 10-system review of systems was performed and is negative for pertinent findings except as documented above in the HPI. - Constitutional Vitals: Temp Pulse Resp BP Pulse Ox 98.1 F 58 17 183/102 99 06/14/17 23:39 06/14/17 23:39 06/14/17 23:39 06/14/17 23:39 06/14/17 23:39 - Other Additional findings: General: Mild distress, confused, agitated HEENT: Head atraumatic, normocephalic, EOMI, PERRLA, neck nontender to palpation , absent Lymphadenopathy, Moist Mucous Membranes, Heart: Regular rate and rhythm with no murmur Lungs: Clear to auscultation bilaterally Abdomen: Soft nontender, nondistended positive bowel sounds Extremities: Absent pedal edema, Neuro: Difficult to perform neuro exam as patient is having difficulty following commands. He is alert and oriented to self only Vascular: Pedal and radialpulses 2 out of 4 Internal Med - H&P Results - Labs CBC & Chem 7: 06/14/17 20:55 06/14/17 20:08 <Boone Baldwin H - Last Filed: 06/15/17 06:35> Date of Encounter: 06/15/17 Internal Medicine - H&P: HPI History of present illness: Mr. Monge is a 56 year old male All Systems PM: A 10-system review of systems was performed and is negative for pertinent findings except as documented above in the HPI. - Constitutional Vitals: Temp Pulse Resp BP Pulse Ox 97.8 F 64 14 160/88 94 06/15/17 03:52 06/15/17 04:07 06/15/17 03:52 06/15/17 04:07 06/15/17 03:52 Internal Med - H&P Results - Labs CBC & Chem 7: 06/14/17 20:55 06/14/17 20:08 - Attending Attestation 1. Malignant hypertension with acute encephalopathy Continue home medications Coreg, hydralazine, amlodipine, Lasix Continue nitroglycerin drip, labetalol IV as needed Order MRI of the brain as the patient has history of TIAs, continue aspirin, Lipitor Fall precautions 2. Diabetes type 2 insulin-dependent, continue insulin sliding scale 3. End-stage renal disease on hemodialysis, consult Dr. Pickering to continue dialyses 4. GERD, famotidine 5. History of CAD, continue Coreg, aspirin and Plavix Famotidine for GI prophylaxis and subcutaneous heparin for DVT prophylaxis. The patient will be admitted as inpatient, expected stay more than 2 midnights. Full code. Time spent on this admission 40 minutes. I examined this patient and my medical decision-making was reviewed with the Resident Physician. I agree with the documented findings, disposition and treatment plan as described except to the extent set forth below.
[2017-06-15] MEDS: hydrALAZINE 25 MG TABLET PO SCH ×4 (00:55→20:48)
[2017-06-15] MEDS: Furosemide 40 MG TABLET PO SCH ×3 (00:56→20:49)
[2017-06-15] MEDS: Aspirin Enteric Coated 81 MG Tablet PO SCH ×2 (00:56→08:07)
[2017-06-15] MEDS: amLODIPine 5 MG TABLET PO SCH ×2 (00:56→08:06)
[2017-06-15] MEDS: *HR* OxyCODONE Immed Rel 5 MG TABLET PO PRN (00:56)
[2017-06-15] MEDS: Insulin DETEMIR 100 UNIT/ML X5UNITS SQ SCH ×2 (01:15→20:49)
[2017-06-15] MEDS: *HR* Heparin 5,000 UNIT/ML VIAL SQ SCH ×2 (06:40→20:49)
[2017-06-15] MEDS: Insulin LISPRO 300 UNITS/3 ML VIAL SQ SCH ×3 (06:40→20:50)
[2017-06-15] MEDS: Vitamin B Complex/Vit C/Vit E 1 EACH TABLET PO SCH (08:07)
[2017-06-15] MEDS ORDERED: Famotidine 20 MG TABLET PO SCH ×2 (09:00→21:00)
[2017-06-15 10:06] LABS: Calcium 9.7 mg/dL (8.6-10.8); Magnesium 2.9 mg/dL (1.6-2.6); Phosphorous 8.3 mg/dL (2.3-4.7)
[2017-06-15 10:07] LABS: Potassium 5.8 mEq/L (3.5-4.5)
--- NOTE | 2017-06-15 10:11 | Internal Med Progress Note ---
Date of Encounter: 06/15/17 Time of Encounter: 10:09 - Assessment and plan (1) Hypertensive emergency Current Visit: Yes Status: Acute Assessment and plan: Pt was just came off from Nitro gtt Was given all his PO Meds d/c Labetalol IV med due to his mild bradycardia Will give hydralazine IV PRN Hoping after HD today, his BP is gets more stabilized Also pt does have non compliance history with meds.. counseled him about this Started him on Imdur 60mg daily (2) Acute delirium Current Visit: Yes Status: Acute Assessment and plan: Multi factorial with HTN emergency and ?? CVA improving cont close monitoring (3) H/O: CVA (cerebrovascular accident) Current Visit: Yes Status: Acute Assessment and plan: Reviewed his previous MRI from 01/23 With his current presentation - concerned for acute CVA too Not a candidate for tPA due to unclear history and prolonged time duration and symptoms resolved quickly cont nuero check on Statin already on ASA and Plavix..will cont both for now MRI of brain - P (4) Troponin level elevated Current Visit: No Status: Acute Assessment and plan: due to ESRD asymptomatic no further work up needed (5) CAD (coronary artery disease) Current Visit: No Status: Chronic Assessment and plan: resumed home meds Qualifiers: Coronary Disease-Associated Artery/Lesion type: unspecified vessel or lesion type [place] vs. transplanted heart: [place] heart Associated angina: angina presence unspecified Qualified Code(s): I25.10 - Atherosclerotic heart disease of [place] coronary artery without angina pectoris (6) ESRD (end stage renal disease) Current Visit: Yes Status: Chronic Assessment and plan: Nephro consulted for HD (7) Diabetes Current Visit: Yes Status: Chronic Assessment and plan: Resumed home insulin regimen including Lantus + ISS Qualifiers: Diabetes mellitus type: type 2 Diabetes mellitus complication status: with kidney complications Diabetes mellitus complication detail: with chronic kidney disease Diabetes mellitus [facility] insulin use: with intermediate teacher use Chronic kidney disease stage: on chronic dialysis Qualified Code(s): E11.22 - Type 2 diabetes mellitus with diabetic chronic kidney disease; N18.6 - End stage renal disease; Z79.4 - [facility] (current) use of insulin; Z99.2 - Dependence on renal dialysis (8) Hyperlipemia Current Visit: No Status: Acute Assessment and plan: on statin Qualifiers: Hyperlipidemia type: unspecified Qualified Code(s): E78.5 - Hyperlipidemia , unspecified - Subjective Interval history: Mr. Monge is a 56 year old male with known h/o ESRD on HD M/W/F, Uncontrolled HTN, and CAD pt presented to the ER via EMS with altered mental status. Patient's son states that they were at a gas station when he was found to be altered by the gas and oil checker. The patient was then put in the back seat of his car at which time he passed out. Patient's son states he has been cloudy for the last 3-4 days. On Thursday after dialysis patient had a passing out episode. Pt was admitted here for acute HTN emergency and Acute delirium with possible CVA. This morning pt is more alert, awake and O x 3, denied any CP / SOB. He did not remember anything from y/d - Constitutional Vitals: Temp Pulse Resp BP Pulse Ox 97.5 F L 52 16 149/80 94 06/15/17 08:00 06/15/17 09:28 06/15/17 08:51 06/15/17 09:28 06/15/17 08:51 General appearance: Present: A&O X 3 (still looks confused). Absent: no acute distress - Head Head exam: Present: atraumatic, normal inspection - Neck Neck exam general surgery: Present: supple. Absent: lymphadenopathy, thyromegaly - Respiratory Respiratory exam: Present: decreased breath sounds, wheezes. Absent: respiratory distress, rhonchi - Cardiovascular Cardiovascular exam: Present: bradycardia, +S1, +S2. Absent: systolic murmur - GI/Abdominal GI/Abdominal exam: Present: distended, normal bowel sounds, soft. Absent: guarding, rebound, rigid, tenderness - Extremities Exam Extremities exam: Absent: calf tenderness, pedal edema, tenderness - Neurological Exam Neurological exam: Present: alert, CN II-XII intact, oriented X3 (but still looks slightly confused..not sure this is his baseline), reflexes normal, strengths equal and symetr throughout, speech deficit (still has some slow speech..but no slurred speech). Absent: facial droop - Psychiatric Psychiatric exam: Present: normal affect, normal mood Internal Medicine: Result - Labs CBC & Chem 7: 06/14/17 20:55 06/15/17 09:46 Labs: BMP 06/15/17 09:46 Sodium 135 L Potassium 5.8 H Chloride 98 Carbon Dioxide 21 BUN 73 H Creatinine 13.42 H Glucose 175 H Calcium 9.7 Consult Discharge Plan - Plan Referrals: Albina Olea MD [Primary Care Provider] -
[2017-06-15] MEDS ORDERED: 0.9 % Sodium Chloride 250 ML IVC PRN (11:33)
[2017-06-15] MEDS ORDERED: 0.9 % Sodium Chloride 1,000 ML PRIME SCH (11:45)
--- NOTE | 2017-06-15 13:33 | Nephrology Consult Note ---
Date of Encounter: 06/15/17 Time of Encounter: 13:32 Assessment and Plan (1) ESRD (end stage renal disease) on dialysis Current Visit: Yes Status: Chronic ESRD MWF. Renal dose medications. Renal diet. (2) Acute encephalopathy Current Visit: Yes Status: Acute Concerning for psychotic break vs medical condition. Patient refusing to see psychiatry Neurology is consulted. MRI negative for CVA. Unlikely secondary to uremia, but getting dialysis. Jerking episodes concerning for neurontin toxicity so this was discontinued. (3) HTN (hypertension) Current Visit: No Status: Chronic Uncontrolled. He may need additional UF vs. titration of antihypertensive medication. Could also be related to agitation. Qualifiers: Hypertension type: essential hypertension Qualified Code(s): I10 - Essential (primary) hypertension (4) Hyperkalemia Current Visit: No Status: Resolved Treat with dialysis. History of Present Illness - Reason for Consult Consult date: 06/15/17 end stage renal disease - Chief Complaint ESRD - History of Present Illness The history was obtained from the electronic record. The history and review of systems was unobtainable secondary to his mental status. Patient presented with acute mental status change. He has ESRD and receives dialysis MWF. I was called to see the patient during the first attempt at dialysis. He was agitated and beligerant. He refused dialysis and was taken back to his room. Later his family came and spoke with him and calmed him down. He agreed to receive dialysis. I saw him a third time while he was on dialysis. He was much calmer. His girlfriend was by his side. Past Med Surg Social Fam HX - Past Medical History Medical history: arthritis, coronary artery disease, diabetes, dialysis, GERD, hyperlipidemia, hypertension, renal disease, TIA Psychiatric history: no psych history - Past Surgical History Surgical History: angioplasty/stent, vascular surgery - Social History Smoking Status: Never smoker Smokeless Tobacco Status: No Alcohol use: none Drug use: none - Family History Father Hx Family Cardiac Disorders: Yes Hx Family Endocrine Disorder: Yes (DM) Mother Adopted: No Living Status: Hx Family Cardiac Disorders: Yes Hx Family Respiratory Disorders: Yes Hx Family Cancer: Yes Hx Family GI Disorders: No Hx Family Endocrine Disorder: No Hx Family Neuromuscular Disorders: No Hx Family Neurologic Disorders: No Hx Family HEENT Disorders: No Hx Family Autoimmune Disorders: No Medications and Allergies Furosemide [Lasix] 40 mg PO BID 06/22/15 [History] Insulin Glargine,Hum.rec.anlog [Lantus Solostar] 10 unit SQ HS 06/22/15 [History ] Sevelamer [Renvela] 3,200 mg PO TIDWM 06/22/15 [History] Atorvastatin [Lipitor] 40 mg PO HS 09/05/15 [History] Hydralazine HCl 100 mg PO TID 01/04/17 [History] Vitamin B Complex [B Complex] 1 tab PO DAILY 01/04/17 [History] amLODIPine [Norvasc] 10 mg PO DAILY 01/04/17 [History] Carvedilol [Coreg] 25 mg PO BID 04/12/17 [History] Clopidogrel [Plavix] 75 mg PO DAILY 05/11/17 [History] HYDROcodone/Acet 10/325 mg [[place] 10-325 mg] 1 tab PO Q8H PRN 05/11/17 [History] Omeprazole [PriLOSEC] 20 mg PO DAILY 05/11/17 [History] hydrOXYzine HCl [Hydroxyzine HCl] 25 mg PO TID 05/11/17 [History] Acetaminophen [Tylenol] 650 mg PO Q6HR PRN #0 tablet 05/14/17 [Rx] Cyclobenzaprine HCl 5 mg PO HS PRN 06/15/17 [History] Gabapentin [Neurontin] 100 mg PO TID 06/15/17 [History] Promethazine [Phenergan] 25 mg PO Q8HR PRN 06/15/17 [History] Allergies omeprazole [From Prilosec] Allergy (Mild, Verified 05/11/17 21:38) Hives Review of Systems ROS unobtainable: due to mental status Exam - Vital Signs Vital signs: Initial Vital Signs Temp Pulse Resp BP Pulse Ox 98.4 F 86 18 213/113 95 06/14/17 19:10 06/14/17 19:10 06/14/17 19:10 06/14/17 19:10 06/14/17 19:10 Vital Signs - Last 8 Hours Temp Pulse Resp BP Pulse Ox 06/15/17 11:33 56 06/15/17 11:24 97.3 F L 56 16 168/93 95 06/15/17 09:28 52 149/80 06/15/17 08:51 57 16 167/96 94 06/15/17 08:00 97.5 F L 64 18 175/103 Intake and Output 06/14/17 06/15/17 06/15/17 23:59 07:59 15:59 Intake Total 25.5 / 25.5 Balance 25.5 / 25.5 Intake: IV Fluids 25.5 / 25.5 / Nitroglycerin Premix 25 25.5 / 25.5 MG/250 ML 25 mg In 250 ml @ 10 MCG/MIN 6 mls/hr IVC .Q24H ADAM Rx#: [id number] Other: Meal npo Weight 121.1 kg 121.2 kg Blood Glucose* 147 Patient Weight 06/15/17 23:59 Weight 121.2 kg - General Appearance General appearance: well-developed, well-nourished EENT: ATNC Neck: supple Additional Comments: respirations are unlabored. Cardiology: regular rate Integumentary: warm and dry Neurologic: confused, disoriented Musculoskeletal: no cyanosis Psychiatric: agitated Results - Lab Results 06/14/17 20:55 06/15/17 09:46 Most recent lab results Calcium 9.7 mg/dL (8.6-10.8) 06/15/17 09:46 Phosphorus 8.3 mg/dL (2.3-4.7) H 06/15/17 09:46 Magnesium 2.9 mg/dL (1.6-2.6) H 06/15/17 09:46 Consult Discharge Plan - Plan Referrals: Linette Mcdonnell, MARIA L [Advanced Practice Nurse] - 06/23/17 2:00 pm Albina Olea MD [Primary Care Provider] - (SENT WEB REQUEST ON 06-15-17 @ [id number])
[2017-06-15] MEDS: Isosorbide MONOnitrate (24 HR) 60 MG TAB.ER.24H PO SCH (14:21)
[2017-06-15] MEDS ORDERED: Gabapentin 100 MG CAPSULE PO SCH (15:00)
--- NOTE | 2017-06-15 15:24 | Electrocardiograph Report ---
[place] [id number] Test Date: 2017-06-14 Pat Name: Man Monge Department: [id number] Room: 2N06 Gender: M Senior Compensation Analyst: EWA : 1960 Requested By: Josh Albrecht Order Number: [id number] Reading MD: Gilbert Butterfield MD Measurements Intervals [place] Rate: 88 P: 33 GA: 194 QRS: -52 QRSD: 105 T: 38 QT: 396 QTc: 441 Interpretive Statements SINUS RHYTHM WITH OCCASIONAL VENTRICULAR PREMATURE COMPLEXES LEFT ANTERIOR FASCICULAR BLOCK MODERATE VOLTAGE CRITERIA FOR LVH Poor R wave progression Electronically Signed On 06-15-2017 8:20:20 EDT by Gilbert Butterfield MD
[2017-06-15 17:21] LABS: VBG PH 7.4 pH Units (7.32-7.42)
--- NOTE | 2017-06-15 19:02 | Neurology - Consult Note ---
Date of Encounter: 06/15/17 Time of Encounter: 17:00 Assessment and Plan (1) Altered mental status Current Visit: No Status: Resolved This is a 56 year old man with PMH significant for HTN, DM, ESRD on hemodialysis who acute onset of mental status changes, likely related to hypertensive crisis associated with chronic renal failure. He has nonfocal neurological examination, with rapid improvement in his mental status, after BP better controlled. He has no prior history of seizure. No witnessed seizure activity. MRI of brain negative therefore this does not appear to be neurological in nature. Will obtain routine in AM. Please continue medical and supportive care. Qualifiers: Altered mental status type: unspecified Qualified Code(s): R41.82 - Altered mental status, unspecified History of Present Illness Chief complaint: altered mental status HPI: Mr. Monge is a 56 year old male with PMH significant for ESRD, DM, HTN, CAD, diabetic retinopathy, who developed acute mental status change. The patient was found passing out at the gas station. He was brought to ER by EMS and he was found to be hypertensive. No known history of seizure disorder. Initial CT of head showed no acute intracranial abnormality. MRI of brain completed and shoed no acute intracranial abnormality. Await EEG in the morning. Patient is receiving hemodialysis at the time of this interview. Past Med Surg Social Fam HX - Past Medical History Medical history: arthritis, coronary artery disease, diabetes, dialysis, GERD, hyperlipidemia, hypertension, renal disease, TIA Psychiatric history: no psych history - Past Surgical History Surgical History: angioplasty/stent, vascular surgery - Social History Smoking Status: Never smoker Smokeless Tobacco Status: No Alcohol use: none Drug use: none - Family History Father Hx Family Cardiac Disorders: Yes Hx Family Endocrine Disorder: Yes (DM) Mother Adopted: No Living Status: Hx Family Cardiac Disorders: Yes Hx Family Respiratory Disorders: Yes Hx Family Cancer: Yes Hx Family GI Disorders: No Hx Family Endocrine Disorder: No Hx Family Neuromuscular Disorders: No Hx Family Neurologic Disorders: No Hx Family HEENT Disorders: No Hx Family Autoimmune Disorders: No Medications and Allergies Furosemide [Lasix] 40 mg PO BID 06/22/15 [History] Insulin Glargine,Hum.rec.anlog [Lantus Solostar] 10 unit SQ HS 06/22/15 [History ] Sevelamer [Renvela] 3,200 mg PO TIDWM 06/22/15 [History] Atorvastatin [Lipitor] 40 mg PO HS 09/05/15 [History] Hydralazine HCl 100 mg PO TID 01/04/17 [History] Vitamin B Complex [B Complex] 1 tab PO DAILY 01/04/17 [History] amLODIPine [Norvasc] 10 mg PO DAILY 01/04/17 [History] Carvedilol [Coreg] 25 mg PO BID 04/12/17 [History] Clopidogrel [Plavix] 75 mg PO DAILY 05/11/17 [History] HYDROcodone/Acet 10/325 mg [[place] 10-325 mg] 1 tab PO Q8H PRN 05/11/17 [History] Omeprazole [PriLOSEC] 20 mg PO DAILY 05/11/17 [History] hydrOXYzine HCl [Hydroxyzine HCl] 25 mg PO TID 05/11/17 [History] Acetaminophen [Tylenol] 650 mg PO Q6HR PRN #0 tablet 05/14/17 [Rx] Cyclobenzaprine HCl 5 mg PO HS PRN 06/15/17 [History] Gabapentin [Neurontin] 100 mg PO TID 06/15/17 [History] Promethazine [Phenergan] 25 mg PO Q8HR PRN 06/15/17 [History] Allergies omeprazole [From Prilosec] Allergy (Mild, Verified 05/11/17 21:38) Hives All Systems: A 10-system review of systems was performed and is negative for pertinent findings except as documented above in the HPI. Physical Examination - Vital Signs Vital Signs: Initial Vital Signs Temp Pulse Resp BP Pulse Ox 98.4 F 86 18 213/113 95 06/14/17 19:10 06/14/17 19:10 06/14/17 19:10 06/14/17 19:10 06/14/17 19:10 - Constitutional General appearance: comfortable - Neurologic Sensorimotor examination: other (Grossly intact) Detailed motor examination: grossly full strength in all extremities Motor examination - right side: 5/5: deltoids, biceps, triceps, wrist flexion, wrist extension, medical cash poster, hip flexors, tibialis Anterior, quadriceps, toe extension (EHL), plantarflexion Motor examination - left side: 5/5: deltoids, biceps, triceps, wrist flexion, wrist extension, hip flexors, medical cash poster, quadriceps, tibialis Anterior, toe extension (EHL), plantarflexion Detailed sensory examination: other (Grossly intact) Posture: other (None) Reflexes: Biceps: 1+, Triceps: 1+, Brachioradialis: 1+, Patella: 1+, Achilles: 1 + Mental Status Examination: awake, alert, oriented to person, oriented to place, oriented to time, follows commands appropriately, answers questions appropriately, no agnosia, no aphasia, no aproxia, follows simple commands Mental Status Examination: Patient is oriented to time and place, although he is slow to reply most of the questions. He denies significant discomforts. language appears intact. When asked which hospital he is currently at he replies '[facility]' and he knew the city [facility] He is oriented to time of the year Cranial nerve examination: PERRL, EOMI, visual pizarro intact, corneal reflexes brisk symmetrically, sensory to face intact, mastication intact, no facial asymmetry is present, no dysarthria, hearing is intact symmetrically (Patient has some bilateral hearing difficulty), soft palate elevates bilaterally upon phonation, gag reflex intact, flexes SCM and trapezius muscles symmetrically with full power, tongue protrudes midline, no atrophy or facial fasiculations present Cerebellar examination: no dysmetria, performs finger to nose and heel to hein symmetrically without ataxia, no gait ataxia, no truncal ataxia, no difficulty with rapid alternating movements Results - Laboratory Findings CBC and BMP: 06/14/17 20:55 06/15/17 09:46 Abnormal lab findings: Abnormal lab results RBC 3.72 M/mcL (4.19-5.50) L 06/14/17 20:55 Hgb 12.4 g/dL (12.9-16.9) L 06/14/17 20:55 Hct 37.2 % (37.5-50.1) L 06/14/17 20:55 RDW 15.9 % (11.5-14.5) H 06/14/17 20:55 Plt Count 85 K/mcL (140-400) L 06/14/17 20:55 Nucleated RBCs/100 WBC 0.5 /100 WBC (0) H 06/14/17 20:55 Clumped Platelets Few (Not Present) A 06/14/17 20:55 VBG pO2 276 mmHg (25-40) H 06/15/17 16:00 Sodium 135 mEq/L (136-145) L 06/15/17 09:46 Potassium 5.8 mEq/L (3.5-4.5) H 06/15/17 09:46 BUN 73 mg/dL (8-26) H 06/15/17 09:46 Creatinine 13.42 mg/dL (0.72-1.25) H 06/15/17 09:46 Est GFR ( Amer) 5 (> 60) L 06/15/17 09:46 Est GFR (Non-Af Amer) 4 (> 60) L 06/15/17 09:46 BUN/Creatinine Ratio 5 (6-26) L 06/15/17 09:46 Glucose 175 mg/dL (70-99) H 06/15/17 09:46 POC Glucose 279 (58-89) H 06/14/17 19:06 Calculated Osmolality 306 (280-300) H 06/15/17 09:46 Phosphorus 8.3 mg/dL (2.3-4.7) H 06/15/17 09:46 Magnesium 2.9 mg/dL (1.6-2.6) H 06/15/17 09:46 Ammonia 14 mcmol/L (18-72) L 06/15/17 16:00 Troponin I 0.08 ng/mL (0-0.03) H* 06/14/17 20:08 Globulin 3.6 g/dL (2.4-3.5) H 06/14/17 20:08 Albumin/Globulin Ratio 1.0 (1.1-2.2) L 06/14/17 20:08 Consult Discharge Plan - Plan Referrals: Linette Mcdonnell, MARIA L [Advanced Practice Nurse] - 06/23/17 2:00 pm Albina Olea MD [Primary Care Provider] - (SENT WEB REQUEST ON 06-15-17 @ [phone])
[2017-06-15] MEDS ORDERED: 0.9 % Sodium Chloride 1,000 ML ONE (19:47)
[2017-06-16] MEDS: *HR* OxyCODONE Immed Rel 5 MG TABLET PO PRN ×2 (01:12→20:02)
[2017-06-16] MEDS: Insulin LISPRO 300 UNITS/3 ML VIAL SQ SCH ×5 (01:12→20:06)
[2017-06-16] MEDS: *HR* Heparin 5,000 UNIT/ML VIAL SQ SCH ×2 (04:28→16:52)
[2017-06-16 07:23] LABS: Calcium 9.6 mg/dL (8.6-10.8); Magnesium 2.5 mg/dL (1.6-2.6)
[2017-06-16] MEDS: Furosemide 40 MG TABLET PO SCH ×2 (07:39→16:52)
[2017-06-16] MEDS: amLODIPine 5 MG TABLET PO SCH (07:39)
[2017-06-16] MEDS: Aspirin Enteric Coated 81 MG Tablet PO SCH (07:39)
[2017-06-16] MEDS: Vitamin B Complex/Vit C/Vit E 1 EACH TABLET PO SCH (07:39)
[2017-06-16] MEDS: Isosorbide MONOnitrate (24 HR) 60 MG TAB.ER.24H PO SCH (07:39)
[2017-06-16] MEDS: hydrALAZINE 25 MG TABLET PO SCH ×3 (07:40→20:02)
[2017-06-16 08:07] LABS: Basophils % 0.7 %; Eosinophils # 0.2 K/mcL (0.0-0.6); Eosinophils % 3.5 %; Hematocrit 37.4 % (37.5-50.1); Hemoglobin 12.2 g/dL (12.9-16.9); Immature Granulocytes % 0.5 % (0-4); Lymphocytes # 0.9 K/mcL (0.6-4.6); Lymphocytes % 21.5 %; Mean Corpuscular HGB Conc 32.6 g/dL (31.6-35.5); Mean Corpuscular Hemoglobin 32.4 pg (28.0-33.3); Mean Corpuscular Volume 99.2 fL (83.0-100.0); Mean Platelet Volume 9.6 fL (9.4-12.4); Monocytes # 0.4 K/mcL (0.0-1.3); Monocytes % 9.8 %; Neutrophils # 2.8 K/mcL (1.6-8.9); Platelet Count 95 K/mcL (140-400); Red Blood Count 3.77 M/mcL (4.19-5.50); Red Cell Distribution Width 16.2 % (11.5-14.5)
--- NOTE | 2017-06-16 09:22 | Nephrology Progress Note ---
Date of Encounter: 06/16/17 Time of Encounter: 09:20 - Assessment and Plan (1) ESRD (end stage renal disease) on dialysis Current Visit: Yes Status: Chronic Plan for HD tomorrow Continue renal diet Avoid nephrotoxins if possible (2) Acute encephalopathy Current Visit: Yes Status: Acute per primary team Recommend psych consult (3) HTN (hypertension) Current Visit: No Status: Chronic Uncontrolled per primary team Qualifiers: Hypertension type: essential hypertension Qualified Code(s): I10 - Essential (primary) hypertension (4) Hyperphosphatemia Current Visit: No Status: Chronic Phos level 8.3 Grossly non-compliant with diet/binders Subjective Principal diagnosis: Acute encephalopathy, ESRD on dialysis Interval history: Patient seen and examined. Is completely under the covers including his head, restless. Staff reports he was calling out earlier this am but a little later was able to give his name and seemed less confused. Objective - Vital Signs Vital signs: Vital Signs Temp Pulse Resp BP Pulse Ox 06/16/17 07:00 98.2 F 79 18 182/104 95 06/16/17 04:46 72 06/16/17 04:00 98.1 F 67 18 162/95 94 06/16/17 00:00 74 06/15/17 22:00 97.3 F L 75 18 154/80 94 06/15/17 20:00 84 06/15/17 19:50 97.6 F 81 18 181/103 94 06/15/17 19:11 98.1 F 18 157/86 06/15/17 18:40 151/77 06/15/17 18:30 148/70 06/15/17 18:15 164/76 06/15/17 18:00 161/95 06/15/17 17:45 146/81 06/15/17 17:30 163/84 06/15/17 17:15 178/80 06/15/17 17:00 151/77 06/15/17 16:45 177/93 06/15/17 16:30 142/80 06/15/17 16:15 169/78 06/15/17 16:00 180/55 06/15/17 15:45 98.2 F 22 180/92 06/15/17 15:40 74 20 94 06/15/17 12:20 20 168/98 06/15/17 11:33 56 06/15/17 11:24 97.3 F L 56 16 168/93 95 06/15/17 09:28 52 149/80 Intake and Output 06/15/17 06/16/17 06/16/17 23:59 07:59 15:59 Intake Total 60 / 60 100 / 100 Output Total 4510 / 4510 300 / 300 Balance -4450 / -4450 -200 / -200 Intake: Oral 60 / 60 100 / 100 Output: Urine 0 / 0 300 / 300 Total Dialysis (HD) 4510 / 4510 Output Other: Stool Size Small Stool Consistency soft Stool Color Brown # Bowel Movements 0 0 Weight 118.6 kg Blood Glucose* 108 120 Hemodialysis Net Fluid 4210 Removed (mL) Patient Weight 06/16/17 23:59 Weight 118.6 kg - General Appearance General appearance: Present: well-developed, well-nourished EENT: Present: ATNC Neck: Present: supple Cardiology: Present: no edema, regular rate, regular rhythm Dialysis Vascular Access: Arteriovenous Fistula Gastrointestinal: Present: no guarding Neurologic: Present: confused (restless, reserved) - Lab 06/16/17 07:00 06/16/17 07:00 Most recent lab results Calcium 9.6 mg/dL (8.6-10.8) 06/16/17 07:00 Phosphorus 8.3 mg/dL (2.3-4.7) H 06/15/17 09:46 Magnesium 2.5 mg/dL (1.6-2.6) 06/16/17 07:00 Consult Discharge Plan - Plan Referrals: Linette Mcdonnell CNP [Advanced Practice Nurse] - 06/23/17 2:00 pm Albina Olea MD [Primary Care Provider] - (SENT WEB REQUEST ON 06-15-17 @ [phone])
--- NOTE | 2017-06-16 11:05 | Internal Med Progress Note ---
Date of Encounter: 06/16/17 Time of Encounter: 08:00 - Assessment and plan (1) Hypertensive emergency Current Visit: Yes Status: Acute Assessment and plan: Still fairly controlled - could be part of his maniac / psychotic episodes too Cont all PO Meds including Coreg 25 BID, Hydralazine 100mg TID, Imdur 60mg daily , Norvasc 10mg Cont hydralazine IV PRN Pt does have non compliance history with meds.. counseled him about this (2) Acute delirium Current Visit: Yes Status: Acute Assessment and plan: Multi factorial with HTN emergency and possible psychosis / maniac episodes Possible metabolic encephalopathy - with ESRD and HTN emergency ruled out CVA- MRI of Brain is negative EEG - P Neuro is on board Pt agreed to talk to psychiatrist..so consulted psychiatrist cont close monitoring (3) H/O: CVA (cerebrovascular accident) Current Visit: Yes Status: Acute Assessment and plan: Current MRI of Brain - No acute CVA No further work up needed Con Statin already on ASA and Plavix..will cont both for now (4) Troponin level elevated Current Visit: No Status: Acute Assessment and plan: due to ESRD asymptomatic no further work up needed (5) CAD (coronary artery disease) Current Visit: No Status: Chronic Assessment and plan: resumed home meds Qualifiers: Coronary Disease-Associated Artery/Lesion type: unspecified vessel or lesion type [place] vs. transplanted heart: [place] heart Associated angina: angina presence unspecified Qualified Code(s): I25.10 - Atherosclerotic heart disease of [place] coronary artery without angina pectoris (6) ESRD (end stage renal disease) Current Visit: Yes Status: Chronic Assessment and plan: Nephro consulted for HD (7) Diabetes Current Visit: Yes Status: Chronic Assessment and plan: Resumed home insulin regimen including Lantus + ISS Qualifiers: Diabetes mellitus type: type 2 Diabetes mellitus complication status: with kidney complications Diabetes mellitus complication detail: with chronic kidney disease Diabetes mellitus terminal operations manager insulin use: with terminal operations manager use Chronic kidney disease stage: on chronic dialysis Qualified Code(s): E11.22 - Type 2 diabetes mellitus with diabetic chronic kidney disease; N18.6 - End stage renal disease; Z79.4 - assistant terminal manager (current) use of insulin; Z99.2 - Dependence on renal dialysis (8) Hyperlipemia Current Visit: No Status: Acute Assessment and plan: on statin Qualifiers: Hyperlipidemia type: unspecified Qualified Code(s): E78.5 - Hyperlipidemia , unspecified - Subjective Interval history: Mr. Monge is a 56 year old male with known h/o ESRD on HD M/W/F, Uncontrolled HTN, and CAD pt presented to the ER via EMS with altered mental status. Patient's son states that they were at a gas station when he was found to be altered by the rivet heater gas. The patient was then put in the back seat of his car at which time he passed out. Patient's son states he has been cloudy for the last 3-4 days. On Thursday after dialysis patient had a passing out episode. Pt was admitted here for acute HTN emergency and Acute delirium with possible CVA. This morning pt is more alert, awake and O x 3, denied any CP / SOB. He did not remember anything from y/d - Constitutional Vitals: Temp Pulse Resp BP Pulse Ox 98.2 F 79 18 182/104 95 06/16/17 07:00 06/16/17 07:00 06/16/17 07:00 06/16/17 07:00 06/16/17 07:00 General appearance: Present: A&O X 3. Absent: no acute distress - Head Head exam: Present: atraumatic, normal inspection - Respiratory Respiratory exam: Present: decreased breath sounds, wheezes. Absent: rales, respiratory distress, rhonchi, stridor - Cardiovascular Cardiovascular exam: Present: RRR, +S1, +S2. Absent: diastolic murmur, gallop, rubs, systolic murmur - Extremities Exam Extremities exam: Absent: calf tenderness, pedal edema, tenderness - Neurological Exam Neurological exam: Present: alert, oriented X3 - Psychiatric Psychiatric exam: Present: anxious, manic Internal Medicine: Result - Labs CBC & Chem 7: 06/16/17 07:00 06/16/17 07:00 Labs: Short CBC 06/16/17 Range/Units 07:00 WBC 4.3 (4.3-11.1) K/mcL Hgb 12.2 L (12.9-16.9) g/dL Hct 37.4 L (37.5-50.1) % Plt Count 95 L (140-400) K/mcL Neutrophils # 2.8 (1.6-8.9) K/mcL BMP 08/08/17 07:00 Sodium 136 Potassium 5.0 H Chloride 96 L Carbon Dioxide 27 BUN 52 H D Creatinine 11.29 H Glucose 125 H Calcium 9.6 Consult Discharge Plan - Plan Referrals: Linette Mcdonnell, MARIA L [Advanced Practice Nurse] - 06/23/17 2:00 pm Albina Olea MD [Primary Care Provider] - (SENT WEB REQUEST ON 06-15-17 @ [phone])
--- NOTE | 2017-06-16 12:34 | EEG/EMG/Oth Biometrics Report ---
EEG Procedure Report Date of procedure: 06/16/17 EEG Procedure: Routine EEG Procedure Note: Report: This EEG was acquired with standard international 10-20 electrode placement system with EKG recording. The background activity during this EEG was replaced by a mixture of theta and alpha activity with best frequency up to 8 Hz. The background activity was reactive to eye openings. Sleep stages were not definitively identified during the study. Some of the delta waves are large amplitude and having features of triphasic morphology. There are no electrographic seizures identified during this tracing. There are no epileptiform discharges and focal slowing noted during this recording. Photic stimulation produced no abnormalities. HV not performed during this study. EKG tracing showed no significant cardiac dysarrhythmia. Impression: This is an abnormal EEG due to presence of mild to moderate diffuse background slowing. Clinical Correlation: This EEG is consistent with mild to moderate diffuse cerebral dysfunction that can be seen in patients with encephalopathy, metabolic/toxic, electrolyte derangement, or other causes. Clinical correlation suggested.
--- NOTE | 2017-06-16 15:41 | Consult Note ---
Date of Encounter: 06/16/17 Time of Encounter: 15:00 Assessment & Recommendation (1) Altered mental status Current visit: No Status: Resolved Qualifiers: Altered mental status type: unspecified Qualified Code(s): R41.82 - Altered mental status, unspecified (2) ESRD (end stage renal disease) Current visit: Yes Status: Chronic (3) HTN (hypertension) Current visit: No Status: Chronic Qualifiers: Hypertension type: essential hypertension Qualified Code(s): I10 - Essential (primary) hypertension (4) Diabetes Current visit: Yes Status: Chronic Qualifiers: Diabetes mellitus type: type 2 Diabetes mellitus complication status: with kidney complications Diabetes mellitus complication detail: with chronic kidney disease Diabetes mellitus joint terminal attack controller insulin use: with chcf use Chronic kidney disease stage: on chronic dialysis Qualified Code(s): E11.22 - Type 2 diabetes mellitus with diabetic chronic kidney disease; N18.6 - End stage renal disease; Z79.4 - parts counterman (current) use of insulin; Z99.2 - Dependence on renal dialysis (5) Hyperlipemia Current visit: No Status: Acute Qualifiers: Hyperlipidemia type: unspecified Qualified Code(s): E78.5 - Hyperlipidemia , unspecified History of Present Illness Requesting Physician: Lesley Cline MD Reason for consult: for acute psychosis/zia. History of present illness: Mr. Monge is a 56 year old male evaluated today for acute psychosis/zia. Patient was seen , his GF and his BEST FRIEND were in room and he agreed to have them in room during interview. as per them he is ok besides his medical illness. he states i am sick and that is why i am here. Chart reviewed , patient was bought in by EMS with altered mental status , he has h/o HTN and ESRD , on dialysis he had dialysis on Thursday and has been cloudy since then. pt is poor historian secondary to his confusion , he is at present confused , he was not oriented , he said today is thursday , month took him long with prompting said june ,' i do not like to say june as my father passed in this month 8 months ago " , then correct self i think 8 years ago. i had to ask year 2-3 times as he would confabulate but eventually said its 17. he did not remembered he had breakfast or lunch , said he did not as i was not hungry. he was laughing at times when not able to answer questions and had to think to answer. he denies any auditory or visual hallucinations at present , no paranoia and no thoughts of self/others harm patient has no psychiatric history and denies any drugs/alcohol/cig. he is at present confused, at times labile and had confabulation. a/p he does not have any psych. illness. his mental status and cognitive impairment at present is secondary to medical illness. CC: Lesley Cline MD Past Med Surg Social Fam HX - Past Medical History Medical history: arthritis, coronary artery disease, diabetes, dialysis, GERD, hyperlipidemia, hypertension, renal disease, TIA - Past Surgical History Surgical History: angioplasty/stent, vascular surgery - Social History Smoking Status: Never smoker Smokeless Tobacco Status: No Alcohol use: none Drug use: none - Family History Father Hx Family Cardiac Disorders: Yes Hx Family Endocrine Disorder: Yes (DM) Mother Adopted: No Living Status: Hx Family Cardiac Disorders: Yes Hx Family Respiratory Disorders: Yes Hx Family Cancer: Yes Hx Family GI Disorders: No Hx Family Endocrine Disorder: No Hx Family Neuromuscular Disorders: No Hx Family Neurologic Disorders: No Hx Family HEENT Disorders: No Hx Family Autoimmune Disorders: No Medications & Allergies Furosemide [Lasix] 40 mg PO BID 06/22/15 [History] Insulin Glargine,Hum.rec.anlog [Lantus Solostar] 10 unit SQ HS 06/22/15 [History ] Sevelamer [Renvela] 3,200 mg PO TIDWM 06/22/15 [History] Atorvastatin [Lipitor] 40 mg PO HS 09/05/15 [History] Hydralazine HCl 100 mg PO TID 01/04/17 [History] Vitamin B Complex [B Complex] 1 tab PO DAILY 01/04/17 [History] amLODIPine [Norvasc] 10 mg PO DAILY 01/04/17 [History] Carvedilol [Coreg] 25 mg PO BID 04/12/17 [History] Clopidogrel [Plavix] 75 mg PO DAILY 05/11/17 [History] HYDROcodone/Acet 10/325 mg [[place] 10-325 mg] 1 tab PO Q8H PRN 05/11/17 [History] Omeprazole [PriLOSEC] 20 mg PO DAILY 05/11/17 [History] hydrOXYzine HCl [Hydroxyzine HCl] 25 mg PO TID 05/11/17 [History] Acetaminophen [Tylenol] 650 mg PO Q6HR PRN #0 tablet 05/14/17 [Rx] Cyclobenzaprine HCl 5 mg PO HS PRN 06/15/17 [History] Gabapentin [Neurontin] 100 mg PO TID 06/15/17 [History] Promethazine [Phenergan] 25 mg PO Q8HR PRN 06/15/17 [History] Allergies omeprazole [From Prilosec] Allergy (Mild, Verified 05/11/17 21:38) Hives Mental Status Exam Level of alertness: Alert Patient appearance: Unkempt Behavior: distractible Psychomotor activity: Normal Eye contact: Maintains Eye Contact Mood description: Euthymic/stable Affect description: labile Speech pattern: Normal rate Speech volume: Normal Thought process: Tangential Attention span: Unable to Focus, Unable to Sustain Attention Memory description: Immediate Impaired, Recent Impaired Patient reliability: Not Reliable Historian Intelligence estimate: Average Judgment: Limited Results - Vital Signs Vital signs: Temp Pulse Resp BP Pulse Ox 97.6 F 62 18 158/97 95 06/16/17 12:00 06/16/17 12:00 06/16/17 12:00 06/16/17 12:00 06/16/17 12:00 - Labs Labs: Laboratory Last Values WBC 4.3 K/mcL (4.3-11.1) 06/16/17 07:00 RBC 3.77 M/mcL (4.19-5.50) L 06/16/17 07:00 Hgb 12.2 g/dL (12.9-16.9) L 06/16/17 07:00 Hct 37.4 % (37.5-50.1) L 06/16/17 07:00 MCV 99.2 fL (83.0-100.0) 06/16/17 07:00 MCH 32.4 pg (28.0-33.3) 06/16/17 07:00 MCHC 32.6 g/dL (31.6-35.5) 06/16/17 07:00 RDW 16.2 % (11.5-14.5) H 06/16/17 07:00 Plt Count 95 K/mcL (140-400) L 06/16/17 07:00 MPV 9.6 fL (9.4-12.4) 06/16/17 07:00 Immature Gran % 0.5 % (0-4) 06/16/17 07:00 Seg Neutrophils % 64.0 % 06/16/17 07:00 Lymphocytes % 21.5 % 06/16/17 07:00 Monocytes % 9.8 % 06/16/17 07:00 Eosinophils % 3.5 % 06/16/17 07:00 Basophils % 0.7 % 06/16/17 07:00 Neutrophils # 2.8 K/mcL (1.6-8.9) 06/16/17 07:00 Lymphocytes # 0.9 K/mcL (0.6-4.6) 06/16/17 07:00 Monocytes # 0.4 K/mcL (0.0-1.3) 06/16/17 07:00 Eosinophils # 0.2 K/mcL (0.0-0.6) 06/16/17 07:00 Basophils # 0.0 K/mcL (0.0-0.2) 06/16/17 07:00 Nucleated RBCs/100 WBC 0.5 /100 WBC (0) H 06/14/17 20:55 Clumped Platelets Few (Not Present) A 06/14/17 20:55 Immature Plt Fraction 1.9 % (1.1-6.1) 06/14/17 20:55 VBG pH 7.40 pH Units (7.32-7.42) 06/15/17 16:00 VBG pCO2 42 mmHg (41-51) 06/15/17 16:00 VBG pO2 276 mmHg (25-40) H 06/15/17 16:00 VBG HCO3 26.0 mEq/L (21-27) 06/15/17 16:00 Sodium 136 mEq/L (136-145) 06/16/17 07:00 Potassium 5.0 mEq/L (3.5-4.5) H 06/16/17 07:00 Chloride 96 mEq/L (98-109) L 06/16/17 07:00 Carbon Dioxide 27 mEq/L (19-29) 06/16/17 07:00 BUN 52 mg/dL (8-26) H D 06/16/17 07:00 Creatinine 11.29 mg/dL (0.72-1.25) H 06/16/17 07:00 Est GFR ( Amer) 6 (> 60) L 06/16/17 07:00 Est GFR (Non-Af Amer) 5 (> 60) L 06/16/17 07:00 BUN/Creatinine Ratio 5 (6-26) L 06/16/17 07:00 Glucose 125 mg/dL (70-99) H 06/16/17 07:00 POC Glucose 108 (58-89) H 06/15/17 19:53 Calculated Osmolality 298 (280-300) 06/16/17 07:00 Calcium 9.6 mg/dL (8.6-10.8) 06/16/17 07:00 Phosphorus 8.3 mg/dL (2.3-4.7) H 06/15/17 09:46 Magnesium 2.5 mg/dL (1.6-2.6) 06/16/17 07:00 Total Bilirubin 0.8 mg/dL (0.2-1.2) 06/14/17 20:08 Direct Bilirubin 0.3 mg/dL (0.0-0.5) 06/14/17 20:08 Indirect Bilirubin 0.5 mg/dL (0.0-1.2) 06/14/17 20:08 AST 20 Units/L (5-34) 06/14/17 20:08 ALT 15 Units/L (0-55) 06/14/17 20:08 Alkaline Phosphatase 76 Units/L (38-126) 06/14/17 20:08 Ammonia 14 mcmol/L (18-72) L 06/15/17 16:00 Troponin I 0.08 ng/mL (0-0.03) H* 06/14/17 20:08 Serum Total Protein 7.1 g/dL (6.0-8.3) 06/14/17 20:08 Albumin 3.5 g/dL (3.5-5.0) 06/14/17 20:08 Globulin 3.6 g/dL (2.4-3.5) H 06/14/17 20:08 Albumin/Globulin Ratio 1.0 (1.1-2.2) L 06/14/17 20:08 Ethyl Alcohol < 10 mg/dL (0-10) 06/14/17 20:08 Specimen Rejected Clotted 06/14/17 20:40 Consult Discharge Plan - Plan Referrals: Linette Mcdonnell CNP [Advanced Practice Nurse] - 06/23/17 2:00 pm Albina Olea MD [Primary Care Provider] - (SENT WEB REQUEST ON 06-15-17 @ [id number])
--- NOTE | 2017-06-16 18:00 | Neurology Progress Note ---
Date of Encounter: 06/16/17 Time of Encounter: 17:55 Assessment and Plan (1) Altered mental status Current Visit: Yes Status: Acute There does not appear to be evidence of new primary neurological disorder going on and his symptoms appears improving although he could still be confused with examination that require more vigorous concentration. This could certainly be secondary to baseline encephalopathy related to his medical conditions. From neurological perspective, no further testing will be recommended at this point. Please continue medical and supportive care. Will sign off at this time. Please call if any questions Qualifiers: Altered mental status type: transient alteration of awareness Qualified Code(s): R40.4 - Transient alteration of awareness Subjective Principal diagnosis: Acute encephalopathy, ESRD on dialysis Interval history: Patient seen and examined. Son and girlfriend are in the room. Patient reports that he is feeling fine. Sitting at the edge of the bed. Son feels that he is doing better. But it seemed that both his son and girlfriend are restrained from telling and they are very scarce in their words. patient is oriented to time and place and somewhat agitated he has asking so many same questions. EEG reported diffuse slowing which would be consistent with diffuse encephalopathy and medical history of ESRD. No seizures or epileptiform discharges seen Objective - Constitutional Vitals: Temp Pulse Resp BP Pulse Ox 97.6 F 69 18 154/94 97 06/16/17 16:27 06/16/17 16:27 06/16/17 16:27 06/16/17 16:27 06/16/17 16:27 - Neurological Exam Sensorimotor examination: Present: other (Grossly intact) Motor Examination: Present: grossly full strength in all extremities Motor examination - right side: 5/5: deltoids, biceps, triceps, wrist flexion, wrist extension, chief technology officer, hip flexors, tibialis Anterior, quadriceps, toe extension (EHL), plantarflexion Motor examination - left side: 5/5: deltoids, biceps, triceps, wrist flexion, wrist extension, hip flexors, chief technology officer, quadriceps, tibialis Anterior, toe extension (EHL), plantarflexion Sensation intact: Present: other (Grossly intact) Posture: Present: other (None) Mental Status Examination: Present: awake, alert, oriented to person, oriented to place, oriented to time, follows commands appropriately, answers questions appropriately, no agnosia, no aphasia, no aproxia, follows simple commands Cranial nerve examination: Present: PERRL, EOMI, visual pizarro intact, corneal reflexes brisk symmetrically, sensory to face intact, mastication intact, no facial asymmetry is present, no dysarthria, hearing is intact symmetrically ( Patient has some bilateral hearing difficulty), soft palate elevates bilaterally upon phonation, gag reflex intact, flexes SCM and trapezius muscles symmetrically with full power, tongue protrudes midline, no atrophy or facial fasiculations present Cerebellar examination: Present: no dysmetria, performs finger to nose and heel to hein symmetrically without ataxia, no gait ataxia, no truncal ataxia, no difficulty with rapid alternating movements Results - Laboratory Findings CBC and BMP: 06/16/17 07:00 06/16/17 07:00 Abnormal lab findings: Abnormal lab results RBC 3.77 M/mcL (4.19-5.50) L 06/16/17 07:00 Hgb 12.2 g/dL (12.9-16.9) L 06/16/17 07:00 Hct 37.4 % (37.5-50.1) L 06/16/17 07:00 RDW 16.2 % (11.5-14.5) H 06/16/17 07:00 Plt Count 95 K/mcL (140-400) L 06/16/17 07:00 Nucleated RBCs/100 WBC 0.5 /100 WBC (0) H 06/14/17 20:55 Clumped Platelets Few (Not Present) A 06/14/17 20:55 VBG pO2 276 mmHg (25-40) H 06/15/17 16:00 Potassium 5.0 mEq/L (3.5-4.5) H 06/16/17 07:00 Chloride 96 mEq/L (98-109) L 06/16/17 07:00 BUN 52 mg/dL (8-26) H D 06/16/17 07:00 Creatinine 11.29 mg/dL (0.72-1.25) H 06/16/17 07:00 Est GFR ( Amer) 6 (> 60) L 06/16/17 07:00 Est GFR (Non-Af Amer) 5 (> 60) L 06/16/17 07:00 BUN/Creatinine Ratio 5 (6-26) L 06/16/17 07:00 Glucose 125 mg/dL (70-99) H 06/16/17 07:00 POC Glucose 108 (58-89) H 06/15/17 19:53 Phosphorus 8.3 mg/dL (2.3-4.7) H 06/15/17 09:46 Ammonia 14 mcmol/L (18-72) L 06/15/17 16:00 Troponin I 0.08 ng/mL (0-0.03) H* 06/14/17 20:08 Globulin 3.6 g/dL (2.4-3.5) H 06/14/17 20:08 Albumin/Globulin Ratio 1.0 (1.1-2.2) L 06/14/17 20:08 Consult Discharge Plan - Plan Referrals: Linette Mcdonnell CNP [Advanced Practice Nurse] - 06/23/17 2:00 pm Albina Olea MD [Primary Care Provider] - (SENT WEB REQUEST ON 06-15-17 @ [id number])
[2017-06-16] MEDS: Insulin DETEMIR 100 UNIT/ML X5UNITS SQ SCH (20:03)
[2017-06-17] MEDS: *HR* OxyCODONE Immed Rel 5 MG TABLET PO PRN ×2 (03:40→09:09)
[2017-06-17] MEDS: *HR* Heparin 5,000 UNIT/ML VIAL SQ SCH ×2 (05:13→16:07)
[2017-06-17] MEDS ORDERED: 0.9 % Sodium Chloride 250 ML IVC PRN (07:57)
[2017-06-17] MEDS ORDERED: 0.9 % Sodium Chloride 1,000 ML PRIME SCH (08:00)
[2017-06-17 08:16] LABS: Calcium 10.3 mg/dL (8.6-10.8); Magnesium 2.9 mg/dL (1.6-2.6)
[2017-06-17 08:17] LABS: Potassium 5.5 mEq/L (3.5-4.5)
[2017-06-17 08:29] LABS: Basophils % 0.5 %; Eosinophils # 0.1 K/mcL (0.0-0.6); Eosinophils % 2.9 %; Hematocrit 39.7 % (37.5-50.1); Hemoglobin 12.6 g/dL (12.9-16.9); Immature Granulocytes % 0.5 % (0-4); Lymphocytes % 24.9 %; Mean Corpuscular HGB Conc 31.7 g/dL (31.6-35.5); Mean Corpuscular Hemoglobin 32.4 pg (28.0-33.3); Mean Corpuscular Volume 102.1 fL (83.0-100.0); Mean Platelet Volume 10.5 fL (9.4-12.4); Monocytes # 0.5 K/mcL (0.0-1.3); Monocytes % 11.2 %; Neutrophils # 2.5 K/mcL (1.6-8.9); Platelet Count 105 K/mcL (140-400); Red Blood Count 3.89 M/mcL (4.19-5.50); Red Cell Distribution Width 16.4 % (11.5-14.5)
[2017-06-17] MEDS: Insulin LISPRO 300 UNITS/3 ML VIAL SQ SCH ×4 (08:32→23:04)
[2017-06-17] MEDS: Aspirin Enteric Coated 81 MG Tablet PO SCH (09:09)
[2017-06-17] MEDS: Furosemide 40 MG TABLET PO SCH ×2 (09:09→16:07)
[2017-06-17] MEDS: Vitamin B Complex/Vit C/Vit E 1 EACH TABLET PO SCH (09:09)
[2017-06-17] MEDS: amLODIPine 5 MG TABLET PO SCH (09:10)
[2017-06-17] MEDS: Isosorbide MONOnitrate (24 HR) 60 MG TAB.ER.24H PO SCH (09:11)
[2017-06-17] MEDS: hydrALAZINE 25 MG TABLET PO SCH ×3 (09:11→23:04)
[2017-06-17] MEDS ORDERED: Acetaminophen/Aspirin/Caffeine TABLET PO PRN (09:19)
[2017-06-17] MEDS ORDERED: 0.9 % Sodium Chloride 2,000 ML ONE (10:01)
--- NOTE | 2017-06-17 11:13 | Discharge Summary ---
Date of Encounter: 06/17/17 Time of Encounter: 10:56 - Discharge Diagnosis (1) Hypertensive emergency Priority: Primary Status: Resolved (2) Acute delirium Priority: Primary Status: Acute (3) H/O: CVA (cerebrovascular accident) Priority: Secondary Status: Chronic (4) Troponin level elevated Priority: Secondary Status: Acute (5) CAD (coronary artery disease) Priority: Secondary Status: Chronic Qualifiers: Coronary Disease-Associated Artery/Lesion type: unspecified vessel or lesion type [place] vs. transplanted heart: [place] heart Associated angina: angina presence unspecified Qualified Code(s): I25.10 - Atherosclerotic heart disease of [place] coronary artery without angina pectoris (6) ESRD (end stage renal disease) Priority: Secondary Status: Chronic (7) Diabetes Priority: Secondary Status: Chronic Qualifiers: Diabetes mellitus type: type 2 Diabetes mellitus complication status: with kidney complications Diabetes mellitus complication detail: with chronic kidney disease Diabetes mellitus mcc insulin use: with mcc use Chronic kidney disease stage: on chronic dialysis Qualified Code(s): E11.22 - Type 2 diabetes mellitus with diabetic chronic kidney disease; N18.6 - End stage renal disease; Z79.4 - MCFP (current) use of insulin; Z99.2 - Dependence on renal dialysis (8) Hyperlipemia Priority: Secondary Status: Acute Qualifiers: Hyperlipidemia type: unspecified Qualified Code(s): E78.5 - Hyperlipidemia , unspecified (9) Acute metabolic encephalopathy Priority: Primary Status: Acute - Discharge Medications Prescriptions: Isosorbide MONOnitrate (24 HR) [Imdur] 60 mg PO DAILY #30 tab.er.24h Home Medications: Furosemide [Lasix] 40 mg PO BID 06/22/15 [History] Insulin Glargine,Hum.rec.anlog [Lantus Solostar] 10 unit SQ HS 06/22/15 [History ] Sevelamer [Renvela] 3,200 mg PO TIDWM 06/22/15 [History] Atorvastatin [Lipitor] 40 mg PO HS 09/05/15 [History] Hydralazine HCl 100 mg PO TID 01/04/17 [History] Vitamin B Complex [B Complex] 1 tab PO DAILY 01/04/17 [History] amLODIPine [Norvasc] 10 mg PO DAILY 01/04/17 [History] Carvedilol [Coreg] 25 mg PO BID 04/12/17 [History] Clopidogrel [Plavix] 75 mg PO DAILY 05/11/17 [History] Omeprazole [PriLOSEC] 20 mg PO DAILY 05/11/17 [History] Acetaminophen [Tylenol] 650 mg PO Q6HR PRN #0 tablet 05/14/17 [Rx] Cyclobenzaprine HCl 5 mg PO HS PRN 06/15/17 [History] Promethazine [Phenergan] 25 mg PO Q8HR PRN 06/15/17 [History] Isosorbide MONOnitrate (24 HR) [Imdur] 60 mg PO DAILY #30 tab.er.24h 06/17/17 [ Rx] Allergies/Adverse Reactions: Allergies omeprazole [From Prilosec] Allergy (Mild, Verified 05/11/17 21:38) Hives Date of admission: 06/14/17 23:30 Primary care physician: Albina Olea, Consults: 06/15/17 00:17 Consult to Speech Therapy [CONS] Routine Comment: Evaluate, develop and implement POC Reason for Consult: slurreed speech, AMS, high risk for aspiration Call Completed: Yes 06/15/17 00:22 Consult to Nephrology [CONS] Routine Consulting Provider: Kid[facility]/LUZMA/RAYSHAWN/HELLEN Reason for Consult: ESRD patient Call Completed: No 06/15/17 11:35 Consult to Neurology [CONS] Routine Consulting Provider: [facility] Reason for Consult: acute delirium Call Completed: Yes 06/15/17 11:45 Consult to Dialysis [CONS] ONCE 06/16/17 07:35 Consult to Invasive Line Access Team [CONS] Routine Reason for Consult: Limited vasc access. Patient is HD patient. Line Type: EPIV 06/16/17 11:04 Consult to Psychiatry [CONS] Routine Consulting Provider: Psychiatry [facility] Reason for Consult: Acute psycchosis / Maniac episodes Call Completed: Yes 06/16/17 12:29 Consult to Interpret Exam [CONS] Routine Consulting Provider: Mau Blake Consult to Interpret Exam: Interpret EEG 06/17/17 08:00 Consult to Dialysis [CONS] ONCE - Patient Status Disposition: Home, Self-Care Condition: Fair Overall status at discharge: patient is back to baseline - Discharge Instructions Follow Up With: Linette Mcdonnell, SHELL MACHINE OPERATOR [Advanced Practice Nurse] - 06/23/17 2:00 pm Fernie Hernandez DO [Partnered Physician] - 08/06/17 8:15 am Albina Olea MD [Primary Care Provider] - (SENT WEB REQUEST ON 06-15-17 @ [id number]) Additional Instructions: Need to f/u with PCP in one week need to f/u Medical Superintendent Dr. Pickering in 1 week need to go for HD as scheduled M /W/ F Stop taking neurontin cut back on pain medication Vergas - Diet and Activity Activity: increase activity as tolerated Diet: low salt diet Hospital course: Mr. Monge is a 56 year old male with known h/o ESRD on HD M/W/F, Uncontrolled HTN, and CAD pt presented to the ER via EMS with altered mental status. Patient's son states that they were at a gas station when he was found to be altered by the industrial gas servicer helper. The patient was then put in the back seat of his car at which time he passed out. Patient's son states he has been cloudy for the last 3-4 days. On Thursday after dialysis patient had a passing out episode. Pt was admitted here for acute HTN emergency and Acute delirium with metabolic encephalopathy. Also concerned for CVA, so pt was placed on security monitor and checked serial troponins which were slightly elevated due to ESRD and demand ischemia, but no acute EKG changes. For his HTN emeregcny he did required Nitro gtt initially, later improved with his regular PO meds home doses, also added Imdur 60g daily. Regarding his acute delirium / altered mental status he did go for MRI of brain which came back as negative for any acute infractions. Pt was evaluated by Neurologist, who did an EEG which showed : Consistent with mild to moderat diffuse cerebral dysfunction that can be seen in patients with encephalopathy, metabolic / toxic, eletcrolyte derangement. No seizure activity noticed. At this point neurologist signed off on his care. Pt still having confusion and AMS , he was normal for few minutes and suddenly he gets confused. When he was normal he was able to remember most of the things. At some point we were concerned for any psychiatric problems, so pt was evaluated by psychiatrist Dr. Tang, who does not think any psychiatric concern for this pt's change in mental status. We also noticed he was on Vergas 10/325 and neurontin 100mg TID, I concerned about neurontin toxicity with jerky movements in his extremeties on / off. So we d/c d his neurontin and cut down on his pain medication. I explained all of these to pt and his significant other and Son. They would like to talk to his regular business insurance agent Dr. Pickering. So I spoke to Dr. Pickering , she was so kind enough to visit this pt while he is here for a social visit. Pt was evaluated by PT / OT. Pt wants to go home only. So will d/c him home today with family support. - Time Spent with Patient Total time spent providing and/or coordinating discharge services: Greater than 30 minutes (Spent 45 minutes on this patient's discharge summary due to complex medical problems and patient needed a lot of education regarding discharge instructions) - Constitutional Vitals: Temp Pulse Resp BP Pulse Ox 98.4 F 77 16 161/86 91 06/17/17 08:15 06/17/17 08:15 06/17/17 08:15 06/17/17 08:15 06/17/17 08:15 General appearance: Present: A&O X 3. Absent: no acute distress - Head Head exam: Present: atraumatic, normal inspection - Neck Neck exam general surgery: Present: supple. Absent: tenderness - Respiratory Respiratory exam: Present: decreased breath sounds, wheezes. Absent: respiratory distress, rhonchi - Cardiovascular Cardiovascular exam: Present: RRR, +S1, +S2. Absent: systolic murmur - GI/Abdominal GI/Abdominal exam: Present: normal bowel sounds, soft. Absent: guarding, rebound, rigid, tenderness - Extremities Exam Extremities exam: Present: pedal edema. Absent: calf tenderness, tenderness - Neurological Exam Neurological exam: Present: altered, oriented X3 (oriented to place,person not to time) - Psychiatric Psychiatric exam: Present: anxious - Skin Skin exam: Absent: rash
--- NOTE | 2017-06-17 12:39 | Nephrology Progress Note ---
Date of Encounter: 06/17/17 Time of Encounter: 12:37 - Assessment and Plan (1) ESRD (end stage renal disease) on dialysis Current Visit: Yes Status: Chronic Follow up for regular outpatient dialysis on Thursday Continue renal diet Avoid nephrotoxins if possible (2) Acute encephalopathy Current Visit: Yes Status: Acute per primary team (3) HTN (hypertension) Current Visit: No Status: Chronic Uncontrolled per primary team Qualifiers: Hypertension type: essential hypertension Qualified Code(s): I10 - Essential (primary) hypertension (4) Hyperphosphatemia Current Visit: No Status: Chronic Phos level 8.3 Grossly non-compliant with diet/binders Subjective Principal diagnosis: Acute encephalopathy, ESRD on dialysis Interval history: Patient seen and examined while in dialysis. Being discharged after dialysis completed. Objective - Vital Signs Vital signs: Vital Signs Temp Pulse Resp BP Pulse Ox 06/17/17 08:15 98.4 F 77 16 161/86 91 06/17/17 07:47 98.4 F 77 16 161/86 91 06/17/17 05:00 68 06/17/17 04:35 98.5 F 66 18 159/102 97 06/17/17 00:34 98.5 F 73 18 150/77 97 06/17/17 00:00 80 06/16/17 21:21 98.7 F 69 18 187/123 97 06/16/17 20:00 90 06/16/17 17:15 73 159/94 06/16/17 16:27 97.6 F 69 18 154/94 97 06/16/17 15:45 71 16 154/94 97 06/16/17 14:00 72 06/16/17 12:40 65 18 158/97 97 Intake and Output 06/16/17 06/17/17 06/17/17 23:59 07:59 15:59 Intake Total 200 / 200 0 / 0 150 / 150 Output Total 0 / 0 0 / 0 0 / 0 Balance 200 / 200 0 / 0 150 / 150 Intake: Oral 200 / 200 0 / 0 150 / 150 Output: Urine 0 / 0 0 / 0 0 / 0 Other: Meal Breakfast Percent of Meal Consumed 10% # Bowel Movements 0 0 Weight 118.6 kg Blood Glucose* 220 132 134 Patient Weight 06/17/17 23:59 Weight 118.6 kg - General Appearance General appearance: Present: obese EENT: Present: ATNC Cardiology: Present: regular rate, regular rhythm Dialysis Vascular Access: Arteriovenous Fistula Gastrointestinal: Present: no guarding - Lab 06/17/17 07:38 06/17/17 07:38 Most recent lab results Calcium 10.3 mg/dL (8.6-10.8) 06/17/17 07:38 Phosphorus 8.3 mg/dL (2.3-4.7) H 06/15/17 09:46 Magnesium 2.9 mg/dL (1.6-2.6) H 06/17/17 07:38 Consult Discharge Plan - Plan Additional Instructions: Need to f/u with PCP in one week need to f/u Liner Machine Operator Helper Dr. Pickering in 1 week need to go for HD as scheduled M /W/ F Stop taking neurontin cut back on pain medication [place] Referrals: Linette Mcdonnell, ADJUTANT GENERAL [Advanced Practice Nurse] - 06/23/17 2:00 pm Fernie Hernandez DO [Partnered Physician] - 08/06/17 8:15 am Albina Olea MD [Primary Care Provider] - (SENT WEB REQUEST ON 06-15-17 @ 7423) Prescriptions: Isosorbide MONOnitrate (24 HR) [Imdur] 60 mg PO DAILY #30 tab.er.24h
[2017-06-17] MEDS: Insulin DETEMIR 100 UNIT/ML X5UNITS SQ SCH (23:04)
[2017-06-18 07:31] VITALS: BP 122/82
[2017-06-18] MEDS: *HR* Heparin 5,000 UNIT/ML VIAL SQ SCH (08:03)
[2017-06-18] MEDS: Vitamin B Complex/Vit C/Vit E 1 EACH TABLET PO SCH (08:04)
[2017-06-18] MEDS: Isosorbide MONOnitrate (24 HR) 60 MG TAB.ER.24H PO SCH (08:04)
[2017-06-18] MEDS: amLODIPine 5 MG TABLET PO SCH (08:04)
[2017-06-18] MEDS: Aspirin Enteric Coated 81 MG Tablet PO SCH (08:04)
[2017-06-18] MEDS: Furosemide 40 MG TABLET PO SCH (08:04)
[2017-06-18] MEDS: Insulin LISPRO 300 UNITS/3 ML VIAL SQ SCH (08:13)
[2017-06-18] MEDS: hydrALAZINE 25 MG TABLET PO SCH (09:00)
--- NOTE | 2017-06-18 09:03 | Internal Med Progress Note ---
Date of Encounter: 06/18/17 Time of Encounter: 09:01 - Assessment and plan (1) Hypertensive emergency Current Visit: Yes Status: Resolved Assessment and plan: Better controlled now Cont all PO Meds including Coreg 25 BID, Hydralazine 100mg TID, Imdur 60mg daily , Norvasc 10mg Pt does have non compliance history with meds.. counseled him about this (2) Acute delirium Current Visit: Yes Status: Acute Assessment and plan: Multi factorial with HTN emergency and behavioral problems Possible metabolic encephalopathy - with ESRD and HTN emergency ruled out CVA- MRI of Brain is negative EEG - showed metabolic encephaloapthy Neuro signed off Counseled the pt and his family about this Both his son and significant other agreed to provide the care he needs (3) H/O: CVA (cerebrovascular accident) Current Visit: Yes Status: Chronic Assessment and plan: Current MRI of Brain - No acute CVA No further work up needed Con Statin already on ASA and Plavix..will cont both for now (4) Troponin level elevated Current Visit: No Status: Acute Assessment and plan: due to ESRD asymptomatic no further work up needed (5) CAD (coronary artery disease) Current Visit: No Status: Chronic Assessment and plan: resumed home meds Qualifiers: Coronary Disease-Associated Artery/Lesion type: unspecified vessel or lesion type [place] vs. transplanted heart: [place] heart Associated angina: angina presence unspecified Qualified Code(s): I25.10 - Atherosclerotic heart disease of [place] coronary artery without angina pectoris (6) ESRD (end stage renal disease) Current Visit: Yes Status: Chronic Assessment and plan: Nephro consulted for HD (7) Diabetes Current Visit: Yes Status: Chronic Assessment and plan: Resumed home insulin regimen including Lantus + ISS Qualifiers: Diabetes mellitus type: type 2 Diabetes mellitus complication status: with kidney complications Diabetes mellitus complication detail: with chronic kidney disease Diabetes mellitus chcf insulin use: with termite helper use Chronic kidney disease stage: on chronic dialysis Qualified Code(s): E11.22 - Type 2 diabetes mellitus with diabetic chronic kidney disease; N18.6 - End stage renal disease; Z79.4 - shelter (current) use of insulin; Z99.2 - Dependence on renal dialysis (8) Hyperlipemia Current Visit: No Status: Acute Assessment and plan: on statin Qualifiers: Hyperlipidemia type: unspecified Qualified Code(s): E78.5 - Hyperlipidemia , unspecified (9) Acute metabolic encephalopathy Current Visit: No Status: Acute Assessment and plan: improved today.. Medically stable to go home today - Subjective Interval history: Mr. Monge is a 56 year old male with known h/o ESRD on HD M/W/F, Uncontrolled HTN, and CAD pt presented to the ER via EMS with altered mental status. Patient's son states that they were at a gas station when he was found to be altered by the gas or water meter installer. The patient was then put in the back seat of his car at which time he passed out. Patient's son states he has been cloudy for the last 3-4 days. On Thursday after dialysis patient had a passing out episode. Pt was admitted here for acute HTN emergency and Acute delirium with possible CVA. Pt wanted to go home y/d, but his HD was little late and he had head ache and nausea after that, so he did not leave last night. This morning pt is more alert , awake and O x 3, denied any CP / SOB. - Constitutional Vitals: Temp Pulse Resp BP Pulse Ox 98.4 F 77 19 122/82 95 06/18/17 07:05 06/18/17 07:05 06/18/17 07:05 06/18/17 07:05 06/18/17 07:05 General appearance: Present: A&O X 3. Absent: no acute distress - Head Head exam: Present: atraumatic, normal inspection - Respiratory Respiratory exam: Present: decreased breath sounds, wheezes. Absent: respiratory distress, rhonchi - Cardiovascular Cardiovascular exam: Present: +S1, +S2. Absent: systolic murmur - GI/Abdominal GI/Abdominal exam: Present: normal bowel sounds, soft. Absent: rebound, rigid, tenderness - Extremities Exam Extremities exam: Absent: calf tenderness, pedal edema, tenderness - Neurological Exam Neurological exam: Present: alert, oriented X3 - Psychiatric Psychiatric exam: Present: normal affect, normal mood Internal Medicine: Result - Labs CBC & Chem 7: 06/17/17 07:38 06/17/17 07:38 Consult Discharge Plan - Plan Additional Instructions: Need to f/u with PCP in one week need to f/u Health Care Marketing Manager Dr. Pickering in 1 week need to go for HD as scheduled M /W/ F Stop taking neurontin cut back on pain medication [place] Referrals: Linette Mcdonnell, MRAIA L [Advanced Practice Nurse] - 06/23/17 2:00 pm Fernie Hernandez DO [Partnered Physician] - 08/06/17 8:15 am Albina Olea MD [Primary Care Provider] - (SENT WEB REQUEST ON 06-15-17 @ [id number]) Prescriptions: hydrOXYzine HCl [Hydroxyzine HCl] 25 mg PO TID PRN #15 tab PRN Reason: Itching Isosorbide MONOnitrate (24 HR) [Imdur] 60 mg PO DAILY #30 tab.er.24h
== END 2017-06-18 09:40 | disposition home or self-care (01) | DRG 304 ==
LOC: EMEROO 18:59 → 2NNU 18:59 → UNDODISIN 06-17 14:13
PROVIDERS: ADMIT Hospitalist; ATTEND Family Medicine

== ENCOUNTER 2017-07-20 13:38 | Inpatient (IN) ==
--- NOTE | 2017-07-20 13:42 | Emergency Department Note ---
Disposition Clinical Impression: End stage renal disease, Acute respiratory failure Disposition: Admitted As Inpatient Condition: Critical General Adult HPI - General Chief complaint: ED Shortness of Breath/Dyspnea Stated complaint: ERLINDA Time Seen by Provider: 07/20/17 13:40 - Related Data Home Medications Medication Instructions Recorded Confirmed Furosemide [Lasix] 40 mg PO BID 06/22/15 07/20/17 Insulin Glargine,Hum.rec.anlog 10 unit SQ HS 06/22/15 07/20/17 [Lantus Solostar] Sevelamer [Renvela] 4,000 mg PO TIDWM 06/22/15 07/20/17 Atorvastatin [Lipitor] 40 mg PO HS 09/05/15 07/20/17 amLODIPine [Norvasc] 10 mg PO DAILY 01/04/17 07/20/17 Carvedilol [Coreg] 25 mg PO BID 04/12/17 07/20/17 B Complex with Vitamin C [Elle-Bee 1 each PO DAILY 07/20/17 07/20/17 with C] Fluticasone Propionate Nasal 100 mcg NS DAILY 07/20/17 07/20/17 [Flonase] Gabapentin [Neurontin] 100 mg PO TID 07/20/17 07/20/17 Gabapentin [Neurontin] 600 - 1,200 mg PO Q8H PRN 07/20/17 07/20/17 Ondansetron ODT [Zofran ODT] 4 mg PO Q6H PRN 07/20/17 07/20/17 Pantoprazole Sodium [Protonix] 40 mg PO BID 07/20/17 07/20/17 Ranolazine [Ranexa] 500 mg PO BID 07/20/17 07/20/17 Previous Rx's Medication Instructions Recorded Isosorbide MONOnitrate (24 HR) 60 mg PO DAILY #30 tab.er.24h 06/17/17 [Imdur] Allergies Allergy/AdvReac Type Severity Reaction Status Date / Time omeprazole [From Prilosec] Allergy Mild Hives Verified 05/11/17 21:38 Past Medical History - Past Medical History Medical history: Reports: arthritis, coronary artery disease, diabetes, dialysis , GERD, hyperlipidemia, hypertension, renal disease, TIA Surgical history: Reports: angioplasty/stent, vascular surgery Psychiatric history: Reports: no psych history - Social History Smoking Status: Never smoker Smokeless Tobacco Status: No Alcohol use: Reports: none Drug use: Reports: none Course Vital Signs Temperature 98.0 F 07/20/17 13:39 Pulse Rate 104 07/20/17 13:39 Respiratory Rate 20 07/20/17 13:39 Blood Pressure 174/89 07/20/17 13:39 O2 Sat by Pulse Oximetry 98 07/20/17 13:39 Temperature 98.0 F 07/20/17 13:39 Pulse Rate 85 07/20/17 16:02 Respiratory Rate 0 07/20/17 16:43 Blood Pressure 0/0 07/20/17 16:43 O2 Sat by Pulse Oximetry 95 07/20/17 16:02 Oxygen Delivery Oxygen Delivery Room Air Medical Decision Making - Lab Data Result diagrams: 07/20/17 14:41 07/20/17 14:41 Lab Results 07/20/17 07/20/17 07/20/17 Range/Units 14:41 14:41 14:41 WBC 5.3 (4.3-11.1) K/mcL RBC 3.33 L (4.19-5.50) M/mcL Hgb 10.7 L (12.9-16.9) g/dL Hct 32.8 L (37.5-50.1) % MCV 98.5 (83.0-100.0) fL MCH 32.1 (28.0-33.3) pg MCHC 32.6 (31.6-35.5) g/dL RDW 17.3 H (11.5-14.5) % Plt Count 121 L (140-400) K/mcL MPV 8.6 L (9.4-12.4) fL Immature Gran % 0.4 (0-4) % Seg Neutrophils % 82.8 % Lymphocytes % 9.1 % Monocytes % 6.6 % Eosinophils % 0.9 % Basophils % 0.2 % Neutrophils # 4.4 (1.6-8.9) K/mcL Lymphocytes # 0.5 L (0.6-4.6) K/mcL Monocytes # 0.4 (0.0-1.3) K/mcL Eosinophils # 0.1 (0.0-0.6) K/mcL Basophils # 0.0 (0.0-0.2) K/mcL PT (9.4-12.1) Seconds INR ABG pH (7.32-7.45) pH Units ABG pCO2 (35-45) mmHg ABG pO2 (85-104) mmHg ABG HCO3 (21-27) mEq/L ABG Total CO2 (20-26) mEq/L ABG O2 Saturation (95-98) % ABG Base Excess (-2.0 to 3.0) mEq/L Blood Gas Modality Inspired O2 % Sodium 137 (136-145) mEq/L Potassium 4.5 (3.5-4.5) mEq/L Chloride 97 L (98-109) mEq/L Carbon Dioxide 23 (19-29) mEq/L BUN 51 H (8-26) mg/dL Creatinine 12.78 H (0.72-1.25) mg/dL Est GFR ( Amer) 5 L (> 60) Est GFR (Non-Af Amer) 4 L (> 60) BUN/Creatinine Ratio 4 L (6-26) Glucose 240 H (70-99) mg/dL Calculated Osmolality 306 H (280-300) Lactic Acid 2.0 (0.5-2.2) mmol/L Calcium 9.5 (8.6-10.8) mg/dL Total Bilirubin 1.2 (0.2-1.2) mg/dL Direct Bilirubin 0.5 (0.0-0.5) mg/dL Indirect Bilirubin 0.7 (0.0-1.2) mg/dL AST 16 (5-34) Units/L ALT 17 (0-55) Units/L Alkaline Phosphatase 92 (38-126) Units/L Troponin I (0-0.03) ng/mL B-Natriuretic Peptide (0-100) pg/mL Serum Total Protein 7.2 (6.0-8.3) g/dL Albumin 3.4 L (3.5-5.0) g/dL Globulin 3.8 H (2.4-3.5) g/dL Albumin/Globulin Ratio 0.9 L (1.1-2.2) 07/20/17 07/20/17 07/20/17 Range/Units 14:41 14:41 14:41 WBC (4.3-11.1) K/mcL RBC (4.19-5.50) M/mcL Hgb (12.9-16.9) g/dL Hct (37.5-50.1) % MCV (83.0-100.0) fL MCH (28.0-33.3) pg MCHC (31.6-35.5) g/dL RDW (11.5-14.5) % Plt Count (140-400) K/mcL MPV (9.4-12.4) fL Immature Gran % (0-4) % Seg Neutrophils % % Lymphocytes % % Monocytes % % Eosinophils % % Basophils % % Neutrophils # (1.6-8.9) K/mcL Lymphocytes # (0.6-4.6) K/mcL Monocytes # (0.0-1.3) K/mcL Eosinophils # (0.0-0.6) K/mcL Basophils # (0.0-0.2) K/mcL PT 11.7 (9.4-12.1) Seconds INR 1.1 ABG pH (7.32-7.45) pH Units ABG pCO2 (35-45) mmHg ABG pO2 (85-104) mmHg ABG HCO3 (21-27) mEq/L ABG Total CO2 (20-26) mEq/L ABG O2 Saturation (95-98) % ABG Base Excess (-2.0 to 3.0) mEq/L Blood Gas Modality Inspired O2 % Sodium (136-145) mEq/L Potassium (3.5-4.5) mEq/L Chloride (98-109) mEq/L Carbon Dioxide (19-29) mEq/L BUN (8-26) mg/dL Creatinine (0.72-1.25) mg/dL Est GFR ( Amer) (> 60) Est GFR (Non-Af Amer) (> 60) BUN/Creatinine Ratio (6-26) Glucose (70-99) mg/dL Calculated Osmolality (280-300) Lactic Acid (0.5-2.2) mmol/L Calcium (8.6-10.8) mg/dL Total Bilirubin (0.2-1.2) mg/dL Direct Bilirubin (0.0-0.5) mg/dL Indirect Bilirubin (0.0-1.2) mg/dL AST (5-34) Units/L ALT (0-55) Units/L Alkaline Phosphatase (38-126) Units/L Troponin I 0.10 H* (0-0.03) ng/mL B-Natriuretic Peptide 3463 H (0-100) pg/mL Serum Total Protein (6.0-8.3) g/dL Albumin (3.5-5.0) g/dL Globulin (2.4-3.5) g/dL Albumin/Globulin Ratio (1.1-2.2) 07/20/17 Range/Units 15:14 WBC (4.3-11.1) K/mcL RBC (4.19-5.50) M/mcL Hgb (12.9-16.9) g/dL Hct (37.5-50.1) % MCV (83.0-100.0) fL MCH (28.0-33.3) pg MCHC (31.6-35.5) g/dL RDW (11.5-14.5) % Plt Count (140-400) K/mcL MPV (9.4-12.4) fL Immature Gran % (0-4) % Seg Neutrophils % % Lymphocytes % % Monocytes % % Eosinophils % % Basophils % % Neutrophils # (1.6-8.9) K/mcL Lymphocytes # (0.6-4.6) K/mcL Monocytes # (0.0-1.3) K/mcL Eosinophils # (0.0-0.6) K/mcL Basophils # (0.0-0.2) K/mcL PT (9.4-12.1) Seconds INR ABG pH 7.44 (7.32-7.45) pH Units ABG pCO2 41 (35-45) mmHg ABG pO2 64 L (85-104) mmHg ABG HCO3 28 H (21-27) mEq/L ABG Total CO2 29.1 H (20-26) mEq/L ABG O2 Saturation 93 L (95-98) % ABG Base Excess 3.3 H (-2.0 to 3.0) mEq/L Blood Gas Modality BIPAP Inspired O2 40 % Sodium (136-145) mEq/L Potassium (3.5-4.5) mEq/L Chloride (98-109) mEq/L Carbon Dioxide (19-29) mEq/L BUN (8-26) mg/dL Creatinine (0.72-1.25) mg/dL Est GFR ( Amer) (> 60) Est GFR (Non-Af Amer) (> 60) BUN/Creatinine Ratio (6-26) Glucose (70-99) mg/dL Calculated Osmolality (280-300) Lactic Acid (0.5-2.2) mmol/L Calcium (8.6-10.8) mg/dL Total Bilirubin (0.2-1.2) mg/dL Direct Bilirubin (0.0-0.5) mg/dL Indirect Bilirubin (0.0-1.2) mg/dL AST (5-34) Units/L ALT (0-55) Units/L Alkaline Phosphatase (38-126) Units/L Troponin I (0-0.03) ng/mL B-Natriuretic Peptide (0-100) pg/mL Serum Total Protein (6.0-8.3) g/dL Albumin (3.5-5.0) g/dL Globulin (2.4-3.5) g/dL Albumin/Globulin Ratio (1.1-2.2) Critical Care Time Critical Care Time: Yes Total Critical Care Time: 30 Attestation: Patient presented with dyspnea requiring BiPAP therapy Attestation Statement - Attestation Attestation: I examined this patient and my medical decision-making was reviewed with the Resident Physician. I agree with the documented findings, disposition and treatment plan as described except to the extent set forth below. Face to face time provided Patient arrives by EMS visibly dyspneic and tachypneic. He has a history of ESRD dialysis dependent-he is due for a dialysis session today. He does appear to have increased work of breathing. BiPAP initiated upon arrival
[2017-07-20] MEDS ORDERED: Ipratropium/Albuterol Neb 3 ML ONE (13:44)
--- NOTE | 2017-07-20 13:57 | Emergency Department Note ---
Disposition Clinical Impression: End stage renal disease Acute respiratory failure Qualifiers: Respiratory failure complication: hypoxia Qualified Code(s): J96.01 - Acute respiratory failure with hypoxia Disposition: Admitted As Inpatient Condition: Critical Referrals: Albina Olea MD [Primary Care Provider] - Time of Disposition: 16:51 SOB HPI - General Chief Complaint: ED Shortness of Breath/Dyspnea Stated Complaint: ERLINDA Time Seen by Provider: 07/20/17 13:40 Source: EMS Limitations: no limitations Nursing Notes Reviewed: Yes Vital Signs Reviewed: Yes - History of Present Illness Mr. Monge, 57-year-old male, presents from home by EMS for evaluation of dyspnea. Patient is CKD stage V on dialysis. He missed his dialysis on Thursday. His symptoms have progressed to the weekend. Per EMS, patient was at 50% on their arrival he was placed on a nonrebreather. On arrival to our facility, he was 70% on room air subsequently placed on BiPAP. PMH: CAD status post stent 3, diabetes, end-stage renal disease on dialysis Thursday, Thursday, Thursday, hyperlipidemia, hypertension, history of TIA. Patient's electrotyper apprentice is Dr. Pickering. - Related Data Home Medications Medication Instructions Recorded Confirmed Furosemide [Lasix] 40 mg PO BID 06/22/15 07/20/17 Insulin Glargine,Hum.rec.anlog 10 unit SQ HS 06/22/15 07/20/17 [Lantus Solostar] Sevelamer [Renvela] 4,000 mg PO TIDWM 06/22/15 07/20/17 Atorvastatin [Lipitor] 40 mg PO HS 09/05/15 07/20/17 amLODIPine [Norvasc] 10 mg PO DAILY 01/04/17 07/20/17 Carvedilol [Coreg] 25 mg PO BID 04/12/17 07/20/17 B Complex with Vitamin C [Elle-Bee 1 each PO DAILY 07/20/17 07/20/17 with C] Fluticasone Propionate Nasal 100 mcg NS DAILY 07/20/17 07/20/17 [Flonase] Gabapentin [Neurontin] 100 mg PO TID 07/20/17 07/20/17 Gabapentin [Neurontin] 600 - 1,200 mg PO Q8H PRN 07/20/17 07/20/17 Ondansetron ODT [Zofran ODT] 4 mg PO Q6H PRN 07/20/17 07/20/17 Pantoprazole Sodium [Protonix] 40 mg PO BID 07/20/17 07/20/17 Ranolazine [Ranexa] 500 mg PO BID 07/20/17 07/20/17 Previous Rx's Medication Instructions Recorded Isosorbide MONOnitrate (24 HR) 60 mg PO DAILY #30 tab.er.24h 06/17/17 [Imdur] Allergies Allergy/AdvReac Type Severity Reaction Status Date / Time omeprazole [From Prilosec] Allergy Mild Hives Verified 05/11/17 21:38 Limitations: ROS unobtainable due to patients medical condition Past Medical History - Past Medical History Medical history: Reports: arthritis, coronary artery disease, diabetes, dialysis , GERD, hyperlipidemia, hypertension, renal disease, TIA Surgical history: Reports: angioplasty/stent, vascular surgery Psychiatric history: Reports: no psych history - Social History Smoking Status: Never smoker Smokeless Tobacco Status: No Alcohol use: Reports: none Drug use: Reports: none Physical Exam Vital Signs Reviewed General: Patient is alert, oriented, and in acute respiratory distress. He has 0-1 word conversational dyspnea. Even on BiPAP, he remains 4-5 word dyspnea. HEENT: No facial asymmetry. Head is normocephalic and atraumatic. Oral mucosa moist. Trachea midline. Cardiovascular: Heart regular rate and rhythm without clicks, rubs, gallops, or murmurs. No JVD. PMI nondisplaced. Respiratory: Symmetric chest rise with poor respiratory effort. Bilateral breath sounds have diffuse crackles. Abdomen: Obese. Bowel sounds present normoactive x-4 quadrants. Abdomen is soft, nondistended, and nontender. Neuro: GCS 15. Psych: Patient's affect is appropriate for situation. - General Limitations: no limitations General appearance: alert, in no apparent distress Course Course Narrative: Patient presents from home by EMS for evaluation of dyspnea. Patient is CKD stage V on dialysis. He missed his dialysis on Thursday. His electrotyper apprentice is Dr. Pickering. His symptoms have progressed to the weekend. Per EMS, patient was at 50% on their arrival he was placed on a nonrebreather. On arrival to our facility, he was 70% on room air subsequently placed on BiPAP. Attending spoke with Dr. Day at her we will see the patient on the floor and arrange for dialysis today. Patient has improved with BiPAP. Patient's creatinine is over 12. He does have elevated troponin however this is consistent with his baseline. Patient has multiple metabolic derangements however he is on dialysis. Chest x-ray is unremarkable. I spoke with a [facility] hospitalist, Dr. Schmidt, who agrees to accept the patient with nephrology reconsult from the emergency department. Vital Signs Temperature 98.0 F 07/20/17 13:39 Pulse Rate 104 07/20/17 13:39 Respiratory Rate 20 07/20/17 13:39 Blood Pressure 174/89 07/20/17 13:39 O2 Sat by Pulse Oximetry 98 07/20/17 13:39 Temperature 98.0 F 07/20/17 13:39 Pulse Rate 85 07/20/17 16:02 Respiratory Rate 0 07/20/17 16:43 Blood Pressure 0/0 07/20/17 16:43 O2 Sat by Pulse Oximetry 95 07/20/17 16:02 Oxygen Delivery Oxygen Delivery Room Air Shortness of Breath/Dyspnea - Lab Data Result diagrams: 07/20/17 14:41 07/20/17 14:41 Lab Results 07/20/17 07/20/17 07/20/17 Range/Units 14:41 14:41 14:41 WBC 5.3 (4.3-11.1) K/mcL RBC 3.33 L (4.19-5.50) M/mcL Hgb 10.7 L (12.9-16.9) g/dL Hct 32.8 L (37.5-50.1) % MCV 98.5 (83.0-100.0) fL MCH 32.1 (28.0-33.3) pg MCHC 32.6 (31.6-35.5) g/dL RDW 17.3 H (11.5-14.5) % Plt Count 121 L (140-400) K/mcL MPV 8.6 L (9.4-12.4) fL Immature Gran % 0.4 (0-4) % Seg Neutrophils % 82.8 % Lymphocytes % 9.1 % Monocytes % 6.6 % Eosinophils % 0.9 % Basophils % 0.2 % Neutrophils # 4.4 (1.6-8.9) K/mcL Lymphocytes # 0.5 L (0.6-4.6) K/mcL Monocytes # 0.4 (0.0-1.3) K/mcL Eosinophils # 0.1 (0.0-0.6) K/mcL Basophils # 0.0 (0.0-0.2) K/mcL PT (9.4-12.1) Seconds INR ABG pH (7.32-7.45) pH Units ABG pCO2 (35-45) mmHg ABG pO2 (85-104) mmHg ABG HCO3 (21-27) mEq/L ABG Total CO2 (20-26) mEq/L ABG O2 Saturation (95-98) % ABG Base Excess (-2.0 to 3.0) mEq/L Blood Gas Modality Inspired O2 % Sodium 137 (136-145) mEq/L Potassium 4.5 (3.5-4.5) mEq/L Chloride 97 L (98-109) mEq/L Carbon Dioxide 23 (19-29) mEq/L BUN 51 H (8-26) mg/dL Creatinine 12.78 H (0.72-1.25) mg/dL Est GFR ( Amer) 5 L (> 60) Est GFR (Non-Af Amer) 4 L (> 60) BUN/Creatinine Ratio 4 L (6-26) Glucose 240 H (70-99) mg/dL Calculated Osmolality 306 H (280-300) Lactic Acid 2.0 (0.5-2.2) mmol/L Calcium 9.5 (8.6-10.8) mg/dL Total Bilirubin 1.2 (0.2-1.2) mg/dL Direct Bilirubin 0.5 (0.0-0.5) mg/dL Indirect Bilirubin 0.7 (0.0-1.2) mg/dL AST 16 (5-34) Units/L ALT 17 (0-55) Units/L Alkaline Phosphatase 92 (38-126) Units/L Troponin I (0-0.03) ng/mL B-Natriuretic Peptide (0-100) pg/mL Serum Total Protein 7.2 (6.0-8.3) g/dL Albumin 3.4 L (3.5-5.0) g/dL Globulin 3.8 H (2.4-3.5) g/dL Albumin/Globulin Ratio 0.9 L (1.1-2.2) 07/20/17 07/20/17 07/20/17 Range/Units 14:41 14:41 14:41 WBC (4.3-11.1) K/mcL RBC (4.19-5.50) M/mcL Hgb (12.9-16.9) g/dL Hct (37.5-50.1) % MCV (83.0-100.0) fL MCH (28.0-33.3) pg MCHC (31.6-35.5) g/dL RDW (11.5-14.5) % Plt Count (140-400) K/mcL MPV (9.4-12.4) fL Immature Gran % (0-4) % Seg Neutrophils % % Lymphocytes % % Monocytes % % Eosinophils % % Basophils % % Neutrophils # (1.6-8.9) K/mcL Lymphocytes # (0.6-4.6) K/mcL Monocytes # (0.0-1.3) K/mcL Eosinophils # (0.0-0.6) K/mcL Basophils # (0.0-0.2) K/mcL PT 11.7 (9.4-12.1) Seconds INR 1.1 ABG pH (7.32-7.45) pH Units ABG pCO2 (35-45) mmHg ABG pO2 (85-104) mmHg ABG HCO3 (21-27) mEq/L ABG Total CO2 (20-26) mEq/L ABG O2 Saturation (95-98) % ABG Base Excess (-2.0 to 3.0) mEq/L Blood Gas Modality Inspired O2 % Sodium (136-145) mEq/L Potassium (3.5-4.5) mEq/L Chloride (98-109) mEq/L Carbon Dioxide (19-29) mEq/L BUN (8-26) mg/dL Creatinine (0.72-1.25) mg/dL Est GFR ( Amer) (> 60) Est GFR (Non-Af Amer) (> 60) BUN/Creatinine Ratio (6-26) Glucose (70-99) mg/dL Calculated Osmolality (280-300) Lactic Acid (0.5-2.2) mmol/L Calcium (8.6-10.8) mg/dL Total Bilirubin (0.2-1.2) mg/dL Direct Bilirubin (0.0-0.5) mg/dL Indirect Bilirubin (0.0-1.2) mg/dL AST (5-34) Units/L ALT (0-55) Units/L Alkaline Phosphatase (38-126) Units/L Troponin I 0.10 H* (0-0.03) ng/mL B-Natriuretic Peptide 3463 H (0-100) pg/mL Serum Total Protein (6.0-8.3) g/dL Albumin (3.5-5.0) g/dL Globulin (2.4-3.5) g/dL Albumin/Globulin Ratio (1.1-2.2) 07/20/17 Range/Units 15:14 WBC (4.3-11.1) K/mcL RBC (4.19-5.50) M/mcL Hgb (12.9-16.9) g/dL Hct (37.5-50.1) % MCV (83.0-100.0) fL MCH (28.0-33.3) pg MCHC (31.6-35.5) g/dL RDW (11.5-14.5) % Plt Count (140-400) K/mcL MPV (9.4-12.4) fL Immature Gran % (0-4) % Seg Neutrophils % % Lymphocytes % % Monocytes % % Eosinophils % % Basophils % % Neutrophils # (1.6-8.9) K/mcL Lymphocytes # (0.6-4.6) K/mcL Monocytes # (0.0-1.3) K/mcL Eosinophils # (0.0-0.6) K/mcL Basophils # (0.0-0.2) K/mcL PT (9.4-12.1) Seconds INR ABG pH 7.44 (7.32-7.45) pH Units ABG pCO2 41 (35-45) mmHg ABG pO2 64 L (85-104) mmHg ABG HCO3 28 H (21-27) mEq/L ABG Total CO2 29.1 H (20-26) mEq/L ABG O2 Saturation 93 L (95-98) % ABG Base Excess 3.3 H (-2.0 to 3.0) mEq/L Blood Gas Modality BIPAP Inspired O2 40 % Sodium (136-145) mEq/L Potassium (3.5-4.5) mEq/L Chloride (98-109) mEq/L Carbon Dioxide (19-29) mEq/L BUN (8-26) mg/dL Creatinine (0.72-1.25) mg/dL Est GFR ( Amer) (> 60) Est GFR (Non-Af Amer) (> 60) BUN/Creatinine Ratio (6-26) Glucose (70-99) mg/dL Calculated Osmolality (280-300) Lactic Acid (0.5-2.2) mmol/L Calcium (8.6-10.8) mg/dL Total Bilirubin (0.2-1.2) mg/dL Direct Bilirubin (0.0-0.5) mg/dL Indirect Bilirubin (0.0-1.2) mg/dL AST (5-34) Units/L ALT (0-55) Units/L Alkaline Phosphatase (38-126) Units/L Troponin I (0-0.03) ng/mL B-Natriuretic Peptide (0-100) pg/mL Serum Total Protein (6.0-8.3) g/dL Albumin (3.5-5.0) g/dL Globulin (2.4-3.5) g/dL Albumin/Globulin Ratio (1.1-2.2) - EKG Data EKG attestation: Yes I reviewed and interpreted this EKG. EKG results narrative: EKG dated 07/20/17 at 13:15 [place] as sinus tachycardia with rate 103. Normal intervals. Left axis. Nonspecific ST-T changes. Compared to previous dated also showing left axis; no acute ischemic changes or comparison.
[2017-07-20 14:51] LABS: Basophils % 0.2 %; Eosinophils # 0.1 K/mcL (0.0-0.6); Eosinophils % 0.9 %; Hematocrit 32.8 % (37.5-50.1); Hemoglobin 10.7 g/dL (12.9-16.9); Immature Granulocytes % 0.4 % (0-4); Lymphocytes # 0.5 K/mcL (0.6-4.6); Lymphocytes % 9.1 %; Mean Corpuscular HGB Conc 32.6 g/dL (31.6-35.5); Mean Corpuscular Hemoglobin 32.1 pg (28.0-33.3); Mean Corpuscular Volume 98.5 fL (83.0-100.0); Mean Platelet Volume 8.6 fL (9.4-12.4); Monocytes # 0.4 K/mcL (0.0-1.3); Monocytes % 6.6 %; Neutrophils # 4.4 K/mcL (1.6-8.9); Platelet Count 121 K/mcL (140-400); Red Blood Count 3.33 M/mcL (4.19-5.50); Red Cell Distribution Width 17.3 % (11.5-14.5); Segmented Neutrophils % 82.8 %
[2017-07-20 15:01] LABS: INR 1.1; Prothrombin Time 11.7 Seconds (9.4-12.1)
[2017-07-20 15:06] LABS: Albumin 3.4 g/dL (3.5-5.0); Albumin/Globulin Ratio 0.9 (1.1-2.2); Bilirubin,Direct 0.5 mg/dL (0.0-0.5); Bilirubin,Indirect 0.7 mg/dL (0.0-1.2); Bilirubin,Total 1.2 mg/dL (0.2-1.2); Calcium 9.5 mg/dL (8.6-10.8); Globulin 3.8 g/dL (2.4-3.5); Potassium 4.5 mEq/L (3.5-4.5); Total Protein 7.2 g/dL (6.0-8.3)
[2017-07-20] MEDS ORDERED: 0.9 % Sodium Chloride 250 ML IVC PRN (15:15)
[2017-07-20 15:19] LABS: ABG Base Excess 3.3 mEq/L (-2.0 to 3.0); ABG HCO3 28 mEq/L (21-27); ABG Oxygen Saturation 93 % (95-98); ABG PCO2 41 mmHg (35-45); ABG PH 7.44 pH Units (7.32-7.45); ABG PO2 64 mmHg (85-104); ABG TCO2 29.1 mEq/L (20-26)
[2017-07-20 15:20] LABS: Blood Gas FiO2 40 %
--- NOTE | 2017-07-20 16:47 | Nephrology Consult Note ---
Date of Encounter: 07/20/17 Time of Encounter: 16:45 Assessment and Plan (1) ESRD (end stage renal disease) on dialysis Current Visit: No Status: Chronic ESRD on HD M/W/F who presented with AMS, fluid overload and due for HD today ( Thursday). Pt was seen/examined in the dialysis unit. Needs urgent HD. Spoke with the pt's son who provided all the details. Access: left forearm AVF with jump graft: not cannulating well as per dialysis inpatient R, so will have her use smaller needles and utilize 2000 units heparin for HD. He has a hx of difficult to cannulate AVF. I reviewed his electronic run sheets from the [facility] EHR and he completed all of HD on Thursday and Thursday of last week, which is about 245 per treatment. His dry weight just recently challenged down to 117kg on Thursday, previously 119kg per the notes. Acute respiratory failure with hypoxia on BiPAP: as per primary but I agree with BiPAP. I'll have a stat VBG checked; expecting an elevated pCO2 given that he was very difficult to arrouse in the HD unit. Only vigrous stimuli could awaken him for brief moments. Will also have his BG checked. DM: as per primary Will plan for HD tomorrow as well for further fluid removal. I spent about 55 min in direct CCT in the dialysis unit with the pt involved in attempts to cannulate his AVF, medical records review, examination, interview with son, arrangements on HD (he was hemodynamically stable on HD with a BP of 122/70). Thank you for consulting the [facility] group. Will follow with you. (2) Fluid overload Current Visit: No Status: Acute See above Qualifiers: Hypervolemia type: other Qualified Code(s): E87.79 - Other fluid overload (3) Encephalopathy Current Visit: No Status: Acute See above. Frequent AMS episodes and admissions. (4) Anemia in chronic kidney disease (CKD) Current Visit: No Status: Chronic Will monitor. Qualifiers: Chronic kidney disease stage: on chronic dialysis Qualified Code(s): N18.6 - End stage renal disease; D63.1 - Anemia in chronic kidney disease; Z99.2 - Dependence on renal dialysis (5) HTN (hypertension) Current Visit: No Status: Chronic Stable today. Qualifiers: Hypertension type: secondary to other renal disorders Qualified Code(s): I15.1 - Hypertension secondary to other renal disorders; N28.89 - Other specified disorders of kidney and ureter History of Present Illness - Reason for Consult Consult date: 07/20/17 end stage renal disease Requesting physician: Damien Young - Chief Complaint Missed dialysis and worsened shortness of breath - History of Present Illness Man Monge is a 57 y/o AAM with a pmh of frequent hospitalizations with AMS and fluid overload, ESRD on HD M/W/F, T2DM, obesity and et al who presented to the ER earlier this AM. The pt was unable to provide any history; his son was present in the dialysis unit for my exam/interview and provided all the history. The pt's son said that starting this weekend, he became altered and the son had to excelsior picker his father from a location in [place], [place], due to AMS. All day on Thursday, he slept. This AM at about 4am, the pt's son went to wake him for dialysis, but was confused, low pulse ox on a home pulse ox. 911 was called and he's been in the ER all day. His primary Pneumatic Press Hand is Dr. Pickering. He dialyzes at [facility] in [place], [place]. He uses a left forearm AVF. Past Med Surg Social Fam HX - Past Medical History Medical history: arthritis, coronary artery disease, diabetes, dialysis, GERD, hyperlipidemia, hypertension, renal disease, TIA Psychiatric history: no psych history - Past Surgical History Surgical History: angioplasty/stent, vascular surgery - Social History Smoking Status: Never smoker Smokeless Tobacco Status: No Alcohol use: none Drug use: none - Family History Father Hx Family Cardiac Disorders: Yes Hx Family Endocrine Disorder: Yes (DM) Mother Adopted: No Living Status: Hx Family Cardiac Disorders: Yes Hx Family Respiratory Disorders: Yes Hx Family Cancer: Yes Hx Family GI Disorders: No Hx Family Endocrine Disorder: No Hx Family Neuromuscular Disorders: No Hx Family Neurologic Disorders: No Hx Family HEENT Disorders: No Hx Family Autoimmune Disorders: No Medications and Allergies Furosemide [Lasix] 40 mg PO BID 06/22/15 [History] Insulin Glargine,Hum.rec.anlog [Lantus Solostar] 10 unit SQ HS 06/22/15 [History ] Sevelamer [Renvela] 4,000 mg PO TIDWM 06/22/15 [History] Atorvastatin [Lipitor] 40 mg PO HS 09/05/15 [History] amLODIPine [Norvasc] 10 mg PO DAILY 01/04/17 [History] Carvedilol [Coreg] 25 mg PO BID 04/12/17 [History] Isosorbide MONOnitrate (24 HR) [Imdur] 60 mg PO DAILY #30 tab.er.24h 06/17/17 [ Rx] B Complex with Vitamin C [Elle-Bee with C] 1 each PO DAILY 07/20/17 [History] Fluticasone Propionate Nasal [Flonase] 100 mcg NS DAILY 07/20/17 [History] Gabapentin [Neurontin] 100 mg PO TID 07/20/17 [History] Gabapentin [Neurontin] 600 - 1,200 mg PO Q8H PRN 07/20/17 [History] Ondansetron ODT [Zofran ODT] 4 mg PO Q6H PRN 07/20/17 [History] Pantoprazole Sodium [Protonix] 40 mg PO BID 07/20/17 [History] Ranolazine [Ranexa] 500 mg PO BID 07/20/17 [History] 3 Allergy/AdvReac Type Severity Reaction Status Date / Time omeprazole [From Prilosec] Allergy Mild Hives Verified 05/11/17 21:38 Review of Systems ROS unobtainable: due to mental status Exam - Vital Signs Vital signs: Initial Vital Signs Temp Pulse Resp BP Pulse Ox 98.0 F 104 20 174/89 98 07/20/17 13:39 07/20/17 13:39 07/20/17 13:39 07/20/17 13:39 07/20/17 13:39 - General Appearance General appearance: well-developed, obese, moderate distress, comatose EENT: ATNC Additional Comments: Periorbital edema Neck: supple Respiratory: course breath sounds Cardiology: edema, regular rate, regular rhythm, normal S1, normal S2 - Dialysis Access Dialysis Vascular Access: Arteriovenous Fistula (left forearm AVF) thrill: Yes bruit: Yes Gastrointestinal: normoactive bowel sounds, no tenderness, no masses Integumentary: no rash, warm and dry Neurologic: confused, disoriented Musculoskeletal: no cyanosis, no clubbing Results - Lab Results 07/20/17 14:41 07/20/17 14:41 Most recent lab results ABG pH 7.44 pH Units (7.32-7.45) 07/20/17 15:14 ABG pCO2 41 mmHg (35-45) 07/20/17 15:14 ABG pO2 64 mmHg (85-104) L 07/20/17 15:14 ABG HCO3 28 mEq/L (21-27) H 07/20/17 15:14 ABG O2 Saturation 93 % (95-98) L 07/20/17 15:14 Calcium 9.5 mg/dL (8.6-10.8) 07/20/17 14:41 I reviewed the above data pizarro/info, labs, med lists, progress notes, imaging and vitals. Consult Discharge Plan - Plan Referrals: Albina Olea MD [Primary Care Provider] -
[2017-07-20] MEDS ORDERED: *HR* Heparin 5,000 UNIT/ML VIAL ONE (18:04)
[2017-07-20 18:14] LABS: VBG HCO3 27.4 mEq/L (21-27); VBG PH 7.49 pH Units (7.32-7.42)
[2017-07-20] MEDS ORDERED: Ondansetron ODT 4 MG TAB.RAPDIS PO PRN (20:43)
[2017-07-20] MEDS ORDERED: Gabapentin 300 MG CAPSULE PO PRN (20:43)
[2017-07-20] MEDS ORDERED: Naloxone 0.4 MG/ML INJ IVP PRN (20:46)
[2017-07-20] MEDS ORDERED: PROTONIX 40MG PO SCH (21:00)
--- NOTE | 2017-07-20 21:06 | Internal Med History&Physical ---
Date of Encounter: 07/20/17 Time of Encounter: 20:56 Assessment and Plan (1) ESRD (end stage renal disease) Current visit: Yes Status: Chronic Presents today with chronic end-stage renal disease.M/W/F Parker this patient who missed his Thursday dialysis appointment. Presents with obvious fluid overload and risk for distress, BNP [age] -year-old panel reveals a BUN/CR 51/ 12.78. Elevated troponin of 0.10 Dr. Parsons consult at receiving immediate hemodialysis with goal of 5.5 L fluid removal over 4 hours; is now more hemodynamically stable than upon arrival , and respiratory distress however, remains on BiPAP. Plan is to dialyze again tomorrow with goal for additional fluid removal. Continuous telemetry metabolic panel and CBC without diff in the am. (2) HTN (hypertension) Current visit: Yes Status: Chronic Hypertensive upon arrival to [facility], likely due to fluid overload patient missed Thursday hemodialysis appointment. Plan is for emergent HD for fluid removal. Patient is now hemodynamically stable SBP trending more toward baseline. Continuous telemetry Restart Ranexa, Norvasc, Coreg, lasix Hemodynamics status and consider adding adjunct therapy as appropriate Qualifiers: Hypertension type: secondary to other renal disorders Qualified Code(s): I15.1 - Hypertension secondary to other renal disorders; N28.89 - Other specified disorders of kidney and ureter (3) Diabetes Current visit: Yes Status: Chronic Chronic type 2 diabetes. Takes basal insulin at home, not on any oral hypogylcemics. AC/HS accucheck to get a baseline glucose as metabolic panel showed glucose of 240. Continue basal insulin at home dose and add low sliding scale insulin coverage. Adjust as appropriate to achieve euglycemia. 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 Likely related to ESRD and fluid overload presentation. Does not appear to be cardiac related. Trend troponins (5) Altered mental status Current visit: Yes Status: Acute altered mental status secondary to Presents with ESRD, fluid overload, respiratory failure. Remains mildly lethargic only alert to self and unable to answer questions appropriately at this time, on BiPAP and appears to know longer be in respiratory distress. Continue to monitor mental status further decline, to remain on BiPAP for now, to titrate nasal cannula, consider reassessing ABGs if mental status does not improve or declines further. Qualifiers: Altered mental status type: unspecified Qualified Code(s): R41.82 - Altered mental status, unspecified (6) Anemia in chronic kidney disease (CKD) Current visit: Yes Status: Chronic Anemia of chronic disease with a H&H of 10.7/32.8. Appears to be stable at this time, we will continue to monitor, CBC without differential in the morning Qualifiers: Chronic kidney disease stage: on chronic dialysis Qualified Code(s): N18.6 - End stage renal disease; D63.1 - Anemia in chronic kidney disease; Z99.2 - Dependence on renal dialysis (7) Shortness of breath Current visit: Yes Status: Acute Presents with shortness of breath, ESRD and fluid overload. Dyspnea likely related to fluid overload but patient missed Thursday appointment of hemodialysis. He remains on BiPAP at this time without any respiratory distress. Continue BiPAP therapy with goal to titrate nasal cannula. It appears that the patient is not improving her respiratory status is further declining consider getting an additional ABG (8) DVT prophylaxis Current visit: Yes Status: Acute High risk for DVT due to prolonged immobility, kidney disease, hospital stay. Start heparin subcutaneous every 12 hours. Internal Medicine - H&P: HPI Chief complaint: FLUID OVERLOAD, RESPIRATORY FAILURE Admitted From: Home Plans for Post Hospital Care: Home History of present illness: Mr. Monge is a 57 year old male with a past medical history of CAD with stents 3, diabetes, HLD, HTN, TIA, GERD, vascular surgeries and end-stage renal disease. Presents to [facility] today with end-stage renal disease, respiratory failure after missing his scheduled dialysis appointment on Thursday. Patient is a M/W/F hemodialysis patient, who presents with his son for Respiratory distress via EMS. Information obtained from chart as son was not at bedside upon interview and the patient remains altered LOC. Chart review indicates that the patient began experiencing ERLINDA and called EMS, upon arrival per EMS his SPO2 was 50% on RA, he was immediately placed on NRB 100% O2 and sent to [facility]. While in the ED his SPO2 remained low and he required BiPAP to stabalize. ED workup reveals BUN/CR of 51/12.78, H&H 10.7/ 32.8 elevated troponin of 0.10 likely d/t ESRD resp failure, and BNP 3463. Dr. Parsons was consulted with the nephrology team and saw the patient in the HD unit. Immediate HD was ordered with a goal to remove 5.5 L over 4 hours. Upon this review patient appears to be hemodynamically stable and is resting comfortably on BiPAP without s/sx of respiratory distress. Being admitted for further HD, to prevent further respiratory failure and for monitoring. Past Med Surg Social Fam HX - Past Medical History Medical history: arthritis, coronary artery disease, diabetes, dialysis, GERD, hyperlipidemia, hypertension, renal disease, TIA Psychiatric history: no psych history - Past Surgical History Surgical History: angioplasty/stent, vascular surgery - Social History Smoking Status: Never smoker Smokeless Tobacco Status: No Alcohol use: none Drug use: none - Family History Father Hx Family Cardiac Disorders: Yes Hx Family Endocrine Disorder: Yes (DM) Mother Adopted: No Living Status: Hx Family Cardiac Disorders: Yes Hx Family Respiratory Disorders: Yes Hx Family Cancer: Yes Hx Family GI Disorders: No Hx Family Endocrine Disorder: No Hx Family Neuromuscular Disorders: No Hx Family Neurologic Disorders: No Hx Family HEENT Disorders: No Hx Family Autoimmune Disorders: No Internal Medicine - H&P: Meds Furosemide [Lasix] 40 mg PO BID 06/22/15 [History] Insulin Glargine,Hum.rec.anlog [Lantus Solostar] 10 unit SQ HS 06/22/15 [History ] Sevelamer [Renvela] 4,000 mg PO TIDWM 06/22/15 [History] Atorvastatin [Lipitor] 40 mg PO HS 09/05/15 [History] amLODIPine [Norvasc] 10 mg PO DAILY 01/04/17 [History] Carvedilol [Coreg] 25 mg PO BID 04/12/17 [History] Isosorbide MONOnitrate (24 HR) [Imdur] 60 mg PO DAILY #30 tab.er.24h 06/17/17 [ Rx] B Complex with Vitamin C [Elle-Bee with C] 1 each PO DAILY 07/20/17 [History] Fluticasone Propionate Nasal [Flonase] 100 mcg NS DAILY 07/20/17 [History] Gabapentin [Neurontin] 100 mg PO TID 07/20/17 [History] Gabapentin [Neurontin] 600 - 1,200 mg PO Q8H PRN 07/20/17 [History] Ondansetron ODT [Zofran ODT] 4 mg PO Q6H PRN 07/20/17 [History] Pantoprazole Sodium [Protonix] 40 mg PO BID 07/20/17 [History] Ranolazine [Ranexa] 500 mg PO BID 07/20/17 [History] 3 Allergy/AdvReac Type Severity Reaction Status Date / Time omeprazole [From Prilosec] Allergy Mild Hives Verified 05/11/17 21:38 ROS unobtainable: due to mental status - Constitutional Vitals: Temp Pulse Resp BP Pulse Ox 98.2 F 85 20 163/49 95 07/20/17 17:00 07/20/17 16:02 07/20/17 17:00 07/20/17 20:15 07/20/17 16:02 General appearance: Present: A&O X 1 (alert to self, lethargic, resting comfortable on BiPAP and in no acute distress), morbidly obese, no acute distress - Head Head exam: Present: atraumatic, normocephalic - Eye Eye exam: Present: PERRL, conjuntiva pink, sclera anicteric - Neck Neck exam general surgery: Present: trachea midline - Respiratory Respiratory exam: Present: decreased breath sounds, CTAB. Absent: rales - Cardiovascular Cardiovascular exam: Present: RRR, +S1, +S2 - GI/Abdominal GI/Abdominal exam: Present: normal bowel sounds, soft. Absent: tenderness - Extremities Exam Extremities exam: Present: normal capillary refill, pedal edema (+1 BLE) - Expanded Lower Extremities Exam Lower Leg exam: Present: swelling (BLE) - Neurological Exam Neurological exam: Present: altered. Absent: facial droop - Skin Skin exam: Present: dry, intact Internal Med - H&P Results - Labs CBC & Chem 7: 07/20/17 14:41 07/20/17 14:41 - ABG Interpretation ABG results: 07/20/17 18:05 VBG pH 7.49 H VBG pCO2 36 L VBG pO2 250 H VBG HCO3 27.4 H - Diagnostic Studies Chest x-ray Additional comments: Showing mild congestion
[2017-07-20] MEDS ORDERED: *HR* Dextrose 50 % in Water (Syg) 50 ML SYRINGE IVP PRN (21:38)
[2017-07-20] MEDS ORDERED: D5% in Water 1,000 ML IVC PRN (21:38)
[2017-07-20] MEDS ORDERED: Dextrose Gel 15 GM PO PRN ×2 (21:38)
[2017-07-20] MEDS ORDERED: 0.9 % Sodium Chloride 2,000 ML ONE (22:22)
--- NOTE | 2017-07-20 22:41 | Event Note ---
Date of Encounter: 07/20/17 Time of Encounter: 22:39 Patient seen and examined with nurse practitioner. Patient had dialysis session today with removal of 5 L of fluid. Oxygenating yohannes. Will attempt to remove BiPAP and see oxygenation. Plan is for another dialysis tomorrow for volume removal. X-ray suggestive of fluid overload. No chest pain. No objective fever or leukocytosis.
[2017-07-20] MEDS: Gabapentin 100 MG CAPSULE PO SCH (23:03)
[2017-07-20] MEDS: Ranolazine 500 MG TAB.ER.12H PO SCH (23:03)
[2017-07-20] MEDS: Insulin DETEMIR 100 UNIT/ML X5UNITS SQ SCH (23:09)
[2017-07-21 05:05] LABS: Hematocrit 29.9 % (37.5-50.1); Hemoglobin 9.8 g/dL (12.9-16.9); Mean Corpuscular HGB Conc 32.8 g/dL (31.6-35.5); Mean Corpuscular Volume 97.7 fL (83.0-100.0); Mean Platelet Volume 10.2 fL (9.4-12.4); Platelet Count 125 K/mcL (140-400); Red Blood Count 3.06 M/mcL (4.19-5.50); Red Cell Distribution Width 17.2 % (11.5-14.5)
[2017-07-21 05:21] LABS: Calcium 9.4 mg/dL (8.6-10.8); Potassium 4.7 mEq/L (3.5-4.5)
[2017-07-21] MEDS ORDERED: 0.9 % Sodium Chloride 250 ML IVC PRN (06:21)
[2017-07-21] MEDS: *HR* Heparin 5,000 UNIT/ML VIAL SQ SCH ×2 (06:23→17:04)
--- NOTE | 2017-07-21 07:33 | Electrocardiograph Report ---
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
--- NOTE | 2017-07-21 08:32 | Nephrology Progress Note ---
Date of Encounter: 07/21/17 Time of Encounter: 08:30 - Assessment and Plan (1) ESRD (end stage renal disease) on dialysis Current Visit: No Status: Chronic UF today Plan for HD again tomorrow Continue renal diet Continue strict I/Os Avoid nephrotoxins if possible (2) Encephalopathy Current Visit: No Status: Acute per primary team (3) Fluid overload Current Visit: No Status: Acute see above Qualifiers: Hypervolemia type: other Qualified Code(s): E87.79 - Other fluid overload (4) Constipation Current Visit: Yes Status: Acute Miralax 17 gm p.o. BID prn Qualifiers: Qualified Code(s): K59.00 - Constipation, unspecified Subjective Principal diagnosis: Encephalopathy, ESRD on dialysis Interval history: Patient seen and examined on dialysis. Patient states he is feeling better but c/o constipation and requests something for this. Objective - Vital Signs Vital signs: Vital Signs Temp Pulse Resp BP Pulse Ox 07/21/17 04:58 98.1 F 74 16 121/71 98 07/21/17 00:16 98.6 F 85 16 133/74 92 Intake and Output 07/20/17 07/21/17 07/21/17 23:59 07:59 15:59 Intake Total 500 / 1100 Output Total 0 / 5522 Balance 500 / -4422 Intake: Oral 500 / 500 Output: Urine 0 / 0 Other: Weight 114.124 kg Blood Glucose* 136 156 Patient Weight 07/21/17 23:59 Weight 114.124 kg - General Appearance General appearance: Present: well-developed, well-nourished, obese EENT: Present: ATNC, hearing intact, vision intact Neck: Present: supple Respiratory: Present: clear Cardiology: Present: edema, normal S1, normal S2 Dialysis Vascular Access: Arteriovenous Fistula Gastrointestinal: Present: no tenderness, no guarding, obese Integumentary: Present: warm and dry Psychiatric: Present: mood/affect appropriate, cooperative - Lab 07/21/17 04:51 07/21/17 04:51 Most recent lab results ABG pH 7.44 pH Units (7.32-7.45) 07/20/17 15:14 ABG pCO2 41 mmHg (35-45) 07/20/17 15:14 ABG pO2 64 mmHg (85-104) L 07/20/17 15:14 ABG HCO3 28 mEq/L (21-27) H 07/20/17 15:14 ABG O2 Saturation 93 % (95-98) L 07/20/17 15:14 Calcium 9.4 mg/dL (8.6-10.8) 07/21/17 04:51 Consult Discharge Plan - Plan Referrals: Albina Olea MD [Primary Care Provider] -
[2017-07-21] MEDS: Insulin LISPRO 300 UNITS/3 ML VIAL SQ SCH ×3 (08:36→17:04)
[2017-07-21] MEDS: Furosemide 40 MG TABLET PO SCH ×2 (11:29→17:04)
[2017-07-21] MEDS: Isosorbide MONOnitrate (24 HR) 60 MG TAB.ER.24H PO SCH (11:29)
[2017-07-21] MEDS: Vitamin B Complex/Vit C/Vit E 1 EACH TABLET PO SCH (11:29)
[2017-07-21] MEDS: amLODIPine 5 MG TABLET PO SCH (11:29)
[2017-07-21] MEDS: Ranolazine 500 MG TAB.ER.12H PO SCH ×2 (11:29→22:56)
[2017-07-21] MEDS: Gabapentin 100 MG CAPSULE PO SCH ×3 (11:29→22:56)
--- NOTE | 2017-07-21 13:13 | Internal Med Progress Note ---
<Per Ward P - Last Filed: 07/21/17 18:14> Date of Encounter: 07/21/17 - Constitutional Vitals: Temp Pulse Resp BP Pulse Ox 97.9 F 64 16 138/65 95 07/21/17 15:42 07/21/17 15:42 07/21/17 15:42 07/21/17 15:42 07/21/17 15:42 Internal Medicine: Result - Labs CBC & Chem 7: 07/21/17 04:51 07/21/17 04:51 Labs: Short CBC 07/21/17 Range/Units 04:51 WBC 4.6 (4.3-11.1) K/mcL Hgb 9.8 L (12.9-16.9) g/dL Hct 29.9 L (37.5-50.1) % Plt Count 125 L (140-400) K/mcL BMP 07/21/17 04:51 Sodium 138 Potassium 4.7 H Chloride 99 Carbon Dioxide 23 BUN 37 H D Creatinine 9.19 H Glucose 186 H Calcium 9.4 Cardiac Enzymes 07/20/17 07/21/17 Range/Units 23:03 04:51 Troponin I 0.33 H* 0.31 H* (0-0.03) ng/mL - ABG Interpretation ABG results: ABG ABG pH 7.44 pH Units (7.32-7.45) 07/20/17 15:14 ABG pCO2 41 mmHg (35-45) 07/20/17 15:14 ABG pO2 64 mmHg (85-104) L 07/20/17 15:14 ABG O2 Saturation 93 % (95-98) L 07/20/17 15:14 PT/INR, D-dimer PT 11.7 Seconds (9.4-12.1) 07/20/17 14:41 Consult Discharge Plan - Plan Referrals: Albina Olea MD [Primary Care Provider] - 07/30/17 3:00 pm (Please follow up as schedule..) - Attending Attestation I examined this patient and my medical decision-making was reviewed with the Resident Physician. I agree with the documented findings, disposition and treatment plan as described except to the extent set forth below. <Jose Robreto Ferrera - Last Filed: 07/21/17 18:27> Date of Encounter: 07/21/17 Time of Encounter: 16:00 - Assessment and plan (1) Altered mental status Current Visit: Yes Status: Resolved Assessment and plan: Likely secondary to hypoxia secondary to volume overload to missing dialysis - Resolved. AOx3. - Plan as below. Qualifiers: Altered mental status type: unspecified Qualified Code(s): R41.82 - Altered mental status, unspecified (2) Acute respiratory failure with hypoxia Current Visit: Yes Status: Acute Assessment and plan: Improving with dialysis. - Secondary to fluid overload missing dialysis - BNP on admission over 3000 - Continue UF dialysis tomorrow. - Nephrology following. - Currently tolerating 6L via NC. (3) Troponin level elevated Current Visit: Yes Status: Acute Assessment and plan: 0.10/0.31/0.30 - Adynamic. - Likely secondary to ESRD and fluid overload - No EKG changes. (4) ESRD (end stage renal disease) Current Visit: Yes Status: Chronic Assessment and plan: -Normal scheduled MWF dialysis. Missed Thursday per chart review - Patient denies missing dialysis - UF dialysis yesterday and this morning without complications. - Nephrology consulted, appreciate recommendations. (5) HTN (hypertension) Current Visit: Yes Status: Chronic Assessment and plan: Stable. 138/65 - Continue home meds Qualifiers: Hypertension type: secondary to other renal disorders Qualified Code(s): I15.1 - Hypertension secondary to other renal disorders; N28.89 - Other specified disorders of kidney and ureter (6) Diabetes Current Visit: Yes Status: Chronic Assessment and plan: Blood sugar 186 today - Continue SSI Qualifiers: Diabetes mellitus type: type 2 Diabetes mellitus complication status: with kidney complications Diabetes mellitus complication detail: with chronic kidney disease Diabetes mellitus exterminator insulin use: with exterminator use Chronic kidney disease stage: on chronic dialysis Qualified Code(s): E11.22 - Type 2 diabetes mellitus with diabetic chronic kidney disease; N18.6 - End stage renal disease; Z79.4 - nursing home (current) use of insulin; Z99.2 - Dependence on renal dialysis (7) Hyperlipemia Current Visit: No Status: Acute Assessment and plan: Continue home meds Qualifiers: Hyperlipidemia type: unspecified Qualified Code(s): E78.5 - Hyperlipidemia , unspecified (8) DVT prophylaxis Current Visit: No Status: Acute Assessment and plan: Heparin 5000 units - Time Spent With Patient 25 - 35 minutes - Subjective Interval history: Patient was seen and examined this afternoon. He states he presented to ED due to fatigue and that his oxygen number was around 50. He states he is breathing better today. Tolerated HD well. - Constitutional Vitals: Temp Pulse Resp BP Pulse Ox 98.7 F 73 16 179/90 95 07/21/17 11:25 07/21/17 11:25 07/21/17 11:25 07/21/17 11:25 07/21/17 11:25 General appearance: Present: A&O X 1 (alert to self, lethargic, resting comfortable on BiPAP and in no acute distress), morbidly obese, no acute distress Exam: General: AOx3, lethargic appearing, NAD. Speaking in full sentances on NC . HEENT: MMM, atraumatic, normocephalic. Cardio: RRR, S1S2, no murmurs appreciated. Respiratory: CTA b/l. No rubs, wheezes, rhonchi. Equal chest expansion. Abdominal: Soft, nontender, no peritoneal signs. Extremities: No BLE. no clubbing, cyanosis Neuro: Aox3, no gross deficits Psych: Appropriate mood and behavior Internal Medicine: Result - Labs CBC & Chem 7: 07/21/17 04:51 07/21/17 04:51 Labs: Short CBC 07/21/17 Range/Units 04:51 WBC 4.6 (4.3-11.1) K/mcL Hgb 9.8 L (12.9-16.9) g/dL Hct 29.9 L (37.5-50.1) % Plt Count 125 L (140-400) K/mcL BMP 07/21/17 04:51 Sodium 138 Potassium 4.7 H Chloride 99 Carbon Dioxide 23 BUN 37 H D Creatinine 9.19 H Glucose 186 H Calcium 9.4 Cardiac Enzymes 07/20/17 07/21/17 Range/Units 23:03 04:51 Troponin I 0.33 H* 0.31 H* (0-0.03) ng/mL - ABG Interpretation ABG results: ABG ABG pH 7.44 pH Units (7.32-7.45) 07/20/17 15:14 ABG pCO2 41 mmHg (35-45) 09/11/17 15:14 ABG pO2 64 mmHg (85-104) L 07/20/17 15:14 ABG O2 Saturation 93 % (95-98) L 07/20/17 15:14 PT/INR, D-dimer PT 11.7 Seconds (9.4-12.1) 07/20/17 14:41
[2017-07-21] MEDS ORDERED: Insulin LISPRO 300 UNITS/3 ML VIAL SQ SCH (21:00)
[2017-07-21] MEDS: Insulin DETEMIR 100 UNIT/ML X5UNITS SQ SCH (22:56)
[2017-07-22 04:49] LABS: Hematocrit 30.9 % (37.5-50.1); Hemoglobin 10.1 g/dL (12.9-16.9); Mean Corpuscular HGB Conc 32.7 g/dL (31.6-35.5); Mean Corpuscular Hemoglobin 32.4 pg (28.0-33.3); Mean Platelet Volume 10.1 fL (9.4-12.4); Platelet Count 121 K/mcL (140-400); Red Blood Count 3.12 M/mcL (4.19-5.50); Red Cell Distribution Width 16.9 % (11.5-14.5)
[2017-07-22 05:05] LABS: Calcium 9.3 mg/dL (8.6-10.8); Potassium 4.5 mEq/L (3.5-4.5)
[2017-07-22] MEDS: *HR* Heparin 5,000 UNIT/ML VIAL SQ SCH (05:47)
[2017-07-22] MEDS ORDERED: 0.9 % Sodium Chloride 250 ML IVC PRN (06:00)
[2017-07-22] MEDS: Insulin LISPRO 300 UNITS/3 ML VIAL SQ SCH ×3 (07:41→16:47)
[2017-07-22] MEDS ORDERED: *HR* Heparin 5,000 UNIT/ML VIAL ONE (08:06)
[2017-07-22] MEDS ORDERED: 0.9 % Sodium Chloride 2,000 ML ONE (08:07)
[2017-07-22] MEDS ORDERED: Amoxicillin 500 MG CAPSULE PO ONE ×2 (09:00)
--- NOTE | 2017-07-22 09:13 | Discharge Summary ---
Addendum entered and electronically signed by Jose Roberto Ferrera DO 07/22/17 15:21: Due to his shortness of breath and history of congestive heart failure, patient was qualified for supplemental oxygen with 6 minute walk test. He will be discharged home with 2 L of oxygen. Original Note: <Jose Roberto Ferrera - Last Filed: 07/22/17 10:42> Date of Encounter: 07/22/17 Time of Encounter: 10:42 - Discharge Diagnosis (1) Acute respiratory failure with hypoxia Priority: Primary Status: Resolved (2) Altered mental status Priority: Secondary Status: Resolved Qualifiers: Altered mental status type: unspecified Qualified Code(s): R41.82 - Altered mental status, unspecified (3) Troponin level elevated Priority: Secondary Status: Acute (4) ESRD (end stage renal disease) Priority: Secondary Status: Chronic (5) HTN (hypertension) Priority: Secondary Status: Chronic Qualifiers: Hypertension type: secondary to other renal disorders Qualified Code(s): I15.1 - Hypertension secondary to other renal disorders; N28.89 - Other specified disorders of kidney and ureter (6) Diabetes Priority: Secondary Status: Chronic Qualifiers: Diabetes mellitus type: type 2 Diabetes mellitus complication status: with kidney complications Diabetes mellitus complication detail: with chronic kidney disease Diabetes mellitus usp insulin use: with lobsterman use Chronic kidney disease stage: on chronic dialysis Qualified Code(s): E11.22 - Type 2 diabetes mellitus with diabetic chronic kidney disease; N18.6 - End stage renal disease; Z79.4 - exterminator termite (current) use of insulin; Z99.2 - Dependence on renal dialysis (7) Hyperlipemia Priority: Secondary Status: Chronic Qualifiers: Hyperlipidemia type: unspecified Qualified Code(s): E78.5 - Hyperlipidemia , unspecified (8) DVT prophylaxis Priority: Secondary Status: Acute - Discharge Medications Home Medications: Furosemide [Lasix] 40 mg PO BID 06/22/15 [History] Insulin Glargine,Hum.rec.anlog [Lantus Solostar] 10 unit SQ HS 06/22/15 [History ] Sevelamer [Renvela] 4,000 mg PO TIDWM 06/22/15 [History] Atorvastatin [Lipitor] 40 mg PO HS 09/05/15 [History] amLODIPine [Norvasc] 10 mg PO DAILY 01/04/17 [History] Carvedilol [Coreg] 25 mg PO BID 04/12/17 [History] Isosorbide MONOnitrate (24 HR) [Imdur] 60 mg PO DAILY #30 tab.er.24h 06/17/17 [ Rx] B Complex with Vitamin C [Elle-Bee with C] 1 each PO DAILY 07/20/17 [History] Fluticasone Propionate Nasal [Flonase] 100 mcg NS DAILY 07/20/17 [History] Gabapentin [Neurontin] 100 mg PO TID 07/20/17 [History] Ondansetron ODT [Zofran ODT] 4 mg PO Q6H PRN 07/20/17 [History] Pantoprazole Sodium [Protonix] 40 mg PO BID 07/20/17 [History] Ranolazine [Ranexa] 500 mg PO BID 07/20/17 [History] Clopidogrel Bisulfate [Plavix] 75 mg PO DAILY 07/21/17 [History] Allergies/Adverse Reactions: 3 Allergy/AdvReac Type Severity Reaction Status Date / Time omeprazole [From Prilosec] Allergy Mild Hives Verified 05/11/17 21:38 Date of admission: 07/20/17 22:50 Primary care physician: Albina Olea, Consults: 07/21/17 06:30 Consult to Dialysis [CONS] ONCE 07/22/17 06:00 Consult to Dialysis [CONS] ONCE Discharging clinician: Jose Roberto Ferrera Anticipated date of discharge: 07/22/17 - Patient Status Disposition: Home, Self-Care Condition: Fair Functional capacity at discharge: independent ambulation Overall status at discharge: patient is progressing back to baseline - Discharge Instructions Instructions: Diabetes Mellitus Type 2 in Adults (DC), Chronic Hypertension (DC ) Follow Up With: Albina Olea MD [Primary Care Provider] - 07/30/17 3:00 pm (Please follow up as schedule..) Additional Instructions: Please follow-up with her primary care physician regarding further management of her care. She may be able to refer you for a sleep study. - Diet and Activity Activity: increase activity as tolerated, resume usual activities as tolerated Diet: low salt diet Hospital course: Mr. Monge is a 57 year old male presenting to the emergency department with complaint of dyspnea. On chart review, he states he missed his dialysis on Thursday, during interview he denies this. Per EMS, patient was at 50% oxygen saturation on their arrival and he was placed on a nonrebreather. On arrival to [facility], he was 70% on room air he was placed on BiPAP. Remainder vital signs show a pulse of 104, respiratory rate of 20, blood pressure 174/89. Patient was afebrile. I was ulcers noted for a H&H of 10.7/32.8, BUN/creatinine of 51/ 12.78, glucose of 240. Lactic acid 2.0, troponin was elevated at 0.10, BNP was 3463. ABG showed a pH of 7.44, PCO2 was 41, PO2 was 64, bicarbonate was 28 on BiPAP. EKG showed sinus tachycardia with a rate of 103. Patient was admitted to medicine service for further evaluation and management of acute on chronic respiratory failure secondary to likely fluid overload from missing dialysis. During course of hospital stay, nephrology was consulted and agreed with urgent hemodialysis. He tolerated his dialysis session well and received an additional day of dialysis the following day as well as the day of discharge. His vital signs returns normal limits. Troponin was trended and was adynamic, likely secondary to acute renal failure. BUN/creatinine improved with dialysis. Lactic acidosis likely secondary to hypoperfusion. Patient was weaned on oxygen and has been tolerating room air. He will be discharged in stable medical condition and instructed to follow-up with his motor bike mechanic, Dr. Pickering, as well as his primary care physician for further management of his medical conditions. - Time Spent with Patient Total time spent providing and/or coordinating discharge services: 40 minutes - Constitutional Vitals: Temp Pulse Resp BP Pulse Ox 98.2 F 63 16 138/78 96 07/22/17 04:24 07/22/17 04:24 07/22/17 04:24 07/22/17 04:24 07/22/17 04:24 General appearance: Present: A&O X 1 (alert to self, lethargic, resting comfortable on BiPAP and in no acute distress), morbidly obese, no acute distress Exam: Gen.: Vitals noted. No acute distress. AAOx3 HEENT: PERRL/EOMI, oropharynx clear, Normocephalic, atraumatic Neck: Supple. No adenopathy. Cardiac: RRR, no murmur, +S1/S2 Pulmonary: CTA bilaterally, no wheezes, rales or rhonchi, equal chest expansion Abdomen: soft, nontender, BS noted, no guarding Back: Nontender throughout. MSK: ROM intact, no joint swelling noted Extremities: no BLE edema, nontender calf, no cyanosis or clubbing Neuro: A&Ox3, moves all extremities, no focal deficits Psych: Appropriate mood and behavior <Per Ward P - Last Filed: 07/22/17 18:15> Date of Encounter: 07/22/17 Date of admission: 07/20/17 22:50 Primary care physician: Albina Olea, Consults: 07/21/17 06:30 Consult to Dialysis [CONS] ONCE 07/22/17 06:00 Consult to Dialysis [CONS] ONCE Hospital course: Mr. Monge is a 57 year old male - Time Spent with Patient Total time spent providing and/or coordinating discharge services: - Constitutional Vitals: Temp Pulse Resp BP Pulse Ox 98.1 F 65 18 109/65 96 07/22/17 15:46 07/22/17 15:46 07/22/17 15:46 07/22/17 15:46 07/22/17 15:46 - Attending Attestation I examined this patient and my medical decision-making was reviewed with the Resident Physician. I agree with the documented findings, disposition and treatment plan as described except to the extent set forth below.
[2017-07-22] MEDS: Gabapentin 100 MG CAPSULE PO SCH (09:16)
[2017-07-22] MEDS: Vitamin B Complex/Vit C/Vit E 1 EACH TABLET PO SCH (09:16)
--- NOTE | 2017-07-22 11:00 | Nephrology Progress Note ---
Date of Encounter: 07/22/17 Time of Encounter: 09:10 - Assessment and Plan (1) ESRD (end stage renal disease) on dialysis Status: Chronic Dialysis note: he was s/e while on HD Good flows and stable vital signs noted while on dialysis. (2) Fluid overload Status: Acute Qualifiers: Hypervolemia type: other Qualified Code(s): E87.79 - Other fluid overload (3) Encephalopathy Status: Acute (4) Anemia in chronic kidney disease (CKD) Status: Chronic Qualifiers: Chronic kidney disease stage: on chronic dialysis Qualified Code(s): N18.6 - End stage renal disease; D63.1 - Anemia in chronic kidney disease; Z99.2 - Dependence on renal dialysis (5) HTN (hypertension) Status: Chronic Qualifiers: Hypertension type: secondary to other renal disorders Qualified Code(s): I15.1 - Hypertension secondary to other renal disorders; N28.89 - Other specified disorders of kidney and ureter Subjective Principal diagnosis: Encephalopathy, ESRD on dialysis Interval history: Pt was s/e while on HD. He did not affirm N/V, cramping. He awoke from sleep and was briefly confused. Dr. Ward was present and we talked about discharging with the pt in the dialysis unit. Objective - Vital Signs Vital signs: Vital Signs Temp Pulse Resp BP Pulse Ox 07/22/17 04:24 98.2 F 63 16 138/78 96 07/21/17 23:35 98.1 F 81 16 167/79 97 07/21/17 19:12 98.4 F 66 16 111/53 95 07/21/17 15:42 97.9 F 64 16 138/65 95 07/21/17 11:25 98.7 F 73 16 179/90 95 Intake and Output 07/21/17 07/22/17 07/22/17 23:59 07:59 15:59 Intake Total 200 / 200 0 / 0 Balance 200 / 200 0 / 0 Intake: Oral 200 / 200 0 / 0 Other: Meal Dinner Percent of Meal Consumed 100% Weight 114.2 kg Blood Glucose* 215 132 Patient Weight 07/22/17 23:59 Weight 114.2 kg - General Appearance Exam: General appearance: Present: well-developed, well-nourished, obese EENT: Present: ATNC, hearing intact, vision intact Neck: Present: supple Respiratory: Present: clear Cardiology: Present: edema, normal S1, normal S2 Dialysis Vascular Access: Arteriovenous Fistula with excellent thrill and bruit. Gastrointestinal: Present: no tenderness, no guarding, obese Integumentary: Present: warm and dry Psychiatric: Present: mood/affect appropriate, cooperative - Lab 07/22/17 04:38 07/22/17 04:38 Most recent lab results ABG pH 7.44 pH Units (7.32-7.45) 07/20/17 15:14 ABG pCO2 41 mmHg (35-45) 07/20/17 15:14 ABG pO2 64 mmHg (85-104) L 07/20/17 15:14 ABG HCO3 28 mEq/L (21-27) H 07/20/17 15:14 ABG O2 Saturation 93 % (95-98) L 07/20/17 15:14 Calcium 9.3 mg/dL (8.6-10.8) 07/22/17 04:38 Consult Discharge Plan - Plan Instructions: Diabetes Mellitus Type 2 in Adults (DC), Chronic Hypertension (DC ) Additional Instructions: Please follow-up with her primary care physician regarding further management of her care. She may be able to refer you for a sleep study. Referrals: Albina Olea MD [Primary Care Provider] - 07/30/17 3:00 pm (Please follow up as schedule..)
[2017-07-22] MEDS: Furosemide 40 MG TABLET PO SCH (12:52)
[2017-07-22] MEDS: Isosorbide MONOnitrate (24 HR) 60 MG TAB.ER.24H PO SCH (13:05)
[2017-07-22] MEDS: amLODIPine 5 MG TABLET PO SCH (13:05)
[2017-07-22] MEDS: Ranolazine 500 MG TAB.ER.12H PO SCH (13:05)
[2017-07-22 15:59] VITALS: BP 109/65
== END 2017-07-22 17:09 | disposition home or self-care (01) | DRG 682 ==
LOC: 2ANU 13:38 → EMEROO 13:38 → 2ANU 16:45 → SUATTDRO 22:50
PROVIDERS: ADMIT Internal Medicine; ATTEND Internal Medicine

== ENCOUNTER 2017-09-12 23:52 | Inpatient (IN) ==
--- NOTE | 2017-09-13 00:35 | Emergency Department Note ---
Disposition Clinical Impression: Hyperkalemia Episode of syncope Qualifiers: Syncope type: unspecified Qualified Code(s): R55 - Syncope and collapse Chest pain Qualifiers: Chest pain type: unspecified Qualified Code(s): R07.9 - Chest pain, unspecified Disposition: Admitted As Inpatient Condition: Good Referrals: Albina Olea MD [Primary Care Provider] - Time of Disposition: 02:47 Fall HPI - General Chief Complaint: ED Fall Stated Complaint: head injury from fall vomiting blood Time Seen by Provider: 09/13/17 00:16 Source: patient, family Mode of arrival: private vehicle Limitations: no limitations Nursing Notes Reviewed: Yes Vital Signs Reviewed: Yes - History of Present Illness HPI Narrative: 57-year-old male history of CAD, ESRD, dialysis dependent, diabetes, hypertension who presents to the ER due to a syncopal episode and fall. Patient states that he was walking down a step whenever he lost consciousness and woke up on the ground. Reports that he laid there for couple minutes and got up. He went home but his family encouraged him to come here for evaluation. He reports several syncopal episodes over the last several months with prior workup with neurology currently trying to figure out what is causing it. He states that he has been having some chest pressure in the center of his chest with radiation into his left arm. He is also reported having hematemesis with vomiting that has been going on for months despite EGD and treatment. Currently complaining of a headache, neck pain, chest pain, left knee pain. No other complaints. Pt Subjective Complaint: fall Onset (ago): hour(s) Fall From: standing, down stairs (#) (1) Fall Witnessed: yes Place Fall Occurred: other Loss of Consciousness: yes Prolonged Down Time?: no Symptoms Prior to Fall: none Location of injury: face, neck Location of injury - extremities: Left: knee - Related Data Home Medications Medication Instructions Recorded Confirmed Furosemide [Lasix] 40 mg PO BID 06/22/15 07/20/17 Insulin Glargine,Hum.rec.anlog 10 unit SQ HS 06/22/15 07/20/17 [Lantus Solostar] Sevelamer [Renvela] 4,000 mg PO TIDWM 06/22/15 07/20/17 Atorvastatin [Lipitor] 40 mg PO HS 09/05/15 07/20/17 amLODIPine [Norvasc] 10 mg PO DAILY 01/04/17 07/20/17 Carvedilol [Coreg] 25 mg PO BID 04/12/17 07/20/17 B Complex with Vitamin C [Elle-Bee 1 each PO DAILY 07/20/17 07/20/17 with C] Fluticasone Propionate Nasal 100 mcg NS DAILY 07/20/17 07/20/17 [Flonase] Gabapentin [Neurontin] 100 mg PO TID 07/20/17 07/20/17 Ondansetron ODT [Zofran ODT] 4 mg PO Q6H PRN 07/20/17 07/20/17 Pantoprazole Sodium [Protonix] 40 mg PO BID 07/20/17 07/20/17 Ranolazine [Ranexa] 500 mg PO BID 07/20/17 07/20/17 Clopidogrel Bisulfate [Plavix] 75 mg PO DAILY 07/21/17 07/21/17 Previous Rx's Medication Instructions Recorded Isosorbide MONOnitrate (24 HR) 60 mg PO DAILY #30 tab.er.24h 06/17/17 [Imdur] Allergies Allergy/AdvReac Type Severity Reaction Status Date / Time omeprazole [From Prilosec] Allergy Mild Hives Verified 05/11/17 21:38 All systems ED: reviewed and negative except as stated. Constitutional: Denies: fever Cardiovascular: Reports: chest pain Respiratory: Denies: cough, dyspnea Gastrointestinal: Reports: hematemesis. Denies: abdominal pain, nausea, vomiting Musculoskeletal: Reports: neck pain Neurological: Denies: headache, numbness, paresthesias Fall PMH - Past Medical History Medical history: Reports: arthritis, coronary artery disease, diabetes, dialysis , GERD, hyperlipidemia, hypertension, renal disease, TIA Surgical history: Reports: angioplasty/stent, vascular surgery Psychiatric history: Reports: no psych history - Social History Smoking Status: Never smoker Alcohol use: Reports: none Drug use: Reports: none Physical Exam - General Limitations: no limitations General appearance: alert, in no apparent distress - Head Head exam: other (Right frontal contusion) - Eye Eye exam: Present: normal appearance, EOMI - ENT ENT exam: normal exam - Neck Neck exam: Present: normal inspection, full ROM, tenderness (Tenderness to right cervical paraspinal) - Chest Chest inspection: Present: normal inspection, symmetric chest wall rise - Respiratory Respiratory exam: Present: normal lung sounds bilaterally - Cardiovascular Cardiovascular exam: Present: regular rate, normal rhythm, normal heart sounds - Abdominal Exam Abdominal exam: Present: soft, Non-Tender. Absent: tenderness - Extremities Exam Extremities exam: Present: normal inspection, full ROM - Expanded Upper Extremity Exam Shoulder exam: Present: normal inspection, full ROM Arm exam: Present: normal inspection, full ROM Elbow exam: Present: normal inspection, full ROM Forearm/Wrist exam: Present: normal inspection, full ROM Hand exam: Present: normal inspection, full ROM - Expanded Lower Extremity Exam Hip/Pelvis exam: Present: normal inspection, full ROM Upper leg exam: Present: normal inspection, full ROM Knee exam: Present: normal inspection, full ROM, other (abrasion to left knee) Lower leg exam: Present: normal inspection, full ROM Ankle exam: Present: normal inspection, full ROM Foot/toe exam: Present: normal inspection, full ROM Neurovascular/Tendon exam: Absent: motor deficit, sensory deficit - Neurological Exam Neurological exam: Present: alert, other (GCS 15. Nonfocal neurologic exam. Moves all extremities equally.) - Skin Skin exam: Present: warm, dry, intact Course Course Narrative: Patient seen and examined. EKG with concerns for ST elevations in leads V1 and V2. Stimulant called waiting for interventional cardiology. We will obtain a head CT as well as C-spine as well as labs including troponin, type and screen as well as x-rays of his chest and left knee. - Reevaluation(s) Reevaluation #1: Discussed results of imaging and lab work with the patient. He is agreeable with staying in the hospital. We did give him a gram of calcium as well as insulin and dextrose for his hyperkalemia. - Consultations Consultation #1: I spoke with the on-call diagnostic imaging manager Dr. Coleman. The patient's history, complaints and EKG. We will send him for his interpretation. Consultation #2: Requested to have a repeat EKG due to concern for lead placement. Repeat EKG sent. Spoke with Dr. Coleman again who does not feel this meets STEMI requirements. STEMI canceled. Vital Signs Temperature 98.3 F 09/13/17 00:01 Pulse Rate 89 09/13/17 00:01 Respiratory Rate 20 09/13/17 00:01 Blood Pressure 191/112 09/13/17 00:01 O2 Sat by Pulse Oximetry 94 09/13/17 00:01 Temperature 98.3 F 09/13/17 00:01 Pulse Rate 90 09/13/17 00:30 Respiratory Rate 13 09/13/17 00:30 Blood Pressure 184/99 09/13/17 00:30 O2 Sat by Pulse Oximetry 88 09/13/17 00:30 Oxygen Delivery Oxygen Delivery Room Air Fall - [facility] Narrative Medical decision making narrative: 57-year-old male presents to the ER due to syncopal episode. Reports he has had several in the past. He is currently following with neurology to discover called. His EKG here was initially concerning however it was interpreted by interventional cardiology and after repeat was deemed not to be a STEMI. Chest x-ray demonstrates pulmonary vascular congestion. Head and cervical spine CTs are normal. He is noted to be hyperkalemic here. He was treated empirically with calcium dextrose and insulin. He reports hematemesis with sounds chronic. He was given Protonix for this and admitted to the hospitalist service for syncopal episode, chest pain. - Lab Data Lab results reviewed: Yes I reviewed the patient's lab results. Result diagrams: 09/13/17 00:30 09/13/17 00:30 Lab Results 09/13/17 09/13/17 09/13/17 Range/Units 00:30 00:30 00:30 WBC 4.0 L (4.3-11.1) K/mcL RBC 4.68 (4.19-5.50) M/mcL Hgb 15.4 (12.9-16.9) g/dL Hct 47.0 (37.5-50.1) % MCV 100.4 H (83.0-100.0) fL MCH 32.9 (28.0-33.3) pg MCHC 32.8 (31.6-35.5) g/dL RDW 16.3 H (11.5-14.5) % Plt Count 115 L (140-400) K/mcL MPV 10.3 (9.4-12.4) fL Immature Gran % 0.3 (0-4) % Seg Neutrophils % 63.0 % Lymphocytes % 22.0 % Monocytes % 11.4 % Eosinophils % 3.0 % Basophils % 0.3 % Neutrophils # 2.5 (1.6-8.9) K/mcL Lymphocytes # 0.9 (0.6-4.6) K/mcL Monocytes # 0.5 (0.0-1.3) K/mcL Eosinophils # 0.1 (0.0-0.6) K/mcL Basophils # 0.0 (0.0-0.2) K/mcL PT (9.4-12.1) Seconds INR APTT (26.0-36.0) Seconds Sodium 138 (136-145) mEq/L Potassium 5.9 H (3.5-4.5) mEq/L Chloride 93 L (98-109) mEq/L Carbon Dioxide 28 (19-29) mEq/L BUN 57 H (8-26) mg/dL Creatinine 11.69 H (0.72-1.25) mg/dL Est GFR ( Amer) 5 L (> 60) Est GFR (Non-Af Amer) 4 L (> 60) BUN/Creatinine Ratio 5 L (6-26) Glucose 159 H (70-99) mg/dL Calculated Osmolality 305 H (280-300) Calcium 10.9 H (8.6-10.8) mg/dL Troponin I 0.06 H* (0-0.03) ng/mL B-Natriuretic Peptide (0-100) pg/mL Blood Type Antibody Screen 09/13/17 09/13/17 09/13/17 Range/Units 00:30 00:30 00:30 WBC (4.3-11.1) K/mcL RBC (4.19-5.50) M/mcL Hgb (12.9-16.9) g/dL Hct (37.5-50.1) % MCV (83.0-100.0) fL MCH (28.0-33.3) pg MCHC (31.6-35.5) g/dL RDW (11.5-14.5) % Plt Count (140-400) K/mcL MPV (9.4-12.4) fL Immature Gran % (0-4) % Seg Neutrophils % % Lymphocytes % % Monocytes % % Eosinophils % % Basophils % % Neutrophils # (1.6-8.9) K/mcL Lymphocytes # (0.6-4.6) K/mcL Monocytes # (0.0-1.3) K/mcL Eosinophils # (0.0-0.6) K/mcL Basophils # (0.0-0.2) K/mcL PT 10.6 (9.4-12.1) Seconds INR 1.0 APTT 30.8 (26.0-36.0) Seconds Sodium (136-145) mEq/L Potassium (3.5-4.5) mEq/L Chloride (98-109) mEq/L Carbon Dioxide (19-29) mEq/L BUN (8-26) mg/dL Creatinine (0.72-1.25) mg/dL Est GFR ( Amer) (> 60) Est GFR (Non-Af Amer) (> 60) BUN/Creatinine Ratio (6-26) Glucose (70-99) mg/dL Calculated Osmolality (280-300) Calcium (8.6-10.8) mg/dL Troponin I (0-0.03) ng/mL B-Natriuretic Peptide 279 H (0-100) pg/mL Blood Type O POSITIVE Antibody Screen NEGATIVE - Radiology Data Radiology results reviewed: Yes I reviewed the patient's radiology results. Chest X-Ray 09/13/17 00:33 IMPRESSION: Pulmonary vascular congestion centrally. Overall, appearance of the chest has improved. D/ / Kimberly Benavides MD / Kimberly Benavides MD Interpreting Provider: Kimberly Benavides MD Head CT 09/13/17 00:35 IMPRESSION: No acute intracranial abnormality. D/ / iKmberly Benavides MD / Kimberly Benavides MD Interpreting Provider: Kimberly Benavides MD Cervical Spine CT 09/13/17 00:39 IMPRESSION: No acute fracture D/ / Kimberly Benavides MD / Kimberly Benavides MD Interpreting Provider: Kimberly Benavides MD Knee X-Ray 09/13/17 00:44 IMPRESSION: No acute findings. D/ / Kimberly Benavides MD / Kimberly Benavides MD Interpreting Provider: Kimberly Benavides MD - EKG Data EKG attestation: Yes I reviewed and interpreted this EKG. EKG results narrative: EKG demonstrates sinus rhythm with a rate of 93 bpm. Left axis deviation. Poor R-wave progression. Normal intervals. There are noted ST elevations of 1 mm in leads V1 and V2. No ST depressions. Interventional cardiology paged for interpretation. Repeat EKG demonstrates sinus rhythm with rate of 87 bpm. Left axis deviation. Poor progression. Normal intervals. No gross ST elevations or depressions. No acute ischemic findings. Critical Care Time Critical Care Time: Yes Total Critical Care Time: 35 Attestation: Critical care performed: Time is exclusive of separately billable procedures. Time includes: direct patient care, patient reassessment, coordination of patient care, interpretation of data (laboratory data, radiology data, and respiratory data), review of patient's medical records, medical consultation and documentation of patient care. Procedures included in critical care time: Procedures excluded from critical care time: S.B.A.Froylan. - S.B.AKaila Situation: Demographics, MOA Background: Presenting Complaint, Relevant PMH, Meds, & Allergies Assessment: Vital Signs, Course and respsone to treatment, Exam Concerns, Patient/Family Expectation, Pertinant Lab Results Recommendation: Barrier(s) to disposition, Recommendation based on pending studies, treatments, or consults S.B.ACarlos EnriqueRCarlos Enrique Report Given to: Dr. Em Aleman Repor Time: 02:24 (Requests speedy) Attestation Statement - Attestation Attestation: I, Juan Pablo Valerio DO, examined this patient [id number] and my medical decision-making was reviewed with Dr. Kumar Calvo, Resident Physician. I agree with the documented findings, disposition and treatment plan as described except to the extent set forth below. Please see my progress notes for details. 57-year-old male with multiple medical issues presents emergency room a chest heaviness tightness and a mechanical fall at home. He has no syncope which is being worked up. He fell today going down the steps hitting his head and has had intermittent hematemesis. Patient denies any trauma or injuries otherwise. He is alert is oriented speaks in full sentences. He still describing chest heaviness and tightness at this time. Vital signs reviewed on presentation. EKG appears to have 2 mm of elevation in leads V1 and V2. Immediately STEMI alert was called after the patient was evaluated. The imaging and EKGs were discussed with the on-call diagnostic imaging manager Dr. Coleman. He requested a repeat EKG with repositioning of the leads. Repeat EKG does not show any acute signs of elevation at this point. Stimulator was canceled at that point. Patient will have definitive management completed a CT of the head chest x-ray evaluation for hematemesis as well as most likely admission. Patient family are both informed of this plan this time. Patient is otherwise resting comfortably in the bed. Patient will have a CBC chemistry urinalysis if available as well as CT imaging of the head chest x-ray and CT of the cervical spine. Disposition pending workup and treatment course. See detailed documentation of the physical exam, medical intervention, medical decision- making and disposition and the resident physician's note 0230 Reevaluation patient the bedside shows no acute distress at this point. He still describes some generalized pain. Patient provided with pain medication fluids and single dose of labetalol down here considering his blood pressure has had 2 repeat blood pressures greater than 200. He does take several medications at home for blood pressure. Patient denies any other complaints or issues at this time. Patient was accepted by the hospitalist for further evaluation. 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 Appropriate medications provided for hyperkalemia calcium gluconate, Kayexalate, insulin and glucose were provided to the patient here
[2017-09-13 00:45] LABS: Basophils % 0.3 %; Eosinophils # 0.1 K/mcL (0.0-0.6); Hemoglobin 15.4 g/dL (12.9-16.9); Immature Granulocytes % 0.3 % (0-4); Lymphocytes # 0.9 K/mcL (0.6-4.6); Mean Corpuscular HGB Conc 32.8 g/dL (31.6-35.5); Mean Corpuscular Hemoglobin 32.9 pg (28.0-33.3); Mean Corpuscular Volume 100.4 fL (83.0-100.0); Mean Platelet Volume 10.3 fL (9.4-12.4); Monocytes # 0.5 K/mcL (0.0-1.3); Monocytes % 11.4 %; Neutrophils # 2.5 K/mcL (1.6-8.9); Platelet Count 115 K/mcL (140-400); Red Blood Count 4.68 M/mcL (4.19-5.50); Red Cell Distribution Width 16.3 % (11.5-14.5)
[2017-09-13 01:17] LABS: Calcium 10.9 mg/dL (8.6-10.8); Prothrombin Time 10.6 Seconds (9.4-12.1)
[2017-09-13 01:18] LABS: Potassium 5.9 mEq/L (3.5-4.5)
[2017-09-13 01:19] LABS: Activated Partial Thrombo Time 30.8 Seconds (26.0-36.0)
[2017-09-13] MEDS ORDERED: *HR* Dextrose 50 % in Water (Syg) 50 ML SYRINGE IVP ONE (01:24)
[2017-09-13] MEDS ORDERED: Insulin Human Regular 10 UNIT in 0.9 % Sodium Chloride 10 ML IV ONE (01:24)
[2017-09-13] MEDS ORDERED: Calcium Gluconate 1,000 MG in D5% in Water 100 ML IVPB ONE (01:24)
[2017-09-13] MEDS ORDERED: Pantoprazole 80 MG in 0.9 % Sodium Chloride 250 ML IVC SCH (01:30)
[2017-09-13] MEDS ORDERED: *HR* HYDROmorphone (PF) 1 MG/ML SYRINGE IVP ONE (02:20)
[2017-09-13] MEDS ORDERED: *HR* Labetalol 100 MG/20 ML MDV IVP ONE (02:21)
[2017-09-13] MEDS ORDERED: Naloxone 0.4 MG/ML INJ IVP PRN (05:02)
[2017-09-13] MEDS ORDERED: *HR* Dextrose 50 % in Water (Syg) 50 ML SYRINGE ONE (05:08)
[2017-09-13] MEDS ORDERED: D5% in Water 1,000 ML IVC PRN (05:10)
[2017-09-13] MEDS ORDERED: Dextrose Gel 15 GM PO PRN ×2 (05:10)
[2017-09-13] MEDS ORDERED: *HR* Dextrose 50 % in Water (Syg) 50 ML SYRINGE IVP PRN (05:10)
[2017-09-13 05:52] LABS: Hemoglobin A1C 5.7 %
--- NOTE | 2017-09-13 05:52 | Internal Med History&Physical ---
Date of Encounter: 09/13/17 Time of Encounter: 05:20 Assessment and Plan (1) Syncope Current visit: Yes Status: Acute 1. Will cycle troponins and EKG's. 2. Will order ECHO and Carotid Dopplers. 3. Monitor glucose checks and treat hypoglycemia. Qualifiers: Syncope type: unspecified Qualified Code(s): R55 - Syncope and collapse (2) Hypertensive urgency Current visit: Yes Status: Acute 1. Continue home meds as appropriate. 2. Will use Hydralazine IV PRN for SBP > 160. 3. If unable to control BP with above measures, will then start Nicardipene drip. (3) IDDM (insulin dependent diabetes mellitus) Current visit: Yes Status: Chronic 1. Will keep npo while he is sleeping. 2. Will use SSI and hold home meds for now. (4) Chest pain Current visit: No Status: Acute 1. Will cycle troponins and EKG's. 2. ECHO in the morning. 3. Likely due to hypertensive emergency. Monitor closely. Qualifiers: Chest pain type: unspecified Qualified Code(s): R07.9 - Chest pain, unspecified (5) ESRD (end stage renal disease) Current visit: No Status: Chronic 1. Will consult nephrology to assist in his dialysis needs. (6) DVT prophylaxis Current visit: Yes Status: Acute 1. Heparin SQ. Internal Medicine - H&P: HPI Chief complaint: syncope Admitted From: Emergency Dept Plans for Post Hospital Care: Home History of present illness: Mr. Monge is a 57 year old male who presents the ER tonight with complaints of syncope. He came into the ER under the advice of his family. He reportedly fell and passed out at home and does not recall how long he passed out. According to ER notes and family report, patient has been falling and having periods of syncope several times over the last few months. There are also some vague reports of hematemesis in the ER reports. He had a slightly elevated troponin and was subsequently admitted to hospitalist service. Immediately upon his arrival to the floor, his nurse summoned me as he was unresponsive. His blood pressure was 203/103. I came to the bedside and assessed him, and he was very somnolent and somewhat diaphoretic. He initially did not respond to vocal stimuli. However, he did respond and awaken quickly on the second episode I raised my voice. He did fall asleep right away though. I asked his nurse to obtain a glucose test right away and it was low at 57. Patient did also receive a small dose of Dilaudid in the ER. He also received insulin and dextrose for treatment of his hyperkalemia. Once awake, he denies any chest pain, pressure, shortness of breath. He does not describe any hematemesis to me. He does confirm having passed out and having had chest pain off and on last few days. I reviewed his EKG from the ER , and I do not appreciate any significant ST changes. There was some concern by the ER staff for ST elevation. This was reviewed by and discussed with cardiology by the ER staff. Cardiology did not feel patient had significant ST changes to require intervention at this time. Past Med Surg Social Fam HX - Past Medical History Attestation: Yes The following information was validated with the patient. Source: patient, old records reviewed Medical history: arthritis, coronary artery disease, diabetes, dialysis, GERD, hyperlipidemia, hypertension, renal disease, TIA Psychiatric history: no psych history - Past Surgical History Surgical History: angioplasty/stent, vascular surgery - Social History Smoking Status: Never smoker Smokeless Tobacco Status: No Alcohol use: none Drug use: none - Family History Father Hx Family Cardiac Disorders: Yes Hx Family Endocrine Disorder: Yes (DM) Mother Adopted: No Living Status: Hx Family Cardiac Disorders: Yes Hx Family Respiratory Disorders: Yes Hx Family Cancer: Yes Hx Family GI Disorders: No Hx Family Endocrine Disorder: No Hx Family Neuromuscular Disorders: No Hx Family Neurologic Disorders: No Hx Family HEENT Disorders: No Hx Family Autoimmune Disorders: No Internal Medicine - H&P: Meds Furosemide [Lasix] 40 mg PO BID 06/22/15 [History] Insulin Glargine,Hum.rec.anlog [Lantus Solostar] 10 unit SQ HS 06/22/15 [History ] Sevelamer [Renvela] 4,000 mg PO TIDWM 06/22/15 [History] Atorvastatin [Lipitor] 40 mg PO HS 09/05/15 [History] amLODIPine [Norvasc] 10 mg PO DAILY 01/04/17 [History] Carvedilol [Coreg] 25 mg PO BID 04/12/17 [History] B Complex with Vitamin C [Elle-Bee with C] 1 each PO DAILY 07/20/17 [History] Gabapentin [Neurontin] 100 mg PO TID 07/20/17 [History] Ondansetron ODT [Zofran ODT] 4 mg PO Q6H PRN 07/20/17 [History] Pantoprazole Sodium [Protonix] 40 mg PO BID 07/20/17 [History] Ranolazine [Ranexa] 500 mg PO BID 07/20/17 [History] Clopidogrel Bisulfate [Plavix] 75 mg PO DAILY 07/21/17 [History] 3 Allergy/AdvReac Type Severity Reaction Status Date / Time omeprazole [From Prilosec] Allergy Mild Hives Verified 05/11/17 21:38 - Constitutional Constitutional: no chills, no fever(s) - EENT Eyes: no blurry vision, no change in vision Ears: no ear pain, no tinnitus Nose, mouth and throat: no nasal congestion, no sinus pressure, no sore throat - Cardiovascular Cardiovascular ROS IM: chest pain, dyspnea, syncope, no orthopnea, no palpitations, no paroxysmal nocturnal dyspnea - Respiratory Respiratory: no cough, no hemoptysis, no dyspnea on exertion, no chest congestion, no excessive phlegm production - Gastrointestinal Gastrointestinal: no abdominal pain, no hematemesis, no hematochezia, no melena , no vomiting - Genitourinary Genitourinary ROS male: no dysuria, no flank pain - Musculoskeletal Musculoskeletal ROS IM: no arthralgias, no back pain - Integumentary Integumentary IM: no rash - Neurological Neurological ROS: no convulsions, no disequilibrium, no dizziness, no focal weakness, no frequent falls, no headache(s) - Psychiatric Psychiatric: no anxiety, no depression - Endocrine Endocrine IM: no polydipsia, no polyuria - Allergic/Immunologic Allergic/Immunologic: no GI upset with certain foods - Constitutional Vitals: Temp Pulse Resp BP Pulse Ox 97.6 F 75 12 178/100 94 09/13/17 04:40 09/13/17 05:04 09/13/17 04:40 09/13/17 05:00 09/13/17 04:40 General appearance: Present: cooperative, pleasant, no acute distress, answers questions appropriately Exam: somnolent but easily arousable to loud stimuli and pain - Head Head exam: Present: normal inspection - Expanded Head Exam Head exam expanded: Absent: abrasion, contusion, general tenderness - Eye Eye exam: Present: EOMI, normal appearance. Absent: scleral icterus Pupils: Present: normal accommodation - ENT ENT exam: Present: mucous membranes dry, normal exam - Neck Neck exam general surgery: Present: full ROM, supple. Absent: lymphadenopathy, tenderness, nuchal rigidity - Expanded Neck Exam Neck exam: Absent: carotid bruit - Respiratory Respiratory exam: Present: CTAB. Absent: chest wall tenderness, rales, rhonchi , wheezes - Cardiovascular Cardiovascular exam: Present: distant heart sounds, RRR, +S1, +S2. Absent: diastolic murmur, systolic murmur - GI/Abdominal GI/Abdominal exam: Present: normal bowel sounds, soft. Absent: guarding, hepatomegaly, mass, rebound, splenomegaly, tenderness - Extremities Exam Extremities exam: Present: full ROM, warm, radial pulses palpable and symmetrical. Absent: calf tenderness, joint swelling - Back Exam Back exam: Absent: CVA tenderness (L), CVA tenderness (R) - Neurological Exam Neurological exam: Present: altered (but easily orients to time, place, situation), CN II-XII intact, no focal deficits, strengths equal and symetr throughout - Psychiatric Psychiatric exam: Present: flat affect. Absent: agitated - Skin Skin exam: Present: dry, warm. Absent: rash Internal Med - H&P Results - Labs CBC & Chem 7: 09/13/17 00:30 09/13/17 00:30 - EKG Data -: EKG Interpreted by Myself - EKG Data EKG comments: 09/13/17 06:02 NSR; no acute changes - Diagnostic Studies Chest x-ray Status: image reviewed by me Additional comments: No acute process.
[2017-09-13 05:54] LABS: Albumin 3.3 g/dL (3.5-5.0); Albumin/Globulin Ratio 0.9 (1.1-2.2); Bilirubin,Total 0.6 mg/dL (0.2-1.2); Calcium 9.9 mg/dL (8.6-10.8); Globulin 3.7 g/dL (2.4-3.5); Magnesium 2.8 mg/dL (1.6-2.6); Potassium 5.7 mEq/L (3.5-4.5)
[2017-09-13] MEDS: *HR* Heparin 5,000 UNIT/ML VIAL SQ SCH ×3 (06:05→20:42)
[2017-09-13] MEDS: Insulin LISPRO 300 UNITS/3 ML VIAL SQ SCH ×4 (06:10→23:40)
[2017-09-13] MEDS: PROTONIX 40MG PO SCH ×2 (07:34→15:02)
[2017-09-13] MEDS: Gabapentin 100 MG CAPSULE PO SCH ×3 (07:40→20:51)
[2017-09-13] MEDS: Vitamin B Complex/Vit C/Vit E 1 EACH TABLET PO SCH (07:40)
[2017-09-13] MEDS: amLODIPine 5 MG TABLET PO SCH (07:40)
[2017-09-13] MEDS: Ranolazine 500 MG TAB.ER.12H PO SCH ×2 (07:40→20:51)
[2017-09-13] MEDS ORDERED: hydrALAZINE 25 MG TABLET PO PRN (08:49)
--- NOTE | 2017-09-13 08:54 | Internal Med Progress Note ---
Date of Encounter: 09/13/17 Time of Encounter: 08:53 - Assessment and plan (1) Syncope Current Visit: Yes Status: Acute Assessment and plan: He does have significant psych history / frequent passing outs / confusion However still need to r/o any acute ACS or [place] cont the pt on tele check serial troponin will obtain Carotid doppler reviewed 2 D Echo from 04/25, Normal LVEF @ 55% No need to repeat 2 D Echo Qualifiers: Syncope type: unspecified Qualified Code(s): R55 - Syncope and collapse (2) Troponin level elevated Current Visit: No Status: Acute Assessment and plan: Mostly demand ischemia however due to his underline ESRD and Uncontrolled HTN.. he is high risk for ACS will check Stress test in AM Card is on board cont home meds (3) Hematemesis Current Visit: Yes Status: Acute Assessment and plan: Unclear So far stable Hb @ 15.0 Due to his h/o Alcohol abuse.. high risk pt cont Protonix 40mg IV BID if Hb stays stable, can go for out pt EGD by GI Qualifiers: Nausea presence: without nausea Qualified Code(s): K92.0 - Hematemesis (4) Chest pain Current Visit: No Status: Acute Assessment and plan: trend on trop Stress test in AM also will titrate his BP meeds Qualifiers: Chest pain type: unspecified Qualified Code(s): R07.9 - Chest pain, unspecified (5) ESRD (end stage renal disease) Current Visit: No Status: Chronic Assessment and plan: Consulted Nephro for HD (6) Malignant hypertension with end stage renal disease Current Visit: No Status: Acute Assessment and plan: BP is still not well controlled Cont Coreg 25mg BID, Norvasc 10mg daily added Hydralazine 50g TID, Losartan 100mg Daily (7) Diabetes Current Visit: No Status: Chronic Assessment and plan: On ISS + Levemir Qualifiers: Diabetes mellitus type: type 2 Diabetes mellitus complication status: with kidney complications Diabetes mellitus complication detail: with chronic kidney disease Diabetes mellitus watermelon inspector insulin use: with watermelon inspector use Chronic kidney disease stage: on chronic dialysis Qualified Code(s): E11.22 - Type 2 diabetes mellitus with diabetic chronic kidney disease; N18.6 - End stage renal disease; Z79.4 - skilled nursing (current) use of insulin; Z99.2 - Dependence on renal dialysis (8) GERD (gastroesophageal reflux disease) Current Visit: No Status: Acute Assessment and plan: on PPI Qualifiers: Esophagitis presence: esophagitis presence not specified Qualified Code(s) : K21.9 - Gastro-esophageal reflux disease without esophagitis - Subjective Interval history: Mr. Monge s a 57 y/o M with known PMH of Uncontrolled HTN, CAD, HLD, ESRD on HD M/W/F pt presented to ER with syncopal episode and CP. He did mention about throwing up blood at home. Currently he is alert, awake and O x3. Denied any CP / SOB. No more hematemsis. - Constitutional Vitals: Temp Pulse Resp BP Pulse Ox 97.5 F L 85 16 188/101 96 09/13/17 07:19 09/13/17 07:49 09/13/17 07:19 09/13/17 07:19 09/13/17 07:19 General appearance: Present: cooperative, A&O X 3, no acute distress, answers questions appropriately - Head Head exam: Present: atraumatic, normal inspection - Neck Neck exam general surgery: Present: supple - Respiratory Respiratory exam: Present: decreased breath sounds. Absent: accessory muscle use, rales, rhonchi, wheezes - Cardiovascular Cardiovascular exam: Present: RRR, +S1, +S2. Absent: diastolic murmur, gallop, rubs, systolic murmur - GI/Abdominal GI/Abdominal exam: Present: normal bowel sounds, soft. Absent: rebound, rigid, tenderness - Extremities Exam Extremities exam: Absent: calf tenderness, pedal edema, tenderness - Back Exam Back exam: Absent: CVA tenderness (L), CVA tenderness (R) - Neurological Exam Neurological exam: Present: alert, oriented X3 - Psychiatric Psychiatric exam: Present: normal affect, normal mood Internal Medicine: Result - Labs CBC & Chem 7: 09/13/17 00:30 09/13/17 05:28 Labs: BMP 09/13/17 05:28 Sodium 135 L Potassium 5.7 H Chloride 96 L Carbon Dioxide 25 BUN 62 H Creatinine 12.16 H Glucose 128 H Calcium 9.9 Liver Function 09/13/17 Range/Units 05:28 Total Bilirubin 0.6 (0.2-1.2) mg/dL AST 17 (5-34) Units/L ALT 10 (0-55) Units/L Alkaline Phosphatase 83 (38-126) Units/L Albumin 3.3 L (3.5-5.0) g/dL - ABG Interpretation ABG results: PT/INR, D-dimer PT 10.6 Seconds (9.4-12.1) 09/13/17 00:30 Consult Discharge Plan - Plan Referrals: Albina Olea MD [Primary Care Provider] -
[2017-09-13] MEDS: Furosemide 40 MG TABLET PO SCH ×2 (09:05→17:27)
--- NOTE | 2017-09-13 10:52 | Nephrology Consult Note ---
Date of Encounter: 09/13/17 Time of Encounter: 10:49 Assessment and Plan (1) Episode of syncope Current Visit: Yes Status: Acute Etiology is unclear. Patient has had episodes of this nature in the past. Agree with workup. Per primary team. He seems asymptomatic at the time of my evaluation. Qualifiers: Syncope type: unspecified Qualified Code(s): R55 - Syncope and collapse (2) ESRD (end stage renal disease) on dialysis Current Visit: No Status: Chronic HD MWF. Renal vitamins. Renal dose medications. Renal diet. Additional dialysis and ultrafiltration as needed. Patient without signs of volume overload or uremia today so I will plan on performing his dialysis on Thursday. (3) Diabetes mellitus Current Visit: No Status: Acute Per primary team. Qualifiers: Diabetes mellitus type: type 2 Diabetes mellitus complication status: with kidney complications Diabetes mellitus complication detail: with chronic kidney disease Diabetes mellitus longterm insulin use: with bed bug exterminator use Chronic kidney disease stage: on chronic dialysis Qualified Code(s): E11.22 - Type 2 diabetes mellitus with diabetic chronic kidney disease; N18.6 - End stage renal disease; Z79.4 - exterminator termite (current) use of insulin; Z99.2 - Dependence on renal dialysis (4) HTN (hypertension) Current Visit: No Status: Chronic Patient's blood pressures uncontrolled. Recommend titration of antihypertensive medications. If unable to get under control he may require urgent dialysis today. The patient seems to be chronically hypertensive. He is currently asymptomatic. Qualifiers: Hypertension type: secondary to other renal disorders Qualified Code(s): I15.1 - Hypertension secondary to other renal disorders; N28.89 - Other specified disorders of kidney and ureter (5) Hyperkalemia Current Visit: Yes Status: Acute Expected hyperkalemia that should improve with dialysis. Agree with low-dose Kayexalate today. (6) Elevated troponin Current Visit: No Status: Acute Likely not ACS. However, we will defer to primary care team and cardiology. The patient denies chest pain or dyspnea, but did have an episode of syncope. History of Present Illness - Reason for Consult Consult date: 09/13/17 end stage renal disease - Chief Complaint ESRD Syncope - History of Present Illness Mr. Monge is a 57 yo man with a history of ESRD followed by Dr. Cruz. He presents after a syncopal episode. Etiology is elusive at this time. He does dialysis MWF and states he went on Thursday. The patient does not recall details around what brought him into the hospital. He reports that at this time he feels okay. He denies chest pain, shortness of breath, nausea, vomiting. Other history as per the admission H&P. Past Med Surg Social Fam HX - Past Medical History Medical history: arthritis, coronary artery disease, diabetes, dialysis, GERD, hyperlipidemia, hypertension, renal disease, TIA Psychiatric history: no psych history - Past Surgical History Surgical History: angioplasty/stent, vascular surgery - Social History Smoking Status: Never smoker Smokeless Tobacco Status: No Alcohol use: none Drug use: none - Family History Father Hx Family Cardiac Disorders: Yes Hx Family Endocrine Disorder: Yes (DM) Mother Adopted: No Living Status: Hx Family Cardiac Disorders: Yes Hx Family Respiratory Disorders: Yes Hx Family Cancer: Yes Hx Family GI Disorders: No Hx Family Endocrine Disorder: No Hx Family Neuromuscular Disorders: No Hx Family Neurologic Disorders: No Hx Family HEENT Disorders: No Hx Family Autoimmune Disorders: No Medications and Allergies Furosemide [Lasix] 40 mg PO BID 06/22/15 [History] Insulin Glargine,Hum.rec.anlog [Lantus Solostar] 10 unit SQ HS 06/22/15 [History ] Sevelamer [Renvela] 4,000 mg PO TIDWM 06/22/15 [History] Atorvastatin [Lipitor] 40 mg PO HS 09/05/15 [History] amLODIPine [Norvasc] 10 mg PO DAILY 01/04/17 [History] Carvedilol [Coreg] 25 mg PO BID 04/12/17 [History] Gabapentin [Neurontin] 100 mg PO TID 07/20/17 [History] Ondansetron ODT [Zofran ODT] 4 mg PO Q6H PRN 07/20/17 [History] Pantoprazole Sodium [Protonix] 40 mg PO BID 07/20/17 [History] Ranolazine [Ranexa] 500 mg PO BID 07/20/17 [History] Clopidogrel Bisulfate [Plavix] 75 mg PO DAILY 07/21/17 [History] Amitriptyline [Elavil] 25 mg PO HS 09/13/17 [History] Cyclobenzaprine HCl 5 mg PO TID 09/13/17 [History] HYDROcodone/Acet 5/325 mg [[place] 5-325 mg] 1 tab PO Q8H PRN 09/13/17 [History] Isosorbide MONOnitrate (24 HR) [Imdur] 60 mg PO DAILY 09/13/17 [History] 3 Allergy/AdvReac Type Severity Reaction Status Date / Time omeprazole [From Prilosec] Allergy Mild Hives Verified 05/11/17 21:38 Review of Systems All Systems: reviewed and no additional remarkable complaints except as stated ( As per history of present illness.) Exam - Vital Signs Vital signs: Initial Vital Signs Temp Pulse Resp BP Pulse Ox 98.3 F 89 20 191/112 94 09/13/17 00:01 09/13/17 00:01 09/13/17 00:01 09/13/17 00:01 09/13/17 00:01 Vital Signs - Last 8 Hours Temp Pulse Resp BP Pulse Ox 09/13/17 09:09 84 209/119 09/13/17 08:00 86 201/114 09/13/17 07:49 85 09/13/17 07:19 97.5 F L 86 16 188/101 96 09/13/17 06:45 183/110 09/13/17 06:30 180/113 09/13/17 06:15 187/102 09/13/17 06:00 202/113 09/13/17 05:04 75 Intake and Output 09/13/17 09/13/17 09/13/17 00:59 07:59 15:59 Intake Total 111 / 111 Balance 111 / 111 Intake: IV Fluids 111 / Protonix 80 MG In 0.9 % Sodium 111 / 111 Chloride 250 ML @ 25 mls/hr IVC .Q10H [facility] Rx#:[id number] Oral 0 / 0 Other: Meal Breakfast Percent of Meal Consumed 100% Blood Glucose* 96 - General Appearance General appearance: well-developed, well-nourished, obese EENT: ATNC Neck: supple Respiratory: clear (Anteriorly.) Cardiology: no edema, regular rate - Dialysis Access Dialysis Vascular Access: Arteriovenous Fistula (Left forearm) thrill: Yes bruit: Yes Gastrointestinal: no tenderness, obese Integumentary: warm and dry Neurologic: alert and oriented x3 Musculoskeletal: no cyanosis Psychiatric: mood/affect appropriate Results - Lab Results 09/13/17 00:30 09/13/17 05:28 Most recent lab results Calcium 9.9 mg/dL (8.6-10.8) 09/13/17 05:28 Magnesium 2.8 mg/dL (1.6-2.6) H 09/13/17 05:28 Consult Discharge Plan - Plan Referrals: Albina Olea MD [Primary Care Provider] -
--- NOTE | 2017-09-13 11:41 | Cardiology Consult Note ---
Date of Encounter: 09/13/17 Time of Encounter: 11:36 Assessment and Plan (1) Troponin level elevated Current Visit: No Status: Acute Minimal, adynamic troponin elevation in the setting of end-stage renal disease and extreme hypertension. Presentation is not consistent with ACS. Review of chart indicates chronically elevated troponin. No further therapy seems necessary at this time. (2) CAD (coronary artery disease) Current Visit: No Status: Chronic [place] CAD, prior PCI to OM and RCA. Recommend continue statin, Plavix, and beta jaziel therapy. Patient also on Ranexa. Okay to continue. Risk factor modification emphasized. Qualifiers: Coronary Disease-Associated Artery/Lesion type: unspecified vessel or lesion type [place] vs. transplanted heart: [place] heart Associated angina: angina presence unspecified Qualified Code(s): I25.10 - Atherosclerotic heart disease of [place] coronary artery without angina pectoris (3) Syncope Current Visit: Yes Status: Acute Syncope of unclear etiology. Patient reports symptoms occur while sitting and standing. Recommend orthostatic vital signs. Check TTE. Maintain telemetry. Further recommendations to follow. Qualifiers: Syncope type: unspecified Qualified Code(s): R55 - Syncope and collapse (4) HTN (hypertension) Current Visit: No Status: Chronic Poorly controlled hypertension. This seems to be a chronic issue. We'll defer titration of antihypertensive medications to primary and nephrology. May need to consider dialysis if blood pressure does not improve with titration of medications. Qualifiers: Hypertension type: secondary to other renal disorders Qualified Code(s): I15.1 - Hypertension secondary to other renal disorders; N28.89 - Other specified disorders of kidney and ureter Discussion w patient/family: The assessment and plan as outlined above was discussed with the patient and/or family members who expressed understanding and agreement. All questions were answered. Thank you for involving us in the care of your patient. Please call with any questions. History of Present Illness Consult date: 09/13/17 Requesting physician: Lesley Cline Consult reason: Syncope Chief complaint: Syncope History of present illness: Mr. Monge is a 57 year old male with a history of HTN and end-stage renal disease on hemodialysis. Patient reports at least 5 episodes of syncope over the last few months. States symptoms have occurred while at rest and while standing. Yesterday, reports he was at an auction when he suddenly passed out. Denies any preceding symptoms. Denies loss of bowel continence or seizure-like activity. Blood pressure noted to be poorly controlled. Lab work: WBC 4.0, platelet 115. Sodium 135, potassium 5.7. BU and 62/ creatinine 12.16. Troponin 0.06, 0.07. Troponin chronically elevated. Patient with previous admissions for hypertensive urgency and mildly elevated troponin. Previous testing: TTE limited 04/13/2017: LVEF 55%. Normal LV size and overall function. Trivial pericardial effusion. [facility] 06/2015: Severe 2 vessel CAD. GREER x1 to OM1, GREER x2 to RCA. Past Med Surg Social Fam HX - Past Medical History Medical history: arthritis, coronary artery disease, diabetes, dialysis, GERD, hyperlipidemia, hypertension, renal disease, TIA Psychiatric history: no psych history - Past Surgical History Surgical History: angioplasty/stent, vascular surgery - Social History Smoking Status: Never smoker Smokeless Tobacco Status: No Alcohol use: none Drug use: none - Family History Father Hx Family Cardiac Disorders: Yes Hx Family Endocrine Disorder: Yes (DM) Mother Adopted: No Living Status: Hx Family Cardiac Disorders: Yes Hx Family Respiratory Disorders: Yes Hx Family Cancer: Yes Hx Family GI Disorders: No Hx Family Endocrine Disorder: No Hx Family Neuromuscular Disorders: No Hx Family Neurologic Disorders: No Hx Family HEENT Disorders: No Hx Family Autoimmune Disorders: No Medications and Allergies Furosemide [Lasix] 40 mg PO BID 06/22/15 [History] Insulin Glargine,Hum.rec.anlog [Lantus Solostar] 10 - 15 unit SQ HS 06/22/15 [ History] Sevelamer [Renvela] 4,000 mg PO TIDWM 06/22/15 [History] Atorvastatin [Lipitor] 40 mg PO HS 09/05/15 [History] amLODIPine [Norvasc] 10 mg PO DAILY 01/04/17 [History] Carvedilol [Coreg] 25 mg PO BID 04/12/17 [History] Gabapentin [Neurontin] 100 mg PO TID 07/20/17 [History] Ondansetron ODT [Zofran ODT] 4 mg PO Q6H PRN 07/20/17 [History] Pantoprazole Sodium [Protonix] 40 mg PO BID 07/20/17 [History] Ranolazine [Ranexa] 500 mg PO BID 07/20/17 [History] Clopidogrel Bisulfate [Plavix] 75 mg PO DAILY 07/21/17 [History] Amitriptyline [Elavil] 25 mg PO HS 09/13/17 [History] Cyclobenzaprine HCl 5 mg PO TID 09/13/17 [History] HYDROcodone/Acet 5/325 mg [[place] 5-325 mg] 1 tab PO Q8H PRN 09/13/17 [History] Isosorbide MONOnitrate (24 HR) [Imdur] 60 mg PO DAILY 09/13/17 [History] 3 Allergy/AdvReac Type Severity Reaction Status Date / Time omeprazole [From Prilosec] Allergy Mild Hives Verified 05/11/17 21:38 All Systems Review: A 10-system review of systems was performed and is negative for pertinent findings except as documented above in the HPI. - Constitutional Constitutional: weakness - Cardiovascular Cardiovascular: syncope Physical Examination Vital Signs, Last 4 Hours Temp Pulse Resp BP Pulse Ox 09/13/17 11:12 98 F 79 16 93 09/13/17 09:09 84 209/119 09/13/17 08:00 86 201/114 09/13/17 07:49 85 General: Conversant, No Apparent Distress HEENT: Atraumatic, Normocephaly, Mucus Membranes Moist Neck: No JVD, Normal carotid pulses Cardiac: Reg Rate and Rhythm, Normal S1 and S2, No Murmur Lungs: Normal Breath Sounds, No Wheeze, Rales, Rhonchi Neuro: Alert and responsive, No focal deficits noted Abdomen: Soft, Non-Tender Skin: No rashes noted on visualized skin Musculoskeletal: No Chest Wall Tenderness Extremities: No Clubbing, No Cyanosis, No Edema Results 09/13/17 00:30 09/13/17 05:28 Lab Results 09/13/17 09/13/17 05:28 09:19 Sodium 135 L Potassium 5.7 H Chloride 96 L Carbon Dioxide 25 BUN 62 H Creatinine 12.16 H Glucose 128 H Calcium 9.9 Magnesium 2.8 H Total Bilirubin 0.6 AST 17 ALT 10 Alkaline Phosphatase 83 Troponin I 0.07 H* - Imaging and Cardiology Echo: report reviewed Cardiac cath: report reviewed - EKG Interpretation EKG results cardiology: personally reviewed Consult Discharge Plan - Plan Referrals: Albina Olea MD [Primary Care Provider] -
[2017-09-13] MEDS: Ondansetron 4 MG/2 ML VIAL IVP PRN ×2 (13:43→18:54)
[2017-09-13] MEDS: *HR* Morphine 2 MG/ML SYRINGE IVP PRN ×2 (13:48→19:32)
[2017-09-13] MEDS ORDERED: Perflutren Lipid Microsphere 1.3 ML in 0.9 % Sodium Chloride 8.7 ML IVP ONE (15:18)
[2017-09-13] MEDS: Pantoprazole 40 MG VIAL IVP SCH (17:27)
[2017-09-13] MEDS: Insulin DETEMIR 100 UNIT/ML X5UNITS SQ SCH (20:42)
[2017-09-13] MEDS: *HR* Promethazine 25 MG/ML VIAL IVP PRN (21:22)
[2017-09-13] MEDS: Acetaminophen 325 MG TABLET PO PRN (23:39)
[2017-09-14] MEDS: *HR* Promethazine 25 MG/ML VIAL IVP PRN (02:40)
[2017-09-14] MEDS: *HR* Morphine 2 MG/ML SYRINGE IVP PRN (02:41)
[2017-09-14 04:33] LABS: Basophils % 0.5 %; Immature Granulocytes % 0.2 % (0-4); Red Cell Distribution Width 16.4 % (11.5-14.5)
[2017-09-14 04:35] LABS: Eosinophils # 0.1 K/mcL (0.0-0.6); Hematocrit 43.2 % (37.5-50.1); Hemoglobin 13.8 g/dL (12.9-16.9); Immature Platelets 1.9 % (1.1-6.1); Lymphocytes # 0.9 K/mcL (0.6-4.6); Lymphocytes % 20.9 %; Mean Corpuscular HGB Conc 31.9 g/dL (31.6-35.5); Mean Corpuscular Hemoglobin 32.6 pg (28.0-33.3); Mean Corpuscular Volume 102.1 fL (83.0-100.0); Mean Platelet Volume 10.8 fL (9.4-12.4); Monocytes # 0.5 K/mcL (0.0-1.3); Monocytes % 10.9 %; Neutrophils # 2.8 K/mcL (1.6-8.9); Platelet Count 112 K/mcL (140-400); Red Blood Count 4.23 M/mcL (4.19-5.50); Segmented Neutrophils % 64.5 %
[2017-09-14 04:49] LABS: Calcium 9.6 mg/dL (8.6-10.8); Magnesium 2.7 mg/dL (1.6-2.6)
[2017-09-14 04:59] LABS: Potassium 6.3 mEq/L (3.5-4.5)
[2017-09-14] MEDS: PROTONIX 40MG PO SCH (05:38)
[2017-09-14] MEDS: *HR* Heparin 5,000 UNIT/ML VIAL SQ SCH ×3 (05:57→20:41)
[2017-09-14] MEDS: Pantoprazole 40 MG VIAL IVP SCH ×2 (05:57→17:36)
[2017-09-14] MEDS: Insulin LISPRO 300 UNITS/3 ML VIAL SQ SCH ×4 (06:01→23:16)
--- NOTE | 2017-09-14 09:15 | Internal Med Progress Note ---
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 Qualifiers: Syncope type: unspecified Qualified Code(s): R55 - Syncope and collapse (2) Malignant hypertension with end stage renal disease Current Visit: No Status: Acute Assessment and plan: BP is still not well controlled patient does receive dialysis 3 times a week including Mondays; BP significantly improved after hemodialysis, though still mildly elevated patient has been having difficulty keeping foods down; will continue on IVP hydralazine as needed discontinue Cozaar due to risk of hyperkalemia titrate other BP meds as necessary (3) ESRD (end stage renal disease) Current Visit: No Status: Chronic Assessment and plan: HD this a.m. removing approximately 4L of fluid will follow with nephrology (4) Hyperkalemia Current Visit: Yes Status: Acute Assessment and plan: Patient received one dose of kayexalate potassium upward trending despite this will recheck after hemodialysis this a.m. likely discontinue Cozaar due to ongoing risk of hyperkalemia (5) Elevated troponin Current Visit: No Status: Acute Assessment and plan: On chart review, patient is chronically elevated current bodies are plateaued unlikely to be due to ACS per cardiology, no interventions necessary at this time (6) Diabetes Current Visit: No Status: Chronic Assessment and plan: Continue ISS + Levemir continue diabetic diet Qualifiers: Diabetes mellitus type: type 2 Diabetes mellitus complication status: with kidney complications Diabetes mellitus complication detail: with chronic kidney disease Diabetes mellitus rat exterminator insulin use: with rat exterminator use Chronic kidney disease stage: on chronic dialysis Qualified Code(s): E11.22 - Type 2 diabetes mellitus with diabetic chronic kidney disease; N18.6 - End stage renal disease; Z99.2 - Dependence on renal dialysis; Z99.2 - Dependence on renal dialysis; Z99.2 - Dependence on renal dialysis; N18.6 - End stage renal disease; N18.6 - End stage renal disease; N18.6 - End stage renal disease ; Z79.4 - intermediate teacher (current) use of insulin; Z79.4 - intermediate teacher (current) use of insulin; Z79.4 - intermediate teacher (current) use of insulin; Z79.4 - intermediate teacher ( current) use of insulin; Z99.2 - Dependence on renal dialysis (7) GERD (gastroesophageal reflux disease) Current Visit: No Status: Acute Assessment and plan: Continue Protonix Qualifiers: Esophagitis presence: esophagitis presence not specified Qualified Code(s) : K21.9 - Gastro-esophageal reflux disease without esophagitis (8) Hematemesis Current Visit: Yes Status: Acute Assessment and plan: Usually occurs after several bouts of vomiting and is described as blood streaked 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 continue on PPI and continue daily trending of H&H during inpatient stay Qualifiers: Nausea presence: without nausea Qualified Code(s): K92.0 - Hematemesis (9) DVT prophylaxis Current Visit: No Status: Acute Assessment and plan: Continue subQ heparin - Time Spent With Patient less than 15 minutes - Subjective Interval history: Continues to have nausea and vomiting. Was I do not keep any food on overnight. Continues to be hypertensive per nursing and vitals tab. Patient does state that he is symptomatically improving including last nausea; was able to eat breakfast and has not yet had to vomit. Hemodialysis pending. All other studies including carotid Doppler and limited echo pending. - Constitutional Vitals: Temp Pulse Resp BP Pulse Ox 98.0 F 82 14 190/103 95 09/14/17 07:25 09/14/17 08:35 09/14/17 07:25 09/14/17 08:35 09/14/17 07:25 General appearance: Present: cooperative, A&O X 3, no acute distress, answers questions appropriately Exam: Patient gives very tangential history and is unclear on several important items including names of his primary physician and specialists. - Head Head exam: Present: atraumatic, normocephalic - Eye Eye exam: Present: PERRL, conjuntiva pink, sclera anicteric - Respiratory Respiratory exam: Present: CTAB. Absent: accessory muscle use, rales, respiratory distress, rhonchi, stridor, wheezes, tachypnea - Cardiovascular Cardiovascular exam: Present: RRR, +S1, +S2. Absent: diastolic murmur, gallop, rubs, +S3, +S4, systolic murmur, tachycardia - GI/Abdominal GI/Abdominal exam: Present: soft. Absent: guarding, tenderness - Extremities Exam Extremities exam: Present: warm, radial pulses palpable and symmetrical. Absent : calf tenderness, cyanotic, pedal edema - Skin Skin exam: Present: dry, intact, normal color. Absent: cyanosis, diaphoretic, mottled, pallor Internal Medicine: Result - Labs CBC & Chem 7: 09/14/17 04:11 09/14/17 14:28 Labs: Short CBC 09/14/17 Range/Units 04:11 WBC 4.3 (4.3-11.1) K/mcL Hgb 13.8 D (12.9-16.9) g/dL Hct 43.2 (37.5-50.1) % Plt Count 112 L (140-400) K/mcL Neutrophils # 2.8 (1.6-8.9) K/mcL BMP 09/14/17 04:11 Sodium 138 Potassium 6.3 H Chloride 96 L Carbon Dioxide 23 BUN 77 H Creatinine 13.77 H Glucose 124 H Calcium 9.6 Cardiac Enzymes 09/13/17 09/13/17 Range/Units 09:19 15:58 Troponin I 0.07 H* 0.05 H* (0-0.03) ng/mL Laboratory Last Values WBC 4.3 K/mcL (4.3-11.1) 09/14/17 04:11 RBC 4.23 M/mcL (4.19-5.50) 09/14/17 04:11 Hgb 13.8 g/dL (12.9-16.9) D 09/14/17 04:11 Hct 43.2 % (37.5-50.1) 09/14/17 04:11 MCV 102.1 fL (83.0-100.0) H 09/14/17 04:11 MCH 32.6 pg (28.0-33.3) 09/14/17 04:11 MCHC 31.9 g/dL (31.6-35.5) 09/14/17 04:11 RDW 16.4 % (11.5-14.5) H 09/14/17 04:11 Plt Count 112 K/mcL (140-400) L 09/14/17 04:11 MPV 10.8 fL (9.4-12.4) 09/14/17 04:11 Immature Gran % 0.2 % (0-4) 09/14/17 04:11 Seg Neutrophils % 64.5 % 09/14/17 04:11 Lymphocytes % 20.9 % 09/14/17 04:11 Monocytes % 10.9 % 09/14/17 04:11 Eosinophils % 3.0 % 09/14/17 04:11 Basophils % 0.5 % 09/14/17 04:11 Neutrophils # 2.8 K/mcL (1.6-8.9) 09/14/17 04:11 Lymphocytes # 0.9 K/mcL (0.6-4.6) 09/14/17 04:11 Monocytes # 0.5 K/mcL (0.0-1.3) 09/14/17 04:11 Eosinophils # 0.1 K/mcL (0.0-0.6) 09/14/17 04:11 Basophils # 0.0 K/mcL (0.0-0.2) 09/14/17 04:11 Immature Plt Fraction 1.9 % (1.1-6.1) 09/14/17 04:11 PT 10.6 Seconds (9.4-12.1) 09/13/17 00:30 INR 1.0 09/13/17 00:30 APTT 30.8 Seconds (26.0-36.0) 09/13/17 00:30 Sodium 138 mEq/L (136-145) 09/14/17 04:11 Potassium 6.3 mEq/L (3.5-4.5) H 09/14/17 04:11 Chloride 96 mEq/L (98-109) L 09/14/17 04:11 Carbon Dioxide 23 mEq/L (19-29) 09/14/17 04:11 BUN 77 mg/dL (8-26) H 09/14/17 04:11 Creatinine 13.77 mg/dL (0.72-1.25) H 09/14/17 04:11 Est GFR ( Amer) 4 (> 60) L 09/14/17 04:11 Est GFR (Non-Af Amer) 4 (> 60) L 09/14/17 04:11 BUN/Creatinine Ratio 6 (6-26) 09/14/17 04:11 Glucose 124 mg/dL (70-99) H 09/14/17 04:11 POC Glucose 105 (58-89) H 09/14/17 06:00 Est Mean Plasma Glucose 117 mg/dl 09/13/17 05:28 Hemoglobin A1c 5.7 % (-5.6) H 09/13/17 05:28 Calculated Osmolality 310 (280-300) H 09/14/17 04:11 Calcium 9.6 mg/dL (8.6-10.8) 09/14/17 04:11 Magnesium 2.7 mg/dL (1.6-2.6) H 09/14/17 04:11 Total Bilirubin 0.6 mg/dL (0.2-1.2) 09/13/17 05:28 AST 17 Units/L (5-34) 09/13/17 05:28 ALT 10 Units/L (0-55) 09/13/17 05:28 Alkaline Phosphatase 83 Units/L (38-126) 09/13/17 05:28 Troponin I 0.05 ng/mL (0-0.03) H* 09/13/17 15:58 B-Natriuretic Peptide 279 pg/mL (0-100) H 09/13/17 00:30 Serum Total Protein 7.0 g/dL (6.0-8.3) 09/13/17 05:28 Albumin 3.3 g/dL (3.5-5.0) L 09/13/17 05:28 Globulin 3.7 g/dL (2.4-3.5) H 09/13/17 05:28 Albumin/Globulin Ratio 0.9 (1.1-2.2) L 09/13/17 05:28 Blood Type O POSITIVE 09/13/17 00:30 Antibody Screen NEGATIVE 09/13/17 00:30 - ABG Interpretation ABG results: PT/INR, D-dimer PT 10.6 Seconds (9.4-12.1) 09/13/17 00:30 Consult Discharge Plan - Plan Referrals: Albina Olea MD [Primary Care Provider] - (SENT WEB REQUEST ON 09-14-17 @ [id number]) <Adam-Phillip Rodriguez - Last Filed: 09/14/17 16:35> Date of Encounter: 09/14/17 - Constitutional Vitals: Temp Pulse Resp BP Pulse Ox 98.6 F 82 18 139/76 95 09/14/17 14:23 09/14/17 08:35 09/14/17 14:23 09/14/17 14:23 09/14/17 07:25 Internal Medicine: Result - Labs CBC & Chem 7: 09/14/17 04:11 09/14/17 14:28 Labs: Short CBC 09/14/17 Range/Units 04:11 WBC 4.3 (4.3-11.1) K/mcL Hgb 13.8 D (12.9-16.9) g/dL Hct 43.2 (37.5-50.1) % Plt Count 112 L (140-400) K/mcL Neutrophils # 2.8 (1.6-8.9) K/mcL BMP 09/14/17 09/14/17 04:11 14:28 Sodium 138 137 Potassium 6.3 H 4.7 H D Chloride 96 L 92 L Carbon Dioxide 23 28 BUN 77 H 38 H D Creatinine 13.77 H 8.60 H Glucose 124 H 101 H Calcium 9.6 9.2 - ABG Interpretation ABG results: PT/INR, D-dimer PT 10.6 Seconds (9.4-12.1) 09/13/17 00:30 - Attending Attestation I examined this patient and my medical decision-making was reviewed with the Resident Physician. I agree with the documented findings, disposition and treatment plan as described except to the extent set forth below. I have seen and examined the patient. Patient has been admitted for syncope unclear etiology. Patient also has uncontrolled hypertension. Patient also has a troponin. Cardiology has evaluated the patient. No further workup at this time. Patient will need an outpatient EEG. Carotid Doppler pending. Echocardiogram revealed LVEF 60%. Patient is currently sitting up. His O2 sat in the high 80s and low 90s without supplemental oxygen via nasal cannula. He denies chest pain or shortness of breath. He has tolerated hemodialysis well this morning. No acute complaints.
[2017-09-14] MEDS ORDERED: 0.9 % Sodium Chloride 250 ML IVC PRN (09:27)
[2017-09-14] MEDS ORDERED: 0.9 % Sodium Chloride 1,000 ML PRIME SCH (09:30)
[2017-09-14] MEDS ORDERED: 0.9 % Sodium Chloride 2,000 ML ONE (10:52)
--- NOTE | 2017-09-14 11:23 | Cardiology Progress Note ---
Date of Encounter: 09/14/17 Time of Encounter: 11:19 Assessment and Plan (1) Troponin level elevated Current Visit: No Status: Acute Minimal, adynamic troponin elevation in the setting of end-stage renal disease and extreme hypertension. Presentation is not consistent with ACS. Review of chart indicates chronically elevated troponin. No further therapy seems necessary at this time. Echo EF preserved. Cardiology signing off. Reconsult PRN. (2) Syncope Current Visit: Yes Status: Acute Syncope of unclear etiology. Patient reports symptoms occur while sitting and standing. Recommend orthostatic vital signs. TTE EF 60% with normal wall motion. Maintain telemetry. No events noted. No further work-up warranted. Qualifiers: Syncope type: unspecified Qualified Code(s): R55 - Syncope and collapse (3) HTN (hypertension) Current Visit: No Status: Chronic Poorly controlled hypertension. This seems to be a chronic issue. We'll defer titration of antihypertensive medications to primary and nephrology. Qualifiers: Hypertension type: secondary to other renal disorders Qualified Code(s): I15.1 - Hypertension secondary to other renal disorders; N28.89 - Other specified disorders of kidney and ureter (4) CAD (coronary artery disease) Current Visit: No Status: Chronic [place] CAD, prior PCI to OM and RCA. Recommend continue statin, Plavix, and beta jaziel therapy. Patient also on Ranexa. Okay to continue. Risk factor modification emphasized. Qualifiers: Coronary Disease-Associated Artery/Lesion type: unspecified vessel or lesion type [place] vs. transplanted heart: [place] heart Associated angina: angina presence unspecified Qualified Code(s): I25.10 - Atherosclerotic heart disease of [place] coronary artery without angina pectoris Discussion w patient/family: The assessment and plan as outlined above was discussed with the patient and/or family members who expressed understanding and agreement. All questions were answered. Thank you for involving us in the care of your patient. Please call with any questions. I will discuss all the above with Dr. Butterfield and make changes as necessary. Subjective Principal diagnosis: Syncope Interval history: Only complaint this AM is hoarseness. Echo resulted--EF 60% with normal wall motion. Objective Vital Signs, Last 4 Hours Temp Pulse Resp BP Pulse Ox 09/14/17 08:35 82 190/103 09/14/17 07:25 98.0 F 81 14 156/84 95 Vital Signs Temp Pulse Resp BP Pulse Ox 09/14/17 08:35 82 190/103 09/14/17 07:25 98.0 F 81 14 156/84 95 09/14/17 06:15 194/119 09/14/17 05:28 145/74 09/14/17 04:30 182/107 09/14/17 03:30 155/77 09/14/17 03:15 165/91 09/14/17 03:10 83 09/14/17 02:46 98.1 F 84 18 181/110 94 09/13/17 23:45 85 09/13/17 23:21 97.8 F 84 18 126/79 94 09/13/17 20:25 97.7 F 76 20 181/105 98 09/13/17 19:30 81 09/13/17 16:20 98 F 75 17 175/94 97 09/13/17 15:07 76 09/13/17 12:11 75 155/94 Intake and Output 09/13/17 09/14/17 09/14/17 23:59 07:59 15:59 Output Total 0 / 0 Balance 0 / 0 Output: Urine 0 / 0 Other: Stool Size Small Stool Consistency formed Stool Color Brown # Voids 1 # Bowel Movements 1 Weight 119.2 kg Blood Glucose* 142 105 Patient Weight 09/14/17 23:59 Weight 119.2 kg General: Conversant, No Apparent Distress HEENT: Atraumatic, Normocephaly, Mucus Membranes Moist Neck: No JVD, Normal carotid pulses Cardiac: Reg Rate and Rhythm, Normal S1 and S2, No Murmur Lungs: Normal Breath Sounds, No Wheeze, Rales, Rhonchi Neuro: Alert and responsive, No focal deficits noted Abdomen: Soft, Non-Tender Skin: No rashes noted on visualized skin Musculoskeletal: No Chest Wall Tenderness Extremities: No Clubbing, No Cyanosis, No Edema, Normal Pulses Results 09/14/17 04:11 09/14/17 04:11 Lab Results 09/13/17 09/14/17 09/14/17 15:58 04:11 04:11 WBC 4.3 Hgb 13.8 D Hct 43.2 Plt Count 112 L Sodium 138 Potassium 6.3 H Chloride 96 L Carbon Dioxide 23 BUN 77 H Creatinine 13.77 H Glucose 124 H Calcium 9.6 Magnesium 2.7 H Troponin I 0.05 H* Short CBC 09/14/17 Range/Units 04:11 WBC 4.3 (4.3-11.1) K/mcL Hgb 13.8 D (12.9-16.9) g/dL Hct 43.2 (37.5-50.1) % Plt Count 112 L (140-400) K/mcL Neutrophils # 2.8 (1.6-8.9) K/mcL BMP 09/14/17 Range/Units 04:11 Sodium 138 (136-145) mEq/L Potassium 6.3 H (3.5-4.5) mEq/L Chloride 96 L (98-109) mEq/L Carbon Dioxide 23 (19-29) mEq/L BUN 77 H (8-26) mg/dL Creatinine 13.77 H (0.72-1.25) mg/dL Glucose 124 H (70-99) mg/dL Calcium 9.6 (8.6-10.8) mg/dL Cardiac Enzymes 09/13/17 Range/Units 15:58 Troponin I 0.05 H* (0-0.03) ng/mL Impressions Echocardiogram Limited Views 09/13/17 05:02 Impressions: LVEF 60%. Definity echo contrast was used. Normal LV systolic function and wall motion. Pericardial effusion was not visualized on this study. Subcostal images were not available. Left Ventricular Wall Motion: Rest Echo Findings All wall segments showed normal motion. Findings: Study Quality * Technically adequate exam. ECG Findings * Normal sinus rhythm. Left Ventricle * Normal LV chamber size, wall thickness and function. * Definity echo contrast was used. * LVEF 60%. Right Ventricle * RV is not fully evaluated on this limited study. Active Medications Acetaminophen (Tylenol) 650 mg PO Q6HR PRN PRN Reason: Mild Pain (1-3) Stop: 03/15/18 05:03 Last Admin: 09/13/17 23:39 Dose: 650 mg Amlodipine Besylate (Norvasc) 10 mg PO DAILY [facility] PRN Reason: Protocol Stop: 03/15/18 09:01 Last Admin: 09/13/17 07:40 Dose: 10 mg Atorvastatin Calcium (Lipitor) 40 mg PO HS [facility] Stop: 03/15/18 21:01 Last Admin: 09/13/17 20:51 Dose: Not Given Carvedilol (Coreg) 25 mg PO BIDWM [facility] PRN Reason: Protocol Stop: 03/15/18 08:01 Last Admin: 09/13/17 17:27 Dose: 25 mg Clopidogrel Bisulfate (Plavix) 75 mg PO DAILY [facility] Stop: 03/15/18 09:01 Last Admin: 09/13/17 07:40 Dose: 75 mg Dextrose/Water (Dextrose 50% (Syg)) 25 ml IVP AD PRN PRN Reason: Hypoglycemia Stop: 03/15/18 05:11 Docusate Sodium (Colace) 100 mg PO BID PRN PRN Reason: Constipation Stop: 03/15/18 05:03 Furosemide (Lasix) 40 mg PO BIDDIURETIC ADAM Stop: 03/15/18 09:01 Last Admin: 09/13/17 17:27 Dose: 40 mg Gabapentin (Neurontin) 100 mg PO TID [facility] Stop: 03/15/18 09:01 Last Admin: 09/13/17 20:51 Dose: Not Given Glucagon (Glucagen) 1 mg IM ONCE PRN PRN Reason: Hypoglycemia Stop: 03/15/18 05:11 Glucose (Gluctose) 15 gm PO ONCE PRN PRN Reason: Hypoglycemia Stop: 03/15/18 05:11 Glucose (Gluctose) 30 gm PO ONCE PRN PRN Reason: Hypoglycemia Stop: 03/15/18 05:11 Heparin Sodium (Porcine) (Heparin) 5,000 unit SQ Q8HCO [facility] Stop: 03/15/18 06:01 Last Admin: 09/14/17 05:57 Dose: 5,000 unit Hydralazine HCl (Hydralazine) 10 mg IVP Q6HR PRN PRN Reason: Hypertension Stop: 03/15/18 05:11 Last Admin: 09/14/17 02:55 Dose: 10 mg Hydralazine HCl (Hydralazine) 50 mg PO Q8HR PRN PRN Reason: Blood Pressure - High Stop: 03/15/18 08:50 Dextrose (Dextrose 5%) 1,000 mls @ 100 mls/hr IVC .Q10H PRN PRN Reason: HYPOGLYCEMIA Stop: 03/15/18 05:11 Sodium Chloride (0.9 % Sodium Chloride) 250 mls @ 937.5 mls/hr IVC .Q16M PRN PRN Reason: Hypotension Stop: 03/16/18 09:28 Sodium Chloride (0.9 % Sodium Chloride) 1,000 mls @ 0 mls/hr PRIME .Q0M ADAM PRN Reason: As Directed Stop: 03/16/18 09:31 Insulin Detemir (Levemir) 10 unit SQ HS [facility] Stop: 03/15/18 21:01 Last Admin: 09/13/17 20:42 Dose: 10 unit Insulin Human Lispro (Humalog) 0 units SQ Q6HR [facility] PRN Reason: Protocol Stop: 03/15/18 06:01 Last Admin: 09/14/17 06:01 Dose: Not Given Losartan Potassium (Cozaar) 100 mg PO DAILY [facility] PRN Reason: Protocol Stop: 03/15/18 09:01 Last Admin: 09/13/17 09:05 Dose: 100 mg Morphine Sulfate (Morphine Sulfate) 2 mg IVP Q6HR PRN PRN Reason: Severe Pain Stop: 03/15/18 13:44 Last Admin: 09/14/17 02:41 Dose: 2 mg Naloxone HCl (Narcan) 0.4 mg IVP Q2MIN PRN PRN Reason: Opioid Reversal Stop: 03/15/18 05:03 Ondansetron HCl (Zofran) 4 mg IVP Q8HR PRN PRN Reason: Nausea And Vomiting Stop: 03/15/18 05:03 Last Admin: 09/13/17 18:54 Dose: 4 mg Pantoprazole Sodium (Protonix) 40 mg IVP Q12HR [facility] Stop: 03/15/18 18:01 Last Admin: 09/14/17 05:57 Dose: 40 mg Pharmacy Profile Note (Patient Taking Own Medication) 1 each PO BIDAC [facility] Stop: 03/15/18 07:31 Last Admin: 09/14/17 05:38 Dose: Not Given Promethazine HCl (Phenergan) 12.5 mg IVP Q4HR PRN PRN Reason: Nausea And Vomiting Stop: 03/15/18 19:58 Last Admin: 09/14/17 02:40 Dose: 12.5 mg Ranolazine (Ranexa) 500 mg PO BID [facility] Stop: 03/15/18 09:01 Last Admin: 09/13/17 20:51 Dose: Not Given Sevelamer HCl (Renvela) 4,000 mg PO TIDWM [facility] Stop: 03/15/18 08:01 Last Admin: 09/14/17 09:10 Dose: 4,000 mg Vitamin B Complex/Vit C/Vit E (Stresstab) 1 each PO DAILY [facility] Stop: 03/15/18 09:01 Last Admin: 09/13/17 07:40 Dose: 1 each - Imaging and Cardiology Echo: report reviewed - EKG Interpretation EKG results cardiology: other (12 hr tele AVG HR 84, SR, no significant pauses or arrhythmias.) Consult Discharge Plan - Plan Referrals: Albina Olea MD [Primary Care Provider] - (SENT WEB REQUEST ON 09-14-17 @ [id number])
[2017-09-14 11:49] LABS: Hepatitis B Surface Antigen Nonreactive (Nonreactive)
[2017-09-14 11:50] LABS: Hepatitis B Surface Antibody 88.23 mIU/mL
--- NOTE | 2017-09-14 12:07 | Nephrology Progress Note ---
Date of Encounter: 09/14/17 Time of Encounter: 11:00 - Assessment and Plan (1) Hyperkalemia Current Visit: Yes Status: Acute (2) ESRD (end stage renal disease) Current Visit: No Status: Chronic Subjective Principal diagnosis: Syncope Interval history: Interim noted. Pt seen amd examined on HD complaining of fatigue from lack of rest and also left shoulder/arm pain Objective - Vital Signs Vital signs: Vital Signs Temp Pulse Resp BP Pulse Ox 09/14/17 11:30 175/97 09/14/17 11:15 169/83 09/14/17 11:00 186/107 09/14/17 10:45 152/85 09/14/17 10:30 175/92 09/14/17 10:15 184/92 09/14/17 10:00 98.0 F 18 158/88 09/14/17 08:35 82 190/103 09/14/17 07:25 98.0 F 81 14 156/84 95 09/14/17 06:15 194/119 09/14/17 05:28 145/74 09/14/17 04:30 182/107 09/14/17 03:30 155/77 09/14/17 03:15 165/91 09/14/17 03:10 83 09/14/17 02:46 98.1 F 84 18 181/110 94 09/13/17 23:45 85 09/13/17 23:21 97.8 F 84 18 126/79 94 09/13/17 20:25 97.7 F 76 20 181/105 98 09/13/17 19:30 81 09/13/17 16:20 98 F 75 17 175/94 97 09/13/17 15:07 76 09/13/17 12:11 75 155/94 Intake and Output 09/13/17 09/14/17 09/14/17 23:59 07:59 15:59 Intake Total 600 / 600 Output Total 0 / 0 Balance 600 / 600 Intake: Oral 0 / 0 Intake, Rinseback and Flushes 600 / 600 Output: Urine 0 / 0 Other: Stool Size Small Stool Consistency formed Stool Color Brown # Voids 1 # Bowel Movements 1 Weight 119.2 kg Blood Glucose* 142 105 Hemodialysis Net Fluid Removed 1724 (mL) Patient Weight 09/14/17 23:59 Weight 119.2 kg - Lab 09/14/17 04:11 09/14/17 04:11 Most recent lab results Calcium 9.6 mg/dL (8.6-10.8) 09/14/17 04:11 Magnesium 2.7 mg/dL (1.6-2.6) H 09/14/17 04:11 Consult Discharge Plan - Plan Referrals: Albina Olea MD [Primary Care Provider] - (SENT WEB REQUEST ON 09-14-17 @ [id number])
[2017-09-14] MEDS: Furosemide 40 MG TABLET PO SCH ×2 (14:42→16:26)
[2017-09-14] MEDS: Gabapentin 100 MG CAPSULE PO SCH ×3 (14:42→21:19)
[2017-09-14] MEDS: Vitamin B Complex/Vit C/Vit E 1 EACH TABLET PO SCH (14:50)
[2017-09-14] MEDS: amLODIPine 5 MG TABLET PO SCH (14:50)
[2017-09-14] MEDS: Ranolazine 500 MG TAB.ER.12H PO SCH ×2 (14:51→21:19)
[2017-09-14 15:19] LABS: Calcium 9.2 mg/dL (8.6-10.8)
[2017-09-14 15:31] LABS: Potassium 4.7 mEq/L (3.5-4.5)
--- NOTE | 2017-09-14 17:04 | Electrocardiograph Report ---
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
[2017-09-14] MEDS: Metoclopramide 10 MG/2 ML VIAL IVP SCH ×2 (17:36→23:53)
[2017-09-14] MEDS: Ondansetron 4 MG/2 ML VIAL IVP PRN (20:40)
[2017-09-14] MEDS: Insulin DETEMIR 100 UNIT/ML X5UNITS SQ SCH (21:05)
--- NOTE | 2017-09-14 21:46 | Event Note ---
Date of Encounter: 09/14/17 Time of Encounter: 21:44 Called by RN -- patient complaining of left shoulder pain after a fall yesterday. He also has had RUQ abdominal pain and waldemar colored stool. He's had some vomiting. I asked RN to keep him npo for now. I ordered GB ultrasound , left shoulder xray, and orthopedics consult.
[2017-09-15] MEDS: Insulin LISPRO 300 UNITS/3 ML VIAL SQ SCH ×3 (04:19→17:12)
[2017-09-15] MEDS: *HR* Heparin 5,000 UNIT/ML VIAL SQ SCH ×3 (05:09→22:05)
[2017-09-15] MEDS: Pantoprazole 40 MG VIAL IVP SCH ×2 (05:09→16:08)
[2017-09-15] MEDS: Metoclopramide 10 MG/2 ML VIAL IVP SCH ×4 (05:09→23:48)
[2017-09-15 05:15] LABS: Basophils % 0.2 %; Eosinophils # 0.1 K/mcL (0.0-0.6); Eosinophils % 3.2 %; Hematocrit 43.9 % (37.5-50.1); Immature Granulocytes % 0.2 % (0-4); Lymphocytes # 0.8 K/mcL (0.6-4.6); Lymphocytes % 18.3 %; Mean Corpuscular HGB Conc 31.9 g/dL (31.6-35.5); Mean Corpuscular Volume 103.5 fL (83.0-100.0); Mean Platelet Volume 9.8 fL (9.4-12.4); Monocytes # 0.6 K/mcL (0.0-1.3); Monocytes % 12.4 %; Neutrophils # 2.9 K/mcL (1.6-8.9); Red Blood Count 4.24 M/mcL (4.19-5.50); Red Cell Distribution Width 16.4 % (11.5-14.5); Segmented Neutrophils % 65.7 %
[2017-09-15 05:16] LABS: Platelet Count 98 K/mcL (140-400)
[2017-09-15 05:33] LABS: Calcium 9.7 mg/dL (8.6-10.8)
[2017-09-15 05:59] LABS: Potassium 5.8 mEq/L (3.5-4.5)
[2017-09-15] MEDS: Ranolazine 500 MG TAB.ER.12H PO SCH ×2 (08:53→22:04)
[2017-09-15] MEDS: Gabapentin 100 MG CAPSULE PO SCH ×3 (08:53→22:04)
[2017-09-15] MEDS: Vitamin B Complex/Vit C/Vit E 1 EACH TABLET PO SCH (08:54)
[2017-09-15] MEDS: Furosemide 40 MG TABLET PO SCH ×2 (08:54→15:14)
[2017-09-15] MEDS: amLODIPine 5 MG TABLET PO SCH (08:54)
--- NOTE | 2017-09-15 09:25 | Internal Med Progress Note ---
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 Hernandez (neurology); states would be a more sound OP f/u with neurology. Doubts IP consult necessary at this time. 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 removing approximately 4L of fluid continue to follow with neuro pt will get HD on schedule tomorrow cont following daily BMP (4) Hyperkalemia Current Visit: Yes Status: Acute Assessment and plan: Patient has so far received two doses of Kayexalate after HD, K+ did decrease, but has since elevated again to 5.8 this AM recheck potassium at 2 PM today demonstrated slight increase to 5.9; checked EKG which demonstrated no associated changes will recheck BMP again at 8 PM and consider repeat EKG if significantly increased continue to monitor BMP qAM consider temporizing measures as needed HD on schedule tomorrow a.m. 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 Chronic kidney disease stage: on chronic dialysis Qualified Code(s): E11.22 - Type 2 diabetes mellitus with diabetic chronic kidney disease; N18.6 - End stage renal disease; Z99.2 - Dependence on renal dialysis; Z99.2 - Dependence on renal dialysis; Z99.2 - Dependence on renal dialysis; N18.6 - End stage renal disease; N18.6 - End stage renal disease; N18.6 - End stage renal disease ; Z79.4 - assistant terminal manager (current) use of insulin; Z79.4 - assistant terminal manager (current) use of insulin; Z79.4 - senior care (current) use of insulin; Z79.4 - assistant terminal manager ( current) use of insulin; Z99.2 - Dependence on renal dialysis (7) GERD (gastroesophageal reflux disease) Current Visit: No Status: Acute Assessment and plan: Continue Protonix Qualifiers: Esophagitis presence: esophagitis presence not specified Qualified Code(s) : K21.9 - Gastro-esophageal reflux disease without esophagitis (8) Hematemesis Current Visit: Yes Status: Acute Assessment and plan: H/H stable this AM usually occurs after several bouts of vomiting and is described as blood streaked 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 continue on PPI and continue daily trending of H&H during inpatient stay Qualifiers: Nausea presence: without nausea Qualified Code(s): K92.0 - Hematemesis (9) DVT prophylaxis Current Visit: No Status: Acute Assessment and plan: Continue subQ heparin - Time Spent With Patient 25 - 35 minutes - Subjective Interval history: Overnight, patient was complaining about upper quadrant pain and a colored stools, as well as left arm and shoulder pain after his fall. Ortho consult was requested and RUQ ultrasound was ordered at that time. Patient currently denies any nausea or vomiting. - Constitutional Vitals: Temp Pulse Resp BP Pulse Ox 98.1 F 89 17 187/108 96 09/15/17 05:17 09/15/17 05:17 09/15/17 05:17 09/15/17 05:17 09/15/17 05:17 General appearance: Present: cooperative, A&O X 3, no acute distress, answers questions appropriately Internal Medicine: Result - Labs CBC & Chem 7: 09/15/17 04:12 09/15/17 14:12 Labs: Short CBC 09/15/17 Range/Units 04:12 WBC 4.4 (4.3-11.1) K/mcL Hgb 14.0 (12.9-16.9) g/dL Hct 43.9 (37.5-50.1) % Plt Count 98 L (140-400) K/mcL Neutrophils # 2.9 (1.6-8.9) K/mcL BMP 09/14/17 09/15/17 14:28 04:12 Sodium 137 135 L Potassium 4.7 H D 5.8 H D Chloride 92 L 91 L Carbon Dioxide 28 27 BUN 38 H D 55 H D Creatinine 8.60 H 10.99 H Glucose 101 H 137 H Calcium 9.2 9.7 - ABG Interpretation ABG results: PT/INR, D-dimer PT 10.6 Seconds (9.4-12.1) 09/13/17 00:30 - EKG Interpretation EKG Interpreted by Myself: Yes EKG shows normal: sinus rhythm, QRS complexes, ST-T waves (No acute ST segment changes or hyperacute T waves) Rate: normal - Prior EKG Data Prior EKG available for review: yes - Impressions Impressions Shoulder X-Ray 09/14/17 21:41 IMPRESSION: No acute osseous abnormality of the left shoulder. D/ / Herman Fam MD / Herman Fam MD Interpreting Provider: Herman Fam MD Consult Discharge Plan - Plan Referrals: Linette Mcdonnell, CLOTH COVERED HELMET PULLER [Advanced Practice Nurse] - 09/21/17 2:00 pm <Reese Kenyon - Last Filed: 09/15/17 20:23> Date of Encounter: 09/15/17 - Constitutional Vitals: Temp Pulse Resp BP Pulse Ox 98.6 F 84 22 185/104 96 09/15/17 19:11 09/15/17 19:11 09/15/17 19:11 09/15/17 19:11 09/15/17 16:31 Internal Medicine: Result - Labs CBC & Chem 7: 09/15/17 04:12 09/15/17 14:12 Labs: Short CBC 09/15/17 Range/Units 04:12 WBC 4.4 (4.3-11.1) K/mcL Hgb 14.0 (12.9-16.9) g/dL Hct 43.9 (37.5-50.1) % Plt Count 98 L (140-400) K/mcL Neutrophils # 2.9 (1.6-8.9) K/mcL BMP 09/15/17 09/15/17 04:12 14:12 Sodium 135 L 135 L Potassium 5.8 H D 5.9 H Chloride 91 L 92 L Carbon Dioxide 27 27 BUN 55 H D 61 H Creatinine 10.99 H 12.06 H Glucose 137 H 175 H Calcium 9.7 9.9 - ABG Interpretation ABG results: PT/INR, D-dimer PT 10.6 Seconds (9.4-12.1) 09/13/17 00:30 - Impressions Impressions Shoulder X-Ray 09/14/17 21:41 IMPRESSION: No acute osseous abnormality of the left shoulder. D/ / Herman Fam MD / Herman Fam MD Interpreting Provider: Herman Fam MD Gallbladder Ultrasound 09/15/17 09:00 IMPRESSION: No acute abnormalities. Multiple right renal cysts, felt to be benign and similar to prior CT exam 01/28/2017 given differences in modality. No follow-up imaging recommended. D/ / 09/15/2017 10:25:27 Josh Malone MD / russ Interpreting Provider: Josh Malone MD Abdomen/Pelvis CT 09/15/17 18:06 IMPRESSION: 1. No evidence of small bowel obstruction to account for patient's vomiting. Moderate amount of stool in the colon. 2. Nonobstructing bilateral nephrolithiasis. 3. Chronic bilateral renal cortical thinning. D/ / 09/15/2017 19:13:43 Taj Monroy MD / russ Interpreting Provider: Taj Monroy MD - Attending Attestation I examined this patient and my medical decision-making was reviewed with the Resident Physician, Dr. Nas Ricardo. I agree with the documented findings, disposition and treatment plan as described except to the extent set forth below. I have independently obtained history and examined the patient and my findings are summarized below: While I was evaluating the patient continues to have intractable nausea and vomiting in spite of administration of Reglan and Zofran. His abdomen is soft nontender with positive bowel sounds. Plan: Nothing by mouth. Will check CT abdomen and pelvis to rule out obstruction. All medical problems are new to me today.
[2017-09-15 14:33] LABS: Calcium 9.9 mg/dL (8.6-10.8); Potassium 5.9 mEq/L (3.5-4.5)
--- NOTE | 2017-09-15 14:51 | EEG/EMG/Oth Biometrics Report ---
EEG Procedure Report Date of procedure: 09/15/17 EEG Procedure: Routine EEG Procedure Note: This is a report of a 21 channel bipolar and referential montage EEG. The posterior dominant rhythm consists of low-voltage theta frequencies ranging from 5-7 Hz. This rhythm is poorly sustained. Hyperventilation is not performed in recording. The patient then drifts into stage II sleep is referenced by dropout of posterior dominant rhythm and emergence of spindle- like activity. Photic stimulation is performed and does not produce a driving response. EKG rhythm strip reveals normal sinus rhythm at 90 beats per minute. Impressions: This EEG recording is abnormal and is consistent with a mild to moderate generalized encephalopathy. There is no evidence of epileptiform activity identified during the study. Comment: Etiologies to consider for the above mentioned interpretation might include toxic, metabolic, postictal, or degenerative. There is no evidence of epileptiform activity identified on the study. This however does not rule out the possibility of seizure or epilepsy. If the clinical suspicion for seizure activity is high, serial EEGs or perhaps a prolonged recording may increase the yield. Please correlate clinically.
[2017-09-15] MEDS: hydrALAZINE 25 MG TABLET PO SCH ×2 (15:13→23:49)
[2017-09-15] MEDS: Ondansetron 4 MG/2 ML VIAL IVP PRN (16:08)
--- NOTE | 2017-09-15 17:29 | Neurology - Consult Note ---
Date of Encounter: 09/15/17 Time of Encounter: 17:24 Assessment and Plan (1) Syncope Current Visit: Yes Status: Acute This patient has unfortunately been experiencing multiple episodes of what seemed to be syncopal episodes. EEG was negative for seizure activity. I do not find evidence of profound neuropathy so it is not likely that we are dealing with dysautonomia. It is possible that we are dealing with cardiac factors since he does have a history of ischemic heart disease. Might also consider vasovagal because he has frequent episodes of vomiting. Finally I wonder whether not he might be experiencing transient hypoglycemic episodes associated with his diabetes regimen. I would recommend cardiac evaluation to consider the possibility of whether or not a loop recorder might be of benefit here. However do not feel that these episodes of recurrent syncope are essentially mediated. Consider GI consultation in lieu of profound episodes of emesis. I will reevaluate him at your request. Qualifiers: Syncope type: unspecified Qualified Code(s): R55 - Syncope and collapse History of Present Illness HPI: Mr. Monge is a 57 year old male who has been seen by neurology on multiple occasions secondary to strokelike symptoms, mental status changes, and episodic loss of consciousness. His most recently been seen in our office by Dr. So in late August. Apparently has multiple episodes of loss of consciousness. The episodes have been occurring over the over the last 2 months. He also has episodes of recurrent vomiting and etiology of which has not been determined. He denies any warning prior to the loss of consciousness. Apparently no generalized tonic-clonic seizure activities have been identified. He admits to occasional headaches. MRI scan of the brain was completed on 09/09/2017 which does reveal chronic ischemic white matter change as well as chronic infarct in the [place]. Does not reveal an etiology to explain recurrent syncopal episodes. MRA of the neck reveals no evidence of compromise of the posterior circulation. He has been hypoglycemic at times as noted by Dr. Augustine. He has been extremely hypertensive since admission with blood pressures as high as 200 systolic. I did repeat an EEG since admission which did not reveal evidence of seizure activity. Past Med Surg Social Fam HX - Past Medical History Medical history: arthritis, coronary artery disease, diabetes, dialysis, GERD, hyperlipidemia, hypertension, renal disease, TIA Psychiatric history: no psych history - Past Surgical History Surgical History: angioplasty/stent, vascular surgery - Social History Smoking Status: Never smoker Smokeless Tobacco Status: No Alcohol use: none Drug use: none - Family History Father Hx Family Cardiac Disorders: Yes Hx Family Endocrine Disorder: Yes (DM) Mother Adopted: No Living Status: Hx Family Cardiac Disorders: Yes Hx Family Respiratory Disorders: Yes Hx Family Cancer: Yes Hx Family GI Disorders: No Hx Family Endocrine Disorder: No Hx Family Neuromuscular Disorders: No Hx Family Neurologic Disorders: No Hx Family HEENT Disorders: No Hx Family Autoimmune Disorders: No Medications and Allergies Furosemide [Lasix] 40 mg PO BID 06/22/15 [History] Insulin Glargine,Hum.rec.anlog [Lantus Solostar] 10 - 15 unit SQ HS 06/22/15 [ History] Sevelamer [Renvela] 4,000 mg PO TIDWM 06/22/15 [History] Atorvastatin [Lipitor] 40 mg PO HS 09/05/15 [History] amLODIPine [Norvasc] 10 mg PO DAILY 01/04/17 [History] Carvedilol [Coreg] 25 mg PO BID 04/12/17 [History] Gabapentin [Neurontin] 100 mg PO TID 07/20/17 [History] Ondansetron ODT [Zofran ODT] 4 mg PO Q6H PRN 07/20/17 [History] Pantoprazole Sodium [Protonix] 40 mg PO BID 07/20/17 [History] Ranolazine [Ranexa] 500 mg PO BID 07/20/17 [History] Clopidogrel Bisulfate [Plavix] 75 mg PO DAILY 07/21/17 [History] Amitriptyline [Elavil] 25 mg PO HS 09/13/17 [History] Cyclobenzaprine HCl 5 mg PO TID 09/13/17 [History] HYDROcodone/Acet 5/325 mg [[place] 5-325 mg] 1 tab PO Q8H PRN 09/13/17 [History] Isosorbide MONOnitrate (24 HR) [Imdur] 60 mg PO DAILY 09/13/17 [History] 3 Allergy/AdvReac Type Severity Reaction Status Date / Time omeprazole [From Prilosec] Allergy Mild Hives Verified 05/11/17 21:38 All Systems: A 10-system review of systems was performed and is negative for pertinent findings except as documented above in the HPI. Review of Systems: 10 point review of systems is consistent with a history of present illness and otherwise negative. Physical Examination - Vital Signs Vital Signs: Initial Vital Signs Temp Pulse Resp BP Pulse Ox 98.3 F 89 20 191/112 94 09/13/17 00:01 09/13/17 00:01 09/13/17 00:01 09/13/17 00:01 09/13/17 00:01 - Neurologic Detailed motor examination: full strength in all major muscle groups Motor examination - right side: 5/5: deltoids, biceps, triceps, wrist flexion, wrist extension, field control inspector, hip flexors, tibialis Anterior, quadriceps, toe extension (EHL), plantarflexion Motor examination - left side: 5/5: deltoids, biceps, triceps, wrist flexion, wrist extension, hip flexors, field control inspector, quadriceps, tibialis Anterior, toe extension (EHL), plantarflexion Detailed sensory examination: other (Decreased sensation to pinprick in a distal to proximal gradient. Proprioception is intact.) Reflexes: Biceps: 1+, Triceps: 1+, Brachioradialis: 1+, Patella: 1+, Achilles: 1 + Mental Status Examination: awake, alert, oriented to person, oriented to place, oriented to time, follows commands appropriately, answers questions appropriately, no agnosia, no aphasia, no aproxia Cranial nerve examination: PERRL, EOMI, visual pizarro intact, corneal reflexes brisk symmetrically, sensory to face intact, mastication intact, no facial asymmetry is present, no dysarthria, hearing is intact symmetrically, soft palate elevates bilaterally upon phonation, gag reflex intact, flexes SCM and trapezius muscles symmetrically with full power, tongue protrudes midline, no atrophy or facial fasiculations present Cerebellar examination: no dysmetria, performs finger to nose and heel to hein symmetrically without ataxia, no gait ataxia, no truncal ataxia, no difficulty with rapid alternating movements Results - Laboratory Findings CBC and BMP: 09/15/17 04:12 09/15/17 14:12 Abnormal lab findings: Abnormal lab results MCV 103.5 fL (83.0-100.0) H 09/15/17 04:12 RDW 16.4 % (11.5-14.5) H 09/15/17 04:12 Plt Count 98 K/mcL (140-400) L 09/15/17 04:12 Sodium 135 mEq/L (136-145) L 09/15/17 14:12 Potassium 5.9 mEq/L (3.5-4.5) H 09/15/17 14:12 Chloride 92 mEq/L (98-109) L 09/15/17 14:12 BUN 61 mg/dL (8-26) H 09/15/17 14:12 Creatinine 12.06 mg/dL (0.72-1.25) H 09/15/17 14:12 Est GFR ( Amer) 5 (> 60) L 09/15/17 14:12 Est GFR (Non-Af Amer) 4 (> 60) L 09/15/17 14:12 BUN/Creatinine Ratio 5 (6-26) L 09/15/17 14:12 Glucose 175 mg/dL (70-99) H 09/15/17 14:12 POC Glucose 117 (58-89) H 09/15/17 05:48 Hemoglobin A1c 5.7 % (-5.6) H 09/13/17 05:28 Calculated Osmolality 302 (280-300) H 09/15/17 14:12 Magnesium 2.7 mg/dL (1.6-2.6) H 09/14/17 04:11 Troponin I 0.05 ng/mL (0-0.03) H* 09/13/17 15:58 B-Natriuretic Peptide 279 pg/mL (0-100) H 09/13/17 00:30 Albumin 3.3 g/dL (3.5-5.0) L 09/13/17 05:28 Globulin 3.7 g/dL (2.4-3.5) H 09/13/17 05:28 Albumin/Globulin Ratio 0.9 (1.1-2.2) L 09/13/17 05:28 Consult Discharge Plan - Plan Referrals: Linette Mcdonnell, BACK ROLL LATHE OPERATOR [Advanced Practice Nurse] - 09/21/17 2:00 pm
[2017-09-15 20:17] LABS: Calcium 10.2 mg/dL (8.6-10.8)
[2017-09-15 20:20] LABS: Potassium 6.4 mEq/L (3.5-4.5)
--- NOTE | 2017-09-15 21:33 | Electrocardiograph Report ---
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
--- NOTE | 2017-09-15 21:36 | Electrocardiograph Report ---
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
[2017-09-15] MEDS: Insulin DETEMIR 100 UNIT/ML X5UNITS SQ SCH (22:03)
--- NOTE | 2017-09-15 23:07 | Nephrology Progress Note ---
Date of Encounter: 09/15/17 Time of Encounter: 12:00 - Assessment and Plan (1) Hyperkalemia Current Visit: Yes Status: Acute Potassium initially improved after HD down to 4.7 but worsened again today to 5.8. Unclear if receiving non renal food from outpatient from family Agree with kayexelate (2) ESRD (end stage renal disease) Current Visit: No Status: Chronic s/p 4 hours of HD yesterday with very reduced potassium bath at 1k with UF approx. [id number] Next HD planned tomorrow (3) Hypertensive urgency Current Visit: Yes Status: Acute BP normalized yesterday but appears to be worsening again today. Etiology unclear Continue coreg, norvasc and hydralazine Can taper hydralazine up as needed (4) Syncope Current Visit: Yes Status: Acute Workup ongoing and per neurology recs Qualifiers: Syncope type: unspecified Qualified Code(s): R55 - Syncope and collapse Subjective Principal diagnosis: Syncope Interval history: Interim noted. Pt seen amd examined feeling "terrible" with a "funny feeling in head" and continued left shoulder/arm pain, chandler reviewed with patient which was unremarkable. Son present at bedside. Objective - Vital Signs Vital signs: Vital Signs Temp Pulse Pulse Pulse Pulse Resp BP 09/15/17 20:00 86 09/15/17 19:11 98.6 F 84 22 185/104 09/15/17 16:31 82 24 211/120 09/15/17 11:26 98.9 F 81 22 193/115 09/15/17 05:17 98.1 F 89 17 187/108 09/15/17 00:22 91 93 92 09/15/17 00:20 98.1 F 91 16 193/88 09/15/17 00:00 98.2 F 90 177/84 BP BP BP Pulse Ox 09/15/17 20:00 09/15/17 19:11 09/15/17 16:31 96 09/15/17 11:26 98 09/15/17 05:17 96 09/15/17 00:22 193/88 191/102 183/96 09/15/17 00:20 95 09/15/17 00:00 98 Intake and Output 09/15/17 09/15/17 09/15/17 07:59 15:59 23:59 Intake Total 480 / 480 Output Total 0 / 0 Balance 0 / 0 480 / 480 Intake: Oral 240 / 240 Tube Feeding 240 / 240 Output: Urine 0 / 0 Other: Meal Lunch Percent of Meal Consumed 100% Stool Size Small # Bowel Movements 1 Weight 122.3 kg Blood Glucose* 117 151 106 Patient Weight 09/15/17 23:59 Weight 122.3 kg - General Appearance General appearance: Present: chronically ill (NAD) EENT: Present: ATNC, mucous membranes moist Neck: Present: no JVD, supple Additional Comments: good areation ant bilat Cardiology: Present: no edema, normal S1, normal S2 Dialysis Vascular Access: Arteriovenous Fistula thrill: Yes bruit: Yes Gastrointestinal: Present: no tenderness, no guarding Integumentary: Present: warm and dry Neurologic: Present: no focal deficit Additional Comments: left shoulder/arm tenderness on palp Psychiatric: Present: mood/affect appropriate, cooperative - Lab 09/15/17 04:12 09/15/17 19:52 Most recent lab results Calcium 10.2 mg/dL (8.6-10.8) 09/15/17 19:52 Magnesium 2.7 mg/dL (1.6-2.6) H 09/14/17 04:11 Consult Discharge Plan - Plan Referrals: Linette Mcdonnell, CAN SLIDER [Advanced Practice Nurse] - 09/21/17 2:00 pm
[2017-09-16] MEDS: Insulin LISPRO 300 UNITS/3 ML VIAL SQ SCH ×4 (02:07→17:34)
[2017-09-16 06:19] LABS: Calcium 9.9 mg/dL (8.6-10.8); Potassium 5.5 mEq/L (3.5-4.5)
[2017-09-16] MEDS: Pantoprazole 40 MG VIAL IVP SCH ×2 (06:34→17:34)
[2017-09-16] MEDS: Metoclopramide 10 MG/2 ML VIAL IVP SCH ×4 (06:34→22:40)
[2017-09-16] MEDS: *HR* Heparin 5,000 UNIT/ML VIAL SQ SCH ×3 (06:35→22:39)
[2017-09-16 07:15] LABS: Folate 7.2 ng/mL (7.0-31.4)
[2017-09-16] MEDS ORDERED: 0.9 % Sodium Chloride 250 ML IVC PRN (08:09)
[2017-09-16] MEDS: Furosemide 40 MG TABLET PO SCH ×2 (08:45→17:36)
[2017-09-16] MEDS: Vitamin B Complex/Vit C/Vit E 1 EACH TABLET PO SCH (08:50)
[2017-09-16] MEDS: Ranolazine 500 MG TAB.ER.12H PO SCH ×2 (08:51→22:39)
--- NOTE | 2017-09-16 09:17 | Internal Med Progress Note ---
<Nas Ricardo - Last Filed: 09/16/17 16:05> Date of Encounter: 09/16/17 Time of Encounter: 09:15 - Assessment and plan (1) Syncope Current Visit: Yes Status: Acute Assessment and plan: Significant history of similar episodes; unclear etiology thus far per workup, no apparent cardiovascular etiology Dr. 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 continue to follow with nephro cont following daily BMP (4) Hyperkalemia Current Visit: Yes Status: Acute Assessment and plan: Patient has so far received two doses of Kayexalate after HD, K+ did decrease, but has since elevated again to 5.8 this AM evening potassium recheck yesterday was 6.4; has improved this a.m. currently at 5.5 patient receive hemodialysis this a.m.; afternoon recheck was 3.5 continue to monitor BMP qAM consider temporizing measures as needed (5) Elevated troponin Current Visit: No Status: Acute Assessment and plan: chronically elevated unlikely to be due to ACS (6) Diabetes Current Visit: No Status: Chronic Assessment and plan: Continue ISS + Levemir on 1st contact this AM, patient was eating a pastry; patient's family has been apparently supplying patient with food despite NPO status specifically job counselor patient on dietary factors that will worsen his diabetes and blood sugar control continue diabetic diet Qualifiers: Diabetes mellitus type: type 2 Diabetes mellitus complication status: with kidney complications Diabetes mellitus complication detail: with chronic kidney disease Diabetes mellitus termite renewal inspector insulin use: with termite renewal inspector use Chronic kidney disease stage: on chronic dialysis Qualified Code(s): E11.22 - Type 2 diabetes mellitus with diabetic chronic kidney disease; N18.6 - End stage renal disease; Z99.2 - Dependence on renal dialysis; Z99.2 - Dependence on renal dialysis; Z99.2 - Dependence on renal dialysis; N18.6 - End stage renal disease; N18.6 - End stage renal disease; N18.6 - End stage renal disease ; Z79.4 - halfway (current) use of insulin; Z79.4 - halfway (current) use of insulin; Z79.4 - terminal makeup operator (current) use of insulin; Z79.4 - terminal makeup operator ( current) use of insulin; Z99.2 - Dependence on renal dialysis (7) GERD (gastroesophageal reflux disease) Current Visit: No Status: Acute Assessment and plan: Continue Protonix Qualifiers: Esophagitis presence: esophagitis presence not specified Qualified Code(s) : K21.9 - Gastro-esophageal reflux disease without esophagitis (8) DVT prophylaxis Current Visit: No Status: Acute Assessment and plan: Continue subQ heparin - Time Spent With Patient less than 15 minutes - Subjective Interval history: Due to recurrent nausea and vomiting plate prior evening, patient was placed on NPO status and CT of the abdomen was obtained which did not demonstrate any significant associated findings including large stool burden or bowel obstruction. Patient states throughout the night and this a.m. has not had any ongoing nausea or vomiting. Has eaten breakfast this a.m. despite NPO status. No acute complaints. - Constitutional Vitals: Temp Pulse Resp BP Pulse Ox 97.2 F L 91 22 191/102 100 09/16/17 00:39 09/16/17 04:20 09/16/17 04:20 09/16/17 00:39 09/16/17 04:20 General appearance: Present: cooperative, A&O X 3, no acute distress, answers questions appropriately - Head Head exam: Present: atraumatic, normocephalic - Eye Eye exam: Present: PERRL, conjuntiva pink, sclera anicteric. Absent: conjunctival injection - Neck Neck exam general surgery: Present: supple, trachea midline. Absent: lymphadenopathy - Respiratory Respiratory exam: Present: CTAB. Absent: accessory muscle use, rales, respiratory distress, rhonchi, stridor, wheezes Additional comments: Saturating well on 3 L nasal cannula without any apparent respiratory distress; is able to speak full sentences without any interruptions and speech. - Cardiovascular Cardiovascular exam: Present: RRR, +S1, +S2. Absent: diastolic murmur, gallop, rubs, systolic murmur - GI/Abdominal GI/Abdominal exam: Present: normal bowel sounds, soft, no peritoneal signs. Absent: distended, firm, guarding, rigid, tenderness - Extremities Exam Extremities exam: Present: warm, radial pulses palpable and symmetrical. Absent : calf tenderness, cyanotic, pedal edema - Neurological Exam Neurological exam: Present: no focal deficits. Absent: facial droop, speech deficit - Skin Skin exam: Present: dry, intact, normal color. Absent: cyanosis, diaphoretic, mottled, pallor Internal Medicine: Result - Labs CBC & Chem 7: 09/15/17 04:12 09/16/17 13:20 Labs: BMP 09/15/17 09/15/17 09/16/17 14:12 19:52 05:52 Sodium 135 L 137 138 Potassium 5.9 H 6.4 H 5.5 H Chloride 92 L 91 L 92 L Carbon Dioxide 27 26 29 BUN 61 H 67 H 74 H Creatinine 12.06 H 12.62 H 13.54 H Glucose 175 H 105 H 170 H Calcium 9.9 10.2 9.9 Laboratory Last Values WBC 4.4 K/mcL (4.3-11.1) 09/15/17 04:12 RBC 4.24 M/mcL (4.19-5.50) 09/15/17 04:12 Hgb 14.0 g/dL (12.9-16.9) 09/15/17 04:12 Hct 43.9 % (37.5-50.1) 09/15/17 04:12 MCV 103.5 fL (83.0-100.0) H 09/15/17 04:12 MCH 33.0 pg (28.0-33.3) 09/15/17 04:12 MCHC 31.9 g/dL (31.6-35.5) 09/15/17 04:12 RDW 16.4 % (11.5-14.5) H 09/15/17 04:12 Plt Count 98 K/mcL (140-400) L 09/15/17 04:12 MPV 9.8 fL (9.4-12.4) 09/15/17 04:12 Immature Gran % 0.2 % (0-4) 09/15/17 04:12 Seg Neutrophils % 65.7 % 09/15/17 04:12 Lymphocytes % 18.3 % 09/15/17 04:12 Monocytes % 12.4 % 09/15/17 04:12 Eosinophils % 3.2 % 09/15/17 04:12 Basophils % 0.2 % 09/15/17 04:12 Neutrophils # 2.9 K/mcL (1.6-8.9) 09/15/17 04:12 Lymphocytes # 0.8 K/mcL (0.6-4.6) 09/15/17 04:12 Monocytes # 0.6 K/mcL (0.0-1.3) 09/15/17 04:12 Eosinophils # 0.1 K/mcL (0.0-0.6) 09/15/17 04:12 Basophils # 0.0 K/mcL (0.0-0.2) 09/15/17 04:12 Immature Plt Fraction 1.9 % (1.1-6.1) 09/14/17 04:11 PT 10.6 Seconds (9.4-12.1) 09/13/17 00:30 INR 1.0 09/13/17 00:30 APTT 30.8 Seconds (26.0-36.0) 09/13/17 00:30 Sodium 138 mEq/L (136-145) 09/16/17 05:52 Potassium 5.5 mEq/L (3.5-4.5) H 09/16/17 05:52 Chloride 92 mEq/L (98-109) L 09/16/17 05:52 Carbon Dioxide 29 mEq/L (19-29) 09/16/17 05:52 BUN 74 mg/dL (8-26) H 09/16/17 05:52 Creatinine 13.54 mg/dL (0.72-1.25) H 09/16/17 05:52 Est GFR ( Amer) 5 (> 60) L 09/16/17 05:52 Est GFR (Non-Af Amer) 4 (> 60) L 09/16/17 05:52 BUN/Creatinine Ratio 5 (6-26) L 09/16/17 05:52 Glucose 170 mg/dL (70-99) H 09/16/17 05:52 POC Glucose 190 (58-89) H 09/16/17 02:00 Est Mean Plasma Glucose 117 mg/dl 09/13/17 05:28 Hemoglobin A1c 5.7 % (-5.6) H 09/13/17 05:28 Calculated Osmolality 312 (280-300) H 09/16/17 05:52 Calcium 9.9 mg/dL (8.6-10.8) 09/16/17 05:52 Magnesium 2.7 mg/dL (1.6-2.6) H 09/14/17 04:11 Total Bilirubin 0.6 mg/dL (0.2-1.2) 09/13/17 05:28 AST 17 Units/L (5-34) 09/13/17 05:28 ALT 10 Units/L (0-55) 09/13/17 05:28 Alkaline Phosphatase 83 Units/L (38-126) 09/13/17 05:28 Troponin I 0.05 ng/mL (0-0.03) H* 09/13/17 15:58 B-Natriuretic Peptide 279 pg/mL (0-100) H 09/13/17 00:30 Serum Total Protein 7.0 g/dL (6.0-8.3) 09/13/17 05:28 Albumin 3.3 g/dL (3.5-5.0) L 09/13/17 05:28 Globulin 3.7 g/dL (2.4-3.5) H 09/13/17 05:28 Albumin/Globulin Ratio 0.9 (1.1-2.2) L 09/13/17 05:28 Vitamin B12 769 pg/mL (213-816) 09/16/17 05:52 Folate 7.2 ng/mL (7.0-31.4) 09/16/17 05:52 Hep Bs Antigen Nonreactive (Nonreactive) 09/14/17 10:30 Hep Bs Antibody 88.23 mIU/mL 09/14/17 10:30 Blood Type O POSITIVE 09/13/17 00:30 Antibody Screen NEGATIVE 09/13/17 00:30 - ABG Interpretation ABG results: PT/INR, D-dimer PT 10.6 Seconds (9.4-12.1) 09/13/17 00:30 - Impressions Impressions Gallbladder Ultrasound 09/15/17 09:00 IMPRESSION: No acute abnormalities. Multiple right renal cysts, felt to be benign and similar to prior CT exam 01/28/2017 given differences in modality. No follow-up imaging recommended. D/ / 09/15/2017 10:25:27 Josh Malone MD / russ Interpreting Provider: Josh Malone MD Abdomen/Pelvis CT 09/15/17 18:06 IMPRESSION: 1. No evidence of small bowel obstruction to account for patient's vomiting. Moderate amount of stool in the colon. 2. Nonobstructing bilateral nephrolithiasis. 3. Chronic bilateral renal cortical thinning. D/ / 09/15/2017 19:13:43 Taj Monroy MD / russ Interpreting Provider: Taj Monroy MD - Diagnostic Studies CT scan - abdomen Additional comments: Chest X-Ray 09/13/17 00:33 IMPRESSION: Pulmonary vascular congestion centrally. Overall, appearance of the chest has improved. D/ / Kimberly Benavides MD / Kimberly Benavides MD Interpreting Provider: Kimberly Benavides MD Head CT 09/13/17 00:35 IMPRESSION: No acute intracranial abnormality. D/ / Kimberly Benavides MD / Kimberly Benavides MD Interpreting Provider: Kimberly Benavides MD Cervical Spine CT 09/13/17 00:39 IMPRESSION: No acute fracture D/ / Kimberly Benavides MD / Kimberly Benavides MD Interpreting Provider: Kimberly Benavides MD Knee X-Ray 09/13/17 00:44 IMPRESSION: No acute findings. D/ / Kimberly Benavides MD / Kimberly Benavides MD Interpreting Provider: Kimberly Benavides MD Echocardiogram Limited Views 09/13/17 05:02 Impressions: LVEF 60%. Definity echo contrast was used. Normal LV systolic function and wall motion. Pericardial effusion was not visualized on this study. Subcostal images were not available. Left Ventricular Wall Motion: Rest Echo Findings All wall segments showed normal motion. Findings: Study Quality * Technically adequate exam. ECG Findings * Normal sinus rhythm. Left Ventricle * Normal LV chamber size, wall thickness and function. * Definity echo contrast was used. * LVEF 60%. Right Ventricle * RV is not fully evaluated on this limited study. Shoulder X-Ray 09/14/17 21:41 IMPRESSION: No acute osseous abnormality of the left shoulder. D/ / Herman Fam MD / Herman Fam MD Interpreting Provider: Herman Fam MD Gallbladder Ultrasound 09/15/17 09:00 IMPRESSION: No acute abnormalities. Multiple right renal cysts, felt to be benign and similar to prior CT exam 01/28/2017 given differences in modality. No follow-up imaging recommended. D/ / 09/15/2017 10:25:27 Josh Malone MD / russ Interpreting Provider: Josh Malone MD Abdomen/Pelvis CT 09/15/17 18:06 IMPRESSION: 1. No evidence of small bowel obstruction to account for patient's vomiting. Moderate amount of stool in the colon. 2. Nonobstructing bilateral nephrolithiasis. 3. Chronic bilateral renal cortical thinning. D/ / 09/15/2017 19:13:43 Taj Monroy MD / russ Interpreting Provider: Taj Monroy MD Consult Discharge Plan - Plan Referrals: Linette Mcdonnell, AUTO LOCATOR [Advanced Practice Nurse] - 09/21/17 2:00 pm <Reese Kenyon - Last Filed: 09/16/17 18:39> Date of Encounter: 09/16/17 - Constitutional Vitals: Temp Pulse Resp BP Pulse Ox 97.3 F L 91 17 119/66 95 09/16/17 13:35 09/16/17 08:40 09/16/17 13:35 09/16/17 13:35 09/16/17 08:40 Internal Medicine: Result - Labs CBC & Chem 7: 09/15/17 04:12 09/16/17 13:20 Labs: BMP 09/15/17 09/16/17 09/16/17 19:52 05:52 13:20 Sodium 137 138 Potassium 6.4 H 5.5 H 3.5 D Chloride 91 L 92 L Carbon Dioxide 26 29 BUN 67 H 74 H Creatinine 12.62 H 13.54 H Glucose 105 H 170 H Calcium 10.2 9.9 - ABG Interpretation ABG results: PT/INR, D-dimer PT 10.6 Seconds (9.4-12.1) 09/13/17 00:30 - Impressions Impressions Abdomen/Pelvis CT 09/15/17 18:06 IMPRESSION: 1. No evidence of small bowel obstruction to account for patient's vomiting. Moderate amount of stool in the colon. 2. Nonobstructing bilateral nephrolithiasis. 3. Chronic bilateral renal cortical thinning. D/ / 09/15/2017 19:13:43 Taj Monroy MD / russ Interpreting Provider: Taj Monroy MD - Attending Attestation I examined this patient and my medical decision-making was reviewed with the Resident Physician, Dr. Davion Lovell. I agree with the documented findings, disposition and treatment plan as described except to the extent set forth below. I have independently obtained history and examined the patient and my findings are summarized below: Patient reports symptomatic improvement. On exam he is in no acute distress awake alert oriented. Heart is regular. Lungs are clear. Suspected vasovagal syncope, resistant hypertension. Continue hemodialysis. Increase hydralazine per nephrology recommendations. Restart imdur.
[2017-09-16] MEDS ORDERED: Albumin 25% 25gram/100mL 25 GM/100 ML IV.SOLN IVPB ONE (11:11)
[2017-09-16] MEDS ORDERED: Albumin 25% 12.5gm/50mL 25.0 GM/100 ML IV.SOLN ONE (11:13)
[2017-09-16] MEDS ORDERED: 0.9 % Sodium Chloride 2,000 ML ONE (11:16)
--- NOTE | 2017-09-16 11:17 | Nephrology Progress Note ---
Date of Encounter: 09/16/17 Time of Encounter: 11:14 - Assessment and Plan (1) Hyperkalemia Current Visit: Yes Status: Acute Renal diet ordered Patient has been eating non-renal diet from cafeteria that family brought to him Running a 1K+ bath again today (2) Hypertensive urgency Current Visit: Yes Status: Acute Hydralazine increased to 75mg p.o. every 8 hours Continue Coreg and Norvasc (3) ESRD (end stage renal disease) on dialysis Current Visit: No Status: Chronic HD today for 4 hours with 1K+ bath Avoid nephrotoxins if possible Subjective Principal diagnosis: Syncope Interval history: Patient seen and examined in dialysis. States he is feeling ok but c/o feet pain Objective - Vital Signs Vital signs: Vital Signs Temp Pulse Resp BP Pulse Ox 09/16/17 08:40 97.2 F L 91 18 211/119 95 09/16/17 04:20 91 22 100 09/16/17 00:57 91 22 100 09/16/17 00:39 97.2 F L 89 22 191/102 100 09/15/17 20:00 86 09/15/17 19:11 98.6 F 84 22 185/104 09/15/17 16:31 82 24 211/120 96 09/15/17 11:26 98.9 F 81 22 193/115 98 Intake and Output 09/15/17 09/16/17 09/16/17 23:59 07:59 15:59 Other: Weight 69.6 kg Blood Glucose* 106 180 Patient Weight 09/16/17 23:59 Weight 69.6 kg - General Appearance General appearance: Present: well-developed, well-nourished, obese EENT: Present: ATNC, mucous membranes moist, hearing intact, vision intact Neck: Present: supple Respiratory: Present: clear Cardiology: Present: no edema, normal S1, normal S2 Dialysis Vascular Access: Arteriovenous Fistula Gastrointestinal: Present: no tenderness, no guarding, obese Integumentary: Present: warm and dry Neurologic: Present: alert and oriented x3 Psychiatric: Present: mood/affect appropriate, cooperative - Lab 09/15/17 04:12 09/16/17 05:52 Most recent lab results Calcium 9.9 mg/dL (8.6-10.8) 09/16/17 05:52 Magnesium 2.7 mg/dL (1.6-2.6) H 09/14/17 04:11 Consult Discharge Plan - Plan Referrals: Linette Mcdonnell CNP [Advanced Practice Nurse] - 09/21/17 2:00 pm
[2017-09-16] MEDS: Gabapentin 100 MG CAPSULE PO SCH ×3 (14:15→22:39)
[2017-09-16] MEDS: amLODIPine 5 MG TABLET PO SCH (14:15)
[2017-09-16] MEDS: hydrALAZINE 25 MG TABLET PO SCH ×2 (17:37→22:39)
[2017-09-16] MEDS: Isosorbide MONOnitrate (24 HR) 60 MG TAB.ER.24H PO SCH (17:37)
--- NOTE | 2017-09-16 19:06 | Electrocardiograph Report ---
[place] [id number] Test Date: 2017-09-15 Pat Name: Man Monge Department: 110 Room: 2N03 Gender: M Pickle Sorter: [facility] – [place] : 1960 Requested By: Reese Kenyon Order Number: [id number] Reading MD: Gilbert Butterfield MD Measurements Intervals Marshall Rate: 83 P: 36 NM: 228 QRS: -74 QRSD: 122 T: 49 QT: 411 QTc: 450 Interpretive Statements SINUS RHYTHM WITH FIRST DEGREE AV BLOCK LEFT ANTERIOR FASCICULAR BLOCK Poor R wave progression Electronically Signed On 09-16-2017 19:04:08 EST by Gilbert Butterfield MD
[2017-09-16] MEDS ORDERED: Insulin LISPRO 300 UNITS/3 ML VIAL SQ SCH (21:00)
[2017-09-16] MEDS: Insulin DETEMIR 100 UNIT/ML X5UNITS SQ SCH (22:40)
[2017-09-17] MEDS: Pantoprazole 40 MG VIAL IVP SCH (05:21)
[2017-09-17] MEDS: *HR* Heparin 5,000 UNIT/ML VIAL SQ SCH (05:21)
[2017-09-17] MEDS: Metoclopramide 10 MG/2 ML VIAL IVP SCH ×2 (05:21→11:34)
[2017-09-17 05:34] LABS: Basophils % 0.5 %; Eosinophils # 0.1 K/mcL (0.0-0.6); Eosinophils % 2.8 %; Hematocrit 40.9 % (37.5-50.1); Hemoglobin 13.4 g/dL (12.9-16.9); Immature Granulocytes % 0.3 % (0-4); Lymphocytes # 0.7 K/mcL (0.6-4.6); Lymphocytes % 17.9 %; Mean Corpuscular HGB Conc 32.8 g/dL (31.6-35.5); Mean Corpuscular Hemoglobin 33.4 pg (28.0-33.3); Mean Platelet Volume 9.3 fL (9.4-12.4); Monocytes # 0.5 K/mcL (0.0-1.3); Monocytes % 12.1 %; Neutrophils # 2.6 K/mcL (1.6-8.9); Platelet Count 108 K/mcL (140-400); Red Blood Count 4.01 M/mcL (4.19-5.50); Red Cell Distribution Width 15.8 % (11.5-14.5); Segmented Neutrophils % 66.4 %
[2017-09-17 05:39] LABS: Calcium 9.8 mg/dL (8.6-10.8)
[2017-09-17 05:41] LABS: Potassium 5.6 mEq/L (3.5-4.5)
[2017-09-17] MEDS: Furosemide 40 MG TABLET PO SCH (08:06)
[2017-09-17] MEDS: hydrALAZINE 25 MG TABLET PO SCH (08:06)
[2017-09-17] MEDS: amLODIPine 5 MG TABLET PO SCH (08:07)
[2017-09-17] MEDS: Ranolazine 500 MG TAB.ER.12H PO SCH (08:07)
[2017-09-17] MEDS: Insulin LISPRO 300 UNITS/3 ML VIAL SQ SCH ×2 (08:07→11:34)
[2017-09-17] MEDS: Isosorbide MONOnitrate (24 HR) 60 MG TAB.ER.24H PO SCH (08:07)
[2017-09-17] MEDS: Gabapentin 100 MG CAPSULE PO SCH (08:07)
[2017-09-17] MEDS: Vitamin B Complex/Vit C/Vit E 1 EACH TABLET PO SCH (08:07)
--- NOTE | 2017-09-17 10:36 | Internal Med Progress Note ---
Date of Encounter: 09/17/17 Time of Encounter: 10:00 - Assessment and plan (1) Syncope Current Visit: Yes Status: Acute Assessment and plan: Significant history of similar episodes; unclear etiology thus far per workup, no apparent cardiovascular etiology Dr. 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 due to pressures elevated into the 180s, systolic May consider adding clonidine for better control cont to monitor (3) ESRD (end stage renal disease) Current Visit: No Status: Chronic Assessment and plan: HD yesterday a.m.; on MWF schedule discussed patient [id number] with nephro particularly with respect to recurrent hyperkalemia continue to follow with nephro cont following daily BMP (4) Hyperkalemia Current Visit: Yes Status: Acute Assessment and plan: patient received hemodialysis yesterday a.m. with afternoon recheck of 3.5; was 5.6 this a.m. continue to monitor BMP qAM consider temporizing measures as needed (5) Elevated troponin Current Visit: No Status: Acute Assessment and plan: chronically elevated unlikely to be due to ACS (6) Diabetes Current Visit: No Status: Chronic Assessment and plan: Continue ISS + Levemir counseled patient again on eating outside-food as this can have an effect on IP glucose control as well as lyte abnormalities as stated above continue diabetic diet Qualifiers: Diabetes mellitus type: type 2 Diabetes mellitus complication status: with kidney complications Diabetes mellitus complication detail: with chronic kidney disease Diabetes mellitus terminal gauger supervisor insulin use: with terminal gauger supervisor use Chronic kidney disease stage: on chronic dialysis Qualified Code(s): E11.22 - Type 2 diabetes mellitus with diabetic chronic kidney disease; N18.6 - End stage renal disease; Z99.2 - Dependence on renal dialysis; Z99.2 - Dependence on renal dialysis; Z99.2 - Dependence on renal dialysis; N18.6 - End stage renal disease; N18.6 - End stage renal disease; N18.6 - End stage renal disease ; Z79.4 - termite control representative (current) use of insulin; Z79.4 - correction (current) use of insulin; Z79.4 - termite control representative (current) use of insulin; Z79.4 - correction ( current) use of insulin; Z99.2 - Dependence on renal dialysis (7) GERD (gastroesophageal reflux disease) Current Visit: No Status: Acute Assessment and plan: Continue Protonix Qualifiers: Esophagitis presence: esophagitis presence not specified Qualified Code(s) : K21.9 - Gastro-esophageal reflux disease without esophagitis (8) DVT prophylaxis Current Visit: No Status: Acute Assessment and plan: Continue subQ heparin - Time Spent With Patient less than 15 minutes - Subjective Interval history: Asymptomatic this a.m.; not having any nausea, vomiting, shortness of breath, pain, or other acute complaints. Has been eating and having bowel movements without any trouble. Counseled patient on eating outside food as this may be a contributor to his recurrent hyperkalemia. - Constitutional Vitals: Temp Pulse Resp BP Pulse Ox 97.5 F L 79 18 169/95 98 09/17/17 08:05 09/17/17 08:05 09/17/17 08:05 09/17/17 09:21 09/17/17 08:05 General appearance: Present: cooperative, A&O X 3, no acute distress, answers questions appropriately - Head Head exam: Present: atraumatic, normocephalic - Eye Eye exam: Present: PERRL, conjuntiva pink, sclera anicteric. Absent: conjunctival injection - Neck Neck exam general surgery: Present: supple, trachea midline - Respiratory Respiratory exam: Present: CTAB. Absent: accessory muscle use, rales, respiratory distress, rhonchi, stridor, wheezes, tachypnea - Cardiovascular Cardiovascular exam: Present: RRR, +S1, +S2. Absent: diastolic murmur, gallop, rubs, +S3, +S4, systolic murmur, tachycardia - GI/Abdominal GI/Abdominal exam: Present: soft. Absent: distended, tenderness - Extremities Exam Extremities exam: Present: warm, radial pulses palpable and symmetrical. Absent : calf tenderness, cyanotic, mottling, pedal edema - Neurological Exam Neurological exam: Present: no focal deficits. Absent: facial droop, speech deficit - Skin Skin exam: Present: dry, intact, normal color. Absent: cyanosis, diaphoretic, mottled, pallor Internal Medicine: Result - Labs CBC & Chem 7: 09/17/17 05:00 09/17/17 05:00 Labs: Short CBC 09/17/17 Range/Units 05:00 WBC 3.9 L (4.3-11.1) K/mcL Hgb 13.4 (12.9-16.9) g/dL Hct 40.9 (37.5-50.1) % Plt Count 108 L (140-400) K/mcL Neutrophils # 2.6 (1.6-8.9) K/mcL BMP 09/16/17 09/17/17 13:20 05:00 Sodium 134 L Potassium 3.5 D 5.6 H D Chloride 90 L Carbon Dioxide 30 H BUN 48 H D Creatinine 9.71 H Glucose 94 Calcium 9.8 Laboratory Last Values WBC 3.9 K/mcL (4.3-11.1) L 09/17/17 05:00 RBC 4.01 M/mcL (4.19-5.50) L 09/17/17 05:00 Hgb 13.4 g/dL (12.9-16.9) 09/17/17 05:00 Hct 40.9 % (37.5-50.1) 09/17/17 05:00 MCV 102.0 fL (83.0-100.0) H 09/17/17 05:00 MCH 33.4 pg (28.0-33.3) H 09/17/17 05:00 MCHC 32.8 g/dL (31.6-35.5) 09/17/17 05:00 RDW 15.8 % (11.5-14.5) H 09/17/17 05:00 Plt Count 108 K/mcL (140-400) L 09/17/17 05:00 MPV 9.3 fL (9.4-12.4) L 09/17/17 05:00 Immature Gran % 0.3 % (0-4) 09/17/17 05:00 Seg Neutrophils % 66.4 % 09/17/17 05:00 Lymphocytes % 17.9 % 09/17/17 05:00 Monocytes % 12.1 % 09/17/17 05:00 Eosinophils % 2.8 % 09/17/17 05:00 Basophils % 0.5 % 09/17/17 05:00 Neutrophils # 2.6 K/mcL (1.6-8.9) 09/17/17 05:00 Lymphocytes # 0.7 K/mcL (0.6-4.6) 09/17/17 05:00 Monocytes # 0.5 K/mcL (0.0-1.3) 09/17/17 05:00 Eosinophils # 0.1 K/mcL (0.0-0.6) 09/17/17 05:00 Basophils # 0.0 K/mcL (0.0-0.2) 09/17/17 05:00 Immature Plt Fraction 2.0 % (1.1-6.1) 09/17/17 05:00 PT 10.6 Seconds (9.4-12.1) 09/13/17 00:30 INR 1.0 09/13/17 00:30 APTT 30.8 Seconds (26.0-36.0) 09/13/17 00:30 Sodium 134 mEq/L (136-145) L 09/17/17 05:00 Potassium 5.6 mEq/L (3.5-4.5) H D 09/17/17 05:00 Chloride 90 mEq/L (98-109) L 09/17/17 05:00 Carbon Dioxide 30 mEq/L (19-29) H 09/17/17 05:00 BUN 48 mg/dL (8-26) H D 09/17/17 05:00 Creatinine 9.71 mg/dL (0.72-1.25) H 09/17/17 05:00 Est GFR ( Amer) 7 (> 60) L 09/17/17 05:00 Est GFR (Non-Af Amer) 6 (> 60) L 09/17/17 05:00 BUN/Creatinine Ratio 5 (6-26) L 09/17/17 05:00 Glucose 94 mg/dL (70-99) 09/17/17 05:00 POC Glucose 93 (58-89) H 09/17/17 07:27 Est Mean Plasma Glucose 117 mg/dl 09/13/17 05:28 Hemoglobin A1c 5.7 % (-5.6) H 09/13/17 05:28 Calculated Osmolality 290 (280-300) 09/17/17 05:00 Calcium 9.8 mg/dL (8.6-10.8) 09/17/17 05:00 Magnesium 2.7 mg/dL (1.6-2.6) H 09/14/17 04:11 Total Bilirubin 0.6 mg/dL (0.2-1.2) 09/13/17 05:28 AST 17 Units/L (5-34) 09/13/17 05:28 ALT 10 Units/L (0-55) 09/13/17 05:28 Alkaline Phosphatase 83 Units/L (38-126) 09/13/17 05:28 Troponin I 0.05 ng/mL (0-0.03) H* 09/13/17 15:58 B-Natriuretic Peptide 279 pg/mL (0-100) H 09/13/17 00:30 Serum Total Protein 7.0 g/dL (6.0-8.3) 09/13/17 05:28 Albumin 3.3 g/dL (3.5-5.0) L 09/13/17 05:28 Globulin 3.7 g/dL (2.4-3.5) H 09/13/17 05:28 Albumin/Globulin Ratio 0.9 (1.1-2.2) L 09/13/17 05:28 Vitamin B12 769 pg/mL (213-816) 09/16/17 05:52 Folate 7.2 ng/mL (7.0-31.4) 09/16/17 05:52 Hep Bs Antigen Nonreactive (Nonreactive) 09/14/17 10:30 Hep Bs Antibody 88.23 mIU/mL 09/14/17 10:30 Blood Type O POSITIVE 09/13/17 00:30 Antibody Screen NEGATIVE 09/13/17 00:30 - ABG Interpretation ABG results: PT/INR, D-dimer PT 10.6 Seconds (9.4-12.1) 09/13/17 00:30 Consult Discharge Plan - Plan Referrals: Linette Mcdonnell, POLITICAL SCIENCE PROFESSOR [Advanced Practice Nurse] - 09/21/17 2:00 pm
[2017-09-17 10:56] VITALS: BP 139/88
--- NOTE | 2017-09-17 11:24 | Nephrology Progress Note ---
Date of Encounter: 09/17/17 Time of Encounter: : - Assessment and Plan (1) Hyperkalemia Current Visit: Yes Status: Acute Continue renal diet Patient is historically very non-compliant with diet and fluids (2) Hypertensive urgency Current Visit: Yes Status: Acute B/P improving Will continue to watch closely in the outpatient dialysis unit (3) ESRD (end stage renal disease) on dialysis Current Visit: No Status: Chronic Plan for HD tomorrow Avoid nephrotoxins if possible Subjective Principal diagnosis: Syncope Interval history: Patient seen and examined in dialysis. States he is feeling ok and wanting to be discharged. Objective - Vital Signs Vital signs: Vital Signs Temp Pulse Resp BP Pulse Ox 09/17/17 10:53 97.5 F L 78 16 139/88 96 09/17/17 09:21 169/95 09/17/17 08:05 97.5 F L 79 18 185/128 98 09/17/17 07:28 97.5 F L 79 18 185/128 98 09/17/17 07:15 97.7 F 82 14 168/100 98 09/17/17 05:03 97.9 F 82 19 174/102 96 09/17/17 04:04 74 19 96 09/17/17 00:29 98.0 F 79 18 141/65 96 09/17/17 00:15 76 18 96 09/16/17 21:30 79 18 96 09/16/17 19:17 98.4 F 74 18 137/87 98 09/16/17 13:35 97.3 F L 17 119/66 09/16/17 13:25 117/64 09/16/17 12:55 104/66 09/16/17 12:25 93/52 09/16/17 11:55 104/58 09/16/17 11:25 106/52 Intake and Output 09/16/17 09/17/17 09/17/17 23:59 07:59 15:59 Other: Meal npo Percent of Meal Consumed 0% Weight 68.9 kg Blood Glucose* 192 94 159 Patient Weight 09/17/17 23:59 Weight 68.9 kg - General Appearance General appearance: Present: obese EENT: Present: ATNC, mucous membranes moist, hearing intact, vision intact Neck: Present: supple Respiratory: Present: clear Cardiology: Present: no edema, normal S1, normal S2 Dialysis Vascular Access: Arteriovenous Fistula Gastrointestinal: Present: no tenderness, no guarding Integumentary: Present: warm and dry Neurologic: Present: alert and oriented x3 Psychiatric: Present: mood/affect appropriate, cooperative - Lab 09/17/17 05:00 09/17/17 05:00 Most recent lab results Calcium 9.8 mg/dL (8.6-10.8) 09/17/17 05:00 Magnesium 2.7 mg/dL (1.6-2.6) H 09/14/17 04:11 Consult Discharge Plan - Plan Referrals: Linette Mcdonnell, HAMMER REPAIRER [Advanced Practice Nurse] - 09/21/17 2:00 pm
[2017-09-17] MEDS: Acetaminophen 325 MG TABLET PO PRN (12:04)
--- NOTE | 2017-09-17 13:47 | Discharge Summary ---
<Nas Ricardo - Last Filed: 09/17/17 15:50> Date of Encounter: 09/17/17 Time of Encounter: 11:00 - Discharge Diagnosis (1) Syncope Priority: Primary Status: Acute Comments: Thus far, no discernible specific organic etiology no episodes throughout admission Qualifiers: Syncope type: unspecified Qualified Code(s): R55 - Syncope and collapse (2) Malignant hypertension with end stage renal disease Priority: Primary Status: Acute Comments: Chronic/stable discharged on hydralazine 50 mg QID (3) ESRD (end stage renal disease) Priority: Primary Status: Chronic Comments: Chronic/table; on dialysis 3 times a week (4) Hyperkalemia Priority: Primary Status: Acute Comments: Chronically elevated per nephro; 5.6 on discharge (5) Elevated troponin Priority: Secondary Status: Acute Comments: Chronically elevated; unlikely due to ACS (6) Diabetes Priority: Secondary Status: Chronic Qualifiers: Diabetes mellitus type: type 2 Diabetes mellitus complication status: with kidney complications Diabetes mellitus complication detail: with chronic kidney disease Diabetes mellitus senior care insulin use: with termite renewal inspector use Chronic kidney disease stage: on chronic dialysis Qualified Code(s): E11.22 - Type 2 diabetes mellitus with diabetic chronic kidney disease; N18.6 - End stage renal disease; Z99.2 - Dependence on renal dialysis; Z99.2 - Dependence on renal dialysis; Z99.2 - Dependence on renal dialysis; N18.6 - End stage renal disease; N18.6 - End stage renal disease; N18.6 - End stage renal disease ; Z79.4 - termite renewal inspector (current) use of insulin; Z79.4 - [facility] (current) use of insulin; Z79.4 - termite renewal inspector (current) use of insulin; Z79.4 - termite renewal inspector ( current) use of insulin; Z99.2 - Dependence on renal dialysis (7) GERD (gastroesophageal reflux disease) Priority: Secondary Status: Acute Qualifiers: Esophagitis presence: esophagitis presence not specified Qualified Code(s) : K21.9 - Gastro-esophageal reflux disease without esophagitis (8) DVT prophylaxis Priority: Secondary Status: Acute - Discharge Medications Prescriptions: Hydralazine HCl 50 mg PO QID 30 Days #120 tablet Polyethylene Glycol 3350 [MiraLAX] 17 gm PO DAILY 5 Days #5 powd.pack Home Medications: Furosemide [Lasix] 40 mg PO BID 06/22/15 [History] Insulin Glargine,Hum.rec.anlog [Lantus Solostar] 10 - 15 unit SQ HS 06/22/15 [ History] Sevelamer [Renvela] 4,000 mg PO TIDWM 06/22/15 [History] Atorvastatin [Lipitor] 40 mg PO HS 09/05/15 [History] amLODIPine [Norvasc] 10 mg PO DAILY 01/04/17 [History] Carvedilol [Coreg] 25 mg PO BID 04/12/17 [History] Gabapentin [Neurontin] 100 mg PO TID 07/20/17 [History] Ondansetron ODT [Zofran ODT] 4 mg PO Q6H PRN 07/20/17 [History] Pantoprazole Sodium [Protonix] 40 mg PO BID 07/20/17 [History] Ranolazine [Ranexa] 500 mg PO BID 07/20/17 [History] Clopidogrel Bisulfate [Plavix] 75 mg PO DAILY 07/21/17 [History] Amitriptyline [Elavil] 25 mg PO HS 09/13/17 [History] Cyclobenzaprine HCl 5 mg PO TID 09/13/17 [History] HYDROcodone/Acet 5/325 mg [[place] 5-325 mg] 1 tab PO Q8H PRN 09/13/17 [History] Isosorbide MONOnitrate (24 HR) [Imdur] 60 mg PO DAILY 09/13/17 [History] Hydralazine HCl 50 mg PO QID 30 Days #120 tablet 09/17/17 [Rx] Polyethylene Glycol 3350 [MiraLAX] 17 gm PO DAILY 5 Days #5 powd.pack 09/17/17 [ Rx] Allergies/Adverse Reactions: 3 Allergy/AdvReac Type Severity Reaction Status Date / Time omeprazole [From Prilosec] Allergy Mild Hives Verified 05/11/17 21:38 Procedures/tests Complete & Pending: Procedures Performed prior 72 hours Category Date Time Status CT abd pelvis wo no iv no oral [CT] Stat Cat Scan 09/15/17 18:06 Completed US gall bladder [US] Routine Exams 09/15/17 09:00 Completed ECG 12 lead ECG [ECG] Routine Y 09/15/17 07:07 Completed ECG 12 lead ECG [ECG] Routine Y 09/15/17 09:17 Completed ECG 12 lead ECG [ECG] Routine Y 09/15/17 13:55 Completed Date of admission: 09/13/17 05:03 Primary care physician: Albina Olea, Consults: 09/13/17 05:10 Consult to Cardiology [CONS] Routine Comment: Consulting Provider: Cardiology [facility] Reason for Consult: troponin elevation, syncope Call Completed: No 09/14/17 09:30 Consult to Dialysis [CONS] ONCE 09/14/17 10:30 Consult to Dialysis [CONS] ONCE 09/14/17 16:58 Consult to Occupational Therapy [CONS] Routine Comment: Evaluate, develop and implement POC Reason for Consult: EVAL AND TREAT Consult to Physical Therapy [CONS] Routine Comment: Evaluate, develop and implement POC Reason for Consult: EVAL AND TREAT 09/14/17 21:41 Consult to Orthopedic Surgery [CONS] Routine Consulting Provider: Gustavo Mancera Reason for Consult: s/p fall; left shoulder pain Call Completed: No 09/15/17 11:46 Consult to Interpret Exam [CONS] Routine Consulting Provider: Fernie Hernandez Consult to Interpret Exam: Interpret EEG 09/15/17 16:00 Consult to Neurology [CONS] Routine Consulting Provider: Neurology [facility] Reason for Consult: syncopal episodes; abnormal EEG Time Notified: 16:01 Call Completed: Yes 09/16/17 08:15 Consult to Dialysis [CONS] ONCE Discharging clinician: Nas Ricardo Anticipated date of discharge: 09/17/17 - Patient Status Disposition: Home, Self-Care Condition: Good Functional capacity at discharge: independent ambulation Overall status at discharge: patient is back to baseline - Discharge Instructions Instructions: Syncope (DC), Diabetes Mellitus Type 2 in Adults (DC), Chronic Hypertension (DC), Anemia (GEN) Follow Up With: Linette Mcdonnell, VOLUNTEER COORDINATOR [Advanced Practice Nurse] - 09/21/17 2:00 pm Additional Instructions: Please adhere to low sodium/potassium diet please follow up with nephrology for hemodialysis as scheduled tomorrow please follow with your primary care provider in one week please take me relax as prescribed prescribed a change dose of hydroxyzine; please take it 4 times daily as prescribed follow-up with your primary care provider or return to the ED for further evaluation as needed for new/worsening symptoms as discussed - Diet and Activity Activity: increase activity as tolerated Diet: other (Renal/low potassium) Interval History: No acute complaints. No nausea or vomiting overnight. Left arm and shoulder pain is improved. Hospital course: Mr. Monge is a 57 year old male who was initially admitted for ongoing and recurrent syncopal episodes resulting most recently in a fall impacting his right frontal region. Patient has had workup including had head/neck CT, bilateral carotid Dopplers, telemetry, and EEG collectively revealing no definitive cause for syncopal episodes. Patient does have multiple medical problems including HD-dependent ESRD and refractory HTN. Patient has received HD twice through hospital course resulting in transient improvement in SBP & serum potassium, which has been intermittently elevated. Nephrology consult was obtained and patient was followed throughout admission. Patient also had intermittent abdominal pain as well as episodic stretches of nausea and vomiting ; these symptoms have improved and are not present on discharge date. Of note, pt did have abdominal CT & RUQ US revealing no significant intra-abdominal pathology including bowel obstruction or significant stool burden. As of discharge date, nephrology team, who works with patient on OP basis, feels patient is at his baseline particularly in terms of potassium levels and blood pressures. Potassium is 5.6 on discharge, and blood pressures are currently better controlled on hydralazine 75mg TID. D/missael Cozar due to hyperkalemia. For simplicity and for concern of non-compliance, will ultimately discharge patient on Hydralazine 50mg QID and Miralax for ongoing constipation. - Time Spent with Patient Total time spent providing and/or coordinating discharge services: - Constitutional Vitals: Temp Pulse Resp BP Pulse Ox 97.5 F L 78 16 139/88 96 09/17/17 11:35 09/17/17 11:35 09/17/17 11:35 09/17/17 11:35 09/17/17 11:35 General appearance: Present: cooperative, A&O X 3, no acute distress, answers questions appropriately - Head Head exam: Present: atraumatic, normocephalic - Eye Eye exam: Present: PERRL, conjuntiva pink, sclera anicteric - Neck Neck exam general surgery: Present: supple, trachea midline - Respiratory Respiratory exam: Present: CTAB. Absent: accessory muscle use, rales, rhonchi, wheezes - Cardiovascular Cardiovascular exam: Present: RRR, +S1, +S2. Absent: diastolic murmur, gallop, rubs, systolic murmur - GI/Abdominal GI/Abdominal exam: Present: soft. Absent: distended, tenderness - Extremities Exam Extremities exam: Present: warm, radial pulses palpable and symmetrical. Absent : calf tenderness, cyanotic, pedal edema - Neurological Exam Neurological exam: Present: oriented X3, no focal deficits. Absent: facial droop, speech deficit - Skin Skin exam: Present: dry, intact, normal color. Absent: cyanosis, diaphoretic, mottled, pallor <Reese Kenyon - Last Filed: 09/17/17 17:28> Date of Encounter: 09/17/17 Procedures/tests Complete & Pending: Procedures Performed prior 72 hours Category Date Time Status CT abd pelvis wo no iv no oral [CT] Stat Cat Scan 09/15/17 18:06 Completed US gall bladder [US] Routine Exams 09/15/17 09:00 Completed ECG 12 lead ECG [ECG] Routine Y 09/15/17 07:07 Completed ECG 12 lead ECG [ECG] Routine Y 09/15/17 09:17 Completed ECG 12 lead ECG [ECG] Routine Y 09/15/17 13:55 Completed Date of admission: 09/13/17 05:03 Primary care physician: Albina Olea, Consults: 09/13/17 05:10 Consult to Cardiology [CONS] Routine Comment: Consulting Provider: Cardiology Mar[facility]za Reason for Consult: troponin elevation, syncope Call Completed: No 09/14/17 09:30 Consult to Dialysis [CONS] ONCE 09/14/17 10:30 Consult to Dialysis [CONS] ONCE 09/14/17 16:58 Consult to Occupational Therapy [CONS] Routine Comment: Evaluate, develop and implement POC Reason for Consult: EVAL AND TREAT Consult to Physical Therapy [CONS] Routine Comment: Evaluate, develop and implement POC Reason for Consult: EVAL AND TREAT 09/14/17 21:41 Consult to Orthopedic Surgery [CONS] Routine Consulting Provider: Gustavo Mancera Reason for Consult: s/p fall; left shoulder pain Call Completed: No 09/15/17 11:46 Consult to Interpret Exam [CONS] Routine Consulting Provider: Fernie Hernandez Consult to Interpret Exam: Interpret EEG 09/15/17 16:00 Consult to Neurology [CONS] Routine Consulting Provider: [facility] Reason for Consult: syncopal episodes; abnormal EEG Time Notified: 16:01 Call Completed: Yes 09/16/17 08:15 Consult to Dialysis [CONS] ONCE Hospital course: Mr. Monge is a 57 year old male - Time Spent with Patient Total time spent providing and/or coordinating discharge services: - Constitutional Vitals: Temp Pulse Resp BP Pulse Ox 97.5 F L 78 16 139/88 96 09/17/17 11:35 09/17/17 11:35 09/17/17 11:35 09/17/17 11:35 09/17/17 11:35 - Attending Attestation I conducted a face to face diagnostic evaluation of this patient and my medical decision-making was reviewed with the Resident Physician, Dr. Davion Lovell. I agree with the documented findings, disposition and treatment plan as described except to the extent set forth below: I have emphasized the importance of diet and medication compliance with the patient and his family member. She patient is medically stable for discharge with medication changes including increasing hydralazine administration and stopping losartan. He was advised to follow a low potassium diet.
--- NOTE | 2017-09-17 18:19 | Electrocardiograph Report ---
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
== END 2017-09-17 15:30 | disposition home or self-care (01) | DRG 312 ==
LOC: ICNU 23:52 → 2NNU 23:52 → EMEROO 23:52 → 2NNU 09-13 02:47 → SUATTDRO 09-13 05:03
PROVIDERS: ADMIT Pediatrics; ATTEND Internal Medicine

== ENCOUNTER 2017-10-24 00:25 | Inpatient (IN) ==
[2017-10-24 01:09] LABS: Hematocrit 40.7 % (37.5-50.1); Hemoglobin 13.7 g/dL (12.9-16.9); Mean Corpuscular HGB Conc 33.7 g/dL (31.6-35.5); Mean Corpuscular Hemoglobin 33.9 pg (28.0-33.3); Mean Corpuscular Volume 100.7 fL (83.0-100.0); Mean Platelet Volume 9.4 fL (9.4-12.4); Platelet Count 141 K/mcL (140-400); Red Blood Count 4.04 M/mcL (4.19-5.50); Red Cell Distribution Width 16.9 % (11.5-14.5)
[2017-10-24 01:43] LABS: Prothrombin Time 10.5 Seconds (9.4-12.1)
[2017-10-24 01:46] LABS: Activated Partial Thrombo Time 27.6 Seconds (26.0-36.0)
[2017-10-24 01:47] LABS: Albumin 3.7 g/dL (3.5-5.0); Albumin/Globulin Ratio 0.9 (1.1-2.2); Bilirubin,Direct 0.2 mg/dL (0.0-0.5); Bilirubin,Indirect 0.4 mg/dL (0.0-1.2); Bilirubin,Total 0.6 mg/dL (0.2-1.2); Globulin 4.3 g/dL (2.4-3.5)
[2017-10-24] MEDS ORDERED: Ondansetron 4 MG/2 ML VIAL IVP ONE (01:53)
[2017-10-24] MEDS ORDERED: 0.9 % Sodium Chloride 1,000 ML IVC ONE (01:53)
[2017-10-24] MEDS ORDERED: *HR* Morphine 2 MG/ML SYRINGE IVP ONE (01:53)
[2017-10-24] MEDS ORDERED: Dicyclomine 20 MG/2 ML AMPUL IM STA (02:05)
--- NOTE | 2017-10-24 02:09 | Emergency Department Note ---
Disposition Clinical Impression: ESRD (end stage renal disease), Abdominal pain Hematemesis Qualifiers: Nausea presence: without nausea Qualified Code(s): K92.0 - Hematemesis Disposition: Admitted As Inpatient Condition: Good General Adult HPI - General Chief complaint: ED GI Bleed Stated complaint: VOMITING BLOOD Time Seen by Provider: 10/24/17 00:42 Source: patient, family Limitations: no limitations - History of Present Illness HPI Narrative: Patient presents with 3-4 bouts of giana hematemesis over the last several hours. A couple of episodes of blood with no gastric contents, a couple of episodes of blood mixed with gastric contents. No bright red blood per rectum, hematochezia or melena. No sick presyncope or presyncope. Has upper abdominal pain. Has had an episode like this before, was managed at [facility], is unclear about what the diagnosis was. Has never been told that he had bleeding ulcers. Has a history of moderate drinking in the past, no alcohol the last 5 years, has never drank more than a 12 pack per week regularly. No known liver disease. Pain Scale: 9 - Related Data Home Medications Medication Instructions Recorded Confirmed Furosemide [Lasix] 40 mg PO BID 06/22/15 10/24/17 Insulin Glargine,Hum.rec.anlog 10 - 15 unit SQ HS 06/22/15 10/24/17 [Lantus Solostar] Sevelamer [Renvela] 4,000 mg PO TIDWM 06/22/15 10/24/17 Atorvastatin [Lipitor] 40 mg PO HS 09/05/15 10/24/17 amLODIPine [Norvasc] 10 mg PO DAILY 01/04/17 10/24/17 Carvedilol [Coreg] 25 mg PO BID 04/12/17 10/24/17 Pantoprazole Sodium [Protonix] 40 mg PO BID 07/20/17 10/24/17 Ranolazine [Ranexa] 500 mg PO BID 07/20/17 10/24/17 Clopidogrel Bisulfate [Plavix] 75 mg PO DAILY 07/21/17 10/24/17 Amitriptyline [Elavil] 25 mg PO HS 09/13/17 10/24/17 Cyclobenzaprine HCl 5 mg PO TID 09/13/17 10/24/17 Isosorbide MONOnitrate (24 HR) 60 mg PO DAILY 09/13/17 10/24/17 [Imdur] Gabapentin [Neurontin] 600 - 1,200 mg PO Q8H PRN 10/24/17 10/24/17 HYDROcodone/Acet 10/325 mg [[place] 1 tab PO Q8H PRN 10/24/17 10/24/17 10-325 mg] Hydralazine HCl 100 mg PO TID 10/24/17 10/24/17 Promethazine [Phenergan] 25 mg PO Q8HR PRN 10/24/17 10/24/17 Thiamine (B-1) [Vitamin B-1] 100 mg PO DAILY 10/24/17 10/24/17 hydrOXYzine HCl [Hydroxyzine HCl] 25 mg PO TID 10/24/17 10/24/17 Previous Rx's Medication Instructions Recorded Bisacodyl [Dulcolax] 10 mg PO DAILY PRN #20 tablet 10/28/17 Allergies Allergy/AdvReac Type Severity Reaction Status Date / Time omeprazole [From Prilosec] Allergy Mild Hives Verified 10/24/17 00:26 All systems ED: reviewed and negative except as stated. Past Medical History - Past Medical History Medical history: Reports: arthritis, coronary artery disease, diabetes, dialysis , GERD, hyperlipidemia, hypertension, renal disease, TIA Surgical history: Reports: angioplasty/stent, vascular surgery Psychiatric history: Reports: no psych history - Social History Smoking Status: Never smoker Smokeless Tobacco Status: No Alcohol use: Reports: none Drug use: Reports: none Physical Exam Vital signs noted please see nurse's notes. Gen.: Well-developed, well-nourished patient lying in bed who appears nontoxic. Head: Atraumatic, normocephalic. Eyes: Sclerae anicteric. Conjunctiva pink. ENT: Mucous membranes moist. Heart: Regular rate and rhythm without appreciable murmur. Lungs: Normal respiratory pattern without respiratory distress, lungs clear to auscultation bilaterally. Abdomen: Soft, mild diffuse tenderness, nondistended, no guarding or peritoneal signs. Skin: Warm and dry without rash. Neurologic: Awake, alert with normal speech and mental status. Cranial nerves grossly intact. No focal deficits or lateralizing signs. Psychiatric: Normal mood and affect for me, although he was hostile to the medical student. Muscular skeletal: No peripheral edema. No signs of trauma or DVT. Peripheral vascular: Palpable thrill in the left upper extremity shunts. Rectal: Patient refused. - General Limitations: no limitations General appearance: alert, in no apparent distress Course Course Narrative: The patient requested that we not use opioid pain medications if we can avoid it. Vital Signs Temperature 98.1 F 10/24/17 00:26 Pulse Rate 84 10/24/17 00:26 Respiratory Rate 24 10/24/17 00:26 Blood Pressure 180/110 10/24/17 00:26 O2 Sat by Pulse Oximetry 100 10/24/17 00:26 Temperature 98.0 F 10/28/17 07:20 Pulse Rate 60 10/28/17 07:20 Respiratory Rate 17 10/28/17 07:20 Blood Pressure 160/74 10/28/17 07:20 O2 Sat by Pulse Oximetry 95 10/28/17 07:20 Oxygen Delivery Oxygen Delivery Room Air Medical Decision Making - Lab Data Result diagrams: 10/28/17 02:50 10/28/17 02:50 Lab Results 10/24/17 10/24/17 10/24/17 Range/Units 00:57 00:57 01:23 WBC 4.7 (4.3-11.1) K/mcL RBC 4.04 L (4.19-5.50) M/mcL Hgb 13.7 (12.9-16.9) g/dL Hct 40.7 (37.5-50.1) % MCV 100.7 H (83.0-100.0) fL MCH 33.9 H (28.0-33.3) pg MCHC 33.7 (31.6-35.5) g/dL RDW 16.9 H (11.5-14.5) % Plt Count 141 (140-400) K/mcL MPV 9.4 (9.4-12.4) fL PT 10.5 (9.4-12.1) Seconds INR 1.0 APTT 27.6 (26.0-36.0) Seconds Sodium (136-145) mEq/L Potassium (3.5-4.5) mEq/L Chloride (98-109) mEq/L Carbon Dioxide (19-29) mEq/L BUN (8-26) mg/dL Creatinine (0.72-1.25) mg/dL Est GFR ( Amer) (> 60) Est GFR (Non-Af Amer) (> 60) BUN/Creatinine Ratio (6-26) Glucose (70-99) mg/dL POC Glucose (58-89) Calculated Osmolality (280-300) Calcium (8.6-10.8) mg/dL Ferritin (22-275) ng/ml Total Bilirubin (0.2-1.2) mg/dL Direct Bilirubin (0.0-0.5) mg/dL Indirect Bilirubin (0.0-1.2) mg/dL AST (5-34) Units/L ALT (0-55) Units/L Alkaline Phosphatase (38-126) Units/L Serum Total Protein (6.0-8.3) g/dL Albumin (3.5-5.0) g/dL Globulin (2.4-3.5) g/dL Albumin/Globulin Ratio (1.1-2.2) Lipase (8-78) Units/L Specimen Rejected Hemolyzed Blood Type Antibody Screen 10/24/17 10/24/17 10/24/17 Range/Units 01:23 01:23 04:18 WBC (4.3-11.1) K/mcL RBC (4.19-5.50) M/mcL Hgb (12.9-16.9) g/dL Hct (37.5-50.1) % MCV (83.0-100.0) fL MCH (28.0-33.3) pg MCHC (31.6-35.5) g/dL RDW (11.5-14.5) % Plt Count (140-400) K/mcL MPV (9.4-12.4) fL PT (9.4-12.1) Seconds INR APTT (26.0-36.0) Seconds Sodium 141 (136-145) mEq/L Potassium 4.4 (3.5-4.5) mEq/L Chloride 94 L (98-109) mEq/L Carbon Dioxide 28 (19-29) mEq/L BUN 38 H (8-26) mg/dL Creatinine 8.21 H (0.72-1.25) mg/dL Est GFR ( Amer) 8 L (> 60) Est GFR (Non-Af Amer) 7 L (> 60) BUN/Creatinine Ratio 5 L (6-26) Glucose 169 H (70-99) mg/dL POC Glucose 161 H (58-89) Calculated Osmolality 305 H (280-300) Calcium 10.8 (8.6-10.8) mg/dL Ferritin (22-275) ng/ml Total Bilirubin 0.6 (0.2-1.2) mg/dL Direct Bilirubin 0.2 (0.0-0.5) mg/dL Indirect Bilirubin 0.4 (0.0-1.2) mg/dL AST 32 (5-34) Units/L ALT 21 (0-55) Units/L Alkaline Phosphatase 122 (38-126) Units/L Serum Total Protein 8.0 (6.0-8.3) g/dL Albumin 3.7 (3.5-5.0) g/dL Globulin 4.3 H (2.4-3.5) g/dL Albumin/Globulin Ratio 0.9 L (1.1-2.2) Lipase 65 (8-78) Units/L Specimen Rejected Blood Type O POSITIVE Antibody Screen NEGATIVE 10/24/17 10/24/17 10/24/17 Range/Units 04:22 06:43 06:43 WBC (4.3-11.1) K/mcL RBC (4.19-5.50) M/mcL Hgb 13.4 (12.9-16.9) g/dL Hct 41.0 (37.5-50.1) % MCV (83.0-100.0) fL MCH (28.0-33.3) pg MCHC (31.6-35.5) g/dL RDW (11.5-14.5) % Plt Count (140-400) K/mcL MPV (9.4-12.4) fL PT (9.4-12.1) Seconds INR APTT (26.0-36.0) Seconds Sodium (136-145) mEq/L Potassium (3.5-4.5) mEq/L Chloride (98-109) mEq/L Carbon Dioxide (19-29) mEq/L BUN (8-26) mg/dL Creatinine (0.72-1.25) mg/dL Est GFR ( Amer) (> 60) Est GFR (Non-Af Amer) (> 60) BUN/Creatinine Ratio (6-26) Glucose (70-99) mg/dL POC Glucose (58-89) Calculated Osmolality (280-300) Calcium (8.6-10.8) mg/dL Ferritin 554 H (22-275) ng/ml Total Bilirubin (0.2-1.2) mg/dL Direct Bilirubin (0.0-0.5) mg/dL Indirect Bilirubin (0.0-1.2) mg/dL AST (5-34) Units/L ALT (0-55) Units/L Alkaline Phosphatase (38-126) Units/L Serum Total Protein (6.0-8.3) g/dL Albumin (3.5-5.0) g/dL Globulin (2.4-3.5) g/dL Albumin/Globulin Ratio (1.1-2.2) Lipase (8-78) Units/L Specimen Rejected Hemolyzed Blood Type Antibody Screen
[2017-10-24 02:24] LABS: Calcium 10.8 mg/dL (8.6-10.8)
[2017-10-24 02:26] LABS: Potassium 4.4 mEq/L (3.5-4.5)
[2017-10-24] MEDS ORDERED: Ondansetron ODT 4 MG TAB.RAPDIS SL PRN (03:36)
[2017-10-24] MEDS ORDERED: Naloxone 0.4 MG/ML INJ IVP PRN (03:36)
--- NOTE | 2017-10-24 03:47 | Internal Med History&Physical ---
<Melissa Elias - Last Filed: 10/24/17 04:22> Date of Encounter: 10/24/17 Time of Encounter: 03:36 Assessment and Plan (1) Hematemesis Current visit: No Status: Acute Hematemesis 4 times. He began coughing which led to him vomiting. Initial vomiting did not have blood in it but then he started to notice blood in it. Additionally, he has nausea and burning sensation in his throat and epigastric region. Unclear etiology. No active bleeding. afebrile, vitals stable, Hgb 13.[address] showed increased attenuation which is concerning for hemochromatosis, hemosiderosis, copper disposition (Jasper's dz), amiodarone or gold therapy. Lung nodule on CT at this admission did not show change and will advise the patient to follow up with PCP on further management. Patient stated that he was aware of the lung findings. He has seen Dr. Blackman out patient. order ferritin level consult GI in morning check H&H one more time. Patient does not want his blood drawn more than needed. NPO zofran protonix fecal hemoccult pending Qualifiers: Nausea presence: without nausea Qualified Code(s): K92.0 - Hematemesis (2) Hypertension Current visit: No Status: Chronic History of hypertension BP 159/99 continue home medication once they have been confirmed start hydralazine PRN Qualifiers: Hypertension type: essential hypertension Qualified Code(s): I10 - Essential (primary) hypertension (3) ESRD (end stage renal disease) Current visit: Yes Status: Acute ESRD on HD. MWF SCr 8.21 (4) Diabetes mellitus Current visit: No Status: Acute History of diabetes, glucose 169 will start low dose sliding scale insulin Qualifiers: Diabetes mellitus type: type 2 Diabetes mellitus complication status: with kidney complications Diabetes mellitus complication detail: with chronic kidney disease Diabetes mellitus lobsterman insulin use: with lobsterman use Chronic kidney disease stage: on chronic dialysis Qualified Code(s): E11.22 - Type 2 diabetes mellitus with diabetic chronic kidney disease; N18.6 - End stage renal disease; Z79.4 - group home (current) use of insulin; Z99.2 - Dependence on renal dialysis (5) DVT prophylaxis Current visit: No Status: Acute ambulate TID due to possible GI bleed Internal Medicine - H&P: HPI Chief complaint: vomiting blood Admitted From: Emergency Dept Plans for Post Hospital Care: Home History of present illness: Mr. Monge is a 57 year old male with past medical history of ESRD on HD, HTN, HLD, DM who presented to [facility] ED complaining of vomiting blood 4 times that began at 10:30pm. He stated he began coughing which led to him vomiting. Initial vomiting did not have blood in it but then he started to notice blood in it. Additionally, he has nausea and burning sensation in his throat and epigastric region. When asked about quantity of blood he stated that to him it seemed like a lot but to others it might not be. He reported that this is the 4th time this has occurred. The first time he came here. Second time, at [facility] 3months ago with EGD that did not show anything, but then was prescribed an antibiotic that he was told would cover a bacteria that could cause cancer. Third time, at [place] where EGD did not show anything. He has seen Dr. Blackman out patient. He denied fever, chills, syncope, chest pain, diaphoresis, shortness of breathe, melena, hematechezia, night sweats, significant weight loss. He has a history of alcohol but has not drank alcohol in 5yrs. He does not report gastric ulcers or varices. He denied trauma, recent sickness, travel. In ED BP 159/99, HR 72, afebrile, 96% oxygen. Hgb 13.7, WBC 4.7 Past Med Surg Social Fam HX - Past Medical History Medical history: arthritis, coronary artery disease, diabetes, dialysis, GERD, hyperlipidemia, hypertension, renal disease, TIA Psychiatric history: no psych history - Past Surgical History Surgical History: angioplasty/stent, vascular surgery - Social History Smoking Status: Never smoker Smokeless Tobacco Status: No Alcohol use: none Drug use: none - Family History Father Hx Family Cardiac Disorders: Yes Hx Family Endocrine Disorder: Yes (DM) Mother Adopted: No Living Status: Hx Family Cardiac Disorders: Yes Hx Family Respiratory Disorders: Yes Hx Family Cancer: Yes Hx Family GI Disorders: No Hx Family Endocrine Disorder: No Hx Family Neuromuscular Disorders: No Hx Family Neurologic Disorders: No Hx Family HEENT Disorders: No Hx Family Autoimmune Disorders: No Internal Medicine - H&P: Meds Furosemide [Lasix] 40 mg PO BID 06/22/15 [History] Insulin Glargine,Hum.rec.anlog [Lantus Solostar] 10 - 15 unit SQ HS 06/22/15 [ History] Sevelamer [Renvela] 4,000 mg PO TIDWM 06/22/15 [History] Atorvastatin [Lipitor] 40 mg PO HS 09/05/15 [History] amLODIPine [Norvasc] 10 mg PO DAILY 01/04/17 [History] Carvedilol [Coreg] 25 mg PO BID 04/12/17 [History] Gabapentin [Neurontin] 100 mg PO TID 07/20/17 [History] Ondansetron ODT [Zofran ODT] 4 mg PO Q6H PRN 07/20/17 [History] Pantoprazole Sodium [Protonix] 40 mg PO BID 07/20/17 [History] Ranolazine [Ranexa] 500 mg PO BID 07/20/17 [History] Clopidogrel Bisulfate [Plavix] 75 mg PO DAILY 07/21/17 [History] Amitriptyline [Elavil] 25 mg PO HS 09/13/17 [History] Cyclobenzaprine HCl 5 mg PO TID 09/13/17 [History] HYDROcodone/Acet 5/325 mg [[place] 5-325 mg] 1 tab PO Q8H PRN 09/13/17 [History] Isosorbide MONOnitrate (24 HR) [Imdur] 60 mg PO DAILY 09/13/17 [History] Hydralazine HCl 50 mg PO QID 30 Days #120 tablet 09/17/17 [Rx] Polyethylene Glycol 3350 [MiraLAX] 17 gm PO DAILY 5 Days #5 powd.pack 09/17/17 [ Rx] 3 Allergy/AdvReac Type Severity Reaction Status Date / Time omeprazole [From Prilosec] Allergy Mild Hives Verified 10/24/17 00:26 All Systems PM: A 10-system review of systems was performed and is negative for pertinent findings except as documented above in the HPI. - Constitutional Constitutional: no chills, no fever(s), no weakness - EENT Eyes: no change in vision Nose, mouth and throat: no sore throat - Cardiovascular Cardiovascular ROS IM: no chest pain, no diaphoresis, no palpitations, no syncope - Respiratory Respiratory: no cough, no dyspnea, no wheezing - Gastrointestinal Gastrointestinal: abdominal pain, hematemesis, nausea, vomiting, no coffee ground emesis, no diarrhea, no hematochezia, no melena - Integumentary Integumentary IM: no rash, no skin ulcer - Neurological Neurological ROS: no dizziness - Psychiatric Psychiatric: no confusion - Constitutional Vitals: Temp Pulse Resp BP Pulse Ox 98.1 F 74 18 179/104 95 10/24/17 00:26 10/24/17 03:32 10/24/17 03:32 10/24/17 03:32 10/24/17 03:32 General appearance: Present: A&O X 3, pleasant, no acute distress - Head Head exam: Present: atraumatic, normocephalic - Eye Eye exam: Present: conjunctival injection. Absent: scleral icterus - ENT ENT exam: Present: mucous membranes moist - Neck Neck exam general surgery: Present: supple. Absent: lymphadenopathy, tenderness - Respiratory Respiratory exam: Present: CTAB. Absent: rales, rhonchi, wheezes - Cardiovascular Cardiovascular exam: Present: RRR, +S1, +S2. Absent: clicks - GI/Abdominal GI/Abdominal exam: Present: normal bowel sounds, soft, tenderness (epigastric). Absent: firm, guarding, rebound - Extremities Exam Extremities exam: Present: normal inspection. Absent: calf tenderness - Psychiatric Psychiatric exam: Present: normal affect, normal mood - Skin Skin exam: Present: dry, intact Internal Med - H&P Results - Labs CBC & Chem 7: 10/24/17 00:57 10/24/17 01:23 <Alexis Rdz - Last Filed: 10/24/17 05:23> Date of Encounter: 10/24/17 Internal Medicine - H&P: HPI History of present illness: Mr. Monge is a 57 year old male All Systems PM: A 10-system review of systems was performed and is negative for pertinent findings except as documented above in the HPI. - Constitutional Vitals: Temp Pulse Resp BP Pulse Ox 97.6 F 78 18 174/97 94 10/24/17 04:14 10/24/17 04:14 10/24/17 04:14 10/24/17 04:14 10/24/17 04:14 Internal Med - H&P Results - Labs CBC & Chem 7: 10/24/17 00:57 10/24/17 01:23 - Attending Attestation I examined this patient and my medical decision-making was reviewed with the Resident Physician. I agree with the documented findings, disposition and treatment plan as described except to the extent set forth below. 57 yo male with ESRD on HD who presents with acute hematemesis today. Has a hx of recurrent hematemesis with negative eval at [place], [facility], [place] prior s/p EGDs. Episode today developed in the evening . Poorly descriptive but reports mix of blood with some "coffee grounds" mixed with stomach contents. Has significant acid burning along the throat. Was previously treated with H.pylori therapy. General - AAO x 3 Psych - Appropriate affect/speech. No agitation Eyes - DIANE. Eye lids intact. No scleral icterus Neuro - No gross peripheral or central neuro deficits with intact CN 2-12 exam Heart - Sinus. RRR. S1 and S2 present. No added HS/murmurs appreciated. No elevated JVD appreciated. Lung - Adequate air entry b/l, No crackles/wheezes appreciated GI - Soft, non-tender. No hepatosplenomegaly/ascites. BS+ - No CVA/suprapubic tenderness or palpable bladder distension Skin - left arm AV graft ROS 14 point review of systems reviewed as best as possible given presentation. Pertinent positive or negative as per HPI or otherwise reviewed as negative UGIB - GI eval - appears to have had numerous EGD - discussed that in some cases, it may be difficult to isolate source of bleeding if no active bleed - NPO - recheck H&H (he prefers to follow clinically to avoid frequent H&H check) - PPI IV for now - consider PPI and carafate on discharge ESRD on HD * may be associated with AVMs HTN CAD Lung lesion - patient reported knowing it for more than 10 years, continue PCP follow up and surveillance Check ferritin
[2017-10-24] MEDS: Pantoprazole 40 MG VIAL IVP SCH ×2 (05:13→18:17)
[2017-10-24 07:00] LABS: Hemoglobin 13.4 g/dL (12.9-16.9)
[2017-10-24] MEDS: amLODIPine 5 MG TABLET PO SCH ×2 (08:23→08:28)
[2017-10-24] MEDS ORDERED: diazePAM 10 MG/2 ML SYRINGE IVP PRN (08:49)
[2017-10-24] MEDS: Insulin LISPRO 300 UNITS/3 ML VIAL SQ SCH ×3 (08:53→18:17)
[2017-10-24] MEDS ORDERED: hydrALAZINE 25 MG TABLET PO SCH (09:00)
--- NOTE | 2017-10-24 09:02 | Internal Med Progress Note ---
<Danish Kumar - Last Filed: 10/24/17 08:56> Date of Encounter: 10/24/17 Time of Encounter: 08:45 - Assessment and plan (1) Hematemesis Current Visit: No Status: Acute Assessment and plan: Hematemesis x 4. No acive bleeding evident; Hb stable. Denies abdominal pain. Hgb 13.[address]: increased attenuation of the liver Plan: -GI has been consulted -NPO -Zofran 8 mg SL Q8 PRN -Protonix 40 mg IV Q12 -Fecal hemoccult pending Qualifiers: Nausea presence: without nausea Qualified Code(s): K92.0 - Hematemesis (2) ESRD (end stage renal disease) Current Visit: Yes Status: Acute Assessment and plan: ESRD on HD. MWF SCr 8.21 (3) Hypertension Current Visit: No Status: Chronic Assessment and plan: BP this morning was 206/122. Plan: -Norvasc 10mg PO daily -Coreg 25 mg PO BID -Hydralazine 20 mg IV q6 PRN -Hydralazine 50 mg PO BID Qualifiers: Hypertension type: essential hypertension Qualified Code(s): I10 - Essential (primary) hypertension (4) Diabetes mellitus Current Visit: No Status: Acute Assessment and plan: Glucose this morning was 169. -Glucose monitoring q6 -Humalog SQ TIDAC Qualifiers: Diabetes mellitus type: type 2 Diabetes mellitus complication status: with kidney complications Diabetes mellitus complication detail: with chronic kidney disease Diabetes mellitus termite exterminator helper insulin use: with termite exterminator helper use Chronic kidney disease stage: on chronic dialysis Qualified Code(s): E11.22 - Type 2 diabetes mellitus with diabetic chronic kidney disease; N18.6 - End stage renal disease; Z79.4 - terminologist (current) use of insulin; Z99.2 - Dependence on renal dialysis (5) DVT prophylaxis Current Visit: No Status: Acute Assessment and plan: Ambulate TID - Subjective Interval history: Mr. Monge is a 57 year old male with past medical history of ESRD on HD, HTN, HLD, DM who presented to [facility] ED complaining of hematemesis x 4. This first started at approximately 10:30. He stated he began coughing which led to him vomiting. Also noticed a burning sensation in his throat and epigastric area. Unknown quantity of blood. Reports having 3 similar episodes in the past. Used to drink alcohol; denies doing so for the last 5 years. He does not report gastric ulcers or varices. He denied trauma, recent sickness, travel. In ED BP 159/99, HR 72, afebrile, 96% oxygen. Hgb 13.7 , WBC 4.7 Patient was seen and examined at bedside this morning. Reports that he is feeling fine. Denied having any episodes of hematemesis today. Appears very anxious, and states that he wants to leave as soon as possible. Denies being a current drinker. Denies having any pain. No complaints at this time. - Constitutional Vitals: Temp Pulse Resp BP Pulse Ox 98.0 F 96 19 206/122 91 10/24/17 07:11 10/24/17 07:11 10/24/17 07:11 10/24/17 07:11 10/24/17 07:11 General appearance: Present: mild distress, A&O X 3 - Head Head exam: Present: atraumatic, normocephalic - Eye Eye exam: Present: PERRL, conjuntiva pink, sclera anicteric Pupils: Present: PERRL - Neck Neck exam general surgery: Present: supple, trachea midline. Absent: lymphadenopathy - Respiratory Respiratory exam: Present: CTAB. Absent: accessory muscle use, rales, rhonchi, wheezes - Cardiovascular Cardiovascular exam: Present: RRR, +S1, +S2. Absent: diastolic murmur, gallop, rubs, systolic murmur - GI/Abdominal GI/Abdominal exam: Absent: tenderness - Skin Skin exam: Present: dry, intact Internal Medicine: Result - Labs CBC & Chem 7: 10/24/17 06:43 10/24/17 01:23 Labs: Short CBC 10/24/17 Range/Units 06:43 Hgb 13.4 (12.9-16.9) g/dL Hct 41.0 (37.5-50.1) % - ABG Interpretation ABG results: PT/INR, D-dimer PT 10.5 Seconds (9.4-12.1) 10/24/17 01:23 Consult Discharge Plan - Plan Referrals: Albina Olea MD [Primary Care Provider] - (web request 10/24/2017) <Boone Baldwin H - Last Filed: 10/24/17 17:09> Date of Encounter: 10/24/17 - Constitutional Vitals: Temp Pulse Resp BP Pulse Ox 97.8 F 65 16 111/53 95 10/24/17 16:06 10/24/17 16:06 10/24/17 16:06 10/24/17 16:06 10/24/17 16:06 Internal Medicine: Result - Labs CBC & Chem 7: 10/24/17 06:43 10/24/17 01:23 - ABG Interpretation ABG results: PT/INR, D-dimer PT 10.5 Seconds (9.4-12.1) 10/24/17 01:23 - Attending Attestation No hematemesis evidenced since admission Severe anxiety, ordered diazepam as needed I examined this patient and my medical decision-making was reviewed with the Resident Physician. I agree with the documented findings, disposition and treatment plan as described except to the extent set forth below.
[2017-10-24] MEDS: 0.9 % Sodium Chloride 1,000 ML IVC SCH (09:18)
[2017-10-24] MEDS: Isosorbide MONOnitrate (24 HR) 60 MG TAB.ER.24H PO SCH (13:19)
[2017-10-24] MEDS: Lisinopril 20 MG TABLET PO SCH (13:19)
[2017-10-24] MEDS: hydrALAZINE 25 MG TABLET PO SCH (14:58)
[2017-10-24] MEDS: Gabapentin 300 MG CAPSULE PO SCH (14:58)
[2017-10-24] MEDS: hydrOXYzine pamoate 25 MG CAPSULE PO SCH ×2 (15:03→22:07)
[2017-10-24] MEDS: Ondansetron ODT 4 MG TAB.RAPDIS SL PRN ×2 (15:29→21:43)
[2017-10-24] MEDS: Furosemide 40 MG TABLET PO SCH (22:04)
[2017-10-24] MEDS: Ranolazine 500 MG TAB.ER.12H PO SCH (22:07)
[2017-10-25] MEDS: hydrALAZINE 25 MG TABLET PO SCH ×4 (00:33→21:23)
[2017-10-25] MEDS: 0.9 % Sodium Chloride 1,000 ML IVC SCH ×2 (01:25→18:42)
[2017-10-25] MEDS: Pantoprazole 40 MG VIAL IVP SCH ×2 (06:13→17:51)
[2017-10-25] MEDS: Ondansetron ODT 4 MG TAB.RAPDIS SL PRN ×2 (07:52→11:54)
[2017-10-25] MEDS: Insulin LISPRO 300 UNITS/3 ML VIAL SQ SCH ×3 (07:52→16:37)
[2017-10-25] MEDS: Furosemide 40 MG TABLET PO SCH ×2 (07:54→16:36)
[2017-10-25] MEDS: Lisinopril 20 MG TABLET PO SCH (07:54)
[2017-10-25] MEDS: Gabapentin 300 MG CAPSULE PO SCH (07:54)
[2017-10-25] MEDS: Ranolazine 500 MG TAB.ER.12H PO SCH ×2 (07:54→21:22)
[2017-10-25] MEDS: hydrOXYzine pamoate 25 MG CAPSULE PO SCH ×3 (07:55→21:23)
[2017-10-25] MEDS: Isosorbide MONOnitrate (24 HR) 60 MG TAB.ER.24H PO SCH (07:55)
[2017-10-25 12:34] LABS: Basophils % 0.6 %; Eosinophils # 0.2 K/mcL (0.0-0.6); Eosinophils % 3.6 %; Hematocrit 36.8 % (37.5-50.1); Immature Granulocytes % 0.4 % (0-4); Lymphocytes % 18.2 %; Mean Corpuscular HGB Conc 32.1 g/dL (31.6-35.5); Mean Corpuscular Hemoglobin 33.4 pg (28.0-33.3); Mean Corpuscular Volume 104.2 fL (83.0-100.0); Mean Platelet Volume 9.9 fL (9.4-12.4); Monocytes # 0.4 K/mcL (0.0-1.3); Monocytes % 7.5 %; Neutrophils # 3.7 K/mcL (1.6-8.9); Platelet Count 119 K/mcL (140-400); Red Blood Count 3.53 M/mcL (4.19-5.50); Red Cell Distribution Width 17.6 % (11.5-14.5); Segmented Neutrophils % 69.7 %
[2017-10-25 12:39] LABS: Hemoglobin 11.8 g/dL (12.9-16.9)
--- NOTE | 2017-10-25 12:57 | Internal Med Progress Note ---
<Danish Kumar - Last Filed: 10/25/17 12:55> Date of Encounter: 10/25/17 Time of Encounter: 12:50 - Assessment and plan (1) Hematemesis Current Visit: No Status: Acute Assessment and plan: Hematemesis x 4. No acive bleeding evident; Denies abdominal pain. Hgb dropped to 11.[address]: increased attenuation of the liver Plan: -GI has been consulted -Zofran 8 mg SL Q8 PRN -Protonix 40 mg IV Q12 -Fecal hemoccult pending Qualifiers: Nausea presence: without nausea Qualified Code(s): K92.0 - Hematemesis (2) ESRD (end stage renal disease) Current Visit: Yes Status: Acute Assessment and plan: ESRD on HD. MWF SCr 8.21 (3) Hypertension Current Visit: No Status: Chronic Assessment and plan: -Norvasc 10mg PO daily -Coreg 25 mg PO BID -Hydralazine 20 mg IV q6 PRN -Hydralazine 50 mg PO BID Qualifiers: Hypertension type: essential hypertension Qualified Code(s): I10 - Essential (primary) hypertension (4) Diabetes mellitus Current Visit: No Status: Acute Assessment and plan: -Glucose monitoring q6 -Humalog SQ TIDAC Qualifiers: Diabetes mellitus type: type 2 Diabetes mellitus complication status: with kidney complications Diabetes mellitus complication detail: with chronic kidney disease Diabetes mellitus terminal press operator insulin use: with care home use Chronic kidney disease stage: on chronic dialysis Qualified Code(s): E11.22 - Type 2 diabetes mellitus with diabetic chronic kidney disease; N18.6 - End stage renal disease; Z79.4 - manager long term care (current) use of insulin; Z99.2 - Dependence on renal dialysis (5) DVT prophylaxis Current Visit: No Status: Acute Assessment and plan: Ambulate TID - Subjective Interval history: Patient was seen and examined at bedside this afternoon. Reports that he is feeling fine. Denied having any episodes of hematemesis today. Denies having any pain. No complaints at this time. Does not appear to have any anxiety. - Constitutional Vitals: Temp Pulse Resp BP Pulse Ox 98.2 F 58 17 98/59 94 10/25/17 11:46 10/25/17 11:46 10/25/17 11:46 10/25/17 11:46 10/25/17 11:46 General appearance: Present: mild distress, A&O X 3 - Head Head exam: Present: atraumatic, normocephalic - Eye Eye exam: Present: PERRL, conjuntiva pink, sclera anicteric Pupils: Present: PERRL - Neck Neck exam general surgery: Present: supple, trachea midline. Absent: lymphadenopathy - Respiratory Respiratory exam: Present: CTAB. Absent: accessory muscle use, rales, rhonchi, wheezes - Cardiovascular Cardiovascular exam: Present: RRR, +S1, +S2. Absent: diastolic murmur, gallop, rubs, systolic murmur - GI/Abdominal GI/Abdominal exam: Present: normal bowel sounds, soft, no peritoneal signs. Absent: distended, tenderness - Skin Skin exam: Present: dry, intact Internal Medicine: Result - Labs CBC & Chem 7: 10/25/17 12:27 10/24/17 01:23 Labs: Short CBC 10/25/17 Range/Units 12:27 WBC 5.2 (4.3-11.1) K/mcL Hgb 11.8 L D (12.9-16.9) g/dL Hct 36.8 L (37.5-50.1) % Plt Count 119 L (140-400) K/mcL Neutrophils # 3.7 (1.6-8.9) K/mcL - ABG Interpretation ABG results: PT/INR, D-dimer PT 10.5 Seconds (9.4-12.1) 10/24/17 01:23 Consult Discharge Plan - Plan Referrals: Albina Olea MD [Primary Care Provider] - (web request 10/24/2017) <Boone Baldwin - Last Filed: 10/25/17 13:04> Date of Encounter: 10/25/17 - Constitutional Vitals: Temp Pulse Resp BP Pulse Ox 98.2 F 58 17 98/59 94 10/25/17 11:46 10/25/17 11:46 10/25/17 11:46 10/25/17 11:46 10/25/17 11:46 Internal Medicine: Result - Labs CBC & Chem 7: 10/25/17 12:27 10/24/17 01:23 Labs: Short CBC 10/25/17 Range/Units 12:27 WBC 5.2 (4.3-11.1) K/mcL Hgb 11.8 L D (12.9-16.9) g/dL Hct 36.8 L (37.5-50.1) % Plt Count 119 L (140-400) K/mcL Neutrophils # 3.7 (1.6-8.9) K/mcL - ABG Interpretation ABG results: PT/INR, D-dimer PT 10.5 Seconds (9.4-12.1) 10/24/17 01:23 - Attending Attestation The patient agrees to stay and to be seen tomorrow by the GI service I examined this patient and my medical decision-making was reviewed with the Resident Physician. I agree with the documented findings, disposition and treatment plan as described except to the extent set forth below.
[2017-10-26 03:25] LABS: Hemoglobin 10.8 g/dL (12.9-16.9)
[2017-10-26 03:27] LABS: Hematocrit 34.2 % (37.5-50.1); Immature Platelets 1.6 % (1.1-6.1); Mean Corpuscular HGB Conc 31.6 g/dL (31.6-35.5); Mean Corpuscular Hemoglobin 33.4 pg (28.0-33.3); Mean Corpuscular Volume 105.9 fL (83.0-100.0); Mean Platelet Volume 9.9 fL (9.4-12.4); Red Blood Count 3.23 M/mcL (4.19-5.50); Red Cell Distribution Width 17.5 % (11.5-14.5)
[2017-10-26 03:41] LABS: Potassium 4.4 mEq/L (3.5-4.5)
[2017-10-26 03:57] LABS: Calcium 8.5 mg/dL (8.6-10.8)
[2017-10-26] MEDS: Pantoprazole 40 MG VIAL IVP SCH ×2 (05:35→17:38)
[2017-10-26] MEDS ORDERED: 0.9 % Sodium Chloride 250 ML IVC PRN (07:44)
[2017-10-26] MEDS ORDERED: 0.9 % Sodium Chloride 1,000 ML PRIME SCH (07:45)
[2017-10-26] MEDS ORDERED: Dextrose Gel 15 GM PO PRN ×2 (08:04)
[2017-10-26] MEDS ORDERED: *HR* Dextrose 50 % in Water (Syg) 50 ML SYRINGE IVP PRN (08:04)
[2017-10-26] MEDS ORDERED: D5% in Water 1,000 ML IVC PRN (08:04)
[2017-10-26] MEDS: Ranolazine 500 MG TAB.ER.12H PO SCH ×2 (08:12→22:19)
[2017-10-26] MEDS: Gabapentin 300 MG CAPSULE PO SCH (08:12)
[2017-10-26] MEDS: Furosemide 40 MG TABLET PO SCH ×2 (08:12→17:37)
[2017-10-26] MEDS: hydrOXYzine pamoate 25 MG CAPSULE PO SCH ×3 (08:13→22:19)
[2017-10-26] MEDS: Insulin LISPRO 300 UNITS/3 ML VIAL SQ SCH ×4 (08:26→22:18)
--- NOTE | 2017-10-26 08:36 | Internal Med Progress Note ---
<Godwin Scott - Last Filed: 10/26/17 08:33> Date of Encounter: 10/26/17 Time of Encounter: 08:20 - Assessment and plan (1) Hematemesis Current Visit: Yes Status: Acute Assessment and plan: Hematemesis x 4. No acive bleeding evident; Denies abdominal pain, melena, hematochezia, diarrhea Hgb dropped to 10.[address]: increased attenuation of the liver Plan: -GI has been consulted -Zofran 8 mg SL Q8 PRN -Protonix 40 mg IV Q12 -Fecal hemoccult pending Qualifiers: Nausea presence: without nausea Qualified Code(s): K92.0 - Hematemesis (2) Anemia Current Visit: Yes Status: Acute Assessment and plan: Suspect due to blood loss Patient's hemoglobin dropped from 13.4-10.8 over 3 days. Patient reports having 4 episodes of hematemesis prior to admission. No additional hematemesis seen. Plan as above Qualifiers: Anemia type: other cause Other causes of anemia: other cause, not classified Qualified Code(s): D64.89 - Other specified anemias (3) ESRD (end stage renal disease) Current Visit: No Status: Chronic Assessment and plan: ESRD on HD MWF. Plan for HD today per nephrology Nephrology following (4) Hypertension Current Visit: No Status: Chronic Assessment and plan: Patient blood pressure stable at 152/80 Continue to monitor -Norvasc 10mg PO daily -Coreg 25 mg PO BID -Hydralazine 20 mg IV q6 PRN -Hydralazine 50 mg PO BID Qualifiers: Hypertension type: essential hypertension Qualified Code(s): I10 - Essential (primary) hypertension (5) Diabetes mellitus Current Visit: No Status: Acute Assessment and plan: -Glucose monitoring q6 -Humalog SQ TIDAC Qualifiers: Diabetes mellitus type: type 2 Diabetes mellitus complication status: with kidney complications Diabetes mellitus complication detail: with chronic kidney disease Diabetes mellitus exterminator termite insulin use: with nursing home use Chronic kidney disease stage: on chronic dialysis Qualified Code(s): E11.22 - Type 2 diabetes mellitus with diabetic chronic kidney disease; N18.6 - End stage renal disease; Z79.4 - exterminator termite (current) use of insulin; Z99.2 - Dependence on renal dialysis (6) DVT prophylaxis Current Visit: No Status: Acute Assessment and plan: Ambulate TID - Subjective Interval history: Patient is doing well this morning, though he does report having some new lightheadedness that he states began 1 hour ago as well as some new back pain in a strip going across his entire back that began 1.5 hours ago. He states the back pain is not new for him usually goes away spontaneously. He denies having any weakness, fatigue, additional hematemesis, hematochezia, or melena. He denies having nausea or diarrhea. - Constitutional Vitals: Temp Pulse Resp BP Pulse Ox 97.5 F L 62 16 152/80 97 10/26/17 07:18 10/26/17 07:18 10/26/17 07:18 10/26/17 07:18 10/26/17 07:18 General appearance: Present: mild distress, A&O X 3 Exam: General: Cooperative, pleasant, no acute distress, alert and oriented 3, answers questions appropriately HEENT: Normocephalic, atraumatic, Conjunctiva pink, sclera anicteric, oral mucosa moist, no orophargeal erythema or exudates Respiratory: No accessory muscle usage, clear to auscultation bilaterally, no wheezes/rhonchi/rales appreciated Cardiovascular: Regular rate and rhythm, S1 and S2 present, no murmurs/rubs/ gallops/clicks appreciated GI/abdominal: Nondistended, nontender, soft, normal bowel sounds, no peritoneal signs Back: No CVA tenderness, no midline/spinal tenderness, mild tenderness to palpation across lower back bilaterally Extremities: No calf tenderness, noncyanotic, no pedal edema appreciated, warm, lower extremity pulses palpable and symmetrical Neurological: Alert and oriented 3, no facial droop, no focal deficits Skin: Dry, intact, normal color Internal Medicine: Result - Labs CBC & Chem 7: 10/26/17 02:52 10/26/17 02:52 Labs: Short CBC 10/25/17 10/26/17 Range/Units 12:27 02:52 WBC 5.2 4.2 L (4.3-11.1) K/mcL Hgb 11.8 L D 10.8 L (12.9-16.9) g/dL Hct 36.8 L 34.2 L (37.5-50.1) % Plt Count 119 L 106 L (140-400) K/mcL Neutrophils # 3.7 (1.6-8.9) K/mcL [facility] 10/26/17 02:52 Sodium 141 Potassium 4.4 Chloride 99 Carbon Dioxide 27 BUN 67 H D Creatinine 12.68 H D Glucose 214 H Calcium 8.5 L D - ABG Interpretation ABG results: PT/INR, D-dimer PT 10.5 Seconds (9.4-12.1) 10/24/17 01:23 Consult Discharge Plan - Plan Referrals: Albina Olea MD [Primary Care Provider] - (Patient has been from practice. Will need to find a new PCP) <Boone Baldwin H - Last Filed: 10/26/17 14:51> Date of Encounter: 10/26/17 - Constitutional Vitals: Temp Pulse Resp BP Pulse Ox 97.5 F L 62 15 154/86 97 10/26/17 11:20 10/26/17 07:18 10/26/17 11:20 10/26/17 14:35 10/26/17 07:18 Internal Medicine: Result - Labs CBC & Chem 7: 10/26/17 02:52 10/26/17 02:52 Labs: Short CBC 10/26/17 Range/Units 02:52 WBC 4.2 L (4.3-11.1) K/mcL Hgb 10.8 L (12.9-16.9) g/dL Hct 34.2 L (37.5-50.1) % Plt Count 106 L (140-400) K/mcL [facility] 10/26/17 02:52 Sodium 141 Potassium 4.4 Chloride 99 Carbon Dioxide 27 BUN 67 H D Creatinine 12.68 H D Glucose 214 H Calcium 8.5 L D - ABG Interpretation ABG results: PT/INR, D-dimer PT 10.5 Seconds (9.4-12.1) 10/24/17 01:23 - Attending Attestation Acute blood loss anemia secondary to hematemesis GI consulted Continue Protonix, endoscopy in the morning I examined this patient and my medical decision-making was reviewed with the Resident Physician. I agree with the documented findings, disposition and treatment plan as described except to the extent set forth below.
[2017-10-26 11:05] LABS: Hepatitis B Surface Antigen Nonreactive (Nonreactive)
[2017-10-26 11:06] LABS: Hepatitis B Surface Antibody 78.21 mIU/mL
--- NOTE | 2017-10-26 12:14 | Gastroenterology Consult Note ---
Date of Encounter: 10/26/17 Time of Encounter: 10:30 - Assessment and plan (1) Hematemesis Current Visit: No Status: Acute Assessment and plan: Pt had 4 episodes of hematemesis before admission, denies any since that time. HGb dropped from 13.7 to 10.8. He needs EGD, but ate breakfast today, will plan for tomorrow. Recent workup at [facility] and [facility] for same will send for records. Qualifiers: Nausea presence: without nausea Qualified Code(s): K92.0 - Hematemesis (2) ESRD (end stage renal disease) Current Visit: No Status: Chronic Assessment and plan: HD MWF, followed by nephrology. - Time Spent With Patient Total time spent is greater than 50% in coordination of care (as documented) at patient's floor/unit and/or counseling patient: GI History of Present Illness - Data of Consult Patient: known to practice within the last 3 years Consult date: 10/26/17 Requesting Physician: Boone Baldwin - Consult Narrative Reason for consult: hematemesis History of present illness: Mr. Monge is a 57 year old male with past medical history of ESRD on HD, HTN, HLD, DM who presented with hematemesis x 4 which started with coughing then led to vomiting blood. He also complained of nausea and burning sensation in his throat and epigastric region. He reported that this is the 4th time this has occurred and he has had workup at [facility] He is status post EGD and states he was prescribed an antibiotic that he was told "would cover a bacteria that could cause cancer". He was seen by Dr. Blackman as an out patient 02/23 and was scheduled for EGD/colonoscopy but did not follow through. He denied fever, chills, syncope, chest pain, diaphoresis, shortness of breathe. He has a history of alcohol but has not drank alcohol in 5yrs. He has ESRD and is on hemodialysis MWF. Hgb was 13.7 and has dropped to 10.8. CT abdomen showed greater than normal attenuation of the liver on this noncontrast study. Differential diagnosis includes metal deposition including iron overload with hemochromatosis or hemosiderosis. Copper deposition in [place] disease and medications including amiodorone and gold therapy. Ferritin level was 554. He denies any further hematemesis, he reports occasional constipation, he denies bleeding, dark or tarry stools. NSAIDS: Anticoagulants: plavix @ home EGD: 07/26 [facility]: Past Med Surg Social Fam HX - Past Medical History Medical history: arthritis, coronary artery disease, diabetes, dialysis, GERD, hyperlipidemia, hypertension, renal disease, TIA Psychiatric history: no psych history - Past Surgical History Surgical History: angioplasty/stent, vascular surgery - Social History Smoking Status: Never smoker Smokeless Tobacco Status: No Alcohol use: none Drug use: none - Family History Father Hx Family Cardiac Disorders: Yes Hx Family Endocrine Disorder: Yes (DM) Mother Adopted: No Living Status: Hx Family Cardiac Disorders: Yes Hx Family Respiratory Disorders: Yes Hx Family Cancer: Yes Hx Family GI Disorders: No Hx Family Endocrine Disorder: No Hx Family Neuromuscular Disorders: No Hx Family Neurologic Disorders: No Hx Family HEENT Disorders: No Hx Family Autoimmune Disorders: No Review of Systems: GI: as per [place] GENERAL: denies fever or chills EYES: denies yellow discoloration ENT: denies pain with swallowing or difficulty swallowing CARDIO: denies chest pain, palpitations RESP: Shortness of breath with exertion : denies change in color of urine NEURO: chronic weakness HEME: Denies any bruising MS: denies joint pain, joint swelling or back pain. DERM: denies rash or itching PSYCH: history of anxiety and depression - Constitutional Vitals: Temp Pulse Resp BP Pulse Ox 97.5 F L 62 16 152/80 97 10/26/17 07:18 10/26/17 07:18 10/26/17 07:18 10/26/17 07:18 10/26/17 07:18 Exam: CONSTITUTIONAL:~alert, no acute distress.~HEAD:~normocephalic.~EYES:~no jaundice.~NECK:~no obvious swelling.~HEART:~regular rate and rhythm, murmur noted~LUNGS:~bilateral good air entry.~ABDOMEN:~non distended, soft, non tender , no masses palpable, no organomegaly.~RECTAL EXAM:~Deferred.~EXTREMITIES:~no clubbing, cyanosis or edema, AV fistula with + thrill left forearm.~SKIN:~no stigmata of chronic liver disease.~NEUROLOGIC:~no obvious focal defect.~~~~ Results - Labs CBC & Chem 7: 10/26/17 02:52 10/26/17 02:52 Labs: Last Result Calcium 8.5 mg/dL (8.6-10.8) L D 10/26/17 02:52 Ferritin 554 ng/ml (22-275) H 10/24/17 06:43 Entire Visit Hgb 10.8 g/dL (12.9-16.9) L 10/26/17 02:52 Hct 34.2 % (37.5-50.1) L 10/26/17 02:52 PT 10.5 Seconds (9.4-12.1) 10/24/17 01:23 Ferritin 554 ng/ml (22-275) H 10/24/17 06:43 Total Bilirubin 0.6 mg/dL (0.2-1.2) 10/24/17 01:23 AST 32 Units/L (5-34) 10/24/17 01:23 ALT 21 Units/L (0-55) 10/24/17 01:23 Lipase 65 Units/L (8-78) 10/24/17 01:23 - ABG ABG results: PT/INR, D-dimer PT 10.5 Seconds (9.4-12.1) 10/24/17 01:23 Consult Discharge Plan - Plan Referrals: Albina Olea MD [Primary Care Provider] - (Patient has been from practice. Will need to find a new PCP)
[2017-10-26] MEDS ORDERED: 0.9 % Sodium Chloride 2,000 ML ONE (12:36)
[2017-10-26] MEDS: hydrALAZINE 25 MG TABLET PO SCH ×3 (14:31→22:18)
--- NOTE | 2017-10-26 15:03 | Nephrology Consult Note ---
Date of Encounter: 10/26/17 Time of Encounter: 13:30 Assessment and Plan (1) ESRD (end stage renal disease) Current Visit: Yes Status: Chronic Hx of ESRD on HD M/W/: HD today (Thursday). Next Treatment on Thursday. Appreciate GI for assistance with hematemesis. This is also a Dialysis note: pt was s/e while on HD and tolerating fluid removal well. Will increase UF to attempt to reach his dry weight. (2) Hypertension Current Visit: Yes Status: Acute HD today for clearance and UF, the later of which will help with BP. Please hold antihypertensive Meds on AMs of HD (M/W/). Qualifiers: Hypertension type: essential hypertension Qualified Code(s): I10 - Essential (primary) hypertension (3) Anemia in CKD (chronic kidney disease) Current Visit: Yes Status: Chronic Goal Hgb is 10-11. Will monitor and adjust IV iron and/or GIUSEPPE as needed. Qualifiers: Chronic kidney disease stage: on chronic dialysis Qualified Code(s): N18.6 - End stage renal disease; D63.1 - Anemia in chronic kidney disease; D63.1 - Anemia in chronic kidney disease; Z99.2 - Dependence on renal dialysis; Z99.2 - Dependence on renal dialysis; Z99.2 - Dependence on renal dialysis; Z99.2 - Dependence on renal dialysis (4) Hyperphosphatemia Current Visit: No Status: Chronic Counseled him for >50% of the encounter on the importance of following a renal diet including phos, K+ and sodium to help avoid high interdialytic weight gains. History of Present Illness - Reason for Consult Consult date: 10/26/17 end stage renal disease Requesting physician: Boone Baldwin - Chief Complaint ESRD - History of Present Illness 57 y/o AAM with a pmh of ESRD on HD M/W/, DM, HTN, obesity and frequent hospitalization and et al who presented with hematemesis. Nephro consulted on Thursday AM for HD continuation. Of note, he said that he has been gaining more weight between dialysis treatments for the last 3-4 weeks. His primary bench scientist is Dr. Pickering, and he dialyzes at the [facility] HD unit in [place], [place]. He did not affirm cramping while seen on HD. The dye colorist dyer did not report intradialytic hypotension or problems with his access. He reported no current symptoms and felt comfortable while on HD, he affirmed. He did not report active CP, N/V/D or shortness of breath. Past Med Surg Social Fam HX - Past Medical History Medical history: arthritis, coronary artery disease, diabetes, dialysis, GERD, hyperlipidemia, hypertension, renal disease, TIA Psychiatric history: no psych history - Past Surgical History Surgical History: angioplasty/stent, vascular surgery - Social History Smoking Status: Never smoker Smokeless Tobacco Status: No Alcohol use: none Drug use: none - Family History Father Hx Family Cardiac Disorders: Yes Hx Family Endocrine Disorder: Yes (DM) Mother Adopted: No Living Status: Hx Family Cardiac Disorders: Yes Hx Family Respiratory Disorders: Yes Hx Family Cancer: Yes Hx Family GI Disorders: No Hx Family Endocrine Disorder: No Hx Family Neuromuscular Disorders: No Hx Family Neurologic Disorders: No Hx Family HEENT Disorders: No Hx Family Autoimmune Disorders: No Medications and Allergies Furosemide [Lasix] 40 mg PO BID 06/22/15 [History] Insulin Glargine,Hum.rec.anlog [Lantus Solostar] 10 - 15 unit SQ HS 06/22/15 [ History] Sevelamer [Renvela] 4,000 mg PO TIDWM 06/22/15 [History] Atorvastatin [Lipitor] 40 mg PO HS 09/05/15 [History] amLODIPine [Norvasc] 10 mg PO DAILY 01/04/17 [History] Carvedilol [Coreg] 25 mg PO BID 04/12/17 [History] Pantoprazole Sodium [Protonix] 40 mg PO BID 07/20/17 [History] Ranolazine [Ranexa] 500 mg PO BID 07/20/17 [History] Clopidogrel Bisulfate [Plavix] 75 mg PO DAILY 07/21/17 [History] Amitriptyline [Elavil] 25 mg PO HS 09/13/17 [History] Cyclobenzaprine HCl 5 mg PO TID 09/13/17 [History] Isosorbide MONOnitrate (24 HR) [Imdur] 60 mg PO DAILY 09/13/17 [History] Gabapentin [Neurontin] 600 - 1,200 mg PO Q8H PRN 10/24/17 [History] HYDROcodone/Acet 10/325 mg [Randolph 10-325 mg] 1 tab PO Q8H PRN 10/24/17 [History] Hydralazine HCl 100 mg PO TID 10/24/17 [History] Promethazine [Phenergan] 25 mg PO Q8HR PRN 10/24/17 [History] Thiamine (B-1) [Vitamin B-1] 100 mg PO DAILY 10/24/17 [History] hydrOXYzine HCl [Hydroxyzine HCl] 25 mg PO TID 10/24/17 [History] 3 Allergy/AdvReac Type Severity Reaction Status Date / Time omeprazole [From Prilosec] Allergy Mild Hives Verified 10/24/17 00:26 Review of Systems All Systems: reviewed and no additional remarkable complaints except as stated Exam - Vital Signs Vital signs: Initial Vital Signs Temp Pulse Resp BP Pulse Ox 98.1 F 84 24 180/110 100 10/24/17 00:26 10/24/17 00:26 10/24/17 00:26 10/24/17 00:26 10/24/17 00:26 Vital Signs - Last 8 Hours Temp Pulse Resp BP Pulse Ox 10/26/17 14:35 154/86 10/26/17 14:20 147/84 10/26/17 14:05 145/93 10/26/17 13:50 142/82 10/26/17 13:35 148/87 10/26/17 13:20 142/87 10/26/17 13:05 146/83 10/26/17 12:50 144/75 10/26/17 12:35 145/82 10/26/17 12:20 125/73 10/26/17 12:05 138/79 10/26/17 11:50 135/77 10/26/17 11:35 137/84 10/26/17 11:20 97.5 F L 15 115/75 10/26/17 07:18 97.5 F L 62 16 152/80 97 Intake and Output 10/25/17 10/26/17 10/26/17 23:59 07:59 15:59 Intake Total 1480 / 1480 600 / 600 Balance 1480 / 1480 600 / 600 Intake: IV Fluids 1000 / 1000 0.9 % Sodium Chloride 1,000 ML 1000 / 1000 @ 60 mls/hr IVC .[id number] AD[facility] Rx #:[id number] Oral 480 / 480 0 / 0 Intake, Rinseback and Flushes 600 / 600 Other: Meal Dinner Percent of Meal Consumed 100% Stool Size Moderate Stool Consistency formed Stool Characteristics Normal for Patient Stool Color Brown # Voids 0 0 # Bowel Movements 0 0 Weight 114 kg Blood Glucose* 214 173 168 Hemodialysis Net Fluid Removed 5033 (mL) Patient Weight 10/26/17 23:59 Weight 114 kg - General Appearance General appearance: well-developed, well-nourished, appears started age, cachectic EENT: ATNC, PERRL, mucous membranes moist Neck: supple Respiratory: clear Cardiology: no edema, edema (trace to 1+ pedal edema b/l), regular rate, regular rhythm, normal S1, normal S2 - Dialysis Access Dialysis Vascular Access: Arteriovenous Fistula (LUE AVF) thrill: Yes bruit: Yes Gastrointestinal: normoactive bowel sounds, no tenderness, no guarding Integumentary: no rash, warm and dry Neurologic: no focal deficit, no asterixis, alert and oriented x3 Musculoskeletal: no deformities, no erythema, no cyanosis, no clubbing Psychiatric: mood/affect appropriate, cooperative Results - Lab Results 10/27/17 06:00 10/27/17 06:00 Most recent lab results Calcium 8.5 mg/dL (8.6-10.8) L D 10/26/17 02:52 I reviewed the labs, meds, vitals, progress notes and imaging: admitted a few days ago with hematemesis. GI now consulted. Consult Discharge Plan - Plan Referrals: Albina Olea MD [Primary Care Provider] - (Patient has been from practice. Will need to find a new PCP)
[2017-10-26] MEDS: Lisinopril 20 MG TABLET PO SCH (15:54)
[2017-10-26] MEDS: Isosorbide MONOnitrate (24 HR) 60 MG TAB.ER.24H PO SCH (15:54)
[2017-10-26] MEDS: amLODIPine 5 MG TABLET PO SCH (15:55)
[2017-10-27] MEDS: Pantoprazole 40 MG VIAL IVP SCH (05:22)
[2017-10-27 06:08] LABS: Basophils % 0.4 %; Eosinophils # 0.2 K/mcL (0.0-0.6); Eosinophils % 4.1 %; Hematocrit 36.8 % (37.5-50.1); Hemoglobin 11.6 g/dL (12.9-16.9); Immature Granulocytes % 0.4 % (0-4); Lymphocytes # 0.8 K/mcL (0.6-4.6); Lymphocytes % 16.7 %; Mean Corpuscular HGB Conc 31.5 g/dL (31.6-35.5); Mean Corpuscular Hemoglobin 33.1 pg (28.0-33.3); Mean Corpuscular Volume 105.1 fL (83.0-100.0); Mean Platelet Volume 9.7 fL (9.4-12.4); Monocytes # 0.4 K/mcL (0.0-1.3); Monocytes % 7.6 %; Neutrophils # 3.4 K/mcL (1.6-8.9); Platelet Count 112 K/mcL (140-400); Red Cell Distribution Width 17.4 % (11.5-14.5); Segmented Neutrophils % 70.8 %
[2017-10-27 06:19] LABS: Calcium 9.1 mg/dL (8.6-10.8); Potassium 4.9 mEq/L (3.5-4.5)
[2017-10-27] MEDS: Furosemide 40 MG TABLET PO SCH ×2 (07:58→16:36)
[2017-10-27] MEDS: amLODIPine 5 MG TABLET PO SCH (07:58)
[2017-10-27] MEDS: hydrOXYzine pamoate 25 MG CAPSULE PO SCH ×3 (07:58→20:49)
[2017-10-27] MEDS: Lisinopril 20 MG TABLET PO SCH (07:58)
[2017-10-27] MEDS: Ranolazine 500 MG TAB.ER.12H PO SCH ×2 (07:58→20:49)
[2017-10-27] MEDS: Isosorbide MONOnitrate (24 HR) 60 MG TAB.ER.24H PO SCH (07:58)
[2017-10-27] MEDS: hydrALAZINE 25 MG TABLET PO SCH ×3 (07:59→20:48)
[2017-10-27] MEDS: Insulin LISPRO 300 UNITS/3 ML VIAL SQ SCH ×4 (07:59→20:47)
[2017-10-27] MEDS: Gabapentin 300 MG CAPSULE PO SCH (07:59)
--- NOTE | 2017-10-27 09:11 | Internal Med Progress Note ---
<Rashawn Hernandez - Last Filed: 10/27/17 11:30> Date of Encounter: 10/27/17 Time of Encounter: 09:03 - Assessment and plan (1) Hematemesis Current Visit: Yes Status: Acute Assessment and plan: Hematemesis 5. Currently denies additional hematemesis, abdominal pain, hematochezia, melena. Hemoglobin today is 11.6, stable. Plan is to undergo EGD today. Fecal occult blood negative. Continue Protonix Zofran as needed. Qualifiers: Nausea presence: without nausea Qualified Code(s): K92.0 - Hematemesis (2) Anemia Current Visit: Yes Status: Acute Assessment and plan: Macrocytic anemia Stable. Suspecting upper GI bleed. Also in setting of end-stage renal disease. Previous labs B12 folate within normal limits. Ferritin elevated patient being evaluated for hemochromatosis. Qualifiers: Anemia type: other cause Other causes of anemia: other cause, not classified Qualified Code(s): D64.89 - Other specified anemias (3) Diabetes mellitus Current Visit: Yes Status: Acute Assessment and plan: Controlled. Hemoglobin A1c 5.7. Currently on sliding scale insulin. Currently nothing by mouth due to procedure today. Qualifiers: Diabetes mellitus type: type 2 Diabetes mellitus complication status: with kidney complications Diabetes mellitus complication detail: with chronic kidney disease Diabetes mellitus intermediate insulin use: with terminal computer operator use Chronic kidney disease stage: on chronic dialysis Qualified Code(s): E11.22 - Type 2 diabetes mellitus with diabetic chronic kidney disease; N18.6 - End stage renal disease; Z99.2 - Dependence on renal dialysis; Z99.2 - Dependence on renal dialysis; Z99.2 - Dependence on renal dialysis; N18.6 - End stage renal disease; N18.6 - End stage renal disease; N18.6 - End stage renal disease ; Z79.4 - jail (current) use of insulin; Z79.4 - technician terminal and repeater (current) use of insulin; Z79.4 - jail (current) use of insulin; Z79.4 - jail ( current) use of insulin; Z99.2 - Dependence on renal dialysis (4) DVT prophylaxis Current Visit: Yes Status: Acute Assessment and plan: EPCD (5) ESRD (end stage renal disease) on dialysis Current Visit: Yes Status: Chronic Assessment and plan: On Thursday dialysis. Nephrology following. (6) Hypertension Current Visit: Yes Status: Acute Assessment and plan: Goal BP<130/90 patients morning BP readings above 130/90 otherwise at goal throughout the day Continue amlodipine, carvedilol, Lasix, lisinopril. We will change lisinopril to daily at bedtime. Qualifiers: Hypertension type: essential hypertension Qualified Code(s): I10 - Essential (primary) hypertension (7) CAD (coronary artery disease) Current Visit: Yes Status: Chronic Assessment and plan: x/p PCi to OM and RCA on aspirin statin beta jaziel for Plavix, Ranexa. Patient's Plavix has been discontinued due to suspected upper GI bleed. The patient does not have active bleeding on upper scope we will restart Plavix. Qualifiers: Coronary Disease-Associated Artery/Lesion type: [place] artery [place] vs. transplanted heart: [place] heart Associated angina: angina presence unspecified Qualified Code(s): I25.10 - Atherosclerotic heart disease of [place] coronary artery without angina pectoris (8) Elevated ferritin level Current Visit: Yes Status: Acute Assessment and plan: level 554 hx of DM high attenuation of liver on CT abdomen/pelvis hemochromatosis work uppending - Subjective Interval history: Patient reports last episode of hematemesis was Thursday. Currently denies nausea, vomiting, abdominal pain. Also denies shortness of breath, chest pain, lower extremity pain. Plan for EGD later this afternoon. - Constitutional Vitals: Temp Pulse Resp BP Pulse Ox 97.5 F L 68 18 148/83 95 10/27/17 07:27 10/27/17 07:27 10/27/17 07:27 10/27/17 07:27 10/27/17 07:27 General appearance: Present: mild distress, A&O X 3 - Other Additional findings: General: Pleasant without distress HEENT: Head atraumatic, normocephalic, EOMI, PERRL, neck nontender to palpation , absent lymphadenopathy, Moist Mucous Membranes, Heart: Regular rate and rhythm with no murmur Lungs: Clear to auscultation bilaterally Abdomen: Soft nontender, nondistended positive bowel sounds Skin: warm and dry Extremities: Absent pedal edema, LUE AVF trill and bruit present Neuro: alert and oriented x3 Vascular: Pedal and radial pulses 2 out of 4 Internal Medicine: Result - Labs CBC & Chem 7: 10/27/17 06:00 10/27/17 06:00 Labs: Short CBC 10/27/17 Range/Units 06:00 WBC 4.9 (4.3-11.1) K/mcL Hgb 11.6 L (12.9-16.9) g/dL Hct 36.8 L (37.5-50.1) % Plt Count 112 L (140-400) K/mcL Neutrophils # 3.4 (1.6-8.9) K/mcL BMP 10/27/17 06:00 Sodium 139 Potassium 4.9 H Chloride 98 Carbon Dioxide 27 BUN 51 H Creatinine 9.98 H Glucose 138 H Calcium 9.1 - ABG Interpretation ABG results: PT/INR, D-dimer PT 10.5 Seconds (9.4-12.1) 10/24/17 01:23 Consult Discharge Plan - Plan Referrals: Albina Olea MD [Primary Care Provider] - (Patient has been from practice. Will need to find a new PCP) <Phillip Kraft - Last Filed: 10/27/17 15:08> Date of Encounter: 10/27/17 - Constitutional Vitals: Temp Pulse Resp BP Pulse Ox 98.1 F 53 16 114/69 96 10/27/17 11:00 10/27/17 12:25 10/27/17 12:25 10/27/17 12:25 10/27/17 12:25 Internal Medicine: Result - Labs CBC & Chem 7: 10/27/17 06:00 10/27/17 06:00 Labs: Short CBC 10/27/17 Range/Units 06:00 WBC 4.9 (4.3-11.1) K/mcL Hgb 11.6 L (12.9-16.9) g/dL Hct 36.8 L (37.5-50.1) % Plt Count 112 L (140-400) K/mcL Neutrophils # 3.4 (1.6-8.9) K/mcL BMP 10/27/17 06:00 Sodium 139 Potassium 4.9 H Chloride 98 Carbon Dioxide 27 BUN 51 H Creatinine 9.98 H Glucose 138 H Calcium 9.1 - ABG Interpretation ABG results: PT/INR, D-dimer PT 10.5 Seconds (9.4-12.1) 10/24/17 01:23 - Attending Attestation I examined this patient and my medical decision-making was reviewed with the Resident Physician. I agree with the documented findings, disposition and treatment plan as described except to the extent set forth below. Patient is a 57-year-old male with past medical history of ESRD on hemodialysis , diabetes, anemia and hypertension. Admitted with GI bleed. EGD done today. Patient is currently on Protonix. No other acute events or complaints.
--- NOTE | 2017-10-27 11:51 | Anesthesia Evaluation PreOp ---
Date of Encounter: 10/27/17 Time of Encounter: 12:20 - Past History Planned Operation: EGD Cardiac History: HTN, Hyperlipidemia, Cardiac Stent, Other (CAD) Pulmonary History: Denies Any Significant HX ELECTRIC ARC WELDER History: TIA Other Medical History: Renal (ESRD), Diabetes Type II, GERD Anesthesia History: No Prior Anesthetic Complications, Past Anesthesia (vascular , stents) Alcohol Use: none Drug use: none Medications and Allergies Furosemide [Lasix] 40 mg PO BID 06/22/15 [History] Insulin Glargine,Hum.rec.anlog [Lantus Solostar] 10 - 15 unit SQ HS 06/22/15 [ History] Sevelamer [Renvela] 4,000 mg PO TIDWM 06/22/15 [History] Atorvastatin [Lipitor] 40 mg PO HS 09/05/15 [History] amLODIPine [Norvasc] 10 mg PO DAILY 01/04/17 [History] Carvedilol [Coreg] 25 mg PO BID 04/12/17 [History] Pantoprazole Sodium [Protonix] 40 mg PO BID 07/20/17 [History] Ranolazine [Ranexa] 500 mg PO BID 07/20/17 [History] Clopidogrel Bisulfate [Plavix] 75 mg PO DAILY 07/21/17 [History] Amitriptyline [Elavil] 25 mg PO HS 09/13/17 [History] Cyclobenzaprine HCl 5 mg PO TID 09/13/17 [History] Isosorbide MONOnitrate (24 HR) [Imdur] 60 mg PO DAILY 09/13/17 [History] Gabapentin [Neurontin] 600 - 1,200 mg PO Q8H PRN 10/24/17 [History] HYDROcodone/Acet 10/325 mg [[place] 10-325 mg] 1 tab PO Q8H PRN 10/24/17 [History] Hydralazine HCl 100 mg PO TID 10/24/17 [History] Promethazine [Phenergan] 25 mg PO Q8HR PRN 10/24/17 [History] Thiamine (B-1) [Vitamin B-1] 100 mg PO DAILY 10/24/17 [History] hydrOXYzine HCl [Hydroxyzine HCl] 25 mg PO TID 10/24/17 [History] 3 Allergy/AdvReac Type Severity Reaction Status Date / Time omeprazole [From Prilosec] Allergy Mild Hives Verified 10/24/17 00:26 - Meds/Allergy Pre-op Review Medications Reviewed: Yes Allergies Reviewed: Yes Beta Blockers on Current Med List: No Anesthesia Results - Labs 10/27/17 06:00 10/27/17 06:00 - Imaging EKG: report reviewed (SINUS RHYTHM WITH FIRST DEGREE AV BLOCK LEFT ANTERIOR FASCICULAR BLOCK) Additional studies: echo 09/25: Impressions: LVEF 60%. Definity echo contrast was used. Normal LV systolic function and wall motion. Pericardial effusion was not visualized on this study. Subcostal images were not available. Anesthesia Exam Selected Entries 10/27/17 11:00 Temperature 98.1 F Pulse Rate 59 Respiratory Rate 16 Blood Pressure 118/66 O2 Sat by Pulse Oximetry 94 Weight: 120kg - HEENT Pupil (Motor): EOMI Mallampati: II Teeth: Edentulous Oral Opening: Greater than 3 - ELECTRIC ARC WELDER LOC: Oriented ELECTRIC ARC WELDER Motor: Normal RUE, Normal LUE, Normal RLE, Normal LLE, Normal Face ELECTRIC ARC WELDER Sensory: Normal: RUE, LUE, RLE, LLE, Face - Cardiac Rhythm: Regular Murmur: None - Pulmonary Breath Sounds: bilateral Clear Respiratory Effort: Symmetrical Anesthesia Assess/Plan ASA Score: 3 Modified [place] Scale for Level of Consciousness: Cooperative, oriented, and tranquil Anesthetic Plan: MAC Monitoring Plan: Standard Monitors Recovery Plan: Other (agrees to MAC)
[2017-10-27] MEDS ORDERED: diazePAM 2 MG TABLET PO PRN (12:25)
[2017-10-27] MEDS ORDERED: 0.9 % Sodium Chloride 500 ML IVC SCH (12:30)
[2017-10-27] MEDS ORDERED: Tetracaine/Benzocaine/Butamben 200MG/SPRAY (100SPY/BOT) MM ONE (13:01)
[2017-10-27] MEDS ORDERED: *HR* Propofol 200 MG/20 ML VIAL IVP ONE ×2 (13:03)
--- NOTE | 2017-10-27 13:12 | Anesthesia Evaluation Post Op ---
Date of Encounter: 10/27/17 Time of Encounter: 13:11 - Vital Signs Vital Signs: 114/64, HR 59, SpO2 95%, RR16 - Lungs Lungs: Clear Ascult./Percussion - Airway Airway: Non-obstructed - Cardiovascular Regular Rate - Mental Status Mental Status: Alert & Oriented, Answers Appropriately - Pain Pain Scale: 0 Pain Scale used: Numeric (1 - 10) - Nausea Vomiting Nausea Vomiting: Not Present - Hydration Hydration: NPO, Has not voided - Discharge PostOp Status: Transfer Patient to floor
[2017-10-27] MEDS: Ondansetron ODT 4 MG TAB.RAPDIS SL PRN (16:38)
[2017-10-27] MEDS ORDERED: Lisinopril 20 MG TABLET PO SCH (21:00)
[2017-10-28] MEDS: Ondansetron ODT 4 MG TAB.RAPDIS SL PRN ×2 (00:09→04:06)
[2017-10-28] MEDS ORDERED: Acetaminophen 325 MG TABLET PO PRN (02:31)
[2017-10-28 03:08] LABS: Basophils % 0.4 %; Eosinophils # 0.2 K/mcL (0.0-0.6); Eosinophils % 3.8 %; Hematocrit 36.7 % (37.5-50.1); Hemoglobin 11.7 g/dL (12.9-16.9); Immature Granulocytes % 0.2 % (0-4); Lymphocytes # 0.8 K/mcL (0.6-4.6); Lymphocytes % 18.5 %; Mean Corpuscular HGB Conc 31.9 g/dL (31.6-35.5); Mean Corpuscular Hemoglobin 33.5 pg (28.0-33.3); Mean Corpuscular Volume 105.2 fL (83.0-100.0); Mean Platelet Volume 9.9 fL (9.4-12.4); Monocytes # 0.4 K/mcL (0.0-1.3); Monocytes % 8.4 %; Neutrophils # 3.1 K/mcL (1.6-8.9); Platelet Count 117 K/mcL (140-400); Red Blood Count 3.49 M/mcL (4.19-5.50); Segmented Neutrophils % 68.7 %
[2017-10-28 03:23] LABS: Calcium 9.4 mg/dL (8.6-10.3); Potassium 5.4 mEq/L (3.5-5.1)
[2017-10-28] MEDS ORDERED: Pantoprazole 40 MG VIAL IVP SCH (06:00)
[2017-10-28] MEDS ORDERED: 0.9 % Sodium Chloride 250 ML IVC PRN (06:01)
[2017-10-28] MEDS: Gabapentin 300 MG CAPSULE PO SCH (08:03)
[2017-10-28] MEDS: hydrALAZINE 25 MG TABLET PO SCH ×2 (08:03→15:23)
[2017-10-28] MEDS: Isosorbide MONOnitrate (24 HR) 60 MG TAB.ER.24H PO SCH (08:03)
[2017-10-28] MEDS: Ranolazine 500 MG TAB.ER.12H PO SCH (08:03)
[2017-10-28] MEDS: amLODIPine 5 MG TABLET PO SCH (08:04)
[2017-10-28] MEDS: Insulin LISPRO 300 UNITS/3 ML VIAL SQ SCH ×2 (08:04→15:19)
[2017-10-28] MEDS: Furosemide 40 MG TABLET PO SCH (08:04)
[2017-10-28] MEDS: hydrOXYzine pamoate 25 MG CAPSULE PO SCH ×2 (08:04→15:23)
--- NOTE | 2017-10-28 08:50 | Discharge Summary ---
<Rashawn Hernandez - Last Filed: 10/28/17 10:54> Date of Encounter: 10/28/17 Time of Encounter: 08:46 - Discharge Diagnosis (1) Hematemesis Priority: Primary Status: Acute Qualifiers: Nausea presence: without nausea Qualified Code(s): K92.0 - Hematemesis (2) Gastritis and duodenitis Priority: Secondary Status: Acute (3) Anemia Priority: Secondary Status: Acute Qualifiers: Anemia type: other cause Other causes of anemia: other cause, not classified Qualified Code(s): D64.89 - Other specified anemias (4) Diabetes mellitus Priority: Secondary Status: Acute Qualifiers: Diabetes mellitus type: type 2 Diabetes mellitus complication status: with kidney complications Diabetes mellitus complication detail: with chronic kidney disease Diabetes mellitus care home insulin use: with newscast director use Chronic kidney disease stage: on chronic dialysis Qualified Code(s): E11.22 - Type 2 diabetes mellitus with diabetic chronic kidney disease; N18.6 - End stage renal disease; Z99.2 - Dependence on renal dialysis; Z99.2 - Dependence on renal dialysis; Z99.2 - Dependence on renal dialysis; N18.6 - End stage renal disease; N18.6 - End stage renal disease; N18.6 - End stage renal disease ; 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; 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; Z79.4 - senior living (current) use of insulin; Z79.4 - senior living ( current) use of insulin; Z99.2 - Dependence on renal dialysis (5) DVT prophylaxis Priority: Secondary Status: Acute (6) ESRD (end stage renal disease) on dialysis Priority: Secondary Status: Chronic (7) Hypertension Priority: Secondary Status: Acute Qualifiers: Hypertension type: essential hypertension Qualified Code(s): I10 - Essential (primary) hypertension (8) CAD (coronary artery disease) Priority: Secondary Status: Chronic Qualifiers: Coronary Disease-Associated Artery/Lesion type: [place] artery [place] vs. transplanted heart: [place] heart Associated angina: angina presence unspecified Qualified Code(s): I25.10 - Atherosclerotic heart disease of [place] coronary artery without angina pectoris (9) Elevated ferritin level Priority: Secondary Status: Acute (10) Lung nodule Priority: Secondary Status: Acute - Discharge Medications Prescriptions: Bisacodyl [Dulcolax] 10 mg PO DAILY PRN #20 tablet PRN Reason: Constipation Home Medications: RX: Furosemide [Lasix] 40 mg PO BID 06/22/15 [History] RX: Insulin Glargine,Hum.rec.anlog [Lantus Solostar] 10 - 15 unit SQ HS [History] RX: Sevelamer [Renvela] 4,000 mg PO TIDWM 06/22/15 [History] RX: Atorvastatin [Lipitor] 40 mg PO HS 09/05/15 [History] RX: amLODIPine [Norvasc] 10 mg PO DAILY 01/04/17 [History] RX: Carvedilol [Coreg] 25 mg PO BID 04/12/17 [History] RX: Pantoprazole Sodium [Protonix] 40 mg PO BID 07/20/17 [History] RX: Ranolazine [Ranexa] 500 mg PO BID 07/20/17 [History] RX: Clopidogrel Bisulfate [Plavix] 75 mg PO DAILY 07/21/17 [History] RX: Amitriptyline [Elavil] 25 mg PO HS 09/13/17 [History] RX: Cyclobenzaprine HCl 5 mg PO TID 09/13/17 [History] RX: Isosorbide MONOnitrate (24 HR) [Imdur] 60 mg PO DAILY 09/13/17 [History] RX: Gabapentin [Neurontin] 600 - 1,200 mg PO Q8H PRN 10/24/17 [History] RX: HYDROcodone/Acet 10/325 mg [[place] 10-325 mg] 1 tab PO Q8H PRN 10/24/17 [ History] RX: Hydralazine HCl 100 mg PO TID 10/24/17 [History] RX: Promethazine [Phenergan] 25 mg PO Q8HR PRN 10/24/17 [History] RX: Thiamine (B-1) [Vitamin B-1] 100 mg PO DAILY 10/24/17 [History] RX: hydrOXYzine HCl [Hydroxyzine HCl] 25 mg PO TID 10/24/17 [History] Bisacodyl [Dulcolax] 10 mg PO DAILY PRN #20 tablet 10/28/17 [Rx] Allergies/Adverse Reactions: 3 Allergy/AdvReac Type Severity Reaction Status Date / Time omeprazole [From Prilosec] Allergy Mild Hives Verified 10/24/17 00:26 Date of admission: 10/24/17 07:03 Primary care physician: Albina Olea, Consults: 10/26/17 07:45 Consult to Dialysis [CONS] ONCE 10/26/17 09:19 Consult to Nephrology [CONS] Routine Consulting Provider: Kidney Maritza/LUZMA/RAYSHAWN/HELLEN Reason for Consult: ESRD Time Notified: 09:20 Call Completed: Yes 10/28/17 06:15 Consult to Dialysis [CONS] ONCE Discharging clinician: Rashawn Hernandez Anticipated date of discharge: 10/28/17 - Patient Status Disposition: Home, Self-Care Condition: Good Functional capacity at discharge: independent ambulation Overall status at discharge: patient is progressing back to baseline - Discharge Instructions Instructions: Anemia (GEN) Follow Up With: Jc Deng MD [Partnered Physician] - (hospital follow up for hematemesis. Hemachromatosis workup. Pending gastrin level. Called and left message for a hospital follow up appt.) Albina Olea MD [Primary Care Provider] - (Patient has to call for an appt. since he does not know why they discharge him from their practice...) - Diet and Activity Activity: increase activity as tolerated Diet: diabetic diet, other (renal diet) Hospital course: Mr. Monge is a 57 year old male presented with chief complaint of hematemesis. Patient states he had hematemesis 4 times before presentation and 1 additional time 24 hours after admission. Patient's hemoglobin on admission was 13gm and had decreased 10gm over the next 48 hours. Patient states he has had nausea, epigastric pain and burning sensation in the throat. These symptoms have been there for quite some time and he is also went to [place] and [facility] for this. Those records were requested but have not arrived. Patient reports a history of H. pylori infection treated with antibiotics in the past. Abdominal CT showed increased attenuation of the liver which was concerning for iron overload. Patient started on IV Protonix and underwent EGD which showed Schatzki's ring, 2 cm hiatal hernia, gastritis, nonbleeding erosive gastropathy , duodenal rhinitis. There is no active bleeding found. Fecal Hemoccult blood was negative. He did not require any blood transfusions. Patient was transitioned to by mouth Protonix. Gastrin and hemachromatosis workup was initiated but has not resulted yet. Patient is also a ESRD patient and underwent regular Thursday dialysis. His hemoglobin remained stable at 11. Hepatitis B workup was negative. Plan: Follow-up with gastroenterology outpatient. Continue Protonix. Continue Thursday dialysis. Patient also has a stable oval shaped nodule in the right hilum 3.8 cm x 1.6 cm. Recommended patient follow-up with pulmonology. - Time Spent with Patient Total time spent providing and/or coordinating discharge services: - Constitutional Vitals: Temp Pulse Resp BP Pulse Ox 98.0 F 60 17 160/74 95 10/28/17 07:20 10/28/17 07:20 10/28/17 07:20 10/28/17 07:20 10/28/17 07:20 General appearance: Present: mild distress, A&O X 3 - Other Additional findings: General: Pleasant without distress HEENT: Head atraumatic, normocephalic, EOMI, PERRL, neck nontender to palpation , absent lymphadenopathy, Moist Mucous Membranes, Heart: Regular rate and rhythm with no murmur Lungs: Clear to auscultation bilaterally Abdomen: Soft nontender, nondistended positive bowel sounds Skin: warm and dry Extremities: Absent pedal edema, Neuro: Cranial nerves II through XII intact, UE and LE sensation equal bilaterally, UE and LEstrength 5/5, alert oriented 3, Vascular: Pedal and radial pulses 2 out of 4 <Phillip Kraft - Last Filed: 10/28/17 13:00> Date of Encounter: 10/28/17 Date of admission: 10/24/17 07:03 Primary care physician: Albina Olea, Consults: 10/26/17 07:45 Consult to Dialysis [CONS] ONCE 10/26/17 09:19 Consult to Nephrology [CONS] Routine Consulting Provider: Kidney Maritza/LUZMA/RAYSHAWN/HELLEN Reason for Consult: ESRD Time Notified: 09:20 Call Completed: Yes 10/28/17 06:15 Consult to Dialysis [CONS] ONCE Hospital course: Mr. Monge is a 57 year old male - Time Spent with Patient Total time spent providing and/or coordinating discharge services: - Constitutional Vitals: Temp Pulse Resp BP Pulse Ox 98.0 F 60 17 160/74 95 10/28/17 07:20 10/28/17 07:20 10/28/17 07:20 10/28/17 07:20 10/28/17 07:20 - Attending Attestation I examined this patient and my medical decision-making was reviewed with the Resident Physician. I agree with the documented findings, disposition and treatment plan as described except to the extent set forth below.
[2017-10-28] MEDS ORDERED: 0.9 % Sodium Chloride 2,000 ML ONE (10:03)
--- NOTE | 2017-10-28 10:32 | Nephrology Progress Note ---
Date of Encounter: 10/28/17 Time of Encounter: 09:30 - Assessment and Plan (1) ESRD (end stage renal disease) Status: Chronic HD today for clearance and UF. I counseled him for >50% of the encounter on the importance of follow a renal protective strategy; nutritional mgt in ESRD; medication mgt in ESRD (2) Hypertension Status: Acute Qualifiers: Hypertension type: essential hypertension Qualified Code(s): I10 - Essential (primary) hypertension (3) Anemia in CKD (chronic kidney disease) Status: Chronic Goal Hgb is 10-11, will monitor H/H Qualifiers: Chronic kidney disease stage: on chronic dialysis Qualified Code(s): N18.6 - End stage renal disease; D63.1 - Anemia in chronic kidney disease; D63.1 - Anemia in chronic kidney disease; Z99.2 - Dependence on renal dialysis; Z99.2 - Dependence on renal dialysis; Z99.2 - Dependence on renal dialysis; Z99.2 - Dependence on renal dialysis (4) Hyperphosphatemia Status: Chronic See above regarding dietary counseling and use of binders. Subjective Principal diagnosis: ESRD Interval history: Pt was s/e. He did not affirm N/V/D or new symptoms. He voiced feeling well today: no CP or ShOB. Objective - Vital Signs Vital signs: Vital Signs Temp Pulse Resp BP Pulse Ox 10/28/17 07:20 98.0 F 60 17 160/74 95 10/28/17 05:13 97.6 F 70 18 139/77 92 10/28/17 00:17 97.0 F L 60 18 143/86 97 10/27/17 18:58 97.7 F 60 16 107/63 92 10/27/17 16:30 64 18 144/74 97 10/27/17 12:25 53 16 114/69 96 10/27/17 11:00 98.1 F 59 16 118/66 94 Intake and Output 10/27/17 10/28/17 10/28/17 23:59 07:59 15:59 Intake Total 240 / 240 360 / 360 Output Total 200 / 200 Balance 240 / 240 -200 / -200 360 / 360 Intake: Oral 240 / 240 360 / 360 Output: Emesis 200 / 200 Other: Meal Dinner Breakfast Percent of Meal Consumed 100% 100% Blood Glucose* 82 159 - General Appearance Exam: General appearance: well-developed, well-nourished, appears started age, cachectic EENT: ATNC, PERRL, mucous membranes moist Neck: supple Respiratory: clear Cardiology: no edema, edema (trace to 1+ pedal edema b/l), regular rate, regular rhythm, normal S1, normal S2 - Dialysis Access Dialysis Vascular Access: Arteriovenous Fistula (LUE AVF) thrill: Yes bruit: Yes Gastrointestinal: normoactive bowel sounds, no tenderness, no guarding Integumentary: no rash, warm and dry Neurologic: no focal deficit, no asterixis, alert and oriented x3 Musculoskeletal: no deformities, no erythema, no cyanosis, no clubbing Psychiatric: mood/affect appropriate, cooperative - Lab 10/28/17 02:50 10/28/17 02:50 Most recent lab results Calcium 9.4 mg/dL (8.6-10.3) 10/28/17 02:50 Consult Discharge Plan - Plan Instructions: Anemia (GEN) Referrals: Jc Deng MD [Partnered Physician] - (hospital follow up for hematemesis. Hemachromatosis workup. Pending gastrin level. Called and left message for a hospital follow up appt.) Albina Olea MD [Primary Care Provider] - (Patient has to call for an appt. since he does not know why they discharge him from their practice...) Prescriptions: Bisacodyl [Dulcolax] 10 mg PO DAILY PRN #20 tablet PRN Reason: Constipation
[2017-10-28 15:46] VITALS: BP 127/67
== END 2017-10-28 15:56 | disposition home or self-care (01) | DRG 377 ==
LOC: 2ANU 00:25 → EMEROO 00:25 → 2ANU 04:21
PROVIDERS: ADMIT Internal Medicine Hematology & Oncology; ATTEND Internal Medicine

== ENCOUNTER 2020-02-15 11:46 | Inpatient (IN) ==
[2020-02-15] MEDS ORDERED: Aspirin 325 MG TABLET PO ONE (12:04)
[2020-02-15] MEDS ORDERED: *HR* Promethazine 25 MG/ML VIAL IVP ONE (12:30)
[2020-02-15 12:38] LABS: Eosinophils % 0.3 %; Immature Granulocytes % 0.3 % (0-4); Mean Platelet Volume 10.1 fL (9.4-12.4)
[2020-02-15 12:40] LABS: Basophils % 0.2 %; Hemoglobin 18.7 g/dL (12.9-16.9); Immature Platelets 3.8 % (1.1-6.1); Lymphocytes # 1.1 K/mcL (0.6-4.6); Lymphocytes % 16.9 %; Mean Corpuscular HGB Conc 33.6 g/dL (31.6-35.5); Mean Corpuscular Hemoglobin 29.7 pg (28.0-33.3); Mean Corpuscular Volume 88.6 fL (83.0-100.0); Monocytes # 0.4 K/mcL (0.0-1.3); Monocytes % 5.8 %; Platelet Count 100 K/mcL (140-400); Red Blood Count 6.29 M/mcL (4.19-5.50); Red Cell Distribution Width 13.5 % (11.5-14.5); Segmented Neutrophils % 76.5 %; White Blood Count 6.6 K/mcL (4.3-11.1)
[2020-02-15 12:51] LABS: Alanine Aminotransferase 24 Units/L (7-52); Albumin 4.4 g/dL (3.5-5.7); Albumin/Globulin Ratio 1.6 (1.1-2.2); Alkaline Phosphatase 101 Units/L (34-104); Aspartate Amino Transferase 20 Units/L (13-39); BUN/Creatinine Ratio 17 (6-26); Bilirubin,Total 1.3 mg/dL (0.3-1.0); Blood Urea Nitrogen 26 mg/dL (8-23); Calcium 10.8 mg/dL (8.6-10.3); Carbon Dioxide 21 mEq/L (23-29); Chloride 104 mEq/L (98-107); Globulin 2.8 g/dL (2.4-3.5); Glucose 89 mg/dL (70-105); Osmolality,Calculated 286 (280-300); Potassium 4.2 mEq/L (3.5-5.1); Sodium 136 mEq/L (136-145); Total Protein 7.2 g/dL (6.4-8.9); eGFR For African Americans 55 (> 60); eGFR For Non-African Americans 45 (> 60)
[2020-02-15 12:52] LABS: C-Reactive Protein < 5 mg/L (Less than 10); Hematocrit 55.7 % (37.5-50.1); Neutrophils # 5.1 K/mcL (1.6-8.9)
[2020-02-15 12:53] LABS: Troponin I < 0.03 ng/mL (< 0.04)
[2020-02-15] MEDS ORDERED: Ondansetron 4 MG/2 ML VIAL IVP ONE ×2 (13:08→16:48)
[2020-02-15] MEDS ORDERED: Ondansetron 4 MG/2 ML VIAL ONE (13:10)
[2020-02-15 13:12] LABS: Ferritin 328 ng/mL (20-250)
[2020-02-15] MEDS ORDERED: *HR* FentaNYL (PF) 100 MCG/2 ML VIAL IVP ONE ×2 (13:25→17:10)
[2020-02-15] MEDS ORDERED: Famotidine 20 MG/2 ML VIAL IVP ONE (13:47)
[2020-02-15] MEDS ORDERED: Piperacillin/Tazobactam 3.375 GM in 0.9 % Sodium Chloride Mini Bag 100 ML IVPB ONE (14:05)
[2020-02-15 14:12] LABS: Bilirubin,Direct 0.3 mg/dL (0.0-0.2); Lipase 4 Units/L (11-82)
[2020-02-15] MEDS ORDERED: Metoclopramide 10 MG/2 ML VIAL IVP STA (14:36)
[2020-02-15 15:00] LABS: ABG Base Excess 3 mEq/L (-2 to 3); ABG HCO3 20 mEq/L (21-27); ABG Oxygen Saturation 99 % (95-98); ABG PCO2 17 mmHg (35-45); ABG PH 7.66 pH Units (7.32-7.45); ABG PO2 89 mmHg (85-104); ABG TCO2 20 mEq/L (20-26)
[2020-02-15 15:44] LABS: Acetaminophen < 10 mcg/mL (10-20); Salicylate < 2.5 mg/dL (15.0-30.0)
[2020-02-15 17:41] LABS: Amphetamine Screen,Urine Negative ng/mL (Cutoff=1000); Barbiturate Screen,Urine Negative ng/mL (Cutoff=200); Benzodiazepines Screen,Urine Negative ng/mL (Cutoff=200); Cannabinoid Screen,Urine Negative ng/mL (Cutoff = 50); Cocaine Screen,Urine Negative ng/mL (Cutoff= 300); Opiate Screen,Urine Negative ng/mL (Cutoff=300); Phencyclidine Screen,Urine Negative ng/mL (Cutoff=25)
[2020-02-15 18:25] LABS: Bilirubin,Urine Negative (Negative); Clarity,Urine Clear (Clear); Color,Urine Yellow (Yellow); Glucose,Urine (UA) Normal (Normal); Ketones,Urine Trace mg/dL (Negative)
[2020-02-15 18:26] LABS: Blood,Urine Negative (Negative); Leukocyte Esterase,Urine Negative (Negative); Nitrite,Urine Negative (Negative); Protein,Urine Trace mg/dL (Neg-Trace); Specific Gravity,Urine 1.021 (1.010-1.025); Urobilinogen,Urine Normal (Normal)
[2020-02-15] MEDS ORDERED: *HR* LORazepam 2 MG/ML VIAL IVP ONE (18:30)
[2020-02-15] MEDS ORDERED: Naloxone 0.4 MG/ML INJ IVP PRN (18:31)
[2020-02-15] MEDS ORDERED: Acetaminophen 325 MG TABLET PO PRN (18:31)
[2020-02-15] MEDS ORDERED: Ondansetron ODT 4 MG TAB.RAPDIS SL PRN (18:31)
[2020-02-15] MEDS ORDERED: *HR* Dextrose 50 % in Water (Syg) 50 ML SYRINGE IVP PRN (18:44)
[2020-02-15] MEDS ORDERED: D5% in Water 1,000 ML IVC PRN (18:44)
[2020-02-15] MEDS ORDERED: Dextrose Gel 15 GM/37.5 ML TUBE PO PRN ×2 (18:44)
[2020-02-15] MEDS: Ringers Solution, Lactated 1,000 ML IVC SCH (20:24)
[2020-02-15] MEDS: Ondansetron 4 MG/2 ML VIAL IVP PRN (20:26)
[2020-02-15] MEDS: Dorzolamide OPTH 10 ML BOTTLE RIGHT EYE SCH (21:45)
[2020-02-15] MEDS: Insulin LISPRO 300 UNITS/3 ML VIAL SQ SCH (23:14)
[2020-02-15] MEDS ORDERED: *HR* LORazepam 2 MG/ML VIAL IVP PRN (23:59)
[2020-02-16 01:07] LABS: Basophils % 0.1 %; Eosinophils % 0.1 %; Immature Granulocytes % 0.4 % (0-4); Mean Corpuscular Volume 90.6 fL (83.0-100.0)
[2020-02-16 01:09] LABS: Hematocrit 53.9 % (37.5-50.1); Hemoglobin 17.6 g/dL (12.9-16.9); Immature Platelets 4.1 % (1.1-6.1); Lymphocytes % 13.9 %; Mean Corpuscular HGB Conc 32.7 g/dL (31.6-35.5); Mean Corpuscular Hemoglobin 29.6 pg (28.0-33.3); Mean Platelet Volume 10.4 fL (9.4-12.4); Monocytes # 0.6 K/mcL (0.0-1.3); Monocytes % 7.9 %; Neutrophils # 5.7 K/mcL (1.6-8.9); Platelet Count 88 K/mcL (140-400); Red Blood Count 5.95 M/mcL (4.19-5.50); Segmented Neutrophils % 77.6 %; White Blood Count 7.3 K/mcL (4.3-11.1)
[2020-02-16 01:10] LABS: Estimated Average Glucose 166 mg/dl
[2020-02-16 01:27] LABS: Albumin/Globulin Ratio 1.5 (1.1-2.2); Bilirubin,Total 1.3 mg/dL (0.3-1.0); Calcium 10.1 mg/dL (8.6-10.3); Chol/HDL Ratio 2.4 (0-4.9); Globulin 2.6 g/dL (2.4-3.5); Magnesium 1.7 mg/dL (1.6-2.6); Phosphorous 2.9 mg/dL (2.7-4.5); Potassium 4.2 mEq/L (3.5-5.1); Total Protein 6.6 g/dL (6.4-8.9)
[2020-02-16] MEDS: Metoclopramide 10 MG/2 ML VIAL IVP PRN (04:02)
[2020-02-16] MEDS: Ringers Solution, Lactated 1,000 ML IVC SCH ×2 (05:54→17:36)
[2020-02-16] MEDS: Famotidine 20 MG/2 ML VIAL IVP SCH ×2 (05:56→17:45)
[2020-02-16] MEDS: Insulin LISPRO 300 UNITS/3 ML VIAL SQ SCH ×3 (06:02→17:39)
[2020-02-16] MEDS ORDERED: Perflutren Lipid Microsphere 1.3 ML in 0.9 % Sodium Chloride 8.7 ML IVP ONE (08:17)
[2020-02-16] MEDS ORDERED: hydrOXYzine pamoate 25 MG CAPSULE PO PRN (10:01)
[2020-02-16] MEDS: carvediloL 25 MG TABLET PO SCH ×2 (11:18→20:43)
[2020-02-16] MEDS: Aspirin Enteric Coated 81 MG Tablet PO SCH (11:18)
[2020-02-16] MEDS: amLODIPine 5 MG TABLET PO SCH (11:19)
[2020-02-16] MEDS: lisinopriL 20 MG TABLET PO SCH (11:19)
[2020-02-16] MEDS: Mycophenolate Sodium (DR) 180 MG TABLET.DR PO SCH ×2 (11:19→20:42)
[2020-02-16] MEDS: hydrALAZINE 25 MG TABLET PO SCH ×3 (11:19→20:41)
[2020-02-16] MEDS: Dorzolamide OPTH 10 ML BOTTLE RIGHT EYE SCH ×3 (11:20→20:43)
[2020-02-16] MEDS: Pantoprazole 40 MG VIAL IVP SCH (12:32)
[2020-02-16] MEDS: Ondansetron 4 MG/2 ML VIAL IVP PRN (13:55)
[2020-02-16] MEDS ORDERED: *HR* Promethazine 25 MG/ML VIAL IVP PRN (17:04)
[2020-02-16] MEDS: Gabapentin 100 MG CAPSULE PO SCH ×2 (17:37→20:42)
[2020-02-16] MEDS ORDERED: Insulin DETEMIR 100 UNIT/ML X5UNITS SQ SCH (21:00)
[2020-02-17 01:50] LABS: VBG HCO3 25 mEq/L (21-27); VBG PCO2 41 mmHg (41-51); VBG PO2 108 mmHg (25-50)
[2020-02-17 01:51] LABS: Hematocrit 49.7 % (37.5-50.1); Hemoglobin 15.9 g/dL (12.9-16.9); Immature Granulocytes % 0.2 % (0-4); Immature Platelets 3.6 % (1.1-6.1); Lymphocytes % 18.1 %; Mean Corpuscular Hemoglobin 29.4 pg (28.0-33.3); Mean Platelet Volume 10.3 fL (9.4-12.4); Red Cell Distribution Width 14.2 % (11.5-14.5); Segmented Neutrophils % 71.3 %; White Blood Count 4.7 K/mcL (4.3-11.1)
[2020-02-17 01:52] LABS: Basophils % 0.2 %; Eosinophils # 0.1 K/mcL (0.0-0.6); Eosinophils % 1.3 %; Lymphocytes # 0.9 K/mcL (0.6-4.6); Monocytes # 0.4 K/mcL (0.0-1.3); Monocytes % 8.9 %; Neutrophils # 3.4 K/mcL (1.6-8.9)
[2020-02-17 01:55] LABS: Platelet Count 78 K/mcL (140-400)
[2020-02-17 01:56] LABS: Platelet Estimate Decreased (Normal)
[2020-02-17 02:10] LABS: Albumin 3.6 g/dL (3.5-5.7); Albumin/Globulin Ratio 1.5 (1.1-2.2); Bilirubin,Total 1.3 mg/dL (0.3-1.0); Calcium 9.6 mg/dL (8.6-10.3); Globulin 2.4 g/dL (2.4-3.5)
[2020-02-17] MEDS: Ringers Solution, Lactated 1,000 ML IVC SCH ×2 (02:52→13:45)
[2020-02-17] MEDS: Famotidine 20 MG/2 ML VIAL IVP SCH ×2 (05:41→17:23)
[2020-02-17] MEDS: hydrALAZINE 25 MG TABLET PO SCH ×3 (08:40→21:15)
[2020-02-17] MEDS: Isosorbide MONOnitrate (24 HR) 60 MG TAB.ER.24H PO SCH (08:41)
[2020-02-17] MEDS: Dorzolamide OPTH 10 ML BOTTLE RIGHT EYE SCH ×3 (08:41→21:16)
[2020-02-17] MEDS: amLODIPine 5 MG TABLET PO SCH (08:41)
[2020-02-17] MEDS: Pantoprazole 40 MG VIAL IVP SCH (08:41)
[2020-02-17] MEDS: Gabapentin 100 MG CAPSULE PO SCH ×3 (08:41→21:14)
[2020-02-17] MEDS: lisinopriL 20 MG TABLET PO SCH (08:41)
[2020-02-17] MEDS: Mycophenolate Sodium (DR) 180 MG TABLET.DR PO SCH ×2 (08:41→21:16)
[2020-02-17] MEDS: carvediloL 25 MG TABLET PO SCH ×2 (08:41→21:14)
[2020-02-17] MEDS: Aspirin Enteric Coated 81 MG Tablet PO SCH (08:41)
[2020-02-17] MEDS: Insulin LISPRO 300 UNITS/3 ML VIAL SQ SCH ×3 (08:42→16:34)
[2020-02-17] MEDS ORDERED: NON-FORMULARY MEDICATION 1 EACH EACH (Pantoprazole Sodium [Protonix] 40 MG) PO SCH (09:00)
[2020-02-17] MEDS ORDERED: *HR* Propofol 200 MG/20 ML VIAL IVP ONE (11:06)
[2020-02-17] MEDS ORDERED: *HR* FentaNYL (PF) 100 MCG/2 ML VIAL ONE (11:06)
[2020-02-17] MEDS ORDERED: 0.9 % Sodium Chloride 500 ML IVC SCH (12:00)
[2020-02-17] MEDS: Sucralfate 1 GM TABLET PO SCH ×2 (16:33→21:14)
[2020-02-17] MEDS: Metoclopramide 10 MG/2 ML VIAL IVP PRN (16:41)
[2020-02-17] MEDS ORDERED: Insulin DETEMIR 100 UNIT/ML X5UNITS SQ SCH (21:00)
[2020-02-18] MEDS: Ringers Solution, Lactated 1,000 ML IVC SCH (00:07)
[2020-02-18 01:57] LABS: Hemoglobin 14.8 g/dL (12.9-16.9)
[2020-02-18 01:59] LABS: Basophils % 0.3 %; Eosinophils # 0.1 K/mcL (0.0-0.6); Eosinophils % 1.9 %; Hematocrit 47.3 % (37.5-50.1); Immature Granulocytes % 0.3 % (0-4); Immature Platelets 3.5 % (1.1-6.1); Lymphocytes # 0.8 K/mcL (0.6-4.6); Lymphocytes % 22.9 %; Mean Corpuscular HGB Conc 31.3 g/dL (31.6-35.5); Mean Corpuscular Hemoglobin 29.4 pg (28.0-33.3); Mean Platelet Volume 9.9 fL (9.4-12.4); Monocytes # 0.4 K/mcL (0.0-1.3); Monocytes % 10.5 %; Neutrophils # 2.3 K/mcL (1.6-8.9); Red Blood Count 5.03 M/mcL (4.19-5.50); Segmented Neutrophils % 64.1 %; White Blood Count 3.6 K/mcL (4.3-11.1)
[2020-02-18 02:02] LABS: Platelet Count 74 K/mcL (140-400)
[2020-02-18 02:04] LABS: Calcium 9.4 mg/dL (8.6-10.3); Potassium 3.9 mEq/L (3.5-5.1)
[2020-02-18] MEDS: Famotidine 20 MG/2 ML VIAL IVP SCH (05:40)
[2020-02-18 07:22] VITALS: BP 133/74
[2020-02-18] MEDS: amLODIPine 5 MG TABLET PO SCH (07:48)
[2020-02-18] MEDS: Gabapentin 100 MG CAPSULE PO SCH (07:48)
[2020-02-18] MEDS: hydrALAZINE 25 MG TABLET PO SCH (07:48)
[2020-02-18] MEDS: carvediloL 25 MG TABLET PO SCH (07:48)
[2020-02-18] MEDS: Sucralfate 1 GM TABLET PO SCH (07:48)
[2020-02-18] MEDS: Mycophenolate Sodium (DR) 180 MG TABLET.DR PO SCH (07:48)
[2020-02-18] MEDS: lisinopriL 20 MG TABLET PO SCH (07:48)
[2020-02-18] MEDS: Aspirin Enteric Coated 81 MG Tablet PO SCH (07:48)
[2020-02-18] MEDS: Isosorbide MONOnitrate (24 HR) 60 MG TAB.ER.24H PO SCH (07:49)
[2020-02-18] MEDS: Dorzolamide OPTH 10 ML BOTTLE RIGHT EYE SCH (07:50)
[2020-02-18] MEDS: Insulin LISPRO 300 UNITS/3 ML VIAL SQ SCH (07:51)
== END 2020-02-18 10:57 | disposition home or self-care (01) | DRG 392 ==
LOC: EMEROOARM 11:46 → 2ANU 11:46 → SUATTDRO 17:57 → 2ANU 18:34
PROVIDERS: ADMIT Student in an Organized Health Care Education/Training Program; ATTEND Internal Medicine

== ENCOUNTER 2022-02-24 14:41 | Observation (INO) ==
[2022-02-24 16:08] LABS: Basophils % 0.4 %; Eosinophils % 0.4 %; Hematocrit 45.8 % (37.5-50.1); Hemoglobin 14.6 g/dL (12.9-16.9); Immature Platelets 4.5 % (1.1-6.1); Lymphocytes # 0.5 K/mcL (0.6-4.6); Lymphocytes % 18.9 %; Mean Corpuscular HGB Conc 31.9 g/dL (31.6-35.5); Mean Corpuscular Hemoglobin 29.7 pg (28.0-33.3); Mean Corpuscular Volume 93.1 fL (83.0-100.0); Monocytes # 0.3 K/mcL (0.0-1.3); Monocytes % 12.1 %; Neutrophils # 1.9 K/mcL (1.6-8.9); Red Blood Count 4.92 M/mcL (4.19-5.50); Red Cell Distribution Width 13.6 % (11.5-14.5); Segmented Neutrophils % 68.2 %; White Blood Count 2.8 K/mcL (4.3-11.1)
[2022-02-24 16:12] LABS: Platelet Count 68 K/mcL (140-400)
[2022-02-24 16:30] LABS: BUN/Creatinine Ratio 14 (6-26); Blood Urea Nitrogen 19 mg/dL (8-23); Calcium 9.7 mg/dL (8.6-10.3); Carbon Dioxide 23 mEq/L (23-29); Chloride 100 mEq/L (98-107); Glucose 193 mg/dL (70-105); Osmolality,Calculated 282 (280-300); Sodium 132 mEq/L (136-145); Troponin I 0.05 ng/mL (< 0.04); eGFR For African Americans > 60 (> 60); eGFR For Non-African Americans 55 (> 60)
[2022-02-24 17:09] LABS: Alanine Aminotransferase 22 Units/L (7-52); Albumin 4.1 g/dL (3.5-5.7); Albumin/Globulin Ratio 1.5 (1.1-2.2); Alkaline Phosphatase 83 Units/L (34-104); Aspartate Amino Transferase 28 Units/L (13-39); Bilirubin,Direct 0.2 mg/dL (0.0-0.2); Bilirubin,Total 1.2 mg/dL (0.3-1.0); Globulin 2.8 g/dL (2.4-3.5); Total Protein 6.9 g/dL (6.4-8.9)
[2022-02-24 17:51] LABS: Influenza A PCR Negative (Negative); Influenza B PCR Negative (Negative); Resp. Syncytial Virus PCR Negative (Negative)
[2022-02-24 17:52] LABS: SARS-CoV-2 by PCR (In House) Negative (Negative)
[2022-02-24] MEDS ORDERED: Azithromycin 250 MG TABLET PO ONE (18:42)
[2022-02-24] MEDS ORDERED: cefTRIAXone 1,000 MG in 0.9 % Sodium Chloride 10 ML IVP ONE (18:51)
[2022-02-24] MEDS ORDERED: Naloxone 0.4 MG/ML INJ IVP PRN (19:21)
[2022-02-24] MEDS ORDERED: Melatonin 3 MG TABLET PO PRN (19:21)
[2022-02-24] MEDS ORDERED: Ondansetron 4 MG/2 ML VIAL IVP PRN (19:21)
[2022-02-24] MEDS ORDERED: Acetaminophen 325 MG TABLET PO PRN (19:21)
[2022-02-24] MEDS: Lactobacillus 1 EACH CAP.SPRINK PO SCH (20:41)
[2022-02-24] MEDS: Chlorhexidine Rinse 15 ML MOUTHWASH MM SCH (20:41)
[2022-02-24] MEDS: Ringers Solution, Lactated 1,000 ML IVC SCH (20:42)
[2022-02-24] MEDS ORDERED: Ipratropium/Albuterol Neb 3 ML IH PRN (21:33)
[2022-02-24] MEDS ORDERED: *HR* OxyCODONE Immed Rel 5 MG TABLET PO PRN (21:33)
[2022-02-24] MEDS ORDERED: *HR* Dextrose 50 % in Water (Syg) 50 ML SYRINGE IVP PRN (21:35)
[2022-02-24] MEDS ORDERED: D5% in Water 1,000 ML IVC PRN (21:35)
[2022-02-24] MEDS ORDERED: Dextrose 4 GM Chewable Tablets PO PRN ×2 (21:35)
[2022-02-24] MEDS ORDERED: Perflutren Lipid Microsphere 1.3 ML in 0.9 % Sodium Chloride 8.7 ML IVP PRN (21:40)
[2022-02-24] MEDS ORDERED: Pantoprazole 40 MG VIAL IVP ONE (23:24)
[2022-02-24 23:41] LABS: Adenovirus Not Detected (Not Detect); Bordetella Pertussis Not Detected (Not Detect); Chlamydophila pneumoniae Not Detected (Not Detect); Coronavirus 229E Not Detected (Not Detect); Coronavirus HKU1 Not Detected (Not Detect); Coronavirus NL63 Not Detected (Not Detect); Coronavirus OC43 Not Detected (Not Detect); Human Metapneumovirus DETECTED (Not Detect); Human Rhinovirus/Enterovirus Not Detected (Not Detect); Influenza A Subtype 2009 H1 Not Detected (Not Detect); Influenza B Not Detected (Not Detect); Mycoplasma pneumoniae Not Detected (Not Detect); Parainfluenza Virus 1 Not Detected (Not Detect); Parainfluenza Virus 2 Not Detected (Not Detect); Parainfluenza Virus 3 Not Detected (Not Detect); Parainfluenza Virus 4 Not Detected (Not Detect); Respiratory Syncytial Virus Not Detected (Not Detect); SARS-CoV-2 Not Detected (Not Detect)
[2022-02-25 02:37] LABS: Mean Corpuscular Volume 91.6 fL (83.0-100.0); Mean Platelet Volume 10.8 fL (9.4-12.4); Red Cell Distribution Width 13.5 % (11.5-14.5)
[2022-02-25 02:39] LABS: Basophils % 0.3 %; Eosinophils % 0.3 %; Hematocrit 41.6 % (37.5-50.1); Hemoglobin 13.6 g/dL (12.9-16.9); Immature Granulocytes % 0.3 % (0-4); Immature Platelets 4.5 % (1.1-6.1); Lymphocytes # 0.6 K/mcL (0.6-4.6); Mean Corpuscular HGB Conc 32.7 g/dL (31.6-35.5); Monocytes # 0.4 K/mcL (0.0-1.3); Monocytes % 12.8 %; Neutrophils # 1.9 K/mcL (1.6-8.9); Red Blood Count 4.54 M/mcL (4.19-5.50); Segmented Neutrophils % 65.3 %; White Blood Count 2.9 K/mcL (4.3-11.1)
[2022-02-25 02:46] LABS: INR 1.2
[2022-02-25 02:48] LABS: Activated Partial Thrombo Time 32.8 Seconds (26.0-36.0)
[2022-02-25 03:15] LABS: Alanine Aminotransferase 19 Units/L (7-52); Albumin 3.6 g/dL (3.5-5.7); Albumin/Globulin Ratio 1.6 (1.1-2.2); Alkaline Phosphatase 72 Units/L (34-104); Aspartate Amino Transferase 26 Units/L (13-39); BUN/Creatinine Ratio 15 (6-26); Bilirubin,Total 0.9 mg/dL (0.3-1.0); Blood Urea Nitrogen 19 mg/dL (8-23); Calcium 9.1 mg/dL (8.6-10.3); Carbon Dioxide 23 mEq/L (23-29); Chloride 102 mEq/L (98-107); Globulin 2.3 g/dL (2.4-3.5); Glucose 181 mg/dL (70-105); Magnesium 1.5 mg/dL (1.6-2.6); Osmolality,Calculated 281 (280-300); Phosphorous 2.6 mg/dL (2.7-4.5); Potassium 3.7 mEq/L (3.5-5.1); Sodium 132 mEq/L (136-145); Total Protein 5.9 g/dL (6.4-8.9); Troponin I 0.06 ng/mL (< 0.04); eGFR For African Americans > 60 (> 60); eGFR For Non-African Americans 59 (> 60)
[2022-02-25 03:23] LABS: Platelet Count 64 K/mcL (140-400)
[2022-02-25] MEDS: Ringers Solution, Lactated 1,000 ML IVC SCH (04:28)
[2022-02-25] MEDS ORDERED: Azithromycin 250 MG TABLET PO SCH (08:00)
[2022-02-25] MEDS: Cefepime HCl 2,000 MG in 0.9 % Sodium Chloride Mini Bag 100 ML IVPB SCH ×4 (08:16→23:09)
[2022-02-25] MEDS: Pantoprazole 40 MG VIAL IVP SCH (08:20)
[2022-02-25] MEDS: Aspirin Enteric Coated 81 MG Tablet PO SCH (08:22)
[2022-02-25] MEDS: Mycophenolate Sodium (DR) 180 MG TABLET.DR PO SCH ×2 (08:22→20:59)
[2022-02-25] MEDS: Chlorhexidine Rinse 15 ML MOUTHWASH MM SCH ×2 (08:22→21:00)
[2022-02-25] MEDS: lisinopriL 20 MG TABLET PO SCH (08:23)
[2022-02-25] MEDS: Lactobacillus 1 EACH CAP.SPRINK PO SCH ×2 (08:23→20:59)
[2022-02-25] MEDS: Isosorbide MONOnitrate (24 HR) 60 MG TAB.ER.24H PO SCH (08:23)
[2022-02-25] MEDS: hydrALAZINE 25 MG TABLET PO SCH ×3 (08:24→20:59)
[2022-02-25] MEDS: Gabapentin 300 MG CAPSULE PO SCH ×2 (08:25→21:00)
[2022-02-25] MEDS: Insulin LISPRO 300 UNITS/3 ML VIAL SUBQ SCH ×3 (08:29→16:57)
[2022-02-25] MEDS: Tacrolimus [Prograf] 1 MG Capsule PO SCH (08:35)
[2022-02-25] MEDS ORDERED: carvediloL 25 MG TABLET PO SCH (09:00)
[2022-02-25] MEDS ORDERED: cefTRIAXone 1,000 MG in 0.9 % Sodium Chloride Mini Bag 100 ML IVPB SCH (09:00)
[2022-02-25] MEDS: carvediloL 25 MG TABLET PO SCH (16:52)
[2022-02-25] MEDS ORDERED: Tacrolimus [Prograf] 1 MG Capsule PO SCH (18:00)
[2022-02-26 07:31] LABS: Alanine Aminotransferase 18 Units/L (7-52); Alkaline Phosphatase 63 Units/L (34-104); Aspartate Amino Transferase 25 Units/L (13-39); BUN/Creatinine Ratio 17 (6-26); Bilirubin,Total 0.6 mg/dL (0.3-1.0); Blood Urea Nitrogen 21 mg/dL (8-23); Carbon Dioxide 24 mEq/L (23-29); Chloride 103 mEq/L (98-107); Glucose 205 mg/dL (70-105); Magnesium 1.8 mg/dL (1.6-2.6); Osmolality,Calculated 285 (280-300); Phosphorous 3.2 mg/dL (2.7-4.5); Potassium 3.9 mEq/L (3.5-5.1); Sodium 133 mEq/L (136-145); Total Protein 5.7 g/dL (6.4-8.9); eGFR For African Americans > 60 (> 60); eGFR For Non-African Americans 58 (> 60)
[2022-02-26 07:38] LABS: Albumin 3.4 g/dL (3.5-5.7); Albumin/Globulin Ratio 1.5 (1.1-2.2); Globulin 2.3 g/dL (2.4-3.5)
[2022-02-26 07:43] LABS: Basophils % 0.4 %; Eosinophils % 1.5 %; Immature Granulocytes % 0.4 % (0-4); Red Blood Count 4.45 M/mcL (4.19-5.50)
[2022-02-26 07:45] LABS: Hematocrit 41.2 % (37.5-50.1); Hemoglobin 13.3 g/dL (12.9-16.9); Immature Platelets 6.3 % (1.1-6.1); Lymphocytes # 0.7 K/mcL (0.6-4.6); Lymphocytes % 26.8 %; Mean Corpuscular HGB Conc 32.3 g/dL (31.6-35.5); Mean Corpuscular Hemoglobin 29.9 pg (28.0-33.3); Mean Corpuscular Volume 92.6 fL (83.0-100.0); Monocytes # 0.3 K/mcL (0.0-1.3); Monocytes % 11.8 %; Neutrophils # 1.6 K/mcL (1.6-8.9); Red Cell Distribution Width 13.7 % (11.5-14.5); Segmented Neutrophils % 59.1 %; White Blood Count 2.7 K/mcL (4.3-11.1)
[2022-02-26 07:56] LABS: Platelet Count 61 K/mcL (140-400)
[2022-02-26] MEDS: Cefepime HCl 2,000 MG in 0.9 % Sodium Chloride Mini Bag 100 ML IVPB SCH ×2 (08:38→15:26)
[2022-02-26] MEDS: Insulin LISPRO 300 UNITS/3 ML VIAL SUBQ SCH ×2 (08:39→11:37)
[2022-02-26] MEDS: Pantoprazole 40 MG VIAL IVP SCH (08:41)
[2022-02-26] MEDS: Chlorhexidine Rinse 15 ML MOUTHWASH MM SCH (08:41)
[2022-02-26] MEDS: hydrALAZINE 25 MG TABLET PO SCH ×2 (08:42→15:26)
[2022-02-26] MEDS: Mycophenolate Sodium (DR) 180 MG TABLET.DR PO SCH (08:42)
[2022-02-26] MEDS: carvediloL 25 MG TABLET PO SCH (08:42)
[2022-02-26] MEDS: Isosorbide MONOnitrate (24 HR) 60 MG TAB.ER.24H PO SCH (08:42)
[2022-02-26] MEDS: Gabapentin 300 MG CAPSULE PO SCH (08:43)
[2022-02-26] MEDS: Aspirin Enteric Coated 81 MG Tablet PO SCH (08:43)
[2022-02-26] MEDS: Lactobacillus 1 EACH CAP.SPRINK PO SCH (08:43)
[2022-02-26] MEDS: lisinopriL 20 MG TABLET PO SCH (08:43)
[2022-02-26] MEDS: Tacrolimus [Prograf] 1 MG Capsule PO SCH (08:44)
[2022-02-26] MEDS ORDERED: predniSONE 20 MG TABLET PO SCH (11:45)
[2022-02-26 15:37] VITALS: BP 174/76; PULSE 51; TEMP 97.7; O2SAT 93
== END 2022-02-26 17:14 | disposition home or self-care (01) ==
LOC: EMEROOARM 14:41 → 3ANU 14:41 → SUATTDRO 19:23 → 3ANU 20:00
PROVIDERS: ADMIT Internal Medicine; ATTEND Family Medicine